=== PATIENT | male | born 1975 | race Caucasian/White ===

== ENCOUNTER 2024-02-13 23:41 | Observation (INO) | payer MEDICARE, MEDICAID, SELFPAY ==
--- NOTE | ~2024-02-13 | XR_ITS ---
EXAMINATION: XR chest 1V portable DATE: 02/14/2024 00:36 INDICATION: Cough TECHNIQUE: frontal view of the chest was obtained. COMPARISON: CT abdomen pelvis dated 02/14/2024 FINDINGS: Lungs are hyperexpanded consistent with mild emphysema which is better appreciated on the prior CT. N o focal airspace opacities, pulmonary edema, pleural effusion or pneumothorax. The cardiomediastinal silhouette is normal. IMPRESSION: 1. Emphysema. No other acute cardiopulmonary disease. Reviewed, dictated and finalized at location A. UNITY MUSIC THERAPIST
--- NOTE | ~2024-02-13 | CT_ITS ---
EXAMINATION: CT abdomen pelvis wo con DATE: 02/14/2024 00:36 INDICATION: Right flank pain TECHNIQUE: Computed tomography (CT) of the abdomen and pelvis was performed without intravenous contr ast. Automated exposure control and iterative reconstruction technique were employed. The dose-length product was 205.31 mGy-cm. COMPARISON: None FINDINGS: Moderate emphysema at the lung bases. Visualized inferior heart is normal. No pericardial or pleural effusion. Status post cholecystectomy. Liver, spleen, pancreas, bilateral adrenal glands and left kid desmond are normal. 9 mm cyst at the upper pole the right kidney. There is diffuse wall thickening of the plantar. Bowels including the appendix are normal. No free intraperitoneal gas or fluid. No patholog ically enlarged abdominal or pelvic lymphadenopathy. Severe disc height loss with degenerative endpla te changes at L3-L4. Densely sclerotic likely bone island was inflated margins at the L5 vertebral lida dy. IMPRESSION: 1. Diffuse bladder wall thickening suspicious for cystitis which could be either acute or chronic. Co rrelate with urinalysis. 2. Mild emphysema. Reviewed, dictated and finalized at location A. TECH IMPRESSION: 1. Diffuse bladder wall thickening suspicious for cystitis which could be eithe r acute or chronic. Correlate with urinalysis. 2. Mild emphysema.
[2024-02-13 23:41] VITALS: BP 113/83; PULSE 74; RESP 20; TEMP 36.9; O2SAT 98
[2024-02-13 23:46] VITALS: O2SAT 100
[2024-02-14] VITALS (24 sets, daily range): BP systolic 100–137; BP diastolic 51–99; PULSE 70–96; RESP 11–22; TEMP 36.6–36.7; O2SAT 96–100; BMI 19.5
--- NOTE | 2024-02-14 00:05 | ECG_ITS ---
Test Date: 2024-02-14 00:13:21 Measurements Intervals [place] Rate: 106 P: 61 [place]: 152 QRS: 70 QRSD: 92 T: 75 QT: 333 QTc: 444 Interpretive Statements SINUS TACHYCARDIA POSSIBLE LEFT ATRIAL ENLARGEMENT [-0.1mV P-WAVE IN V1/V2] POSSIBLE RIGHT VENTRICULAR CONDUCTION DELAY [RSR (QR) IN V1/V2] SEPTAL MYOCARDIAL INFARCTION , PROBABLY OLD [40+ ms Q WAVE IN V1/V2] ABNORMAL ECG No previous ECG available for comparison Electronically Signed On 02-14-2024 09:02:15 PRODUCTION TRAINER by Lc Wright M.D.
[2024-02-14 00:07] LABS: Basophils Absolute Auto 0.1 K/mm3 (0.0-0.1); Basophils Percent Auto 0.5 % (0.2-1.2); Eosinophils Percent Auto 0.1 % (0-4.4); Hematocrit 51.8 % (42.0-52.0); Hemoglobin 18.6 g/dL (14.0-18.0); Immature Granulocyte Absolute 0.04 K/mm3 (0.00-0.031); Immature Granulocyte Percent A 0.3 % (0-0.5); Lymphocytes Absolute Auto 2.21 K/mm3 (0.9-3.2); Mean Corpuscular HGB Conc 35.9 g/dl (32-36); Mean Corpuscular Hemoglobin 32.3 pg (26-34); Mean Corpuscular Volume 89.9 fl (80-100); Mean Platelet Volume 10.7 fl (7.4-10.4); Monocytes Percent Auto 7.8 % (2.6-8.5); Neutrophils Absolute Auto 9.7 K/mm3 (1.3-6.7); Neutrophils Percent Auto 74.3 % (45.5-73.1); Platelet Count Result 259 k/mm3 (150-375); Red Blood Count 5.76 M/mm3 (4.6-6.20)
[2024-02-14] MEDS: SODIUM CHLORIDE 0.9% IV 1,000 ML 999 ML IV CONT ×3 (00:09→04:45)
[2024-02-14] MEDS: PROCHLORPERAZINE EDISYLATE 10 MG/2 ML VIAL IV PUSH (00:10)
[2024-02-14] MEDS: MORPHINE SULFATE (*CRX) 4 MG/ML INJ IV PUSH (00:10)
[2024-02-14] MEDS: diphenhydrAMINE HCl INJ 50 MG/ML VIAL 25 MG IV PUSH (00:10)
[2024-02-14 00:36] LABS: Alanine Aminotransferase 16 U/L (6-50); Albumin Level 5.4 g/dL (3.5-5.1); Alkaline Phosphatase 126 U/L (38-126); Anion Gap 18 mmol/L (4-12); Aspartate Amino Transferase 24 U/L (17-59); Bilirubin,Total 0.8 mg/dL (0.2-1.3); Blood Urea Nitrogen 27 mg/dL (9-20); Carbon Dioxide 19 mmol/L (22-30); Chloride 96 mmol/L (98-107); Estimated CRCL calculation 18 ml/min; Estimated Glomerular Filt Rate 16; Glucose 187 mg/dL (65-110); Lipase 72 U/L (23-300); Magnesium 2.6 mg/dL (1.6-2.3); Potassium 4.7 mmol/L (3.4-5.0); Sodium 133 mmol/L (137-145)
[2024-02-14 00:49] LABS: Troponin I < 0.012 ng/mL (0.000-0.034)
--- NOTE | 2024-02-14 01:26 | ED_ITS ---
HPI - General Adult General Chief complaint: Unspecified Stated complaint: muscle spasms, vomiting Time Seen by Provider: 02/13/24 23:55 History of Present Illness HPI narrative: Patient is a 49-year-old gentleman who presents emergency department with chief complaint of nausea vomiting diaphoresis and not feeling well. 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 Nursing and ancillary documentation was reviewed. Exam 2 Narrative: GENERAL: Ill-appearing, well-nourished, and in mild acute distress. Diaphoretic HEAD: Normocephalic, atraumatic. EYES: PERRLA and EOMI. ENT: Nares clear, no rhinorrhea or epistaxis. Mucous membranes moist. NECK: Supple. CHEST: Clear to auscultation. No respiratory distress. HEART: Regular rate and rhythm. No murmur heard. Normal peripheral pulses. ABDOMEN: Soft, nontender, nondistended, normal active bowel sounds. EXTREMITIES: Normal range of motion. No edema. SKIN: Warm, dry, no rash. NEURO: No focal deficits. Alert and oriented x3. PSYCH: Normal mood and affect. Course Vital Signs Vital signs: Vital Signs Temperature 36.9 C 02/13/24 23:41 Pulse Rate 74 02/13/24 23:41 Respiratory Rate 20 02/13/24 23:41 Blood Pressure 113/83 02/13/24 23:41 Pulse Oximetry 98 02/13/24 23:41 Oxygen Delivery Room Air 02/13/24 23:41 Temperature 36.9 C 02/13/24 23:41 Pulse Rate 81 02/14/24 03:45 Respiratory Rate 21 H 02/14/24 03:45 Blood Pressure 128/74 02/14/24 03:31 Pulse Oximetry 100 02/14/24 03:45 Oxygen Delivery Room Air 02/13/24 23:41 Medical Decision Making Vital Signs Vital Signs: Vital Signs Temperature 36.9 C 02/13/24 23:41 Pulse Rate 74 02/13/24 23:41 Respiratory Rate 20 02/13/24 23:41 Blood Pressure 113/83 02/13/24 23:41 Pulse Oximetry 98 02/13/24 23:41 Oxygen Delivery Room Air 02/13/24 23:41 Temperature 36.9 C 02/13/24 23:41 Pulse Rate 81 02/14/24 03:45 Respiratory Rate 21 H 02/14/24 03:45 Blood Pressure 128/74 02/14/24 03:31 Pulse Oximetry 100 02/14/24 03:45 Oxygen Delivery Room Air 02/13/24 23:41 Lab Data 02/14/24 00:01 02/14/24 00:01 Labs: Lab Results 02/14/24 Range/Units 00:01 WBC 13.0 H (4.5-10.0) K/mm3 RBC 5.76 (4.6-6.20) M/mm3 Hgb 18.6 H (14.0-18.0) g/dL Hct 51.8 (42.0-52.0) % MCV 89.9 (80-100) fl MCH 32.3 (26-34) pg MCHC 35.9 (32-36) g/dl RDW 13.0 (11.5-14.5) % Plt Count 259 (150-375) k/mm3 MPV 10.7 H (7.4-10.4) fl Immature Gran % (Auto) 0.3 (0-0.5) % Neut % (Auto) 74.3 H (45.5-73.1) % Lymph % (Auto) 17.0 L (18.3-44.2) % [place] % (Auto) 7.8 (2.6-8.5) % Eos % (Auto) 0.1 (0-4.4) % Baso % (Auto) 0.5 (0.2-1.2) % Lymph # (Auto) 2.21 (0.9-3.2) K/mm3 [place] # (Auto) 1.0 H (0.1-0.6) K/mm3 Eos # (Auto) 0.0 (0-0.3) K/mm3 Baso # (Auto) 0.1 (0.0-0.1) K/mm3 Abs Immat Gran (auto) 0.04 H (0.00-0.031) K/mm3 Absolute Neuts (auto) 9.7 H (1.3-6.7) K/mm3 Absolute Nucleated RBC 0.000 (0.0-0.012) K/mm3 Nucleated RBC % 0.0 (0.0-0.2) % Sodium 133 L (137-145) mmol/L Potassium 4.7 (3.4-5.0) mmol/L Chloride 96 L (98-107) mmol/L Carbon Dioxide 19 L (22-30) mmol/L Anion Gap 18 H (4-12) mmol/L BUN 27 H (9-20) mg/dL Creatinine 4.10 H (0.7-1.3) mg/dL Estim Creat Clear Calc 18 ml/min Estimated GFR 16 L (59 - ) Glucose 187 H (65-110) mg/dL Calcium 11.0 H (8.4-10.2) mg/dL Magnesium 2.6 H (1.6-2.3) mg/dL Total Bilirubin 0.8 (0.2-1.3) mg/dL AST 24 (17-59) U/L ALT 16 (6-50) U/L Alkaline Phosphatase 126 (38-126) U/L Troponin I < 0.012 (0.000-0.034) ng/mL Total Protein 9.0 H (6.3-8.2) g/dL Albumin 5.4 H (3.5-5.1) g/dL Lipase 72 (23-300) U/L Discharge Plan Discharge Clinical Impression: Nausea and vomiting, Acute kidney injury Patient Disposition: Still a Patient Condition: Stable Patient Language: Polish Follow-up/Referrals: Zbigniew,MD Carmine [Primary Care Provider] - Time of Disposition: 05:17
[2024-02-14] MEDS: ONDANSETRON INJ 4 MG/2 ML VIAL IV PUSH (04:45)
[2024-02-14] MEDS: SODIUM CHLORIDE 0.9% IV 1,000 ML 150 ML IV CONT ×3 (05:51→18:39)
--- NOTE | 2024-02-14 08:25 | PM.IMHP ---
H&P: HPI History of Present Illness Date/Time: 02/14/24 08:25 Chief Complaint: Nausea vomiting Narrative: Patient is a 49-year-old gentleman who presents emergency department with chief complaint of nausea vomiting diaphoresis and not feeling well. 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 On emergency room evaluation vitals were stable. Laboratory evaluation revealed a WBC of 13. Hemoglobin of 18 point. Chem panel revealed creatinine of 4.1. Blood sugar of 187. Mild acidosis with bicarb of 19. Lipase was 72. Troponin was negative. Calcium was elevated at 11. Patient diagnosed with EDILBERTO unknown baseline creatinine level. Patient received IV fluids I will continue IV fluids and trend creatinine. Strict intake and outputs. Urine studies ordered. CT abdomen pelvis with diffuse bladder wall thickening suspicious for cystitis which could be either acute or chronic. Mild emphysema. Chest x-ray with emphysema with no acute cardiopulmonary disease. Patient is admitted in this setting for further treatment. Review of Systems Review of Systems: - CONSTITUTIONAL: Denies weight loss, fever and chills. - HEENT: Denies changes in vision and hearing - RESPIRATORY: Denies SOB and cough. - CV: Denies palpitations and CP. - GI: Reports abdominal pain, nausea, vomiting and denies diarrhea. - : Denies dysuria and urinary frequency. - MSK: Denies myalgia and joint pain. - SKIN: Denies rash and pruritus. - NEUROLOGICAL: Denies headache and syncope. - PSYCHIATRIC: Denies recent changes in mood. Denies anxiety and depression. Meds Home Medications and Allergies Home Medications ?Medication ?Instructions ?Recorded ?Confirmed ?Type aspirin 81 mg tablet,delayed mg 02/14/24 History release atorvastatin 20 mg tablet mg 02/14/24 History carvedilol 3.125 mg tablet mg 02/14/24 History cholecalciferol (vitamin D3) 50 50 mcg PO DAILY 02/14/24 02/14/24 History mcg (2,000 unit) tablet (D3 DOTS) divalproex 500 mg tablet,delayed mg PO 02/14/24 History release hydroxyzine pamoate 25 mg capsule mg 02/14/24 History losartan 25 mg tablet 25 mg PO .1 QD 02/14/24 02/14/24 History olanzapine 10 mg tablet mg 02/14/24 History Allergies Allergy/AdvReac Type Severity Reaction Status Date / Time No Known Allergies Allergy Verified 02/13/24 23:47 Vital Signs Vital Signs - 24 hr 02/13/24 23:41 02/13/24 23:46 02/14/24 00:00 Temperature 98.5 F Pulse Rate 74 Respiratory Rate 20 Blood Pressure 113/83 Pulse Oximetry 98 100 97 Oxygen Delivery Room Air 02/14/24 00:01 02/14/24 01:59 02/14/24 02:16 Temperature Pulse Rate 79 80 Respiratory Rate 20 20 Blood Pressure 136/99 H Pulse Oximetry 99 99 98 Oxygen Delivery 02/14/24 02:30 02/14/24 02:59 02/14/24 03:17 Temperature Pulse Rate 83 Respiratory Rate 11 L Blood Pressure Pulse Oximetry 100 99 96 Oxygen Delivery 02/14/24 03:30 02/14/24 03:31 02/14/24 03:45 Temperature Pulse Rate 75 79 81 Respiratory Rate 19 21 H 21 H Blood Pressure 128/74 Pulse Oximetry 100 100 100 Oxygen Delivery 02/14/24 04:00 02/14/24 04:01 02/14/24 04:15 Temperature Pulse Rate 85 80 81 Respiratory Rate 22 H 20 21 H Blood Pressure 129/76 Pulse Oximetry 100 100 98 Oxygen Delivery 02/14/24 04:31 02/14/24 04:45 02/14/24 05:00 Temperature Pulse Rate 95 73 81 Respiratory Rate 18 20 16 Blood Pressure Pulse Oximetry 98 100 99 Oxygen Delivery 02/14/24 05:01 Temperature Pulse Rate 81 Respiratory Rate 22 H Blood Pressure 137/79 Pulse Oximetry 100 Oxygen Delivery Exam Narrative: GENERAL: Ill-appearing, well-nourished, in no acute distress HEAD: Normocephalic, atraumatic. EYES: PERRLA and EOMI. ENT: Nares clear, no rhinorrhea or epistaxis. Mucous membranes moist. NECK: Supple. CHEST: Clear to auscultation. No respiratory distress. HEART: Regular rate and rhythm. No murmur heard. Normal peripheral pulses. ABDOMEN: Soft, nontender, nondistended, normal active bowel sounds. EXTREMITIES: Normal range of motion. No edema. SKIN: Warm, dry, no rash. NEURO: No focal deficits. Alert and oriented x3. PSYCH: Normal mood and affect. H&P: Results Labs Labs: Short CBC 02/14/24 Range/Units 00:01 WBC 13.0 H (4.5-10.0) K/mm3 Hgb 18.6 H (14.0-18.0) g/dL Hct 51.8 (42.0-52.0) % Plt Count 259 (150-375) k/mm3 BMP 02/14/24 00:01 Sodium 133 L Potassium 4.7 Chloride 96 L Carbon Dioxide 19 L BUN 27 H Creatinine 4.10 H Glucose 187 H Calcium 11.0 H Cardiac Enzymes 02/14/24 Range/Units 00:01 Troponin I < 0.012 (0.000-0.034) ng/mL Liver Function 02/14/24 Range/Units 00:01 Total Bilirubin 0.8 (0.2-1.3) mg/dL AST 24 (17-59) U/L ALT 16 (6-50) U/L Alkaline Phosphatase 126 (38-126) U/L Albumin 5.4 H (3.5-5.1) g/dL Assessment and Plan Assessment and plan (1) Acute kidney injury: Code(s): N17.9 - Acute kidney failure, unspecified Status: Acute (2) Nausea and vomiting: Code(s): R11.2 - Nausea with vomiting, unspecified Status: Acute Plan Patient is a 49-year-old gentleman who presents emergency department with chief complaint of nausea vomiting diaphoresis and not feeling well. 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 On emergency room evaluation vitals were stable. Laboratory evaluation revealed a WBC of 13. Hemoglobin of 18 point. Chem panel revealed creatinine of 4.1. Blood sugar of 187. Mild acidosis with bicarb of 19. Lipase was 72. Troponin was negative. Calcium was elevated at 11. Patient diagnosed with EDILBERTO unknown baseline creatinine level. Patient received IV fluids I will continue IV fluids and trend creatinine. Strict intake and outputs. Urine studies ordered. CT abdomen pelvis with diffuse bladder wall thickening suspicious for cystitis which could be either acute or chronic. Mild emphysema. Chest x-ray with emphysema with no acute cardiopulmonary disease. Patient is admitted in this setting for further treatment. EDILBERTO unknown baseline creatinine of 4.1 strict intake and output. Urinalysis. No hydronephrosis on CT abdomen pelvis. Urinalysis negative for infection. Findings of diffuse bladder wall thickening with negative UA suspicious for chronic bladder wall in obstruction. Hypercalcemia along with EDILBERTO suggestive of severe dehydration will continue IV fluid and trend renal panel. Check CK level Nephrology consult if not improving Hypertension hold losartan Hyperlipidemia History of psychiatric illness on Depakote and olanzapine which will be continued. DVT prophylaxis heparin subQ Code status full code Hospitalist [facility] Advance Care Plan I have confirmed that the patient's Advanced Care Plan is present, code status is documented, or surrogate decision maker is listed in patient medical record.: Yes Medication Reconciliation I have utilized all available resources to obtain, update and review the patients current medications (includes all prescriptions, OTC, herbals, cannabis, and nutritional supplements).: Yes
[2024-02-14 08:53] LABS: Bacteria Urine None Seen /hpf; Non Pathogenic Casts 0-2; RBC Urine 0-2 /hpf (0-2); Squamous Epithelial Cell Urine None Seen /hpf (Few); WBC Urine 0-5 /hpf (0-3)
[2024-02-14 09:37] LABS: Add Urine Microscopic? YES; Appearance Urine Clear (Clear); Bilirubin Urine Negative (Negative); Blood Urine Negative (Negative); Color Urine Yellow (Yellow); Glucose Urine UA Negative (Negative); Ketones Urine 2+ mg/dL (Negative); Leukocyte Esterase Ur Negative LEU/UL (Negative); Nitrate Urine Negative (Negative); Protein Urine Trace mg/dL (Negative); pH Urine 5.5 (5.0-9.0)
[2024-02-14 11:44] LABS: Creatinine Urine 306.2 mg/dL; Sodium Urine Random 10 meq/L; Urea Random Urine 418 MG/DL
[2024-02-14 11:51] LABS: Creatine Kinase 119 U/L (55-170)
[2024-02-14 13:02] LABS: Eosinophil Urine None Seen % (None Seen)
[2024-02-14 13:03] LABS: Urine Eos QC 2nd Tech Confirmed
[2024-02-14 13:05] LABS: Basophils Percent Auto 0.1 % (0.2-1.2); Hematocrit 40.8 % (42.0-52.0); Immature Granulocyte Absolute 0.02 K/mm3 (0.00-0.031); Immature Granulocyte Percent A 0.2 % (0-0.5); Lymphocytes Percent Auto 20.4 % (18.3-44.2); Mean Corpuscular HGB Conc 34.3 g/dl (32-36); Mean Corpuscular Hemoglobin 31.8 pg (26-34); Mean Corpuscular Volume 92.7 fl (80-100); Mean Platelet Volume 10.4 fl (7.4-10.4); Monocytes Absolute Auto 1.1 K/mm3 (0.1-0.6); Monocytes Percent Auto 12.1 % (2.6-8.5); Neutrophils Absolute Auto 5.9 K/mm3 (1.3-6.7); Neutrophils Percent Auto 67.2 % (45.5-73.1); Platelet Count Result 187 k/mm3 (150-375); Red Cell Distribution Width 13.1 % (11.5-14.5); White Blood Count 8.8 K/mm3 (4.5-10.0)
[2024-02-14 13:14] LABS: Anion Gap 4 mmol/L (4-12); Blood Urea Nitrogen 26 mg/dL (9-20); Calcium 8.2 mg/dL (8.4-10.2); Carbon Dioxide 26 mmol/L (22-30); Chloride 106 mmol/L (98-107); Estimated CRCL calculation 56 ml/min; Estimated Glomerular Filt Rate 59; Glucose 125 mg/dL (65-110); Potassium 4.7 mmol/L (3.4-5.0); Sodium 136 mmol/L (137-145)
--- NOTE | 2024-02-14 13:29 | PCCCNOTE ---
1329-Called the pt's mom to report the pt's change of status. Pt's nurse reported the pt's HR and blood pressure dropping, decreased level of alertness. Mom stated this has happened before and was transferred to [facility] last year. ED provider was made aware, updated the mother on his status as well. Also stated she will send family to the hospital to be at his side.-yee.
--- NOTE | 2024-02-14 14:31 | ADMGEN ---
This patient, Gianni Hsu, was admitted to Medical Room 261-01. Patient/family oriented to hospital policies and general routines including ID bracelet, bed and alarms, visiting hours, pain management, procedures, bathroom and other care routines, personal items, smoking policy, room service/diet, and visiting hours. Information on how to activate the Rapid Response Team has been discussed. Patient/Family are encouraged to report perceived risks to care and to ask questions if they do not understand what they are told or what they should do.
[2024-02-14] MEDS: ATORVASTATIN 20 MG TABLET PO (18:36)
[2024-02-14] MEDS: DIVALPROEX SODIUM DR 250 MG TABEC 500 MG PO (18:36)
[2024-02-14] MEDS: carvediloL 3.125 MG TABLET PO (21:00)
[2024-02-15] MEDS: SODIUM CHLORIDE 0.9% IV 1,000 ML 150 ML IV CONT ×2 (01:02→08:55)
[2024-02-15 06:00] VITALS: BP 100/53; PULSE 97; RESP 16; TEMP 36.8; O2SAT 97
[2024-02-15 08:37] LABS: Basophils Percent Auto 0.6 % (0.2-1.2); Hematocrit 38.4 % (42.0-52.0); Immature Granulocyte Absolute 0.01 K/mm3 (0.00-0.031); Immature Granulocyte Percent A 0.2 % (0-0.5); Immature Platelet Fraction Pct 3.2 % (0.9-11.2); Lymphocytes Absolute Auto 0.84 K/mm3 (0.9-3.2); Mean Corpuscular HGB Conc 33.9 g/dl (32-36); Mean Corpuscular Volume 94.6 fl (80-100); Mean Platelet Volume 10.6 fl (7.4-10.4); Monocytes Absolute Auto 0.4 K/mm3 (0.1-0.6); Monocytes Percent Auto 8.2 % (2.6-8.5); Neutrophils Absolute Auto 3.9 K/mm3 (1.3-6.7); Platelet Count Result 136 k/mm3 (150-375); Red Blood Count 4.06 M/mm3 (4.6-6.20); Red Cell Distribution Width 13.2 % (11.5-14.5); White Blood Count 5.2 K/mm3 (4.5-10.0)
[2024-02-15] MEDS: DIVALPROEX SODIUM DR 250 MG TABEC 500 MG PO ×2 (08:55→18:29)
[2024-02-15 08:56] VITALS: PULSE 68
[2024-02-15] MEDS: ASPIRIN 81 MG ENTERIC TABLET PO (08:56)
[2024-02-15] MEDS: CHOLECALCIFEROL 1,000 UNITS TABLET 2000 UNITS PO (08:56)
[2024-02-15] MEDS: carvediloL 3.125 MG TABLET PO ×2 (08:56→20:31)
[2024-02-15 08:57] LABS: Alanine Aminotransferase 9 U/L (6-50); Albumin Level 2.9 g/dL (3.5-5.1); Alkaline Phosphatase 60 U/L (38-126); Anion Gap 0 mmol/L (4-12); Aspartate Amino Transferase 16 U/L (17-59); Bilirubin,Total 0.5 mg/dL (0.2-1.3); Blood Urea Nitrogen 23 mg/dL (9-20); Calcium 7.9 mg/dL (8.4-10.2); Carbon Dioxide 23 mmol/L (22-30); Chloride 113 mmol/L (98-107); Estimated CRCL calculation 88 ml/min; Estimated Glomerular Filt Rate > 60; Glucose 89 mg/dL (65-110); Magnesium 1.8 mg/dL (1.6-2.3); Potassium 3.8 mmol/L (3.4-5.0); Sodium 136 mmol/L (137-145)
[2024-02-15 09:00] VITALS: PULSE 63; RESP 16; O2SAT 99
--- NOTE | 2024-02-15 12:14 | P.PNIM_ITS ---
Progress Note: A&P Assessment and Plan (1) Acute kidney injury: Code(s): N17.9 - Acute kidney failure, unspecified Status: Acute (2) Nausea and vomiting: Code(s): R11.2 - Nausea with vomiting, unspecified Status: Acute Plan Patient is a 49-year-old gentleman who presents emergency department with chief complaint of nausea vomiting diaphoresis and not feeling well. The patient reports that he has history renal insufficiency and reports that he is followed by telecommunications administrator a [place] patient reports that he started having nausea vomiting has not felt well and reports that EMS transported him to our facility. On emergency room evaluation vitals were stable. Laboratory evaluation revealed a WBC of 13. Hemoglobin of 18 point. Chem panel revealed creatinine of 4.1. Blood sugar of 187. Mild acidosis with bicarb of 19. Lipase was 72. Troponin was negative. Calcium was elevated at 11. Patient diagnosed with EDILBERTO unknown baseline creatinine level. Patient received IV fluids I will continue IV fluids and trend creatinine. Strict intake and outputs. Urine studies ordered. CT abdomen pelvis with diffuse bladder wall thickening suspicious for cystitis which could be either acute or chronic. Mild emphysema. Chest x-ray with emphysema with no acute cardiopulmonary disease. Patient is admitted in this setting for further treatment. EDILBERTO unknown baseline creatinine of 4.1 strict intake and output. Urinalysis. No hydronephrosis on CT abdomen pelvis. Urinalysis negative for infection. Findings of diffuse bladder wall thickening with negative UA suspicious for chronic bladder wall in obstruction. IV fluid with normalization of kidney function today. Hypercalcemia along with EDILBERTO suggestive of severe dehydration will continue IV fluid and trend renal panel. CK came back normal Nausea vomiting: CT negative. Start diet and monitor Diarrhea get stool studies Hypertension hold losartan Hyperlipidemia History of psychiatric illness on Depakote and olanzapine which will be continued. DVT prophylaxis heparin subQ Code status full code Subjective Date/time seen: 02/15/24 12:14 Interval history: No overnight events. No nausea vomiting. Having some loose stool x2 this a.m. Review of Systems Review of Systems: All systems reviewed & are unremarkable except as noted in HPI and below Exam Narrative: GENERAL: Well-appearing, well-nourished, in no acute distress HEAD: Normocephalic, atraumatic. EYES: PERRLA and EOMI. ENT: Nares clear, no rhinorrhea or epistaxis. Mucous membranes moist. NECK: Supple. CHEST: Clear to auscultation. No respiratory distress. HEART: Regular rate and rhythm. No murmur heard. Normal peripheral pulses. ABDOMEN: Soft, nontender, nondistended, normal active bowel sounds. EXTREMITIES: Normal range of motion. No edema. SKIN: Warm, dry, no rash. NEURO: No focal deficits. Alert and oriented x3. PSYCH: Normal mood and affect. Objective Data Vital Signs Vital Signs: Vital Signs - 24 hr 02/14/24 12:46 02/14/24 13:30 02/14/24 20:19 Temperature 98.1 F Pulse Rate 81 83 70 Respiratory Rate 18 19 18 Blood Pressure 115/70 100/60 Pulse Oximetry 98 99 98 Oxygen Delivery 02/14/24 21:00 02/14/24 21:00 02/14/24 23:05 Temperature 98.1 F Pulse Rate 80 75 Respiratory Rate 16 Blood Pressure 102/51 L Pulse Oximetry 99 Oxygen Delivery Room Air 02/15/24 06:00 02/15/24 08:56 Temperature 98.2 F Pulse Rate 97 68 Respiratory Rate 16 Blood Pressure 100/53 L Pulse Oximetry 97 Oxygen Delivery Intake/Output Intake/Output: Intake & Output 02/12/24 02/13/24 02/14/24 02/15/24 23:59 23:59 23:59 23:59 Intake Total 4920.0 2007.5 Output Total 250 Balance 4920.0 1757.5 Meds/Results Medications: Active Medications Generic Name Dose Route Start Last Admin Trade Name Freq PRN Reason Stop Dose Admin Acetaminophen 650 mg 02/14/24 05:14 Acetaminophen 325 Mg Tablet PO Q4H PRN Mild Pain (1-3) or Fever Aspirin 81 mg 02/15/24 08:00 02/15/24 08:56 Aspirin 81 Mg Enteric Tablet PO 81 mg DAILY@0800 MELANI Administration Atorvastatin Calcium 20 mg 02/14/24 18:00 02/14/24 18:36 Atorvastatin 20 Mg Tablet PO 20 mg QPM MELANI Administration Carvedilol 3.125 mg 02/14/24 21:00 02/15/24 08:56 Carvedilol 3.125 Mg Tablet PO 3.125 mg Q12H MELANI Administration Divalproex Sodium 500 mg 02/14/24 17:45 02/15/24 08:[address] 250 Mg Tabec PO 500 mg BID MELANI Administration Hydroxyzine Pamoate 25 mg 02/14/24 17:37 Hydroxyzine Pamoate 25 Mg Capsule PO HS PRN anxiety Hydroxyzine Pamoate 50 mg 02/14/24 17:45 Hydroxyzine Pamoate 25 Mg Capsule PO DAILY PRN anxiety Sodium Chloride 1,000 mls @ 150 mls/hr 02/14/24 05:15 02/15/24 08:55 Normal Saline Iv IV CONT 150 mls/hr .Q6H40M MELANI Administration Losartan Potassium 12.5 mg 02/15/24 08:00 02/15/24 08:58 Losartan Potassium 12.5 Mg Tablet PO Not Given DAILY@0800 [facility] Miscellaneous Information 1 each 02/15/24 00:01 Olanzapine/Zofran--Duplicate Prn Indications XX 03/16/24 00:00 CLARIFY [facility] Olanzapine 10 mg 02/14/24 17:37 Olanzapine 5 Mg Tablet PO BID PRN nausea and vomiting Ondansetron HCl 4 mg 02/14/24 05:14 Ondansetron Inj 4 Mg/2 Ml Vial IV PUSH Q4H PRN Nausea Vitamin D 2,000 units 02/15/24 09:00 02/15/24 08:56 Cholecalciferol 1,000 Units Tablet PO 2,000 units DAILY MELANI Administration Radiology Results: ITS Impressions Chest X-Ray 02/14/24 07:34 IMPRESSION: 1. Emphysema. No other acute cardiopulmonary disease. Abdomen/Pelvis CT 02/14/24 08:29 IMPRESSION: 1. Diffuse bladder wall thickening suspicious for cystitis which could be either acute or chronic. Correlate with urinalysis. 2. Mild emphysema. Labs Labs: Laboratory Results - last 24 hr 02/14/24 02/14/24 02/15/24 12:40 13:00 08:22 WBC 8.8 5.2 RBC 4.40 L 4.06 L Hgb 14.0 D 13.0 L Hct 40.8 L 38.4 L MCV 92.7 94.6 MCH 31.8 32.0 MCHC 34.3 33.9 RDW 13.1 13.2 Plt Count 187 136 L MPV 10.4 10.6 H Immature Gran % (Auto) 0.2 0.2 Neut % (Auto) 67.2 75.0 H Lymph % (Auto) 20.4 16.0 L Garrett % (Auto) 12.1 H 8.2 Eos % (Auto) 0.0 0.0 Baso % (Auto) 0.1 L 0.6 Lymph # (Auto) 1.80 0.84 L Garrett # (Auto) 1.1 H 0.4 Eos # (Auto) 0.0 0.0 Baso # (Auto) 0.0 0.0 Abs Immat Gran (auto) 0.02 0.01 Absolute Neuts (auto) 5.9 3.9 Absolute Nucleated RBC 0.000 0.000 Nucleated RBC % 0.0 0.0 % Immature Plt Fraction 3.2 Sodium 136 L 136 L Potassium 4.7 3.8 Chloride 106 113 H Carbon Dioxide 26 23 Anion Gap 4 0 L BUN 26 H 23 H Creatinine 1.30 0.80 Estim Creat Clear Calc 56 88 Estimated GFR 59 > 60 Glucose 125 H 89 Calcium 8.2 L 7.9 L Magnesium 1.8 Total Bilirubin 0.5 AST 16 L ALT 9 Alkaline Phosphatase 60 Total Protein 5.0 L Albumin 2.9 L Urine Eosinophils None seen
[2024-02-15 13:54] VITALS: BP 98/58; PULSE 63; RESP 16; TEMP 36.3; O2SAT 99
[2024-02-15] MEDS: ATORVASTATIN 20 MG TABLET PO (18:29)
[2024-02-15 20:27] LABS: Toxigenic C. Diff POSITIVE (NEGATIVE)
[2024-02-15 20:31] VITALS: PULSE 63
[2024-02-15 20:56] VITALS: BP 105/60; PULSE 66; RESP 16; TEMP 37.2; O2SAT 97
[2024-02-15] MEDS: VANCOMYCIN HCL 125 MG ORAL CAPSULE PO (23:10)
[2024-02-16] MEDS: VANCOMYCIN HCL 125 MG ORAL CAPSULE PO ×2 (05:52→11:17)
[2024-02-16 06:00] VITALS: BP 112/65; PULSE 60; RESP 16; TEMP 36.9; O2SAT 94
[2024-02-16 06:18] LABS: Basophils Percent Auto 0.5 % (0.2-1.2); Eosinophils Percent Auto 0.7 % (0-4.4); Immature Granulocyte Absolute 0.01 K/mm3 (0.00-0.031); Immature Granulocyte Percent A 0.2 % (0-0.5); Immature Platelet Fraction Pct 3.9 % (0.9-11.2); Lymphocytes Absolute Auto 1.91 K/mm3 (0.9-3.2); Lymphocytes Percent Auto 34.2 % (18.3-44.2); Mean Corpuscular HGB Conc 34.2 g/dl (32-36); Mean Corpuscular Volume 93.6 fl (80-100); Mean Platelet Volume 10.7 fl (7.4-10.4); Monocytes Absolute Auto 0.9 K/mm3 (0.1-0.6); Monocytes Percent Auto 15.7 % (2.6-8.5); Neutrophils Absolute Auto 2.7 K/mm3 (1.3-6.7); Neutrophils Percent Auto 48.7 % (45.5-73.1); Platelet Count Result 135 k/mm3 (150-375); Red Blood Count 4.06 M/mm3 (4.6-6.20); Red Cell Distribution Width 12.9 % (11.5-14.5); White Blood Count 5.6 K/mm3 (4.5-10.0)
[2024-02-16 06:31] LABS: Anion Gap 0 mmol/L (4-12); Blood Urea Nitrogen 15 mg/dL (9-20); Calcium 8.1 mg/dL (8.4-10.2); Carbon Dioxide 25 mmol/L (22-30); Chloride 110 mmol/L (98-107); Estimated CRCL calculation 100 ml/min; Estimated Glomerular Filt Rate > 60; Glucose 90 mg/dL (65-110); Magnesium 1.8 mg/dL (1.6-2.3); Potassium 3.6 mmol/L (3.4-5.0); Sodium 135 mmol/L (137-145)
[2024-02-16] MEDS: CHOLECALCIFEROL 1,000 UNITS TABLET 2000 UNITS PO (08:26)
[2024-02-16 08:27] VITALS: PULSE 64
[2024-02-16] MEDS: carvediloL 3.125 MG TABLET PO (08:27)
[2024-02-16] MEDS: ASPIRIN 81 MG ENTERIC TABLET PO (08:27)
[2024-02-16] MEDS: DIVALPROEX SODIUM DR 250 MG TABEC 500 MG PO (08:27)
--- NOTE | 2024-02-16 10:51 | PM.DS ---
DS: Admitting Diagnosis Discharge Date 02/16/2024 Admitting Diagnosis Nausea vomiting DS: Discharge Diagnosis Discharge Diagnosis (1) Acute kidney injury: Code(s): N17.9 - Acute kidney failure, unspecified Status: Acute (2) Nausea and vomiting: Code(s): R11.2 - Nausea with vomiting, unspecified Status: Acute DS: Summary Hospital Course Hospital Course: Patient is a 49-year-old gentleman who presents emergency department with chief complaint of nausea vomiting diaphoresis and not feeling well. 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 On emergency room evaluation vitals were stable. Laboratory evaluation revealed a WBC of 13. Hemoglobin of 18 point. Chem panel revealed creatinine of 4.1. Blood sugar of 187. Mild acidosis with bicarb of 19. Lipase was 72. Troponin was negative. Calcium was elevated at 11. Patient diagnosed with EDILBERTO unknown baseline creatinine level. Patient received IV fluids I will continue IV fluids and trend creatinine. Strict intake and outputs. Urine studies ordered and reviewed. CT abdomen pelvis with diffuse bladder wall thickening suspicious for cystitis which could be either acute or chronic. Mild emphysema. Chest x-ray with emphysema with no acute cardiopulmonary disease. Patient is admitted in this setting for further treatment. EDILBERTO unknown baseline creatinine of 4.1 strict intake and output. Urinalysis. No hydronephrosis on CT abdomen pelvis. Urinalysis negative for infection. Findings of diffuse bladder wall thickening with negative UA suspicious for chronic bladder wall in obstruction. IV fluid with normalization of kidney function and remained stable Hypercalcemia along with EDILBERTO suggestive of severe dehydration will continue IV fluid and trend renal panel. This has resolved CK came back normal Nausea vomiting: CT negative. Start diet and and tolerated Diarrhea C diff came back positive. Started on vancomycin oral which he will continue. Stool already improving. Hypertension hold losartan Hyperlipidemia History of psychiatric illness on Depakote and olanzapine which will be continued. DVT prophylaxis heparin subQ Code status full code Time Spent with Patient Time attestation: Total time spent providing and/or coordinating discharge services: 40 minutes Exam Narrative: GENERAL: Well-appearing, well-nourished, in no acute distress HEAD: Normocephalic, atraumatic. EYES: PERRLA and EOMI. ENT: Nares clear, no rhinorrhea or epistaxis. Mucous membranes moist. NECK: Supple. CHEST: Clear to auscultation. No respiratory distress. HEART: Regular rate and rhythm. No murmur heard. Normal peripheral pulses. ABDOMEN: Soft, nontender, nondistended, normal active bowel sounds. EXTREMITIES: Normal range of motion. No edema. SKIN: Warm, dry, no rash. NEURO: No focal deficits. Alert and oriented x3. PSYCH: Normal mood and affect. DS: Data Data Completed and Pending Labs on day of discharge: Labs from last 24 hours 02/16/24 02/15/24 05:32 17:26 WBC 5.6 RBC 4.06 L Hgb 13.0 L Hct 38.0 L MCV 93.6 MCH 32.0 MCHC 34.2 RDW 12.9 Plt Count 135 L MPV 10.7 H Immature Gran % (Auto) 0.2 Neut % (Auto) 48.7 Lymph % (Auto) 34.2 [place] % (Auto) 15.7 H Eos % (Auto) 0.7 Baso % (Auto) 0.5 Lymph # (Auto) 1.91 [place] # (Auto) 0.9 H Eos # (Auto) 0.0 Baso # (Auto) 0.0 Abs Immat Gran (auto) 0.01 Absolute Neuts (auto) 2.7 Absolute Nucleated RBC 0.000 Nucleated RBC % 0.0 % Immature Plt Fraction 3.9 Sodium 135 L Potassium 3.6 Chloride 110 H Carbon Dioxide 25 Anion Gap 0 L BUN 15 D Creatinine 0.70 Estim Creat Clear Calc 100 Estimated GFR > 60 Glucose 90 Calcium 8.1 L Magnesium 1.8 Stool Calprotectin Pending C. difficile (PCR) Positive A* Imaging Radiologist's impression: ITS Impressions Chest X-Ray 02/14/24 07:34 IMPRESSION: 1. Emphysema. No other acute cardiopulmonary disease. Abdomen/Pelvis CT 02/14/24 08:29 IMPRESSION: 1. Diffuse bladder wall thickening suspicious for cystitis which could be either acute or chronic. Correlate with urinalysis. 2. Mild emphysema. Discharge Plan Discharge Attending physician on discharge: Og Bloom Discharging Clinician: Og Bloom Anticipated Discharge Date/Time: 02/16/24 10:53 Patient Disposition: Home, Self-Care Activity: as tolerated Diet: regular Patient Instructions: Antibiotic Form, Heart Failure (DC), Pain Management (DC) Patient Language: Yakut Stand Alone Forms: General Discharge Information Follow-up/Referrals: Bre,MD Carmine [Primary Care Provider] - 1 Week Discharge Medications: New vancomycin 125 mg Capsule 125 mg PO Q6HR 10 Days Qty: 38 0RF Continued divalproex 500 mg tablet,delayed release (DR/EC) 500 mg PO BID atorvastatin 20 mg tablet 20 mg PO QPM aspirin 81 mg tablet,delayed release (DR/EC) 81 mg PO DAILY@0800 olanzapine 10 mg tablet 10 mg PO BID PRN (Reason: nausea and vomiting) carvedilol 3.125 mg tablet 3.125 mg PO Q12H hydroxyzine pamoate 25 mg capsule 25 mg PO HS PRN (Reason: anxiety) cholecalciferol (vitamin D3) [D3 DOTS] 50 mcg (2,000 unit) tablet 50 mcg PO DAILY hydroxyzine pamoate 50 mg capsule 50 mg PO DAILY PRN (Reason: anxiety) Patient Comments: per patient, he takes one 50 mg during the day and 25 at bedtime prn Discontinued losartan 25 mg tablet 12.5 mg PO DAILY@0800 Date of admission: 02/14/24 05:14 Primary Care Provider: BreCarmine Admitting Provider: Nik Begum V. Attending physician on admission: Nik Begum V. Condition: Stable
== END 2024-02-16 11:35 | disposition home or self-care (01) ==
LOC: ANHED 02-14 05:17 → ANH2MED 02-14 21:51 → ANHIMU 02-16 13:53
PROVIDERS: Admitting Provider Internal Medicine; Emergency Provider Emergency Medicine; PCP Internal Medicine; Visit Provider Internal Medicine
DX: N17.9 Acute kidney failure, unspecified (principal); A04.72 Enterocolitis due to Clostridium difficile, not specified as recurrent; E83.52 Hypercalcemia; J43.9 Emphysema, unspecified; I10 Essential (primary) hypertension; N28.9 Disorder of kidney and ureter, unspecified; E78.5 Hyperlipidemia, unspecified; F99 Mental disorder, not otherwise specified; Z79.82 Long term (current) use of aspirin; Z79.899 Other long term (current) drug therapy
CPT/HCPCS: 36415; 71045; 74176; 80048; 80053; 81001; 82550; 82570; 83690; 83735; 83993; 84300; 84484; 84540; 85025; 85055; 85999; 87045; 87427; 87449; 87493; 89055; 93005; 96361; 96374; 96375; 99285; A9270; G0378; J0780; J1200; J2270; J2405; J7030

== ENCOUNTER 2024-04-25 05:28 | Inpatient (IN) | payer MEDICARE, MEDICAID, SELFPAY ==
[2024-04-25] VITALS (7 sets, daily range): BP systolic 92–154; BP diastolic 75–82; PULSE 74–118; RESP 14–20; TEMP 36.3–37.3; O2SAT 96–99; BMI 17.6
--- NOTE | ~2024-04-25 | US_ITS ---
Renal-Bladder ultrasound Clinical History: Acute renal insufficiency Technique: Real-time sonographic imaging of the kidneys and urinary bladder was performed. Findings: The right kidney measures 11.0 cm in length and the left kidney measures 12.6 cm. There is no hydronephrosis. Possible 5 mm nonobstructing left renal stone. Renal cortical echogenicity is with in normal limits. No renal mass lesion is identified. The urinary bladder is moderately distended at the time of this exam. No intraluminal echoes are iden tified. No abnormal wall thickening is seen. Impression: Possible 5 mm nonobstructing left renal stone. Reviewed, dictated and finalized at location M. Impression: Possible 5 mm nonobstructing left renal stone.
--- NOTE | ~2024-04-25 | XR_ITS ---
EXAMINATION: XR chest 1V portable DATE: 04/25/2024 09:39 INDICATION: Cough. TECHNIQUE: A single frontal view of the chest was obtained on 2 radiographs. COMPARISON: Chest single view 02/14/2024, CT abdomen and pelvis 04/25/2024 FINDINGS: The lungs are hyperexpanded with lucencies and interstitial opacities, consistent with emph ysema. No pleural effusion or pneumothorax. The heart size is normal. IMPRESSION: 1. Emphysema. Reviewed, dictated and finalized at location B. IMPRESSION: 1. Emphysema.
--- NOTE | ~2024-04-25 | CT_ITS ---
Non-contrast CT scan of the Abdomen and Pelvis Clinical indication: Abdominal pain Technique: 2.5 mm axial scans were obtained through the abdomen and pelvis without intravenous or or al contrast. Dose reduction technique was used on this scan by utilizing automated exposure control a nd iterative reconstruction technique. The dose-length product (DLP) was 173.61 mGy-cm. COMPARISON: 02/14/2024 Findings: Images through the lung bases reveal no abnormalities. There is no evidence of renal or ureteral calculi. The kidneys and the ureters are nondilated. The liver, spleen, pancreas, and adrenals appear normal. Gallbladder absent. There is no aortic aneur ysm. There is no evidence of bowel obstruction. Images through the pelvis were performed. There is no evidence of ascites or lymphadenopathy. Questio nable wall thickening versus underdistention. No pelvic mass seen. Impression: Question of cystitis versus underdistended urinary bladder. Correlate with urinalysis. Reviewed, dictated and finalized at [facility]. Impression: Question of cystitis versus underdistended urinary bladder. Correlate with urin alysis.
--- NOTE | 2024-04-25 05:42 | ED_ITS ---
HPI - Nausea/Vomiting/Diarrhea General Chief complaint: Nausea/Vomiting/Diarrhea <Krystal Oneil MD - Last Filed: 04/25/24 06:57> Stated complaint: N/V SINCE 1800 <Krystal Oneil MD - Last Filed: 04/25/24 06:57> Time Seen by Provider: 04/25/24 05:34 <Krystal Oneil MD - Last Filed: 04/25/24 06:57> History of Present Illness HPI Narrative: Since last night, patient started having multiple episodes of nausea, vomiting, diarrhea. Also having some abdominal pain, mostly on the epigastric, right lower quadrant, and lower abdomen. He does have a history of kidney disease as well as C diff that was treated; denies any sick contacts <Krystal Oneil MD - Last Filed: 04/25/24 06:57> Related Data Home medications: Home Medications ?Medication ?Instructions ?Recorded ?Confirmed ?Last Taken ?Type aspirin 81 mg tablet,delayed 81 mg PO DAILY@0800 02/14/24 04/25/24 Unknown History release atorvastatin 20 mg tablet 20 mg PO DAILY 02/14/24 04/25/24 Unknown History carvedilol 3.125 mg tablet 3.125 mg PO Q12H 02/14/24 04/25/24 Unknown History divalproex 500 mg tablet,delayed 500 mg PO BID 02/14/24 04/25/24 Unknown History release hydroxyzine pamoate 25 mg capsule 25 mg PO HS PRN anxiety 02/14/24 04/25/24 Unknown History olanzapine 10 mg tablet 10 mg PO HS 02/14/24 04/25/24 Unknown History benztropine 0.5 mg tablet 0.5 mg PO HS 04/25/24 04/25/24 Unknown History losartan 25 mg tablet 25 mg PO DAILY 04/25/24 04/25/24 Unknown History olanzapine 5 mg tablet 5 mg PO 0900 04/25/24 04/25/24 Unknown History <Krystal Oneil MD - Last Filed: 04/25/24 06:57> Allergies/Adverse reactions: Allergies Allergy/AdvReac Type Severity Reaction Status Date / Time No Known Allergies Allergy Verified 04/25/24 12:06 <Krystal Oneil MD - Last Filed: 04/25/24 06:57> Review of Systems 2 Review of Systems: All systems reviewed & are unremarkable except as noted in HPI and below <Krystal Oneil MD - Last Filed: 04/25/24 06:57> [facility] Social History Social History: Social History Smoking status: Heavy tobacco smoker Alcohol intake: current Drinks per week: 1 Substance use: current Substance use type: marijuana Last use: 02/13/24 Do You Feel Safe in your Home?: Yes Lack of Transportation: No Lack of Food: Never True Current Housing: Decline to Answer Concerned About Future Housing: Decline to Answer Difficulty Paying Gas/Electric Bills: Decline to Answer Difficulty Paying for Meds: Decline to Answer Currently Unemployed: Decline to Answer Education: Decline to Answer Difficulty w/ Childcare or Family Care: Decline to Answer Spiritual care concerns: No <Krystal Oneil MD - Last Filed: 04/25/24 06:57> Exam 2 Narrative: EXAMINATION OF ORGAN SYSTEMS/BODY AREAS: Constitutional: Vital signs per nursing GENERAL:[No acute distress, non-toxic appearing.] HEAD: Normal with no signs of head trauma. EYES: EOMI, conjunctiva normal ENT: Hearing grossly intact LUNGS: Nonlabored breathing. HEART: Tachycardic ABD: [Soft], slight tenderness to the right lower quadrant EXT: Normal range of motion SKIN: [No rashes or lesions.] NEURO: [Alert and oriented x 3. No gross focal sensory or strength deficits.] PSYCH: Normal affect <Krystal Oneil MD - Last Filed: 04/25/24 06:57> Course Vital Signs Vital signs: Vital Signs Temperature 97.6 F 04/25/24 05:31 Pulse Rate 118 H 04/25/24 05:31 Respiratory Rate 20 04/25/24 05:31 Blood Pressure 99/82 L 04/25/24 05:31 Pulse Oximetry 96 04/25/24 05:31 Oxygen Delivery Room Air 04/25/24 05:31 Temperature 99.2 F 04/25/24 13:56 Pulse Rate 85 04/25/24 13:56 Respiratory Rate 18 04/25/24 13:56 Blood Pressure 154/82 H 04/25/24 13:56 Pulse Oximetry 97 04/25/24 13:56 Oxygen Delivery Room Air 04/25/24 12:14 <Krystal Oneil MD - Last Filed: 04/25/24 06:57> Vital Signs Temperature 97.6 F 04/25/24 05:31 Pulse Rate 118 H 04/25/24 05:31 Respiratory Rate 20 04/25/24 05:31 Blood Pressure 99/82 L 04/25/24 05:31 Pulse Oximetry 96 04/25/24 05:31 Oxygen Delivery Room Air 04/25/24 05:31 Temperature 99.2 F 04/25/24 13:56 Pulse Rate 85 04/25/24 13:56 Respiratory Rate 18 04/25/24 13:56 Blood Pressure 154/82 H 04/25/24 13:56 Pulse Oximetry 97 04/25/24 13:56 Oxygen Delivery Room Air 04/25/24 12:14 <Dwayne Monterroso III, DO - Last Filed: 04/25/24 16:58> Procedures Phlebotomy Phlebotomy #1: Phlebotomy Date: 04/25/24 <Krystal Oneil MD - Last Filed: 04/25/24 06:57> Phlebotomy Time: 06:56 <Krystal Oneil MD - Last Filed: 04/25/24 06:57> Phlebotomy Location: other (L radial artery stick) <Krystal Oenil MD - Last Filed: 04/25/24 06:57> Reason for Blood Draw by : RN/lab unable <Krystal Oneil MD - Last Filed: 04/25/24 06:57> Estimated blood obtained (mL): 10 <Krystal Oneil MD - Last Filed: 04/25/24 06:57> Additional Comments: ultrasound guided <Krystal Oneil MD - Last Filed: 04/25/24 06:57> MDM - Nausea/Vomiting/Diarrhea MDM Narrative Medical decision making narrative: 1) Differential diagnosis: Gastroenteritis, C diff, appendicitis, cholecystitis, dehydration, EDILBERTO/ARF 2) Comorbidities: Kidney disease, psychiatric illness 3) External notes reviewed: Admission note from 3 months ago 4) History sources independently obtained from: EMS 5) Discussion of management with: 6) Independent interpretation of: 7) Diagnostic tests or therapies considered but not ordered: 8) Social determinants of health: 9) Shared decision makin-year-old male with history of kidney disease, psychiatric disorder, presents here with nausea, vomiting, diarrhea, abdominal pain since last night. Given history of C diff and acute renal failure from a few months ago, and his vital signs here with slightly low blood pressure and elevated heart rate, we will will obtain labs here, give fluids and nausea medication, and imaging. WBC 24; I will just start empiric abx for potential C diff at this time. Creatinine 4.6 up from last creatinine of 0.7, lactic acid is 6.5. He already received 30 cc/kg bolus and will be getting additional fluids. Signed out to oncoming ER physician pending labs/imaging. <Krystal Oneil MD - Last Filed: 04/25/24 06:57> 1) Differential diagnosis: Gastroenteritis, C diff, appendicitis, cholecystitis, dehydration, EDILBERTO/ARF 2) Comorbidities: Kidney disease, psychiatric illness 3) External notes reviewed: Admission note from 3 months ago 4) History sources independently obtained from: EMS 5) Discussion of management with: 6) Independent interpretation of: 7) Diagnostic tests or therapies considered but not ordered: 8) Social determinants of health: 9) Shared decision makin-year-old male with history of kidney disease, psychiatric disorder, presents here with nausea, vomiting, diarrhea, abdominal pain since last night. Given history of C diff and acute renal failure from a few months ago, and his vital signs here with slightly low blood pressure and elevated heart rate, we will will obtain labs here, give fluids and nausea medication, and imaging. WBC 24; I will just start empiric abx for potential C diff at this time. Creatinine 4.6 up from last creatinine of 0.7, lactic acid is 6.5. He already received 30 cc/kg bolus and will be getting additional fluids. Signed out to oncoming ER physician pending labs/imaging. CT just shows some potential cystits. given UA and wbc will treat with rocephin. discussed with Dr Sahu would like cxr and call back. cxr unremarkable. Dr Sahu accept pt for admission. <Dwayne Monterroso III, DO - Last Filed: 04/25/24 16:58> Lab Data Result diagrams: 04/25/24 05:46 04/25/24 05:46 <Krystal Oneil MD - Last Filed: 04/25/24 06:57> Labs: Lab Results 03/10/25 03/10/25 03/10/25 Range/Units 05:46 06:17 08:33 WBC 23.9 H (4.5-10.0) K/mm3 RBC 6.67 H (4.6-6.20) M/mm3 Hgb 21.2 H D (14.0-18.0) g/dL Hct 62.0 H (42.0-52.0) % MCV 93.0 (80-100) fl MCH 31.8 (26-34) pg MCHC 34.2 (32-36) g/dl RDW 13.1 (11.5-14.5) % Plt Count 255 D (150-375) k/mm3 MPV 11.6 H (7.4-10.4) fl Immature Gran % (Auto) 1.1 H (0-0.5) % Neut % (Auto) 81.2 H (45.5-73.1) % Lymph % (Auto) 6.7 L (18.3-44.2) % [place] % (Auto) 10.6 H (2.6-8.5) % Eos % (Auto) 0.0 (0-4.4) % Baso % (Auto) 0.4 (0.2-1.2) % Lymph # (Auto) 1.61 (0.9-3.2) K/mm3 [place] # (Auto) 2.5 H (0.1-0.6) K/mm3 Eos # (Auto) 0.0 (0-0.3) K/mm3 Baso # (Auto) 0.1 (0.0-0.1) K/mm3 Abs Immat Gran (auto) 0.26 H (0.00-0.031) K/mm3 Absolute Neuts (auto) 19.4 H (1.3-6.7) K/mm3 Absolute Nucleated RBC 0.020 H (0.0-0.012) K/mm3 Nucleated RBC % 0.1 (0.0-0.2) % Sodium 137 (137-145) mmol/L Potassium 4.2 (3.4-5.0) mmol/L Chloride 88 L (98-107) mmol/L Carbon Dioxide 7 L (22-30) mmol/L Anion Gap 42 H (4-12) mmol/L BUN 29 H D (9-20) mg/dL Creatinine 4.61 H (0.7-1.3) mg/dL Estim Creat Clear Calc 15 ml/min Estimated GFR 14 L (59 - ) Glucose 349 H (65-110) mg/dL Hemoglobin A1c Pending Lactic Acid 6.5 H* (0.7-2.0) mmol/L Calcium 11.8 H (8.4-10.2) mg/dL Total Bilirubin 1.2 (0.2-1.3) mg/dL AST 25 (17-59) U/L ALT 34 (6-50) U/L Alkaline Phosphatase 159 H (38-126) U/L Total Protein > 11.0 H (6.3-8.2) g/dL Albumin 5.8 H (3.5-5.1) g/dL Lipase 136 (23-300) U/L Urine Color Dark yellow (Yellow) Urine Appearance Turbid H (Clear) Urine pH 5.0 (5.0-9.0) Ur Specific [place] 1.024 (1.001-1.035) Urine Protein 3+ H (Negative) mg/dL Urine Glucose (UA) Trace H (Negative) mg/dL Urine Ketones Trace H (Negative) mg/dL Ur Blood (Man) 2+ H (Negative) Urine Nitrate Negative (Negative) Urine Bilirubin 2+ H (Negative) Urine Urobilinogen 1.0 (<2.0) mg/dL Add Ur Microanalysis Reviewed Leukocyte Esterase Rfl Trace H (Negative) VEE/UL Urine RBC 3-5 H (0-2) /hpf Urine WBC 11-20 H (0-3) /hpf Ur Squamous Epith Cells None seen (Few) /hpf Urine Bacteria None seen /hpf Urine Casts >20 Hyaline Casts 5-9 H (None) /lpf Urine Mucus Present /lpf 04/25/24 Range/Units 09:59 WBC (4.5-10.0) K/mm3 RBC (4.6-6.20) M/mm3 Hgb (14.0-18.0) g/dL Hct (42.0-52.0) % MCV (80-100) fl MCH (26-34) pg MCHC (32-36) g/dl RDW (11.5-14.5) % Plt Count (150-375) k/mm3 MPV (7.4-10.4) fl Immature Gran % (Auto) (0-0.5) % Neut % (Auto) (45.5-73.1) % Lymph % (Auto) (18.3-44.2) % [place] % (Auto) (2.6-8.5) % Eos % (Auto) (0-4.4) % Baso % (Auto) (0.2-1.2) % Lymph # (Auto) (0.9-3.2) K/mm3 [place] # (Auto) (0.1-0.6) K/mm3 Eos # (Auto) (0-0.3) K/mm3 Baso # (Auto) (0.0-0.1) K/mm3 Abs Immat Gran (auto) (0.00-0.031) K/mm3 Absolute Neuts (auto) (1.3-6.7) K/mm3 Absolute Nucleated RBC (0.0-0.012) K/mm3 Nucleated RBC % (0.0-0.2) % Sodium (137-145) mmol/L Potassium (3.4-5.0) mmol/L Chloride (98-107) mmol/L Carbon Dioxide (22-30) mmol/L Anion Gap (4-12) mmol/L BUN (9-20) mg/dL Creatinine (0.7-1.3) mg/dL Estim Creat Clear Calc ml/min Estimated GFR (59 - ) Glucose (65-110) mg/dL Hemoglobin A1c Lactic Acid 1.7 (0.7-2.0) mmol/L Calcium (8.4-10.2) mg/dL Total Bilirubin (0.2-1.3) mg/dL AST (17-59) U/L ALT (6-50) U/L Alkaline Phosphatase (38-126) U/L Total Protein (6.3-8.2) g/dL Albumin (3.5-5.1) g/dL Lipase (23-300) U/L Urine Color (Yellow) Urine Appearance (Clear) Urine pH (5.0-9.0) Ur Specific [place] (1.001-1.035) Urine Protein (Negative) mg/dL Urine Glucose (UA) (Negative) mg/dL Urine Ketones (Negative) mg/dL Ur Blood (Man) (Negative) Urine Nitrate (Negative) Urine Bilirubin (Negative) Urine Urobilinogen (<2.0) mg/dL Add Ur Microanalysis Leukocyte Esterase Rfl (Negative) VEE/UL Urine RBC (0-2) /hpf Urine WBC (0-3) /hpf Ur Squamous Epith Cells (Few) /hpf Urine Bacteria /hpf Urine Casts Hyaline Casts (None) /lpf Urine Mucus /lpf <Krystal Oneil MD - Last Filed: 04/25/24 06:57> Lab Results 04/25/24 04/25/24 04/25/24 Range/Units 05:46 06:17 08:33 WBC 23.9 H (4.5-10.0) K/mm3 RBC 6.67 H (4.6-6.20) M/mm3 Hgb 21.2 H D (14.0-18.0) g/dL Hct 62.0 H (42.0-52.0) % MCV 93.0 (80-100) fl MCH 31.8 (26-34) pg MCHC 34.2 (32-36) g/dl RDW 13.1 (11.5-14.5) % Plt Count 255 D (150-375) k/mm3 MPV 11.6 H (7.4-10.4) fl Immature Gran % (Auto) 1.1 H (0-0.5) % Neut % (Auto) 81.2 H (45.5-73.1) % Lymph % (Auto) 6.7 L (18.3-44.2) % [place] % (Auto) 10.6 H (2.6-8.5) % Eos % (Auto) 0.0 (0-4.4) % Baso % (Auto) 0.4 (0.2-1.2) % Lymph # (Auto) 1.61 (0.9-3.2) K/mm3 [place] # (Auto) 2.5 H (0.1-0.6) K/mm3 Eos # (Auto) 0.0 (0-0.3) K/mm3 Baso # (Auto) 0.1 (0.0-0.1) K/mm3 Abs Immat Gran (auto) 0.26 H (0.00-0.031) K/mm3 Absolute Neuts (auto) 19.4 H (1.3-6.7) K/mm3 Absolute Nucleated RBC 0.020 H (0.0-0.012) K/mm3 Nucleated RBC % 0.1 (0.0-0.2) % Sodium 137 (137-145) mmol/L Potassium 4.2 (3.4-5.0) mmol/L Chloride 88 L (98-107) mmol/L Carbon Dioxide 7 L (22-30) mmol/L Anion Gap 42 H (4-12) mmol/L BUN 29 H D (9-20) mg/dL Creatinine 4.61 H (0.7-1.3) mg/dL Estim Creat Clear Calc 15 ml/min Estimated GFR 14 L (59 - ) Glucose 349 H (65-110) mg/dL Hemoglobin A1c Pending Lactic Acid 6.5 H* (0.7-2.0) mmol/L Calcium 11.8 H (8.4-10.2) mg/dL Total Bilirubin 1.2 (0.2-1.3) mg/dL AST 25 (17-59) U/L ALT 34 (6-50) U/L Alkaline Phosphatase 159 H (38-126) U/L Total Protein > 11.0 H (6.3-8.2) g/dL Albumin 5.8 H (3.5-5.1) g/dL Lipase 136 (23-300) U/L Urine Color Dark yellow (Yellow) Urine Appearance Turbid H (Clear) Urine pH 5.0 (5.0-9.0) Ur Specific [place] 1.024 (1.001-1.035) Urine Protein 3+ H (Negative) mg/dL Urine Glucose (UA) Trace H (Negative) mg/dL Urine Ketones Trace H (Negative) mg/dL Ur Blood (Man) 2+ H (Negative) Urine Nitrate Negative (Negative) Urine Bilirubin 2+ H (Negative) Urine Urobilinogen 1.0 (<2.0) mg/dL Add Ur Microanalysis Reviewed Leukocyte Esterase Rfl Trace H (Negative) VEE/UL Urine RBC 3-5 H (0-2) /hpf Urine WBC 11-20 H (0-3) /hpf Ur Squamous Epith Cells None seen (Few) /hpf Urine Bacteria None seen /hpf Urine Casts >20 Hyaline Casts 5-9 H (None) /lpf Urine Mucus Present /lpf 04/25/24 Range/Units 09:59 WBC (4.5-10.0) K/mm3 RBC (4.6-6.20) M/mm3 Hgb (14.0-18.0) g/dL Hct (42.0-52.0) % MCV (80-100) fl MCH (26-34) pg MCHC (32-36) g/dl RDW (11.5-14.5) % Plt Count (150-375) k/mm3 MPV (7.4-10.4) fl Immature Gran % (Auto) (0-0.5) % Neut % (Auto) (45.5-73.1) % Lymph % (Auto) (18.3-44.2) % [place] % (Auto) (2.6-8.5) % Eos % (Auto) (0-4.4) % Baso % (Auto) (0.2-1.2) % Lymph # (Auto) (0.9-3.2) K/mm3 [place] # (Auto) (0.1-0.6) K/mm3 Eos # (Auto) (0-0.3) K/mm3 Baso # (Auto) (0.0-0.1) K/mm3 Abs Immat Gran (auto) (0.00-0.031) K/mm3 Absolute Neuts (auto) (1.3-6.7) K/mm3 Absolute Nucleated RBC (0.0-0.012) K/mm3 Nucleated RBC % (0.0-0.2) % Sodium (137-145) mmol/L Potassium (3.4-5.0) mmol/L Chloride (98-107) mmol/L Carbon Dioxide (22-30) mmol/L Anion Gap (4-12) mmol/L BUN (9-20) mg/dL Creatinine (0.7-1.3) mg/dL Estim Creat Clear Calc ml/min Estimated GFR (59 - ) Glucose (65-110) mg/dL Hemoglobin A1c Lactic Acid 1.7 (0.7-2.0) mmol/L Calcium (8.4-10.2) mg/dL Total Bilirubin (0.2-1.3) mg/dL AST (17-59) U/L ALT (6-50) U/L Alkaline Phosphatase (38-126) U/L Total Protein (6.3-8.2) g/dL Albumin (3.5-5.1) g/dL Lipase (23-300) U/L Urine Color (Yellow) Urine Appearance (Clear) Urine pH (5.0-9.0) Ur Specific [place] (1.001-1.035) Urine Protein (Negative) mg/dL Urine Glucose (UA) (Negative) mg/dL Urine Ketones (Negative) mg/dL Ur Blood (Man) (Negative) Urine Nitrate (Negative) Urine Bilirubin (Negative) Urine Urobilinogen (<2.0) mg/dL Add Ur Microanalysis Leukocyte Esterase Rfl (Negative) VEE/UL Urine RBC (0-2) /hpf Urine WBC (0-3) /hpf Ur Squamous Epith Cells (Few) /hpf Urine Bacteria /hpf Urine Casts Hyaline Casts (None) /lpf Urine Mucus /lpf <Dwayne Monterroso III, DO - Last Filed: 04/25/24 16:58> Critical Care Time Critical Care Time Critical Care Time: Yes <Krystal Oneil MD - Last Filed: 04/25/24 06:57> Total Critical Care Time: 31 <Krystal Oneil MD - Last Filed: 04/25/24 06:57> Discharge Plan Discharge Clinical Impression: Nausea and vomiting, Dehydration, Acute kidney injury <Krystal Oneil MD - Last Filed: 04/25/24 06:57> Patient Disposition: Still a Patient <Krystal Oneil MD - Last Filed: 04/25/24 06:57> Condition: Serious <Krystal Oneil MD - Last Filed: 04/25/24 06:57>
--- OUTSIDE RECORDS SUMMARY | 2024-04-25 05:52 | XMS_ITS ---
Author Organization [facility] Office Address [address] [place] [address] Care Team Providers Care Manager Field Services Name Role Phone Christiano Dominik Unavailable [phone] MEDICATIONS Medication SIG (Take, Route, Frequency, Duration) Notes Start Date End Date Status Losartan Potassium 25 MG 1 tablet Orally Once a day for 90 day(s) Active SOCIAL HISTORY Sex Assigned At : Social History Observation Description Sex Assigned At Male PROBLEMS Problem Type ICD Code Onset Dates Problem Status W/U Status Risk SNOMED Code Notes Problem Chronic kidney disease, stage 1 (N18.1) Active confirmed Chronic kidney disease stage 1 (655386233) Problem Chronic kidney disease, stage 2 (mild) (N18.2) Active confirmed Chronic kidney disease stage 2 (860752733) Encounters Encounter Location Date Provider Diagnosis [facility] [address] [facility] [address] [place] [address] 12/09/2023 Dominik Alvarado Chronic kidney disease, stage 3a N18.31 ; Chronic kidney disease, stage 1 N18.1 ; Chronic kidney disease, stage 2 (mild) N18.2 ; Essential hypertension I10 ; Acute kidney failure, unspecified N17.9 ; Abnormal coagulation profile R79.1 ; Gastritis, unspecified, without bleeding K29.70 ; Sepsis, unspecified organism A41.9 and Elevated white blood cell count, unspecified D72.829 ASSESSMENTS Encounter Date Diagnosis Assessment Notes Treatment Notes Treatment Clinical Notes Section Notes 12/09/2023 Chronic kidney disease, stage 3a (ICD-10 - N18.31) 12/09/2023 Chronic kidney disease, stage 1 (ICD-10 - N18.1) 12/09/2023 Chronic kidney disease, stage 2 (mild) (ICD-10 - N18.2) 12/09/2023 Essential hypertension (ICD-10 - I10) 12/09/2023 Acute kidney failure, unspecified (ICD-10 - N17.9) 12/09/2023 Abnormal coagulation profile (ICD-10 - R79.1) 12/09/2023 Gastritis, unspecified, without bleeding (ICD-10 - K29.70) 12/09/2023 Sepsis, unspecified organism (ICD-10 - A41.9) 12/09/2023 Elevated white blood cell count, unspecified (ICD-10 - D72.829) PLAN OF TREATMENT Next Appt Details Provider Name:Dominik Alvarado , 05/11/2024 03:15:00 PM, [address], [place], [address], Progress Notes * ASHLYN CANALESDOB:03/1974 (49 yo M)Acc No.[id number]:12/09/2023 Progress Notes Patient: ASHLYN CANALES Provider: MD JESSY, F.A.C.P, F.A.S.N. :1975 Age:48 Y Sex:Male Date:12/09/2023 Address:[address] [place] [address] Subjective: * Chief Complaints: * * Medical History: * Medications: Taking Losartan Potassium 25 MG Tablet 1 tablet Orally Once a day Objective: Assessment: * Assessment: 1. Chronic kidney disease, stage 3a - N18.31 (Primary) 2. Chronic kidney disease, stage 1 - N18.1 3. Chronic kidney disease, stage 2 (mild) - N18.2 4. Essential hypertension - I10 5. Acute kidney failure, unspecified - N17.9 6. Abnormal coagulation profile - R79.1 7. Gastritis, unspecified, without bleeding - K29.70 8. Sepsis, unspecified organism - A41.9 9. Elevated white blood cell count, unspecified - D72.829 Plan: * Treatment: * Billing Information: * Visit Code: 72016 Office Visit, Est Pt., Level 4. * Procedure Codes: * Sign off status: Pending * Provider: MD JESSY, F.A.C.P, F.A.S.N. Date: 12/09/2023
--- OUTSIDE RECORDS SUMMARY | 2024-04-25 05:52 | XMS_ITS ---
Author Organization [facility] Office Address [address] [place] [address] Care Team Providers Care Energy Rater Name Role Phone Christiano Dominik Unavailable [phone] SOCIAL HISTORY Sex Assigned At : Social History Observation Description Sex Assigned At Male Encounters Encounter Location Date Provider Diagnosis [facility] [address] [facility] [address] [place] [id number] 04/06/2024 Dominik Alvarado PLAN OF TREATMENT Next Appt Details Provider Name:Dominik Alvarado , 05/11/2024 03:15:00 PM, [address], [place], [address], Progress Notes * ASHLYN CANALESDOB:03/1974 (49 yo M)Acc No.[id number]:04/06/2024 Progress Notes Patient: ASHLYN CANALES Provider: MD JESSY, Ryan.Hunter.C.P, F.A.S.N. :1975 Age:49 Y Sex:Male Date:04/06/2024 Address:[address] [place] [address] Subjective: * Chief Complaints: * * Medical History: Objective: Assessment: Plan: * Treatment: * Billing Information: * Visit Code: * Procedure Codes: * Sign off status: Pending * Provider: MD JESSY, Ryan.Hunter.C.P, F.A.S.N. Date: 04/06/2024
--- OUTSIDE RECORDS SUMMARY | 2024-04-25 05:52 | XMS_ITS ---
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 No Follo w Up Plan Required Follow Up Plan: No Follow Up Plan requir ed at this time. Examination Category Sub-Category Detail Notes Category Not es Psychiatry APPEARANCE: appropriately dr essed/groomed, appears older, thin ATTITUDE: cooperative, pleasan t PSYCHOMOTOR ACTIVITY: within normal rang e, AIMS = 10 ABNORMAL BODY MOVEMENTS: involuntary fran ulder, facial, jaw, and tongue movements observed ATTENTION: good ORIENTATION: person, place and ti me AFFECT: full range, congruen t MOOD: euthymic SPEECH: clear, normal/R/V/R INSIGHT: fair JUDGEMENT: fair THOUGHT PROCESS: linear, goal-directe d THOUGHT CONTENT: unremarkable PERCEPTUAL DISORDERS: no perceptual diso rder noted CURRENT SUICIDALITY: denies CURRENT HOMICIDALITY: none INTELLIGENCE (estimate): average
--- OUTSIDE RECORDS SUMMARY | 2024-04-25 05:52 | XMS_ITS ---
Author Organization [facility] Address [address] [place] [address] Care Team Providers Care Machine Lead Burner Name Role Phone AlvaradoMaxwellDominik Unavailable [phone] MEDICATIONS Medication SIG (Take, Route, Frequency, Duration) Notes Start Date End Date Status Losartan Potassium 25 MG 1 tablet Orally Once a day for 90 day(s) Active SOCIAL HISTORY Sex Assigned At : Social History Observation Description Sex Assigned At Male PROBLEMS Problem Type ICD Code Onset Dates Problem Status W/U Status Risk SNOMED Code Notes Problem Renal osteodystrophy (N25.0) Active confirmed Renal osteodystrophy ([id number]) Encounters Encounter Location Date Provider Diagnosis [place] [facility] [address] [facility] [address] [place] [address] 02/03/2024 Dominik Alvarado Chronic kidney disea se, stage 2 (mild) N18.2 ; Essential hypertension I10 ; Renal osteodystrophy N25.0 and Proteinuria, unspecified R80.9 ASSESSMENTS Encounter Date Diagnosis Assessment Notes Treatment Notes Treatment Clinical Notes Section Notes 02/03/2024 Chronic kidney disease, stage 2 (mild) (ICD-10 - N18.2) 02/03/2024 Essential hypertension (ICD-10 - I10) 02/03/2024 Renal osteodystrophy (ICD-10 - N25.0) 02/03/2024 Proteinuria, unspecified (ICD-10 - R80.9) PLAN OF TREATMENT Next Appt Details Provider Name:Dominik Alvarado , 05/11/2024 03:15:00 PM, [address], [place], [address], Progress Notes * ASHLYN CANALESDOB:03/1974 (49 yo M)Acc No.[id number]:02/03/2024 Progress Notes Patient: ASHLYN CANALES Provider: MD JESSY, Marlena, F.A.S.N. :1975 Age:49 Y Sex:Male Date:02/03/2024 Address:[address] [place] [address] Subjective: * Chief Complaints: * * Medical History: * Medications: Taking Losartan Potassium 25 MG Tablet 1 tablet Orally Once a day Objective: Assessment: * Assessment: 1. Chronic kidney disease, stage 2 (mild) - N18.2 (Primary) 2. Essential hypertension - I10 3. Renal osteodystrophy - N25.0 4. Proteinuria, unspecified - R80.9 Plan: * Treatment: * Billing Information: * Visit Code: [id number] Office Visit, Est Pt., Level 4. * Procedure Codes: * Sign off status: Pending * Provider: MD JESSY, Marlena, F.A.S.N. Date: 02/03/2024
--- OUTSIDE RECORDS SUMMARY | 2024-04-25 05:53 | XMS_ITS | CONTINUITY OF CARE DOCUMENT ---
Author Name zoey greer Address Unknown Organization [facility] Address [address] [place] [address] Phone [phone] Care Team Providers Care Blister Rust Eradicator Name Role Phone Mehdi Rowell MD Unavailable [phone] YARIEL GRAHAM MD Unavailable YARIEL GRAHAM MD Unavailable PROBLEMS Condition Status Date Provider Notes Takotsubo syndrome active Mehdi Rowell MD CHF - systolic active Mehdi Rowell MD Tobacco abuse active Mehdi Rowell MD Congestive Heart Failure active Mehdi carbajal MD Cardiology examination active 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 HOCKEY SCOUT ENCOUNTERS Date Type Provider Location Encounter Diag nosis - In-person encounter Office Visit Mehdi Rowell MD [facility] - [facility]-person encounter Office Visit Mehdi Rowell MD [facility] - In-person encounter Office Visit Mehdi Rowell MD [facility] - In-person encounter Office Visit Mehdi Rowell MD [facility] - In-person encounter Office Visit Mehdi Rowell MD [facility] Cardiology examination - In-person encounter Office Visit Mehdi Rowell MD [facility] Congestive Heart Failure - In-person encounter Office Visit Mehdi Rowell MD [facility] Takotsubo syndromeCHF - systolicTobacco abuse VITAL SIGNS Date Observation Value Provider Body Mass Index (Ratio) 19.11 kg/m2 Dayna Rowell MD blood pressure, cuff size regular [facility], [facility]Hg[facility], systolic 96 mm[Hg] Yojana [facility] oxygen saturation, oximetry 86 % [facility] respiratory rate E&M 14 /min [facility] pulse rate 53 /min [facility] weight E&M 137 [lb_av] [facility] height E&M 71 [in_i] [facility] Body Mass Index (Ratio) 19.11 kg/m2 Dayna Rowell MD blood pressure, cuff size regular [facility] blood pressure, diastolic 72 mm[Hg] [facility] blood pressure, systolic 98 mm[Hg] [facility] pulse rate 61 /min [facility] oxygen saturation, oximetry 98 % [facility] respiratory rate E&M 16 /min Kristina Dayanara gardner weight E&M 137 [lb_av] [facility] height E&M 71 [in_i] [facility] Body Mass Index (Ratio) 17.57 kg/m2 Dayna Rowell MD blood pressure, diastolic 69 mm[Hg] Li nkLogic blood pressure, systolic 116 mm[Hg] Zeina kLogic blood pressure, cuff size regular Hussein rret blood pressure, diastolic 69 mm[Hg] Hussein rret blood pressure, systolic 116 mm[Hg] Franky pulse rate 61 /min Dwaine respiratory rate E&M 12 /min Dwaine oxygen saturation, oximetry 96 % Dwaine weight E&M 126 [lb_av] Dwaine y height E&M 71 [in_i] Dwaine y Body Mass Index (Ratio) 18.69 kg/m2 Dayna Rowell MD blood pressure, diastolic 68 mm[Hg] Li nkLogic blood pressure, systolic 106 mm[Hg] Zeina kLogwillie blood pressure, diastolic 68 mm[Hg] Ana Gamez blood pressure, systolic 106 mm[Hg] Sonny georgia Gamez pulse rate 60 /min Anita chan oxygen saturation, oximetry 100 % Anita Gamez weight E&M 134 [lb_av] Anita chan respiratory rate E&M 16 /min Amaya Gamez blood pressure, cuff size large Mi mary beth Gamez height E&M 71 [in_i] Anita chan Body Mass Index (Ratio) 18.97 kg/m2 Dayna Rowell MD blood pressure, diastolic 55 mm[Hg] Ri mary beth Lewis blood pressure, systolic 90 mm[Hg] Zafar helserenity Lewis blood pressure, cuff size regular Ri mary beth Lewis oxygen saturation, oximetry 96 % Ashley Lewis respiratory rate E&M 16 /min Smith Lewis pulse rate 58 /min Ashley da silva weight E&M 136 [lb_av] Ashley da silva height E&M 71 [in_i] Ashley Manzo son Body Mass Index (Ratio) 18.83 kg/m2 Dayna Rowell MD blood pressure, cuff size regular [facility], [facility] 60 mm[Hg] [facility], systolic 98 mm[Hg] Franca [facility], oximetry 97 % Lazara [facility] respiratory rate E&M 14 /min [facility] pulse rate 62 /min Lazara Gareth [facility] weight E&M 135 [lb_av] Lazara Adrianae [facility] height E&M 71 [in_i] Lazara Servin [facility] pulse rate 62 /min Dennise Martínez blood pressure, diastolic 58 mm[Hg] Te ri Martínez blood pressure, systolic 91 mm[Hg] Ter i Martínez oxygen saturation, oximetry 98 % Dennise Martínez respiratory rate E&M 15 /min [facility]ennise [facility] E&M 145 [lb_av] Dennise Martínez ALLERGIES No Known Drug Allergies HISTORY OF MEDICATION USE Medication Status Instructions Dates Provider Indications Com ment carvedilol 3.125 mg tablet active TAKE 1 TABLET BY MOUTH TWICE DAILY Shanna English MD atorvastatin 20 mg tablet active TAKE 1 TABLET BY MOUTH EVERY DAY Mehdi Rowell MD hydroxyzine pamoate 25 mg capsule active Kristina Olsen hydroxyzine pamoate 50 mg capsule active Kristina Olsne divalproex 500 mg tablet,delayed release (DR/EC) active Kristina Olsen olanzapine 10 mg tablet active Kristina Olsen atorvastatin 20 mg tablet completed - Yadira Henriquez NP aspirin 81 mg tablet,delayed release (DR/EC) active Take 1 tablet by mouth once a day Mehdi Rowell MD atorvastatin 20 mg tablet completed Take 1 tablet by mouth once a day - Kandy Melchor carvedilol 3.125 mg tablet completed Take 1 tablet by mouth twice a day - Shanna Pace CQ 14 mg/24 hr patch 24 hour completed Apply 1 patch to skin once a day - Yadira Henriquez NP Vitamin B-1 (mononitrate) 100 mg tablet completed TAKE 1 TABLET BY MOUTH EVERY DAY - Yadira Henriquez NP pantoprazole 40 mg tablet,delayed release (DR/EC) completed - Yadira Henriquez NP ergocalciferol (vitamin D2) 1,250 mcg (50,000 unit) capsule completed - Yadira Henriquez NP folic acid 1 mg tablet completed - Yadira Henriquez NP ondansetron HCl 8 mg tablet completed - Rebekah TABARESP losartan 25 mg tablet active Take 1/2 tablet by mouth once a day Mehdi Rowell MD carvedilol 3.125 mg tablet completed TAKE ONE TABLET BY MOUTH TWICE A DAY - Lazara Castaneda atorvastatin 20 mg tablet completed Take 1 tablet by mouth once a day TAKE 1 TABLET BY MOUTH EVERY DAY - Lazara Castaneda aspirin 81 mg tablet,delayed release (DR/EC) completed Take 1 tablet by mouth once a day TAKE 1 TABLET BY MOUTH EVERY DAY - Lazara Castaneda SOCIAL HISTORY Date Observation Value Provider personal history of marijuana use yes Mehdi Rowell MD drug use no Mehdi lopez MD alcohol use no Mehdi lopez MD smoking/tobacco cess ation, patient education and counseling yes Mehdi Rowell MD chewing tobacco use Current Mehdi Rowell MD number of years as a smoker 31 a Mehdi Rowell MD smoking history, tot al pack/day 0.5 Mehdi Rowell MD cigarette use yes Mehdi stanley MD smoking status Current every da y smoker Mehdi Rowell MD Underweight no Mehdi lopez MD personal history of marijuana use yes Yadira Henriquez NP drug use no [facility] alcohol use no [facility] smoking/tobacco cess ation, patient education and counseling yes [facility] chewing tobacco use Current [facility] number of years as a smoker 31 a [facility] smoking history, tot al pack/day 0.5 [facility] cigarette use yes [facility] smoking status Current every da y smoker [facility] Underweight yes Mehdi lopez MD social history reviewed E&M revi ewed - no changes required Mehdi Rowell MD Underweight yes Mehdi lopez MD number of years as a smoker 31 a Yadira Henriquez NP smoking history, tot al pack/day 1.5 Yadira Henriquez NP cigarette use yes Yadira Henriquez NP social history reviewed E&M revi ewed - no changes required Yadira Henriquez NP social history E&M S moking History: P kev currently smokes every day. P kev has been counseled to quit. Yadira Henriquez NP drug use, illicit, d rug of choice marijuana Yadira Huertasreri [employer] drug use yes Yadira Huertasreri [employer] alcohol use no Verdereck Huertasreri [employer] seatbelt usage 100 % Anita Miller caffeine use, averag e drinks per day 3 /d Anita Gamez smoking/tobacco cess ation, patient education and counseling yes Anita Gamez chewing tobacco use Current Anita Gamez smoking status Current every da y smoker Anita Gamez Underweight yes Mehdi lopez MD number of grandchildren Mehdi Rowell MD smoking status Current every da y smoker Mehdi Rowell MD social history E&M S moking History: P kev currently smokes every day. P atjeremy has been counseled to quit. Mehdi Rowell MD social history reviewed E&M revi ewed - no changes required Mehdi Rowell MD drug use, illicit, d rug of choice marijuana Rebekah Ventimiglia [facility] drug use yes Rebekah Ventimig celine [facility] alcohol use no Rebekah Ventimig celine [facility] number of years as a smoker 20 a Rebekah Ventimiglia [facility] smoking history, tot al pack/day 0.5 Rebekah Ventimiglia [facility] seatbelt usage 100 % Ashleyrebecca lao caffeine use, averag e drinks per day 3 /d Ashley Lewis smoking/tobacco cess ation, patient education and counseling yes Ashley Lewis chewing tobacco use Current Ashley Lewis Underweight yes Mehdi lopez MD social history E&M S moking History: P kev currently smokes every day. P kev has been counseled to quit. Mehdi Rowell MD social history reviewed E&M revi ewed - no changes required Mehdi Rowell MD seatbelt usage 100 % Lazara merchant caffeine use, averag e drinks per day 3 /d Lazara Castaneda smoking/tobacco cess ation, patient education and counseling yes Lazara Castaneda chewing tobacco use Current Lazara fernandeznfcuco smoking status Current every da y smoker Lazara Funorth smoking/tobacco cess ation, patient education and counseling yes Mehdi Rowell MD social history E&M S moking History: Kd angulo currently smokes every day. Mehdi Rowell MD social history reviewed E&M revi ewed - no changes required Mehdi Rowell MD seatbelt usage 100 % Dennise Martínez caffeine use, averag e drinks per day 3 /d Dennise Martínez drug use, illicit, d rug of choice marijuana Dennise Martínez drug use yes Dennise Martínez alcohol use no Dennise Martínez chewing tobacco use Current Dennise Judith acevedot smoking status Current every da y smoker Dennise Martínez INSURANCE PROVIDERS Payer name Policy type / Coverage type [place] [employer] party ID [employer] MEDICARE ADVANTAGE HMO-POS HMO [id number] [facility] Medicaid 1 [id number] ADVANCE DIRECTIVES Name Date DISCUSSED - NO DECISION MADE TREATMENT PLAN Date Name Performer [id number],C, P kev is a current daily smoker. Encouraged complete cessation. Mehdi Rowell MD [id number],C, W ILL RECHECK ECHO TO EVAL FOR PRESERVETAION OF LV FXN ON CHF MEDRX CONCLUSIONS: Echo 11/2021 1 . Normal left ventricular systolic function. Normal left ventricular size. Normal left ventricular wall thickness. Normal left v entricular diastolic function. E/E': 5.4 Left ventricular ejection fraction is measured at 45 %. 2 . Normal right ventricular size. Normal right ventricular systolic function. 3 . No significant valvular abnormalities. H is updated medication list for this problem includes: Carvedilol 3.125 Mg Tablet (Carvedilol) ..... Take 1 tablet by mouth twice a day Losartan 25 Mg Tablet (Losartan) ..... Take 1/2 tablet by mouth once a day Aspirin 81 Mg Tablet,delayed Release (dr/ec) (Aspirin) ..... Take 1 tablet by mouth once a day take 1 tablet by mouth every day Mehdi Rowell MD [id number],C, E F of 20% on initial cath in June 2021. He has since had improvement in EF to 45% (11/2021) June 13, 2022 R EPEAT ECHO TO [facility] LV FXN December 12, 2022 e cho is showieng LVEF is about 45% Mehdi Rowell MD [id number],C,C ompensated. His updated medication list for this problem includes: Carvedilol 3.125 Mg Tablet (Carvedilol) ..... Take 1 tablet by mouth twice a day Losartan 25 Mg Tablet (Losartan) ..... Take 1/2 tablet by mouth once a day Aspirin 81 Mg Tablet,delayed Release (dr/ec) (Aspirin) ..... Take 1 tablet by mouth once a day take 1 tablet by mouth every day Louiedereck Florence ERVIN [id number],C,P kev is a current daily smoker. Encouraged complete cessation. Yadira Henriquez NP [id number],C,W ILL RECHECK ECHO TO [facility] FOR PRESERVETAION OF LV FXN ON CHF MEDRX CONCLUSIONS: Echo 11/2021 1 . Normal left ventricular systolic function. Normal left ventricular size. Normal left ventricular wall thickness. Normal left v entricular diastolic function. E/E': 5.4 Left ventricular ejection fraction is measured at 45 %. 2 . Normal right ventricular size. Normal right ventricular systolic function. 3 . No significant valvular abnormalities. H is updated medication list for this problem includes: Carvedilol 3.125 Mg Tablet (Carvedilol) ..... Take 1 tablet by mouth twice a day Losartan 25 Mg Tablet (Losartan) ..... Take 1/2 tablet by mouth once a day Aspirin 81 Mg Tablet,delayed Release (dr/ec) (Aspirin) ..... Take 1 tablet by mouth once a day take 1 tablet by mouth every day Yadira Henriquez NP [id number],C, E F of 20% on initial cath in June 2021. He has since had improvement in EF to 45% (11/2021) June 13, 2022 R EPEAT ECHO TO EVAL LV FXN Yadira Henriquez [employer] [id number],C,cessation enc ouraged. Rebekah Ca [facility] [id number],S,c urrently compensated. continue present medication regimen. H is updated medication list for this problem includes: Losartan 25 Mg Tablet (Losartan) ..... Take 1/2 tablet by mouth once a day Carvedilol 3.125 Mg Tablet (Carvedilol) ..... Take one tablet by mouth twice a day Aspirin 81 Mg Tablet,delayed Release (dr/ec) (Aspirin) ..... Take 1 tablet by mouth once a day take 1 tablet by mouth every day Rebekah Ca [facility] [id number],B,E F of 20% on initial cath in June 2021. He has since had improvement in EF to 45%. will continue present therapy and f/u in 6 mos or sooner if needed. O rders: 9 9214 MOD 30-39min (CPT-55777) Rebekah Ca [facility] [id number],S, L eft ventriculogram- was performed in the RAHMAN view the LVEF was estimated at 20% with mildly dilated LV c hamber size and severely depressed hypokinetic wall motion with a takotsubo type of cardiomyopathy. LV p ressure-113/-22/14 mmHG and AO pressure-15/62/78 mmHg S UMMARY 1 . Severe nonischemic cardiomyopathy which appears to be a takotsubo type of cardiomyopathy. This will e xplain the rising troponins with acute left ventricular systolic dysfunction likely related to the stress that he was u nder with his current presentation 2 . Widely patent coronary vasculature 3 . Low SBP 4 . Minimally elevated LVEDP November 06, 2021 R echeck Echo Mehdi Rowell MD [id number],C,R educed EF will check echo. On CHF med rx H is updated medication list for this problem includes: Losartan 25 Mg Tablet (Losartan) ..... Take 1/2 tablet by mouth once a day Carvedilol 3.125 Mg Tablet (Carvedilol) ..... Take one tablet by mouth twice a day Aspirin 81 Mg Tablet,delayed Release (dr/ec) (Aspirin) ..... Take 1 tablet by mouth once a day take 1 tablet by mouth every day Mehdi Rowell MD [id number],C, T he Patient was reencouraged to stop smoking. November 06, 2021 A t 1/2 PPD Mehdi Rowell MD [id number],S,T he Patient was reencouraged to stop smoking. Mehdi Rowell MD [id number],C,L eft ventriculogram- was performed in the RAHMAN view the LVEF was estimated at 20% with mildly dilated LV c hamber size and severely depressed hypokinetic wall motion with a takotsubo type of cardiomyopathy. LV p ressure-113/-22/14 mmHG and AO pressure-15/62/78 mmHg S UMMARY 1 . Severe nonischemic cardiomyopathy which appears to be a takotsubo type of cardiomyopathy. This will e xplain the rising troponins with acute left ventricular systolic dysfunction likely related to the stress that he was u nder with his current presentation 2 . Widely patent coronary vasculature 3 . Low SBP 4 . Minimally elevated LVEDP Mehdi Rowell MD [id number],B,E cho EF has improved to 70% based on study done at [facility] H is updated medication list for this problem includes: Losartan 25 Mg Tablet (Losartan) ..... Take 1/2 tablet by mouth once a day Carvedilol 3.125 Mg Tablet (Carvedilol) ..... Take one tablet by mouth twice a day Aspirin 81 Mg Tablet,delayed Release (dr/ec) (Aspirin) ..... Take 1 tablet by mouth once a day take 1 tablet by mouth every day Mehdi Rowell MD Cardiology: E F of 20% on initial cath in June 2021. He has since had improvement in EF to 45% (11/2021) June 13, 2022 R EPEAT ECHO TO EVAL LV FXN December 12, 2022 e cho is showieng LVEF is about 45% March 13, 2023 R epeat echo shows ef 55% W ill repeat echo. Last echo 11/2022 Mehdi Rowell MD Cardiology: L AST LVEF WAS 55% WILL GET ECHO DONE IN THE NEXT FEW MONTHS TO REEVALUATE C linically appears compensated E cho 11/2022 CONCLUSIONS: 1 . Normal left ventricular systolic function. Normal left ventricular size. Normal left ventricular wall thickness. Normal left v entricular diastolic function. E/E': 5.2 Left ventricular ejection fraction is measured at 55 %. 2 . Normal right ventricular size. Normal right ventricular systolic function. 3 . No significant valvular abnormalities. T his visit has been a part of the consistent, comprehensive, and ongoing management of the chronic medical condition(s) listed above for the patient. November 20, 2023 E cho from 06/16/2023 E F 55% Mehdi Rowell MD Cardiology:The Patie nt was reencouraged to stop smoking. T his visit has been a part of the consistent, comprehensive, and ongoing management of the chronic medical condition(s) listed above for the patient. Mehdi Rowell MD Cardiology: N O OTHER RECREATIONAL DRUGS ASIDE FROM MARAJ[facility]NA C ONCLUSIONS: 1 . Normal left ventricular systolic function. Normal left ventricular size. Normal left ventricular wall thickness. Normal left v entricular diastolic function. E/E': 4.1 Left ventricular ejection fraction is measured at 55 %. 2 . Normal right ventricular size. Normal right ventricular systolic function. 3 . No significant valvular abnormalities. E lectronically signed by Mehdi Rowell MD on 06/29/2023 at 12:43 PM Mehdi Rowell MD Cardiology:NO OTHER RECREATIONAL DRUGS ASIDE FROM MARAJ[facility] Yadira Henriquez NP Cardiology: C omplete cessation encouraged Yadira Henriquez NP Cardiology: E F of 20% on initial cath in June 2021. He has since had improvement in EF to 45% (11/2021) June 13, 2022 R EPEAT ECHO TO EVAL LV FXN December 12, 2022 e cho is showieng LVEF is about 45% March 13, 2023 R epeat echo shows ef 55% W ill repeat echo. Last echo 11/2022 Yadira Henriquez [place] Cardiology:LAST LVEF WAS 55% WILL GET ECHO DONE IN THE NEXT FEW MONTHS TO REEVALUATE C linically appears compensated E cho 11/2022 CONCLUSIONS: 1 . Normal left ventricular systolic function. Normal left ventricular size. Normal left ventricular wall thickness. Normal left v entricular diastolic function. E/E': 5.2 Left ventricular ejection fraction is measured at 55 %. 2 . Normal right ventricular size. Normal right ventricular systolic function. 3 . No significant valvular abnormalities. Yadira Henriquez NP Cardiology: Kd angulo is a current daily smoker. Encouraged complete cessation. Mehdi Rowell MD Cardiology: W ILL RECHECK ECHO TO EVAL FOR PRESERVETAION OF LV FXN ON CHF MEDRX CONCLUSIONS: Echo 11/2021 1 . Normal left ventricular systolic function. Normal left ventricular size. Normal left ventricular wall thickness. Normal left v entricular diastolic function. E/E': 5.4 Left ventricular ejection fraction is measured at 45 %. 2 . Normal right ventricular size. Normal right ventricular systolic function. 3 . No significant valvular abnormalities. H is updated medication list for this problem includes: Carvedilol 3.125 Mg Tablet (Carvedilol) ..... Take 1 tablet by mouth twice a day Losartan 25 Mg Tablet (Losartan) ..... Take 1/2 tablet by mouth once a day Aspirin 81 Mg Tablet,delayed Release (dr/ec) (Aspirin) ..... Take 1 tablet by mouth once a day take 1 tablet by mouth every day Mehdi Rowell MD Cardiology: E F of 20% on initial cath in June 2021. He has since had improvement in EF to 45% (11/2021) June 13, 2022 R EPEAT ECHO TO EVAL LV FXN December 12, 2022 e cho is showieng LVEF is about 45% Mehdi Rowell MD Cardiology:Compensat ed. His updated medication list for this problem includes: Carvedilol 3.125 Mg Tablet (Carvedilol) ..... Take 1 tablet by mouth twice a day Losartan 25 Mg Tablet (Losartan) ..... Take 1/2 tablet by mouth once a day Aspirin 81 Mg Tablet,delayed Release (dr/ec) (Aspirin) ..... Take 1 tablet by mouth once a day take 1 tablet by mouth every day Yadira Chairezjerrod ERVIN Cardiology:Patient i s a current daily smoker. Encouraged complete cessation. Yadira Huertasdiana ERVIN Cardiology:WILL RECH LOCO ECHO TO EVAL FOR PRESERVETAION OF LV FXN ON CHF MEDRX CONCLUSIONS: Echo 11/2021 1 . Normal left ventricular systolic function. Normal left ventricular size. Normal left ventricular wall thickness. Normal left v entricular diastolic function. E/E': 5.4 Left ventricular ejection fraction is measured at 45 %. 2 . Normal right ventricular size. Normal right ventricular systolic function. 3 . No significant valvular abnormalities. H is updated medication list for this problem includes: Carvedilol 3.125 Mg Tablet (Carvedilol) ..... Take 1 tablet by mouth twice a day Losartan 25 Mg Tablet (Losartan) ..... Take 1/2 tablet by mouth once a day Aspirin 81 Mg Tablet,delayed Release (dr/ec) (Aspirin) ..... Take 1 tablet by mouth once a day take 1 tablet by mouth every day Yadira Chairezjerrod ERVIN Cardiology: E F of 20% on initial cath in June 2021. He has since had improvement in EF to 45% (11/2021) June 13, 2022 R EPEAT ECHO TO EVAL LV FXN Yadira Huertasdiana ERVIN Cardiology:cessation encouraged. Rebekah Ca [facility] Cardiology:currently compensated. continue present medication regimen. H is updated medication list for this problem includes: Losartan 25 Mg Tablet (Losartan) ..... Take 1/2 tablet by mouth once a day Carvedilol 3.125 Mg Tablet (Carvedilol) ..... Take one tablet by mouth twice a day Aspirin 81 Mg Tablet,delayed Release (dr/ec) (Aspirin) ..... Take 1 tablet by mouth once a day take 1 tablet by mouth every day Rebekah Ca [facility] Cardiology:EF of 20% on initial cath in June 2021. He has since had improvement in EF to 45%. will continue present therapy and f/u in 6 mos or sooner if needed. O rders: 9 9214 MOD 30-39min (CPT-50792) Rebekah Ca [facility] Cardiology: L eft ventriculogram- was performed in the RAHMAN view the LVEF was estimated at 20% with mildly dilated LV c hamber size and severely depressed hypokinetic wall motion with a takotsubo type of cardiomyopathy. LV p ressure-113/-22/14 mmHG and AO pressure-15/62/78 mmHg S HUMAIRA 1 . Severe nonischemic cardiomyopathy which appears to be a takotsubo type of cardiomyopathy. This will e xplain the rising troponins with acute left ventricular systolic dysfunction likely related to the stress that he was u nder with his current presentation 2 . Widely patent coronary vasculature 3 . Low SBP 4 . Minimally elevated LVEDP November 06, 2021 R echeck Echo Mehdi Rowell MD Cardiology:Reduced E F will check echo. On CHF med rx H is updated medication list for this problem includes: Losartan 25 Mg Tablet (Losartan) ..... Take 1/2 tablet by mouth once a day Carvedilol 3.125 Mg Tablet (Carvedilol) ..... Take one tablet by mouth twice a day Aspirin 81 Mg Tablet,delayed Release (dr/ec) (Aspirin) ..... Take 1 tablet by mouth once a day take 1 tablet by mouth every day Mehdi Rowell MD Cardiology: T he Patient was reencouraged to stop smoking. November 06, 2021 A t 1/2 PPD Mehdi Rowell MD Cardiology:The Patie nt was reencouraged to stop smoking. Mehdi Rowell MD Cardiology:Left vent riculogram- was performed in the RAHMAN view the LVEF was estimated at 20% with mildly dilated LV c hamber size and severely depressed hypokinetic wall motion with a takotsubo type of cardiomyopathy. LV p ressure-113/-22/14 mmHG and AO pressure-15/62/78 mmHg Devin GERARDO 1 . Severe nonischemic cardiomyopathy which appears to be a takotsubo type of cardiomyopathy. This will e xplain the rising troponins with acute left ventricular systolic dysfunction likely related to the stress that he was u nder with his current presentation 2 . Widely patent coronary vasculature 3 . Low SBP 4 . Minimally elevated LVEDP Mehdi Rowell MD Cardiology:Echo EF h as improved to 70% based on study done at [facility] is updated medication list for this problem includes: Losartan 25 Mg Tablet (Losartan) ..... Take 1/2 tablet by mouth once a day Carvedilol 3.125 Mg Tablet (Carvedilol) ..... Take one tablet by mouth twice a day Aspirin 81 Mg Tablet,delayed Release (dr/ec) (Aspirin) ..... Take 1 tablet by mouth once a day take 1 tablet by mouth every day Mehdi Rowell MD Date Name Complete Echo EKG Complete Echo Complete Echo Cardiac Rehab HISTORY OF PROCEDURES Procedure Date Procedure Name Provider Procedure Notes S tatus Complex e/m visit add on Mehdi Rowell MD completed EKG Mehid Rowell MD compl eted EKG Mehdi Rowell MD compl eted EKG Mehdi Rowell MD compl eted EKG Mehdi Rowell MD compl eted
--- OUTSIDE RECORDS SUMMARY | 2024-04-25 05:53 | XMS_ITS | Continuity of Care Document ---
Author Name [facility] Organization [facility] Care Team Providers Care Sales Department Clerk Name Role Phone [facility] Unavailable Unavailable Social History Combined list of available smoking, tobacco, and other social history from Department of Defense and Veterans Affairs facilities. Social History Type Response Date Comment [facility] e This section is an empty social history section. Do[facility]
--- OUTSIDE RECORDS SUMMARY | 2024-04-25 05:53 | XMS_ITS | Patient Health Record ---
Author Organization [facility] Address [address] [place] [address] Care Team Providers Care Curriculum Assistant Principal Name Role Phone Camille Orona Primary Care Provider Allergies No Known Allergies Results Component Value Reference Range Notes Valproic Acid (Depakote)(R), S Reviewed date:04/11/2024 03:27:33 PM Interpretation: Performing Lab:[id number], Phone - [phone], [facility] Notes/Report: Valproic Acid (Depakote)(R),S 39 50-100 ug/m L Detection Limit = 4 <4 indicates None Detected . Toxicity may occur at levels of 100-500. Measurements of free unbound valproic acid may improve the assess- ment of clinical response. Valproic Acid (Depakote)(R), S Reviewed date:11/12/2023 11:15:55 AM Interpretation: Performing Lab[id number], Phone - [phone], [facility] Notes/Report: Valproic Acid (Depakote)(R),S 58 50-100 ug/m L Detection Limit = 4 <4 indicates None Detected . Toxicity may occur at levels of 100-500. Measurements of free unbound valproic acid may improve the assess- ment of clinical response. Valproic Acid (Depakote)(R), S Reviewed date:07/10/2023 03:53:23 PM Interpretation: Performing Lab:[id number] [facility], Phone - [phone], [facility] Notes/Report: Valproic Acid (Depakote)(R),S 83 50-100 ug/m L Detection Limit = 4 <4 indicates None Detected . Toxicity may occur at levels of 100-500. Measurements of free unbound valproic acid may improve the assess- ment of clinical response. Reason For Referral No Information Medications Medication SIG (Take, Route, Frequency, Duration) Notes Start Date End Date Status Divalproex Sodium 500 MG 1 tablet in am, 2 tablets at bedtime Orally twice a day for 30 days Active Atorvastatin Calcium 20 MG 1 tablet Oral ly Once a day Active Benztropine Mesylate 0.5 MG 1 tablet at bedtime Orally Once a day for 30 days 04/11/2024 Active OLANZapine 10 MG 1 tablet at bedtime Orally Once a day for 30 days Active hydrOXYzine Pamoate 25 MG 1 capsule as n eeded at bedtime Orally once a day for 30 days Active Carvedilol 3.125 MG 1 tablet with food O rally Twice a day Active Losartan Potassium 25 MG 1 tablet Orally Once a day Active Aspirin 81 81 MG 1 tablet Orally Once a day Active OLANZapine 5 MG 1 tablet in morning Orally Once a day for 30 days 04/11/2024 Active Divalproex Sodium 500 MG 1 tablet Orally twice a day for 30 days Active OLANZapine 10 MG 1 tablet Orally twic e a day for 30 days Active Social History Tobacco Use: Social History [...] 20s. No charges/convictions since then. Spiritual Affiliation- Religious Other Social History - Lives with 67 [...] HISTORY Past Psychiatrist or Therapist - Saw [facility] in past for medication and therapy as [...] - Son, daughter Depression - Son, daughter ADDITIONAL SOCIAL HISTORY 02/25/2023: PERSONAL BACKGROUND HISTORY [...] 20s. No charges/convictions since then. Spiritual Affiliation- Religious Other Social History - Lives with 67 [...] HISTORY Past Psychiatrist or Therapist - Saw [facility] in past for medication and therapy [...] - Son, daughter Depression - Son, daughter ADDITIONAL SOCIAL HISTORY 02/25/2023: PERSONAL BACKGROUND HISTORY [...] 20s. No charges/convictions since then. Spiritual Affiliation- Religious Other Social History - Lives with 67 year-old mom, 39 year-old half-sister and her 19 year-old son, 23 year-old son, 21 year-old daughter and her boyfriend, and daughter's two daughters (his grandchildren). ALCOHOL/DRUG HISTORY Caffeine - Drinks coffee-4-5/day in am and iced tea/soda in afternoon Alcohol - Used to abuse alcohol, last abused 2 years ago, had a shot on 's Shirley Marijuana - Uses marijuana 4x/day for arthritis pain Cocaine - None Heroin - None Fentanyl - None Meth - None Other Illicit Drugs - None OTC/Rx Drugs - None PAST PSYCHIATRIC HISTORY Past Psychiatrist or Therapist - Saw [facility] in past for medication and therapy [...] - Son, daughter Depression - Son, daughter ADDITIONAL SOCIAL HISTORY 02/25/2023: PERSONAL BACKGROUND HISTORY [...] 20s. No charges/convictions since then. Spiritual Affiliation- Religious Other Social History - Lives with 67 [...] HISTORY Past Psychiatrist or Therapist - Saw [facility] in past for medication and therapy [...] - Son, daughter Depression - Son, daughter ADDITIONAL SOCIAL HISTORY 02/25/2023: PERSONAL BACKGROUND HISTORY [...] 20s. No charges/convictions since then. Spiritual Affiliation- Religious Other Social History - Lives with 67 [...] HISTORY Past Psychiatrist or Therapist - Saw [facility] in past for medication and therapy [...] - Son, daughter Depression - Son, daughter ADDITIONAL SOCIAL HISTORY 02/25/2023: PERSONAL BACKGROUND HISTORY [...] 20s. No charges/convictions since then. Spiritual Affiliation- Religious Other Social History - Lives with 67 [...] HISTORY Past Psychiatrist or Therapist - Saw [facility] in past for medication and therapy [...] - Son, daughter Depression - Son, daughter ADDITIONAL SOCIAL HISTORY 02/25/2023: PERSONAL BACKGROUND HISTORY [...] 20s. No charges/convictions since then. Spiritual Affiliation- Religious Other Social History - Lives with 67 [...] HISTORY Past Psychiatrist or Therapist - Saw [facility] in past for medication and therapy [...] - Son, daughter Depression - Son, daughter ADDITIONAL SOCIAL HISTORY 02/25/2023: PERSONAL BACKGROUND HISTORY [...] 20s. No charges/convictions since then. Spiritual Affiliation- Religious Other Social History - Lives with 67 [...] HISTORY Past Psychiatrist or Therapist - Saw [facility] in past for medication and therapy [...] - Son, daughter Depression - Son, daughter ADDITIONAL SOCIAL HISTORY 02/25/2023: PERSONAL BACKGROUND HISTORY [...] 20s. No charges/convictions since then. Spiritual Affiliation- Religious Other Social History - Lives with 67 year-old mom, 39 year-old half-sister and her 19 year-old son, 23 year-old son, 21 year-old daughter and her boyfriend, and daughter's two daughters (his grandchildren). ALCOHOL/DRUG HISTORY Caffeine - Drinks coffee-4-5/day in am and iced tea/soda in afternoon Alcohol - Used to abuse alcohol, last abused 2 years ago, had a shot on New Year's Shirley Marijuana - Uses marijuana 4x/day for arthritis pain Cocaine - None Heroin - None Fentanyl - None Meth - None Other Illicit Drugs - None OTC/Rx Drugs - None PAST PSYCHIATRIC HISTORY Past Psychiatrist or Therapist - Saw [facility] in past for medication and therapy [...] - Son, daughter Depression - Son, daughter Problems Problem Type SNOMED Code ICD Code Onset Dates Problem Status W/U Status Risk Notes Problem Tobacco user (791891639) Nicotine dependence, unspecified, uncomplicated (F17.200) Active confirmed Problem Bipolar 1 disorder (308738722) Bipolar 1 disorder (F31.9) Active confirmed Problem Generalized anxiety disorder (25488584) KUSUM (generalized anxiety disorder) (F41.1) Active confirmed Problem Cannabis abuse (93224432) Cannabis abuse (F12.10) Active confirmed Problem Tardive dyskinesia (597736818) Tardive dyskinesia (G24.01) Active confirmed Vital Signs Heart Rate 98 /min 04/07/2024 Temperature 97.3 degrees Fahrenheit 10/08/2023 Respiratory Rate 16 /min 04/07/2024 Oximetry 99 % 04/07/2024 Blood pressure diastolic 70 mm Hg 04/07/2024 Height 71 in 04/07/2024 Blood pressure systolic 118 mm Hg 04/07/2024 Weight 141 lbs 04/07/2024 BMI 19.66 kg/m2 04/07/2024 Encounters Encounter Location Date Provider Diagnosis [address] [address] 07/09/2023 Camille Sabblethan Bipolar 1 disorder F31.[address] [address] 04/07/2024 Camille Yeyo [address] [address] 05/13/2023 Camille Sabblut Bipolar 1 disorder F31.9 and KUSUM (generalized anxiety disorder) F41.[address] [address] 06/11/2023 Camille Sabblut Bipolar 1 disorder F31.9 and KUSUM (generalized anxiety disorder) F41.[address] [address] 07/09/2023 Camille Sabblut Bipolar 1 disorder F31.9 and KUSUM (generalized anxiety disorder) F41.[address] [address] 10/08/2023 Camille Sabblut Bipolar 1 disorder F31.9 and KUSUM (generalized anxiety disorder) F41.[address] [address] 01/07/2024 Camille Sabblut Bipolar 1 disorder F31.9 ; KUSUM (generalized anxiety disorder) F41.1 ; Nicotine dependence, unspecified, uncomplicated F17.200 ; Cannabis abuse F12.10 and Medication management Z79.[address] [address] 04/07/2024 Camille Sabblut Bipolar 1 disorder F31.9 ; KUSUM (generalized anxiety disorder) F41.1 ; Nicotine dependence, unspecified, uncomplicated F17.200 ; Cannabis abuse F12.10 and Medication management Z79.[address] [address] 04/11/2024 Camille Sabblut Bipolar 1 disorder F31.9 and Tardive dyskinesia G24.01 Assessments Encounter Date Diagnosis (ICD Code) Assessment Notes Treatment Notes Treatment Clinical Notes Section Notes 04/11/2024 Bipolar 1 disorder (ICD-10 - F31.9) 10/08/2023 Bipolar 1 disorder (ICD-10 - F31.9) Valproic Acid level normal on 03/19/2023 (60). Plan to redraw today. 06/11/2023 Bipolar 1 disorder (ICD-10 - F31.9) Valproic Acid level normal on 03/19/2023 (60). Plan to redraw on 07/09/2023 at time of next appointment. 07/09/2023 Bipolar 1 disorder (ICD-10 - F31.9) 07/09/2023 Bipolar 1 disorder (ICD-10 - F31.9) Valproic Acid level normal on 03/19/2023 (60). Plan to redraw today. 01/07/2024 Bipolar 1 disorder (ICD-10 - F31.9) Valproic Acid level due at next visit in 2024 - do not take Depakote night before blood draw, and schedule morning appt. 01/07/2024 KUSUM (generalized anxiety disorder) (ICD-10 - F41.1) 05/13/2023 Bipolar 1 disorder (ICD-10 - F31.9) Valproic Acid level normal on 03/19/2023 (60). Plan to redraw around 06/17/2023 at time of next appointment. 04/07/2024 Bipolar 1 disorder (ICD-10 - F31.9) AIMS = 10 today. Plan is to decrease olanazapine by 5 mg and reassess in two weeks. 04/07/2024 KUSUM (generalized anxiety disorder) (ICD-10 - F41.1) 05/13/2023 KUSUM (generalized anxiety disorder) (ICD-10 - F41.1) 07/09/2023 KUSUM (generalized anxiety disorder) (ICD-10 - F41.1) 06/11/2023 KUSUM (generalized anxiety disorder) (ICD-10 - F41.1) 01/07/2024 Nicotine dependence, unspecified, uncomplicated (ICD-10 - F17.200) 10/08/2023 KUSUM (generalized anxiety disorder) (ICD-10 - F41.1) 04/11/2024 Tardive dyskinesia (ICD-10 - G24.01) 01/07/2024 Cannabis abuse (ICD-10 - F12.10) 04/07/2024 Nicotine dependence, unspecified, uncomplicated (ICD-10 - F17.200) 04/07/2024 Cannabis abuse (ICD-10 - F12.10) 01/07/2024 Medication management (ICD-10 - Z79.899) May self-administer medications or be administered own oral medications per [facility] protocols. Provided informed consent with understanding of side effects, adverse effects, risks and benefits as well as alternative treatments as previously discussed and with the above recommended medications & other aspects of the treatment program. Agrees to return sooner if symptoms worsen or suicidal or homicidal ideations occur. Labs monitored by PCP except Valproic Acid - all last drawn in September 2023. 04/07/2024 Medication management (ICD-10 - Z79.899) May self-administer medications or be administered own oral medications per [facility] protocols. Provided informed consent with understanding of side effects, adverse effects, risks and benefits as well as alternative treatments as previously discussed and with the above recommended medications & other aspects of the treatment program. Agrees to return sooner if symptoms worsen or suicidal or homicidal ideations occur. Labs monitored by PCP except Valproic Acid - all last drawn in September 2023. 05/13/2023 Other May self-administer medications or be administered own oral medications per [facility] protocols. Provided informed consent with understanding of side effects, adverse effects, risks and benefits as well as alternative treatments as previously discussed and with the above recommended medications & other aspects of the treatment program. Agrees to return sooner if symptoms worsen or suicidal or homicidal ideations occur. 06/11/2023 Other May self-administer medications or be administered own oral medications per [facility] protocols. Provided informed consent with understanding of side effects, adverse effects, risks and benefits as well as alternative treatments as previously discussed and with the above recommended medications & other aspects of the treatment program. Agrees to return sooner if symptoms worsen or suicidal or homicidal ideations occur. 07/09/2023 Other May self-administer medications or be administered own oral medications per [facility] protocols. Provided informed consent with understanding of side effects, adverse effects, risks and benefits as well as alternative treatments as previously discussed and with the above recommended medications & other aspects of the treatment program. Agrees to return sooner if symptoms worsen or suicidal or homicidal ideations occur. 10/08/2023 Other May self-administer medications or be administered own oral medications per [facility] protocols. Provided informed consent with understanding of side effects, adverse effects, risks and benefits as well as alternative treatments as previously discussed and with the above recommended medications & other aspects of the treatment program. Agrees to return sooner if symptoms worsen or suicidal or homicidal ideations occur. 01/07/2024 Other Plan Of Treatment Next Appt Details Provider Name:Camille Tripp mn, 04/28/2024 10:30:00 AM, [address], [place], [address], Insurance Providers Payer Name Payer Address Payer Phone Subscriber Number Group Number Insured Name Patient Relationship to Insured Coverage Start Date Coverage End Date [employer] Medicare [address] [address] [place] [phone] [id number] Gianni Reich Self - patient is the insured 3 MEDICAID [address] [place] [phone] [id number] Gianni Reich Self - patient is the insured 4 Medical (General) History Medical History History ICD Code HTN HLD Hx of acute kidney failure Hx of sepsis with multi organ failure Surgical History Surgery Date(Month/Year) gallbladder pin in toe eye surgery Hospitalization History Reason Date(Month/Year) dehydration
--- OUTSIDE RECORDS SUMMARY | 2024-04-25 05:53 | XMS_ITS | Clinical Summary ---
Author Organization [facility] Address On license of [facility] [place] [address] Care Team Providers Care Cat Tender Name Role Phone Unavailable Primary Care Provider Unavailabl e Social History Tobacco Use Types Packs/Day Years Used Date Smoking Tobacco: Never Assessed Sex and Gender Information Value Date Recorded Sex Assigned at Not on file Legal Sex Male 7:33 PM CDT Gender Identity Not on file Sexual Orientation Not on file Plan of Treatment Health Maintenance Due Date Last Done Comments Colorectal Cancer Screening Colonoscopy (10 Years) 1976 Annual Physical 01/17/1979 Hepatitis C 01/17/1994 DTaP, Tdap and Td Vaccines ( 1 - Tdap) 01/17/1995 Hepatitis B Vaccines (1 of 3 - 19+ 3-dose series) 01/17/1995 COVID-19 Vaccine (2023-2 5 season) 2023 Influenza Adult (#1) 2023 Meningococcal B Vaccine Aged Out No l onger eligible based on patient's age to complete this topic Meningococcal Vaccine Aged Out No tani jane eligible based on patient's age to complete this topic Pneumococcal Vaccine: Pediat rics (0 to 5 Years) and At-Risk Patients (6 to 64 Years) Aged Out No longer eligible b ased on patient's age to complete this topic RSV Immunizations Under 20 Months Aged Out No longer eligible based on patient's age to complete this topic
--- OUTSIDE RECORDS SUMMARY | 2024-04-25 05:53 | XMS_ITS | Data Portability ---
Author Organization [facility], Main Office Address [address] [place] [address] Care Team Providers Care Behavioral Therapist Name Role Phone YARIEL COY Primary Care Provider [phone] YARIEL COY Referring Provider [phone] Assessment Encounter Date Assessment Date Assessment LastModified by Organization Details LastModified Time 06/18/2022 06/18/2022 Smoking cessation discussed in detail blood work has been ordered colonoscopy low-dose CT all questions have been answered healthy lifestyle choices have been stressed and discussed follow-up in 4-6 months. Not available 06/21/2022 14:19:24 10/22/2022 10/22/2022 Continue with current therapy follow-up 4 months [email or web address] Not available 11/12/2022 12:01:26 01/28/2023 01/28/2023 Blood pressure appears well controlled he was warned of the ill effects of tobacco which were included but not limited to increased tumor of the aerodigestive tract increase incidence of heart attack stroke and cancer that could lead to sudden or chronic medical illness he was advised to follow-up with the kidney specialist for his sponge kidney see me back in 4 months Not available 02/17/2023 14:12:04 Plan of Treatment Reminders Order Date Submit Date Provider Last Modified By Organization Details Last Modified Time Details Appointments None recorded. Lab lipid panel, serum 2022 023 [facility] (Lab), [address] [place], [address], 09:46:00 CMP, serum or plasma 2022 023 [facility] (Lab), [address] [place], [address], 14:52:35 Referral None recorded. Procedures colonoscopy screening (PROC) 2022 023 josiah Cortez MD, [address], [place], [address], 3 17:05:26 Surgeries None recorded. Imaging LDCT, chest, for lung cancer screening 2022 023 [facility] ([facility] Call Scheduling), [address] [facility] [facility], [place], [address], 3 17:05:10 Medication Orders None recorded. Patient TargetsNo targets recorded. Patient InstructionsNo instructions recorded. Reason for Referral None Reported. Results Created Date Observation Date Name Description Value Unit Range Abnormal Flag Note LastModifiedBy Organization Detail LastModifiedTime 06/21/1906/20/2022 COMPR EHENS JUVENTINO METAB OLIC PANEL sodium 137 mmol/ L 137-14 5 Not Available [facility] (Lab) [address] [place], [address], 06/20/2022 14:52:34 06/21/19 23 06/20/2022 COMPR EHENS JUVENTINO METAB OLIC PANEL potassium 4.5 mmol/ L 3.5-5. 1 Not Available [facility] (Lab) [address] [place], [address], 06/20/2022 14:52:34 06/21/1906/20/2022 COMPR EHENS JUVENTINO METAB OLIC PANEL chloride 102 mmol/ L 98-107 Not Available [facility] (Lab) [address] [place], [address], 06/20/2022 14:52:34 06/21/19 23 06/20/2022 COMPR EHENS JUVENTINO METAB OLIC PANEL carbon dioxide 27 mmol/ L 22-30 Not Available [facility] (Lab) [address] [place], [address], 06/20/2022 14:52:34 06/21/19 23 06/20/2022 COMPR EHENS JUVENTINO METAB OLIC PANEL anion gap 12.5 mmol/ L 14-22 low Not Available [facility] (Lab) [address] [place], [address], 06/20/2022 14:52:34 06/21/19 23 06/20/2022 COMPR EHENS JUVENTINO METAB OLIC PANEL glucose 59 mg/dL 70-99 low Not Available [facility] (Lab) [address] [place], [address], 06/20/2022 14:52:34 06/21/19 23 06/20/2022 COMPR EHENS JUVENTINO METAB OLIC PANEL BUN 10 mg/dL 8-19 Not Available [facility] (Lab) [address] [place], [address], 06/20/2022 14:52:34 06/21/19 23 06/20/2022 COMPR EHENS JUVENTINO METAB OLIC PANEL creatinine 0.87 mg/dL 0.66-1 .25 Not Available [facility] (Lab) [address] [place], [address], 06/20/2022 14:52:34 06/21/19 23 06/20/2022 COMPR EHENS JUVENTINO METAB OLIC PANEL GFR >60 Refer ence Range : [place] ge GFR Healt hy Adult : >60 mL/mi n/1.7 3 m2 Chron ic Kidne y Disea se: 15-60 mL/mi n/1.7 3 m2 Kidne y Failu re: <15/m L/min /1.73 m2 www.n iddk. nih.g ov The MDRD study equat ion has not been valid ated in child larry <18 years of age; pregn ant women ; the elder ly >85 years of age; or in some racia l or ethni c subgr oups, such as Hispa nics. Outsi de the valid ated stu eters , estim ated GFR is less accur ate, requi ring clini ophelia judgm ent on a case- by-ca se basis . Clini ophelia inter preta tion for other races and ages must be made by the clini vandana. The MDRD study equat ion has not been valid ated for the evalu ation of serum creat inine relat ed to nutri digna l statu s or medic ation usage . For perso ns <18 years of age, a pedia tric GFR calcu lator is avail able on the [facility] websi te: https ://ww w.kid desmond.o rg/pr ofess ional s/kdo qi/gf r_cal culat or Not Available [facility] (Lab) [address] [place], [address], 06/20/2022 14:52:34 06/21/19 23 06/20/2022 COMPR EHENS JUVENTINO METAB OLIC PANEL alkaline phosphatase 89 U/L 38-126 Not Available [facility] (Lab) [address] [place], [address], 06/20/2022 14:52:34 06/21/19 23 06/20/2022 COMPR EHENS JUVENTINO METAB OLIC PANEL alanine aminotransfe rase 17 U/L 0-50 Not Available [facility] (Lab) [address] [place], [address], 06/20/2022 14:52:34 06/21/19 23 06/20/2022 COMPR EHENS JUVENTINO METAB OLIC PANEL aspartate aminotransfe rase 19 U/L 15-46 Not Available [facility] (Lab) [address] [place], [address], 06/20/2022 14:52:34 06/21/19 23 06/20/2022 COMPR EHENS JUVENTINO METAB OLIC PANEL bilirubin, total 0.50 mg/dL 0.20-1 .30 Not Available [facility] (Lab) [address] [place], [address], 06/20/2022 14:52:34 06/21/19 23 06/20/2022 COMPR EHENS JUVENTINO METAB OLIC PANEL calcium 9.2 mg/dL 8.4-10 .2 Not Available [facility] (Lab) [address] [place], [address], 06/20/2022 14:52:34 06/21/19 23 06/20/2022 COMPR EHENS JUVENTINO METAB OLIC PANEL total protein 6.6 g/dL 6.3-8. 2 Not Available [facility] (Lab) [address] [place], [address], 06/20/2022 14:52:34 06/21/19 23 06/20/2022 COMPR EHENS JUVENTINO METAB OLIC PANEL albumin 4.2 g/dL 3.4-5. 0 Not Available [facility] (Lab) [address] [place], [address], 06/20/2022 14:52:34 06/21/19 23 06/20/2022 COMPR EHENS JUVENTINO METAB OLIC PANEL globulin 2.4 g/dL 2.6-4. 2 low Not Available [facility] (Lab) [address] [place], [address], 06/20/2022 14:52:34 06/21/19 23 06/20/2022 COMPR EHENS JUVENTINO METAB OLIC PANEL A/G ratio 1.8 ratio 1.0-2. 0 Not Available [facility] (Lab) [address] [place], [address], 06/20/2022 14:52:34 11/21/19 22 11/20/2021 , echo marcos hyde No observ ation record ed. [id number] [facility] [address], [place], [address], 04/16/2022 05:03:41 07/04/19 07/03/2022 LDCT, chest , for lung cance r scree heri [facility] [address] [place] [address] [phone] Renny shipman Name: JACOB DIAZ IN E Access ion #: [id number] Sex: M : 1974 5 Locati on: RAD Attend ing Physic kristy: HIMANSHU COY Orderi ng Physic kristy: HIMANSHU COY Exam Date: 023 1:31 PM Exam Name: CT CHEST WO LOW DOSE F/U Admitt ing Diagno sis(es ): RADIOL OGY REPORT - FINAL EXAM: CT CHEST WO LOW DOSE F/U HISTOR Y: 46-yea r-old male, 45 pack year cigare tte smokin g histor y low-do se CT lung carcin paulette examin ation. COMPAR MIKE: 2021 TECHNI QUE: CT low dose lung screen ing protoc ol was utiliz ed. Axial images were obtain ed using low dose comput erized tomogr aphy. Images are recons tructe d in parker l, sagitt al, and axial planes . The images are review ed with lung window , soft tissue , and bone window settin gs. This CT exam was perfor med using one or more of the follow ing dose reduct ion techni ques: Automa rose exposu re contro l, adjust ment of the mA and/or kV accord ing to patien t size, or use of iterat juventino recons tructi on techni que. Page 1 of 3 [facility] Renny t Name: JACOB DIAZ IN E Access ion #: [id number] Sex: M : 1974 5 Exam Date: 023 1:31 PM Exam Name: CT CHEST WO LOW DOSE F/U Admitt ing Diagno sis(es ): FINDIN GS: Lungs: Parase ptal bullae format ion. No suspic ious nodule s. Increa sed anteri or precision lens centerer and edger ior diamet er of the trache a compat ible with emphys ematou s residu als. Stable scarri ng at the right apex. Medias tinum/ Hilum: Unrema rkable Vascul ar: Unrema rkable Heart: Normal size, no perica rdial effusi on. Bones: No acute proces s Extra Thorac ic Soft tissue s: Mild gyneco mastia . IMPRES ERIC: Lung-R ADS 1, negati ve. Contin ue annual screen ing with LDCT in 12 months . Emphys ematou s change s re-narcisa ntifie d with parase ptal bullae . Create d and electr onical ly signed by: Dony sanchez MD Signed Date: 6:12 PM (CT) Dictat ed by: Dony sanchez MD DD: 6:12 PM (CT) Page 2 of 3 [facility] Name: JACOB DIAZ IN E Access ion #: [id number] Sex: M : 1974 5 Exam Date: 1:31 PM Exam Name: CT CHEST WO LOW DOSE F/U Admitt ing Diagno sis(es ): DT: 6:12 PM (CT) Page 3 of 3 [email or web address] [facility] (Imaging) [address] [place], [address], 10/23/2022 10:30:23 02/05/20 23 12/12/2022 US, echoc ardio gram No observ ation record ed. [facility] [address], [place], [address], 02/20/2023 15:27:53 Result Notes None recorded. Problems Name Problem SNOMED Code Status Onset Date Resolution Date Notes Provider Name and Address Organization Details Recorded Time Vitamin D below reference range 579075589 Active 2022 Not Available [facility] 4 04:25:56 Essential hypertensi on 51011792 Active 2022 Not Available [facility] 4 04:25:56 Tobacco user 996709343 Active Not Available [facility] 4 04:25:56 Rectal hemorrhage 41460237 Completed Not Available [facility] 3 04:51:03 Urinary incontinen ce 717642995 Completed Not Available [facility] 3 04:51:03 Pain in scrotum 30259966 Active Not Available [facility] 4 04:25:56 Abdominal pain 79628396 Active Not Available [facility] 4 04:25:56 Gallstone 453974959 Active Not Available [facility] 4 04:25:56 Medullary sponge kidney 846453343 Active Not Available [facility] 4 04:25:56 Headache 26765497 Active Not Available [facility] 4 04:25:56 Abnormal weight loss 558915197 Active Not Available [facility] 4 04:25:56 Retention of urine 944795531 Active Not Available [facility] 4 04:25:56 Low back pain 352420899 Active Not Available [facility] 4 04:25:56 Dyslipidem ia 610207426 Active 2021 Not Available [facility] 4 04:25:56 Anxiety 08176728 Active 2022 Not Available [facility] 4 04:25:56 Dysuria 80650843 Active Not Available [facility] 4 04:25:56 Problem Notes None recorded. Procedures Surgical History Date Name Laterality Status Provider Name and Address Organization Details Recorded Time 01/31/20 15 laparoscopic cholecystectomy completed Not Available [facility] 04/16/2022 04:42:01 Eye Surgery completed Not Available [facility] 04/16/2022 04:42:01 other completed Not Available [facility] 04/16/2022 04:42:01 Imaging Results Imaging Date Name Status LastModified by Organization Details LastModified Time 11/20/2021 US, echocardiogram completed [id number] [facility] [address], [place], [address], 04/16/2022 05:03:41 07/03/2022 LDCT, chest, for lung cancer screening completed [email or web address] [facility] (Imaging) [address] [facility], [place], [address], 10/23/2022 10:30:23 12/12/2022 US, echocardiogram completed [email or web address] [facility] [address], [place], [address], 02/20/2023 15:27:53 Procedure Notes None recorded. Medical Equipment None Reported. Allergies No known drug allergies Medications Name Sig Start Date Stop Date Status Note LastModified by Organization Details LastModified Time amoxicilli n 500 mg capsule 06/24 completed Not Available Not Available Not Available atorvastat in 20 mg tablet TAKE 1 TABLET BY MOUTH EVERY DAY active Not Available Not Available No t Available lamotrigin e 200 mg tablet 06/09 completed Not Available Not Available Not Available nicotine 14 mg/24 hr daily transderma l patch APPLY 1 PATCH TOPICALL Y TO THE SKIN EVERY DAY 06/18 completed Not Available Not Available Not Available etodolac 200 mg capsule TK 1 C PO TID PRN 07/08 completed Not Available Not Available Not Available trazodone 50 mg tablet 06/09 completed Not Available Not Available Not Available ibuprofen 800 mg tablet TAKE 1 TABLET BY MOUTH THREE TIMES DAILY WITH FOOD NEEDED 06/18 completed Not Available Not Available Not Available tizanidine 4 mg tablet 08/20 completed Not Available Not Available Not Available hydrocodon e 5 mg-acetami nophen 325 mg tablet 07/08 completed Not Available Not Available Not Available ondansetro n HCl 8 mg tablet TAKE 1 TABLET BY MOUTH EVERY 6 HOURS NEEDED FOR NAUSEA OR VOMITING 06/18 completed Not Available Not Available Not Available ondansetro n HCl 4 mg tablet TK 1 T PO Q 12 H 08/20 completed Not Available Not Available Not Available prednisone 20 mg tablet take 3 tablets for 3 days, 2 tablets for 3 days, 1 tablet for 3 days active Not Available Not Available No t Available olanzapine 5 mg tablet TAKE 1 TABLET BY MOUTH IN THE MORNING 01/28 completed Not Available Not Available Not Available hydroxyzin e pamoate 50 mg capsule TAKE 1 CAPSULE BY MOUTH AT BEDTIME active Not Available Not Available No t Available olanzapine 10 mg tablet TAKE 1 TABLET BY MOUTH TWICE DAILY active Not Available Not Available No t Available ciprofloxa kelvin 500 mg tablet 06/09 completed Not Available Not Available Not Available peg-electr olyte solution 420 gram oral solution MIX AND DRINK UTD 08/20 completed Not Available Not Available Not Available aspirin 81 mg tablet,del ayed release TAKE 1 TABLET BY MOUTH ONCE A DAY active Not Available Not Available No t Available tramadol 50 mg tablet Take 1 tablet(s ) BID PRN PAIN 12/11 completed Not Available Not Available Not Available amoxicilli n 500 mg tablet Take 1 tablet 3 times a day by oral route for 10 days. active Not Available Not Available No t Available carvedilol 3.125 mg tablet TAKE 1 TABLET BY MOUTH TWICE DAILY active Not Available Not Available No t Available carbamazep ine 200 mg tablet TK 2 TS PO QAM AND 2 TS PO QPM 03/15 completed Not Available Not Available Not Available oxycodone- acetaminop hen 5 mg-325 mg tablet 07/08 completed Not Available Not Available Not Available famotidine 20 mg tablet TK 1 T PO Q 12 H FOR 10 DAYS 08/20 completed Not Available Not Available Not Available tamsulosin 0.4 mg capsule take 1 capsule by mouth every day 06/09 completed Not Available Not Available Not Available lithium carbonate 300 mg capsule 06/09 completed Not Available Not Available Not Available pantoprazo le 40 mg tablet,del ayed release TAKE 1 TABLET BY MOUTH EVERY DAY 11/07 completed Not Available Not Available Not Available losartan 25 mg tablet TAKE 1 TABLET BY MOUTH EVERY DAY active Not Available Not Available No t Available omeprazole 20 mg capsule,de layed release 07/08 completed Not Available Not Available Not Available folic acid 1 mg tablet TAKE 1 TABLET BY MOUTH EVERY DAY 11/07 completed Not Available Not Available Not Available hydrocodon e 5 mg-acetami nophen 500 mg tablet 06/09 completed Not Available Not Available Not Available bisacodyl 5 mg tablet,del ayed release TAKE 6 TABLETS BY MOUTH AT 8 AM ON 07/28/2210/22 completed Not Available Not Available Not Available hydrochlor othiazide 25 mg tablet TAKE ONE TABLET PO Q OTHER DAY 12/11 completed Not Available Not Available Not Available ergocalcif destiny (vitamin D2) 1,250 mcg (50,000 unit) capsule TAKE 1 CAPSULE BY MOUTH 1 TIME A WEEK active Not Available Not Available No t Available ondansetro n 4 mg disintegra ting tablet 03/12 completed Not Available Not Available Not Available dicyclomin e 10 mg capsule TK 1 C PO Q 6 H PRN 08/20 completed Not Available Not Available Not Available amoxicilli n 875 mg-potassi um clavulanat e 125 mg tablet 03/12 completed Not Available Not Available Not Available hydroxyzin e pamoate 25 mg capsule active Not Available Not Available Not Available duloxetine 60 mg capsule,de layed release TK 1 C PO ONCE D 03/15 completed Not Available Not Available Not Available Enablex 15 mg tablet,ext ended release 06/09 completed Not Available Not Available Not Available Lamictal 06/09 completed Not Available Not Available Not Available Protonix 07/12 completed Not Available Not Available Not Available oxybutynin 06/09 completed Not Available Not Available Not Available Cymbalta 06/09 completed Not Available Not Available Not Available Invega 06/09 completed Not Available Not Available Not Available Cholestyra mine Light 4 gram oral powder MIX 1 SCOOP( 17 GRAMS) INTO LIQUID AND TAKE BY MOUTH EVERY DAY 11/16 completed Not Available Not Available Not Available lithium aspartate 06/09 completed Not Available Not Available Not Available omeprazole 20 mg tablet,del ayed release 08/20 completed 01/25/20 15 Not Available Not Available Not Available GaviLyte-G 236 gram-22.74 gram-6.74 gram-5.86 gram oral solution MIX AND DRINK 1/2 AT 5 PM ON 07/28/22 AND 1/2 AT 5 AM ON 07/29/2210/22 completed Not Available Not Available Not Available Vitamin B-1 (mononitra te) 100 mg tablet TAKE 1 TABLET BY MOUTH EVERY DAY 11/07 completed Not Available Not Available Not Available Chantix Continuing Month Box 1 mg tablet Take 1 tablet twice a day by oral route. 08/20 completed Not Available Not Available Not Available Chantix Starting Month Box 0.5 mg (11)-1 mg (42) tablets in dose pack use as directed 08/20 completed Not Available Not Available Not Available Myrbetriq 50 mg tablet,ext ended release Take 1 tablet every day by oral route for 28 days. 2013 active Sample Qty: 28. Not Available Not Available Not Available Vitals Date Recorded Body mass index (BMI) Body height Heart rate Body temperature Body weight Systolic blood pressure Diastolic blood pressure Provider Name and Address Organization Details Last Updated DateTime 2 19.5 kg/m2 177.8 cm 56 /min 97.1 [degF] 74139.5 6 g 100 mm[Hg] 60 mm[Hg] Not Available [facility] 3 04:47:15 Date Recorded Body mass index (BMI) Body height Heart rate Body temperature Body weight Systolic blood pressure Diastolic blood pressure Provider Name and Address Organization Details Last Updated DateTime 3 19.8 kg/m2 177.8 cm 62 /min 97.5 [degF] 52510.7 5 g 102 mm[Hg] 66 mm[Hg] Not Available [facility] 3 04:47:15 Date Recorded Body height Body mass index (BMI) Body weight Body temperature Heart rate Oxygen saturation Oxygen saturation in Arterial blood by Pulse oximetry Systolic blood pressure Diastolic blood pressure Provider Name and Address Organization Details Last Updated DateTime 3 177.8 cm 19.7 kg/m2 84269.1 5 g 97.9 [degF] 59 /min 98 % 98 % 110 mm[Hg] 70 mm[Hg] Gayatri Sebastian RN [facility] 3 14:48:28 Date Recorded Body height Body mass index (BMI) Body weight Body temperature Heart rate Systolic blood pressure Diastolic blood pressure Provider Name and Address Organization Details Last Updated DateTime 3 177.8 cm 18.7 kg/m2 99051.0 1 g 97.4 [degF] 67 /min 120 mm[Hg] 70 mm[Hg] ERINN Hardwick [facility] [employer] [facility] 3 15:39:10 Date Recorded Body height Body mass index (BMI) Body weight Body temperature Heart rate Systolic blood pressure Diastolic blood pressure Provider Name and Address Organization Details Last Updated DateTime 3 177.8 cm 18.8 kg/m2 95375.6 g 97.5 [degF] 62 /min 110 mm[Hg] 64 mm[Hg] ERINN Hardwick [place] [facility] 3 15:05:12 Social History Question Answer Notes LastModified by Organization Details LastModified Time Tobacco Smoking Status Current Every Day Smoker Not Available [facility] 04/16/2022 04:31:48 Do You Have An Advance Directive? No [email or web address] [id number] Information not available 04/16/2022 What Is Your Level Of Alcohol Consumption? None QUIT DRINKING [email or web address].030 [id number] Information not available 04/16/2022 Are You Blind Or Do You Have Difficulty Seeing? No [email or web address].030 [id number] Information not available 04/16/2022 What Is Your Level Of Caffeine Consumption? Heavy [email or web address].030 [id number] Information not available 04/16/2022 How Much Tobacco Do You Chew? None [email or web address].030 [id number] Information not available 04/16/2022 In The 14 Days Before Symptom Onset, Have You Had Close Contact With A Laboratory-conf irmed COVID-19 While That Case Was Ill? No [email or web address].030 [id number] Information not available 04/16/2022 In The 14 Days Before Symptom Onset, Have You Had Close Contact With A Person Who Is Under Investigation For COVID-19 While That Person Was Ill? No [email or web address].030 [id number] Information not available 04/16/2022 Are You Currently Employed? No [email or web address] Information not available 06/18/2022 Are You Deaf Or Do You Have Serious Difficulty Hearing? No [email or web address].030 [id number] Information not available 04/16/2022 What Type Of Diet Are You Following? REGULAR [email or web address].030 [id number] Information not available 04/16/2022 Which Illicit Or Recreational Drugs Have You Used? Marijuana Daily Smoker [id number] Information not available 04/16/2022 Do You Or Have You Ever Used E-cigarettes Or Vape? Never Used Electronic Cigarettes [email or web address].030 [id number] Information not available 04/16/2022 What Is The Highest Grade Or Level Of School You Have Completed Or The Highest Degree You Have Received? [id number] [email or web address] Information not available 06/18/2022 Have There Been Any Changes To Your Family Or Social Situation? No [id number].[id number] [id number] Information not available 04/16/2022 What Is The Fluoride Status Of Your Home? Fluoridated MIGRATION.0301 [id number] Information not available 04/16/2022 Are There Any Guns Present In Your Home? No [email or web address].0301 [id number] Information not available 04/16/2022 Do You Use Insect Repellent Routinely? No [email or web address] Information not available 06/18/2022 Where Do You Live? SingleLevelHouse MIGRATION.0301 [id number] Information not available 04/16/2022 Do You Have A Medical Power Of Documentation Supervisor? No [email or web address].0301 [id number] Information not available 04/16/2022 What Was The Date Of Your Most Recent Tobacco Screening? 01/28/2023 [email or web address] Information not available 01/28/2023 How Many Children Do You Have? 3 [email or web address] Information not available 06/18/2022 What Is Your Current Pack Years? 30ormorepackyears MIGRATION.0301 [id number] Information not available 04/16/2022 Do You Have Any Pets? Yes [email or web address] Information not available 06/18/2022 What Is Your Relationship Status? Single [email or web address] Information not available 06/18/2022 Do You Use Your Seat Belt Or Car Seat Routinely? Yes [email or web address].0301 [id number] Information not available 04/16/2022 Do You Have Smoke And Carbon Monoxide Detectors In Your Home? Yes [email or web address].0301 [id number] Information not available 04/16/2022 At What Age Did You Start Smoking Tobacco? 16 MIGRATION.0301 [id number] Information not available 04/16/2022 Are You Passively Exposed To Smoke? Yes [email or web address] Information not available 06/18/2022 Do You Or Have You Ever Used Smokeless Tobacco? Never Used Smokeless Tobacco MIGRATION.0301 [id number] Information not available 04/16/2022 Are There Any Smokers In Your House? Yes MIGRATION.0301 [id number] Information not available 04/16/2022 How Much Tobacco Do You Smoke? 0.5 PPD MIGRATION.0301 [id number] Information not available 04/16/2022 Do You Feel Stressed (tense, Restless, Nervous, Or Anxious, Or Unable To Sleep At Night)? [id number] [email or web address] Information not available 06/18/2022 Do You Use Any Illicit Or Recreational Drugs? Yes Information not available 06/18/2022 Do You Use Sunscreen Routinely? No [id number] Information not available 04/16/2022 Have You Recently Traveled Abroad? No MIGRATION.0301 [id number] Information not available 04/16/2022 Have You Used IV Drugs? No [id number] Information not available 06/18/2022 Do You Have Any Dietary Restrictions? No [email or web address] Information not available 06/18/2022 Sex: Unknown Functional Status Question Answer Note LastModified by Organizat ion Details LastModified Time Do you have difficulty walking or climbing stairs? No [id number] Information not available 04/16/2022 Do you have difficulty doing errands alone? No MIGRATION.[id number] 6 Information not available 04/16/2022 Do you have difficulty dressing or bathing? No MIGRATION.[id number] 6 Information not available 04/16/2022 What is your exercise level? None [id number] 6 Information not available 04/16/2022 Mental Status Question Answer Note LastModified by Organizat ion Details LastModified Time Do you have difficulty concentrating, remembering or making decisions? No MIGRATION.[id number] 6 Information not available 04/16/2022 Family History Relationship Description Onset Age of this Age Resolved Age Notes LastModified by Organization Details LastModified Time Father Malignant neoplastic disease [id number] Not available 04/16/2022 04:42:06 Father Hypertensive disorder MIGRATION.537 [id number] Not available 04/16/2022 04:42:06 Father Diabetes mellitus MIGRATION.895 [id number] Not available 04/16/2022 04:42:07 Maternal Grandfather Heart disease MIGRATION.427 [id number] Not available 04/16/2022 04:42:07 Maternal Grandfather Family history of malignant neoplasm MIGRATION.746 [id number] Not available 04/16/2022 04:42:07 Maternal Grandfather Diabetes mellitus MIGRATION.912 [id number] Not available 04/16/2022 04:42:07 Maternal Grandmother Heart disease MIGRATION.157 [id number] Not available 04/16/2022 04:42:07 Medical History Condition Response BLINDNESS N NERVE DISEASE N RHEUMATIC FEVER N BLADDER PROBLEMS N KIDNEY STONES N MRSA N OTHER # 1 N POLIO N LUNG DISEASE/DISORDER N RADIATION / CHEMOTHERAPY N COPD N Other # 2 N BLOOD DISEASES N EAR OR HEARING PROBLEMS N MUMPS N BOWEL PROBLEMS N DEPRESSION (INCLUDING POST ) Y STROKE/TIA N ULCERS N BENIGN PROSTATIC HYPERPLASIA N MEASLES N MYOCARDIAL INFARCTION N OBESITY N GERD/NAUSEA N ANEURYSM N URINARY/BLADDER/KIDNEY PROBLEMS Y CORONARY ARTERY DISEASE (CAD) N ADDICTION CONCERNS N Impotence N ENDOMETRIOSIS N USE OF BLOOD THINNERS N SKIN PROBLEMS N GASTROINTESTINAL DISORDER N PERIPHERAL VASCULAR DISEASE N MUSCLE,JOINT OR BONE PROBLEMS N GASTROINTESTINAL BLEEDING N BLOOD CLOTS N ASTHMA N CATARACTS N ERECTILE DYSFUNCTION N VARICOSITIES N GI PROBLEMS N Low Testosterone N INFERTILITY N AIDS/HIV N CHEMOTHERAPY / RADIATION N LIVER DISEASE N MALE HYPOGONADISM N HYPERTENSION N Deficiency N TOURETTE'S N ANXIETY DISORDER Y BLOOD TRANSFUSION N ANEMIA/BLOOD DISORDER N CHRONIC EAR INFECTIONS N BRONCHITIS N TUBERCULOSIS N GLAUCOMA N FOOT PROBLEM N DIVERTICULITIS N SLEEP APNEA N CHICKENPOX N INFECTIOUS DISEASE N PROSTATE N HEART ARRHYTHMIA N INSOMNIA N HIGH CHOLESTEROL / HYPERLIPIDEMIA N EYE PROBLEMS N HYPERTHYROIDISM N EDEMA N CHRONIC PAIN SYNDROME N HYPOTHYROIDISM N CONSTIPATION N CAROTID BLOCKAGE N BACK / NECK PROBLEMS N HAVE YOU BEEN HOSPITALIZED OR SEEN IN [facility] IN THE PAST YEAR ? N ATHEROSCLEROSIS N BREAST PROBLEMS N DIALYSIS N ECZEMA N OSTEOPOROSIS N ARTHRITIS Y APPENDICITIS N DIABETES, TYPE N BAD TEETH N ENT N HEARTBURN / REFLUX Y AUTISM SPECTRUM DISORDER (ASD) N HEPATITIS / LIVER DISEASE N GOUT N SLEEP DISORDER N ALZHEIMER'S DISEASE N Brain Problems N DEMENTIA N HERPES N SEIZURES/EPILEPSY N HEADACHES/MIGRAINES N VASCULAR DISEASE N PACEMAKER N Blood Disorder N DIZZINESS N HEART DISEASE/HEART PROBLEMS N KIDNEY DISEASE N MULTIPLE SCLEROSIS N CANCER: SPECIFY N CARDIAC ARRHYTHMIA N ATRIAL FIBRILLATION N Gall Stones N PULMONARY EMBOLISM N AUTOIMMUNE DISEASE N Immunizations Vaccine Type Date Status Note Provider Nam e and Address Organization Details Recorded Time influenza, intradermal, quadrivalent, preservative free 9 completed Not Available [facility] 02/27/2023 04:25:56 Influenza, split virus, quadrivalent, preservative 7 completed Not Available [facility] 02/27/2023 04:25:56 Influenza, split virus, quadrivalent, PF 5 completed Not Available [facility] 02/27/2023 04:25:56 Past Encounters Encounter ID Performer Location Encounter Start Date Encounter Closed Date Diagnosis/Indication Diagnosis SNOMED-CT Code Diagnosis ICD10 Code Diagnosis Note [id number] [facility] [address] [place] [address] [place] [address] 07/02/2020 00:00:00 07/29/2020 12:12:15 [id number] [facility] [address] [place] [address] 08/15/2020 00:00:00 08/15/2020 14:31:06 [id number] [facility] [address] [place] [address] 08/29/2020 00:00:00 08/29/2020 15:45:16 [id number] [facility] [address] [place] [address] [place] [address] 07/12/2021 00:00:00 07/12/2021 22:49:21 [id number] [facility] [address] [place] [address] [place] [address] 08/09/2021 00:00:00 08/11/2021 14:18:23 [id number] [facility] [address] [place] [address] 11/07/2021 00:00:00 12/15/2021 18:24:59 [id number] [facility] [address] [place] [address] 02/19/2022 00:00:00 02/20/2022 21:26:50 [id number] Yariel Coy MD [facility] [address] [place] [address] 06/18/2022 14:35:11 06/18/2022 15:53:49 Dyslipidemia 528078378 E78.5 Screening for malignant neoplasm of colon 941310166 Z12.11 Nicotine dependence 5629 4008 Z87.891 Essential hypertension 15638633 I10 Vitamin D below reference range 228877012 E55.9 [id number] Yariel Coy MD [facility] [place] [address] [place] [address] 10/22/2022 15:23:29 10/22/2022 16:12:01 Essential hypertension 31028768 I10 Dyslipidemia 235652303 E 78.5 Anxiety 31521333 F41.9 Vitamin D below reference range 428107098 E55.9 [id number] Yariel Coy MD [facility] [place] [address] [facility] [address] [place] [address] 01/28/2023 14:27:53 01/28/2023 16:08:08 Essential hypertension 34171727 I10 Dyslipidemia 873521193 E 78.5 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 Health Concerns Section Related Observation LastModified by Organization Detai ls LastModified Time None Recorded Concern Status LastModified by Organization Details LastModified Time None Recorded Advance Directives Directive N: Payers Encounter Date Sequence Insurance Name Policy Number Policy Mcfadden Covered Member ID Mcfadden Member ID Guarantor Name 06/18/2022 1 [facility] (MEDICARE REPLACEMENT/A DVANTAGE - HMO) [id number] Gianni Hsu [id number] Gianni Hsu 06/18/2022 2 [place]ICARE REPLACEMENT PRIMARY) Gianni Hsu [id number] Gianni Hsu 10/22/2022 1 [facility] (MEDICARE REPLACEMENT/A DVANTAGE - HMO) [id number] Gianni Hsu [id number] Gianni Hsu 10/22/2022 2 [place]IC[place] REPLACEMENT PRIMARY) Gianni Hsu [id number] Gianni Hsu 01/28/2023 1 [facility] (MEDICARE REPLACEMENT/A DVANTAGE - HMO) [id number] Gianni Hsu [id number] Gianni Hsu 01/28/2023 2 [place] OR MEDICARE REPLACEMENT PRIMARY) Gianni Hsu [id number] Gianni Hsu Notes Date Note Type Note Provider Name and Address Organization Details Recorded Time 06/18/2022 text/html Dyslipidemia cou ld do better with dietNicotine dependence pack-a-day smoker.Hypertensio n no headache no dizzinessLow vitamin-D we have supplemented from time to time Yariel Coy MD [address], [place], [address], [employer] 06/21/2022 14:20:21 10/22/2022 text/html Dyslipidemia cou ld do better with dietNicotine dependence pack-a-day smoker.Hypertensio n no headache no dizzinessLow vitamin-D we have supplemented from time to time Yariel Coy MD [address], [place], [address], [employer] 11/12/2022 12:01:43 01/28/2023 text/html No headache no dizziness. Dyslipidemia trying to take his atorvastatin regularly and follow a low-fat diet. Low vitamin-D says he is taking his medication but not every day. Psychiatric disorder he continues to follow-up with chest not any continues to smoke Yariel Coy MD [address], [place], [address], [employer] 02/17/2023 14:13:40
--- OUTSIDE RECORDS SUMMARY | 2024-04-25 05:53 | XMS_ITS ---
Author Organization Formerly [facility] Address [address] [place] [address] Care Team Providers Care Fleet Dispatch Manager Name Role Phone Camille Orona Primary Care Provider REASON FOR VISIT called with lab results Medications Medication SIG (Take, Route, Frequency, Duration) Notes Start Date End Date Status Divalproex Sodium 500 MG 1 tablet in am, 2 tablets at bedtime Orally twice a day for 30 days Active Benztropine Mesylate 0.5 MG 1 tablet at bedtime Orally Once a day for 30 days 04/11/2024 Active OLANZapine 10 MG 1 tablet at bedtime Orally Once a day for 30 days Active OLANZapine 5 MG 1 tablet in morning Orally Once a day for 30 days 04/11/2024 Active Social History Sex Assigned At : Social History Observation Description Sex Assigned At Male Problems Problem Type SNOMED Code ICD Code Onset Dates Problem Status W/U Status Risk Notes Problem Tardive dyskinesia (182472723) Tardive dyskinesia (G24.01) Active confirmed Encounters Encounter Location Date Provider Diagnosis [address] [address] 04/11/2024 Camille Orona Bipolar 1 disorder F31.9 and Tardive dyskinesia G24.01 Assessments Encounter Date Diagnosis (ICD Code) Assessment Notes Treatment Notes Treatment Clinical Notes Section Notes 04/11/2024 Bipolar 1 disorder (ICD-10 - F31.9) 04/11/2024 Tardive dyskinesia (ICD-10 - G24.01) Plan Of Treatment Medication Medication Name Sig Start Date Stop Date Notes Divalproex Sodium 500 MG 1 tablet in am, 2 tablets at bedtime Orally twice a day for 30 days Benztropine Mesylate 0.5 MG 1 tablet at bedtime Orally Once a day for 30 days 04/11/2024 OLANZapine 10 MG 1 tablet at bedtime Orally Once a day for 30 days OLANZapine 5 MG 1 tablet in morning Orally Once a day for 30 days 04/11/2024 Next Appt Details Provider Name:Camille Tripp wv, 04/28/2024 10:30:00 AM, [address] [facility], [place], [address], Progress Notes * Gianni HSUDOB:03/1974 (49 yo M)Acc No.[id number]:04/11/2024 Patient: Gianni DUMONT :1975 A ge:49 Y S ex:Male Address:[address] [place] [address] * Refills Increase Divalproex Sodium Tablet Delayed Release, 500 MG, Orally, 90, 1 tablet in am, 2 tablets at bedtime, twice a day, 30 days, Refills=0 Refill OLANZapine Tablet, 10 MG, Orally, 30 Tablet, 1 tablet at bedtime, Once a day, 30 days, Refills=0 Refill OLANZapine Tablet, 5 MG, Orally, 30 Tablet, 1 tablet in morning, Once a day, 30 days Start Benztropine Mesylate Tablet, 0.5 MG, Orally, 30, 1 tablet at bedtime, Once a day, 30 days Subjective: * Chief Complaints: * C alled with lab results * Medical History: * Surgical History: * Hospitalization/Major Diagno stic Procedure: * Medications: Objective: * Vitals: * Physical Examination: Assessment: * Assessment: 1. B ipolar 1 disorder - F31.9 2 . T ardive dyskinesia - G24.01 ? Plan: * Treatment: 2. T ardive dyskinesia Start Benztropine Mesylate Tablet, 0.5 MG, 1 tablet at bedtime, Orally, Once a day, 30 days, 30.? * Procedure Codes: * true * Date: Generated for Norberto pena/Malorie/eTransmitting on: 0 04/25/2024 05:52 AM CDT
--- OUTSIDE RECORDS SUMMARY | 2024-04-25 05:53 | XMS_ITS ---
Author Organization Counts include 234 beds at the [facility] Address [address] [place] [address] Care Team Providers Care Vocational Rehabilitation Specialist Name Role Phone Camille Orona Primary Care Provider [phone] REASON FOR VISIT blood draw Social History Sex Assigned At : Social History Observation Description Sex Assigned At Male Encounters Encounter Location Date Provider Diagnosis [facility] [address] [place] [address] 04/07/2024 Camille Orona Plan Of Treatment Next Appt Details Provider Name:Camille long, 04/28/2024 10:30:00 AM, [address] [facility] , [place], [address], Progress Notes * Gianni HSUDOB:03/1974 (49 yo M)Acc No.[id number]:04/07/2024 UNLOCKED PROGRESS NOTE Patient: Gianni DUMONT Provider: Hunter Orona, DNP, ANIMAL SERVICES OFFICER, PMHNP-BC :1975 A ge:49 Y S ex:Male Date:04/07/2024 Address:[address] [facility] Subjective: * Chief Complaints: * 1 . Blood draw. * Medical History: Objective: * Vitals: Assessment: Plan: * Treatment: * * Electronic signature of Mar Melgoza [id number] on 04/25/2024 at 05:53 AM CDT Sign off status: Pending * Provider: Hunter Orona DNP, ANIMAL SERVICES OFFICER, PMHNP-BC Date: 0 04/07/2024 Generated for Printing/Faxing/eTransmitting on: 0 04/25/2024 05:53 AM CDT
--- OUTSIDE RECORDS SUMMARY | 2024-04-25 05:53 | XMS_ITS | Patient Health Record ---
Author Organization [facility] Address [address] [facility] [address] [place] [address] Care Team Providers Care Network Security Officer Name Role Phone Dominik Alvarado Unavailable [phone] REASON FOR REFERRAL No Information MEDICATIONS Medication SIG (Take, Route, Frequency, Duration) Notes Start Date End Date Status Losartan Potassium 25 MG 1 tablet Orally Once a day for 90 day(s) Active SOCIAL HISTORY Sex Assigned At : Social History Observation Description Sex Assigned At Male PROBLEMS Problem Type ICD Code Onset Dates Problem Status W/U Status Risk SNOMED Code Notes Problem Sepsis, unspecified organism (A41.9) Active confirmed Sepsis (71877155) Problem Elevated white blood cell count, unspecified (D72.829) Active confirmed Leukocytosis (641239520) Problem Gastritis, unspecified, without bleeding (K29.70) Active confirmed Gastroduodeniti s (389899145) Problem Acute kidney failure, unspecified (N17.9) Active confirmed Acute renal failure syndrome (77391592) Problem Chronic kidney disease, stage 1 (N18.1) Active confirmed Chronic kidney disease stage 1 (910085211) Problem Chronic kidney disease, stage 2 (mild) (N18.2) Active confirmed Chronic kidne y disease stage 2 (673087407) Problem Renal osteodystrophy (N25.0) Active confirmed Renal osteodystrophy (56710799) Problem Abnormal coagulation profile (R79.1) Active confirmed Coagulation/ bleedi ng tests abnormal (421353704) Problem Essential hypertension (I10) Active confirmed Essential hypertension (76758310) Problem Chronic kidney disease, stage 3a (N18.31) Active confirmed Chronic kidney disease stage 3A (disorder) (252068246) Encounters Encounter Location Date Provider Diagnosis [place] [facility] [address] [facility] [address] [place] [address] 07/29/2023 Dominik Alvarado Chronic kidney disea se, stage 3a N18.31 ; Acute kidney failure, unspecified N17.9 ; Abnormal coagulation profile R79.1 ; Gastritis, unspecified, without bleeding K29.70 ; Sepsis, unspecified organism A41.9 and Elevated white blood cell count, unspecified D72.829 [facility] [address] [place] [address] 10/14/2023 Dominik Alvarado Chronic kidney disea se, stage 3a N18.31 ; Essential hypertension I10 ; Acute kidney failure, unspecified N17.9 ; Abnormal coagulation profile R79.1 ; Gastritis, unspecified, without bleeding K29.70 ; Sepsis, unspecified organism A41.9 and Elevated white blood cell count, unspecified D72.829 [facility] [address] [place] [address] 12/02/2023 Dominik Alvarado [facility] [address] [place] [address] 12/09/2023 Dominik Alvarado Chronic kidney disea se, stage 3a N18.31 ; Chronic kidney disease, stage 1 N18.1 ; Chronic kidney disease, stage 2 (mild) N18.2 ; Essential hypertension I10 ; Acute kidney failure, unspecified N17.9 ; Abnormal coagulation profile R79.1 ; Gastritis, unspecified, without bleeding K29.70 ; Sepsis, unspecified organism A41.9 and Elevated white blood cell count, unspecified D72.829 [facility] [address] [place] [address] 02/03/2024 Dominik Alvarado Chronic kidney disea se, stage 2 (mild) N18.2 ; Essential hypertension I10 ; Renal osteodystrophy N25.0 and Proteinuria, unspecified R80.9 [facility] [address] [place] [address] 04/06/2024 Dominik Alvarado ASSESSMENTS Encounter Date Diagnosis Assessment Notes Treatment Notes Treatment Clinical Notes Section Notes 07/29/2023 Chronic kidney disease, stage 3a (ICD-10 - N18.31) 10/14/2023 Essential hypertension (ICD-10 - I10) 10/14/2023 Chronic kidney disease, stage 3a (ICD-10 - N18.31) 12/09/2023 Chronic kidney disease, stage 1 (ICD-10 - N18.1) 12/09/2023 Chronic kidney disease, stage 3a (ICD-10 - N18.31) 02/03/2024 Chronic kidney disease, stage 2 (mild) (ICD-10 - N18.2) 02/03/2024 Essential hypertension (ICD-10 - I10) 02/03/2024 Renal osteodystrophy (ICD-10 - N25.0) 12/09/2023 Chronic kidney disease, stage 2 (mild) (ICD-10 - N18.2) 10/14/2023 Acute kidney failure, unspecified (ICD-10 - N17.9) 07/29/2023 Acute kidney failure, unspecified (ICD-10 - N17.9) 07/29/2023 Abnormal coagulation profile (ICD-10 - R79.1) 10/14/2023 Abnormal coagulation profile (ICD-10 - R79.1) 02/03/2024 Proteinuria, unspecified (ICD-10 - R80.9) 12/09/2023 Essential hypertension (ICD-10 - I10) 12/09/2023 Acute kidney failure, unspecified (ICD-10 - N17.9) 07/29/2023 Gastritis, unspecified, without bleeding (ICD-10 - K29.70) 10/14/2023 Gastritis, unspecified, without bleeding (ICD-10 - K29.70) 10/14/2023 Sepsis, unspecified organism (ICD-10 - A41.9) 07/29/2023 Sepsis, unspecified organism (ICD-10 - A41.9) 12/09/2023 Abnormal coagulation profile (ICD-10 - R79.1) 12/09/2023 Gastritis, unspecified, without bleeding (ICD-10 - K29.70) 07/29/2023 Elevated white blood cell count, unspecified (ICD-10 - D72.829) 10/14/2023 Elevated white blood cell count, unspecified (ICD-10 - D72.829) 12/09/2023 Sepsis, unspecified organism (ICD-10 - A41.9) 12/09/2023 Elevated white blood cell count, unspecified (ICD-10 - D72.829) PLAN OF TREATMENT Next Appt Details Provider Name:Dominki Alvarado , 05/11/2024 03:15:00 PM, [address], [place], [address],
[2024-04-25 05:59] LABS: Basophils Absolute Auto 0.1 K/mm3 (0.0-0.1); Basophils Percent Auto 0.4 % (0.2-1.2); Hemoglobin 21.2 g/dL (14.0-18.0); Immature Granulocyte Absolute 0.26 K/mm3 (0.00-0.031); Immature Granulocyte Percent A 1.1 % (0-0.5); Lymphocytes Absolute Auto 1.61 K/mm3 (0.9-3.2); Lymphocytes Percent Auto 6.7 % (18.3-44.2); Mean Corpuscular HGB Conc 34.2 g/dl (32-36); Mean Corpuscular Hemoglobin 31.8 pg (26-34); Mean Platelet Volume 11.6 fl (7.4-10.4); Monocytes Absolute Auto 2.5 K/mm3 (0.1-0.6); Monocytes Percent Auto 10.6 % (2.6-8.5); Neutrophils Absolute Auto 19.4 K/mm3 (1.3-6.7); Neutrophils Percent Auto 81.2 % (45.5-73.1); Nucleated Red Blood Cells Perc 0.1 % (0.0-0.2); Platelet Count Result 255 k/mm3 (150-375); Red Blood Count 6.67 M/mm3 (4.6-6.20); Red Cell Distribution Width 13.1 % (11.5-14.5); White Blood Count 23.9 K/mm3 (4.5-10.0)
[2024-04-25] MEDS: SODIUM CHLORIDE 0.9% IV 2,000 ML 999 ML IV CONT (06:19)
[2024-04-25] MEDS: ONDANSETRON INJ 4 MG/2 ML VIAL IV PUSH ×2 (06:19→12:02)
[2024-04-25] MEDS: LORazepam INJ (*CRX) 2 MG/ML VIAL 1 MG IV PUSH (06:27)
--- NOTE | 2024-04-25 06:36 | PC.NURSE ---
Phlebotomy called by ED charge nurse @2931 for blood culture draw Pt unable to provide urine sample at this time but states he will try in a few minutes
--- NOTE | 2024-04-25 06:39 | PC.NURSE ---
Pt now has c/o muscle aches
[2024-04-25 06:45] LABS: Albumin Level 5.8 g/dL (3.5-5.1); Alkaline Phosphatase 159 U/L (38-126); Anion Gap 42 mmol/L (4-12); Aspartate Amino Transferase 25 U/L (17-59); Bilirubin,Total 1.2 mg/dL (0.2-1.3); Blood Urea Nitrogen 29 mg/dL (9-20); Calcium 11.8 mg/dL (8.4-10.2); Carbon Dioxide 7 mmol/L (22-30); Chloride 88 mmol/L (98-107); Estimated CRCL calculation 15 ml/min; Estimated Glomerular Filt Rate 14; Glucose 349 mg/dL (65-110); Lipase 136 U/L (23-300); Potassium 4.2 mmol/L (3.4-5.0); Sodium 137 mmol/L (137-145)
[2024-04-25 06:52] LABS: Lactic Acid Reflex 6.5 mmol/L (0.7-2.0)
[2024-04-25] MEDS: VANCOMYCIN HCL 250 MG ORAL CAPSULE 500 MG PO (07:04)
[2024-04-25 07:09] LABS: Total Protein > 11.0 g/dL (6.3-8.2)
[2024-04-25 07:19] LABS: Alanine Aminotransferase 34 U/L (6-50)
[2024-04-25] MEDS: metroNIDAZOLE 500 MG/ISO 100ML 500 MG/100 ML BAG 100 MG IVPB (08:00)
[2024-04-25 08:54] LABS: Add Urine Microscopic? YES; Appearance Urine Turbid (Clear); Bilirubin Urine 2+ (Negative); Blood Urine 2+ (Negative); Color Urine Dark Yellow (Yellow); Glucose Urine UA Trace mg/dL (Negative); Ketones Urine Trace mg/dL (Negative); Leukocyte Esterase Ur Trace LEU/UL (Negative); Nitrate Urine Negative (Negative); Protein Urine 3+ mg/dL (Negative); Specific Grav Ur 1.024 (1.001-1.035)
[2024-04-25 08:55] LABS: Bacteria Urine None Seen /hpf; Mucus Urine Present /lpf; Need Manual Microscopic Reviewed; Non Pathogenic Casts >20; Squamous Epithelial Cell Urine None Seen /hpf (Few)
[2024-04-25 09:20] LABS: Reflex Lactic Acid Yes or No Add Lactic
[2024-04-25 10:14] LABS: Lactic Acid 1.7 mmol/L (0.7-2.0)
[2024-04-25] MEDS: cefTRIAXone 2 GM/NS 100 ML 2 GM/100 ML BAG IVPB (10:26)
[2024-04-25] MEDS: SODIUM CHLORIDE 0.9% IV 1,000 ML 125 ML IV CONT ×2 (10:26→16:44)
--- NOTE | 2024-04-25 10:27 | PC.NURSE ---
unable to scan medications in the room due to computer and scanner being broken
--- NOTE | 2024-04-25 12:04 | ADMGEN ---
This patient, Gianni Hsu, was admitted to [facility] Surg Room 319-01. Patient/family oriented to hospital policies and general routines including ID bracelet, bed and alarms, visiting hours, pain management, procedures, bathroom and other care routines, personal items, smoking policy, room service/diet, and visiting hours. Information on how to activate the Rapid Response Team has been discussed. Patient/Family are encouraged to report perceived risks to care and to ask questions if they do not understand what they are told or what they should do.
--- NOTE | 2024-04-25 14:27 | P.HP_ITS ---
H&P: HPI History of Present Illness Date/Time: 04/25/24 14:27 Chief Complaint: Vomiting Narrative: 49-year-old male with past medical history of hyper lipidemia hypertension and bipolar presented to the ER on account of vomiting. Patient reported he has been from see speech 6:00 p.m. yesterday about 15-20. Denies any abdomen chest pain diarrhea dysuria focal symptoms. ER evaluation depression 6 post rectal is blood pressure 82 saturating 96%. Labs notable for WBC 23.9, hemoglobin 21.2, creatinine 4.6, baseline normal, lactic acid 6.5, repeat 1.7, blood glucose 349. UA notable for positive leukocyte esterase and pyuria. CT abdomen showed questionable cystitis versus under distended urinary bladder. Chest x-ray no acute changes. Patient was started on IV fluid and Rocephin blood and urine culture were ordered prior to admission. Review of Systems Review of Systems: All other systems reviewed and negative except as noted in history above. [facility] Social History Social History Smoking status: Heavy tobacco smoker Alcohol intake: current Drinks per week: 1 Substance use: current Substance use type: marijuana Last use: 02/13/24 Do You Feel Safe in your Home?: Yes Lack of Transportation: No Lack of Food: Never True Current Housing: Decline to Answer Concerned About Future Housing: Decline to Answer Difficulty Paying Gas/Electric Bills: Decline to Answer Difficulty Paying for Meds: Decline to Answer Currently Unemployed: Decline to Answer Education: Decline to Answer Difficulty w/ Childcare or Family Care: Decline to Answer Spiritual care concerns: No Meds Home Medications and Allergies Home Medications ?Medication ?Instructions ?Recorded ?Confirmed ?Type aspirin 81 mg tablet,delayed 81 mg PO DAILY@0800 02/14/24 04/25/24 History release atorvastatin 20 mg tablet 20 mg PO DAILY 02/14/24 04/25/24 History carvedilol 3.125 mg tablet 3.125 mg PO Q12H 02/14/24 04/25/24 History divalproex 500 mg tablet,delayed 500 mg PO BID 02/14/24 04/25/24 History release hydroxyzine pamoate 25 mg capsule 25 mg PO HS PRN anxiety 02/14/24 04/25/24 History olanzapine 10 mg tablet 10 mg PO BID 02/14/24 04/25/24 History benztropine 0.5 mg tablet 0.5 mg PO HS 04/25/24 04/25/24 History losartan 25 mg tablet 25 mg PO DAILY 04/25/24 04/25/24 History olanzapine 5 mg tablet 5 mg PO 0900 04/25/24 04/25/24 History Allergies Allergy/AdvReac Type Severity Reaction Status Date / Time No Known Allergies Allergy Verified 04/25/24 12:06 Vital Signs Vital Signs - 24 hr 04/25/24 05:31 04/25/24 06:35 04/25/24 08:02 Temperature 97.6 F Pulse Rate 118 H 85 92 Respiratory Rate 20 14 18 Blood Pressure 99/82 L 92/75 L 136/81 Pulse Oximetry 96 96 97 Oxygen Delivery Room Air 04/25/24 12:14 04/25/24 12:26 04/25/24 13:56 Temperature 97.6 F 99.2 F Pulse Rate 95 85 Respiratory Rate 18 18 Blood Pressure 139/79 154/82 H Pulse Oximetry 97 97 Oxygen Delivery Room Air Exam Narrative: General: alert and comfortable Eyes: EOMI, PERRLA ENNT External ears normal, Neck is supple, no masses, Respiratory systems: Clear to auscultation Cardiovascular S1, S2, normal rhythm, no murmur, rub, or gallop; no thrill or palpable murmurs on palpation. Gastrointestinal: soft, non-tender, and non-distended abdomen with no masses; BS present Skin: no rash, lesions, ulcerations, subcutaneous nodules or induration Musculoskeletal: no abnormality and no tenderness, normal ROM Neurologic: Alert and oriented x3, non focal Mental Status Exam: normal affect H&P: Results Labs Labs: Short CBC 04/25/24 Range/Units 05:46 WBC 23.9 H (4.5-10.0) K/mm3 Hgb 21.2 H D (14.0-18.0) g/dL Hct 62.0 H (42.0-52.0) % Plt Count 255 D (150-375) k/mm3 BMP 04/25/24 05:46 Sodium 137 Potassium 4.2 Chloride 88 L Carbon Dioxide 7 L BUN 29 H D Creatinine 4.61 H Glucose 349 H Calcium 11.8 H Liver Function 04/25/24 Range/Units 05:46 Total Bilirubin 1.2 (0.2-1.3) mg/dL AST 25 (17-59) U/L ALT 34 (6-50) U/L Alkaline Phosphatase 159 H (38-126) U/L Albumin 5.8 H (3.5-5.1) g/dL Urine 04/25/24 Range/Units 08:33 Urine Color Dark yellow (Yellow) Urine Appearance Turbid H (Clear) Urine pH 5.0 (5.0-9.0) Ur Specific [place] 1.024 (1.001-1.035) Urine Protein 3+ H (Negative) mg/dL Urine Glucose (UA) Trace H (Negative) mg/dL Assessment and Plan Assessment and plan (1) Acute kidney injury: Code(s): N17.9 - Acute kidney failure, unspecified Status: Acute (2) Nausea and vomiting: Code(s): R11.2 - Nausea with vomiting, unspecified Status: Acute (3) Dehydration: Code(s): E86.0 - Dehydration Status: Acute Plan EDILBERTO, hypovolemia Creatinine 4.61 baseline. Patient presented with profuse vomiting. CT abdomen pelvis no in our obstruction. Continue IV fluid, Nephrology consulted, monitor. Vomiting CT abdomen no acute changes. Likely from UTI. Continue IV fluid p.r.n. Zofran. UTI Vomiting CT showed possible cystitis Leukocytosis present Urine and blood culture pending, continue Rocephin. Monitor. Polycythemia likely dehydration Hemoglobin 21.2 Continue hydration. Hypertension Titrate home medications with clinical course. DVT prophylaxis subQ heparin. Patient is full code. Surrogate decision maker is Mother, John Drake
--- NOTE | 2024-04-25 14:31 | PC.NURSE ---
Call to patients mom to reconcile medication for olanzapine. Mom able to confirm dose and timing.
[2024-04-25 17:32] LABS: Hemoglobin A1C 5.4 % (<5.7)
[2024-04-25 18:35] LABS: Creatine Kinase 288 U/L (55-170)
[2024-04-25 18:45] LABS: Albumin Level 4.3 g/dL (3.5-5.1); Anion Gap 15 mmol/L (4-12); Blood Urea Nitrogen 38 mg/dL (9-20); Calcium 8.9 mg/dL (8.4-10.2); Carbon Dioxide 20 mmol/L (22-30); Chloride 100 mmol/L (98-107); Estimated CRCL calculation 23 ml/min; Estimated Glomerular Filt Rate 23; Glucose 150 mg/dL (65-110); Phosphorus 5.1 mg/dL (2.5-4.5); Sodium 135 mmol/L (137-145)
[2024-04-25 19:07] LABS: Hepatitis B Surface Antigen Negative (Negative)
[2024-04-25 19:24] LABS: Hepatitis B Surface Anti Res Negative
[2024-04-25] MEDS: DIVALPROEX SODIUM DR 250 MG TABEC 500 MG PO (21:15)
[2024-04-25] MEDS: carvediloL 3.125 MG TABLET PO (21:15)
[2024-04-25] MEDS: HEPARIN SODIUM 5,000 UNITS/ML VIAL 5000 UNITS SUB-Q (21:16)
[2024-04-26] MEDS: SODIUM CHLORIDE 0.9% IV 1,000 ML 125 ML IV CONT ×2 (05:41→21:11)
[2024-04-26] MEDS: HEPARIN SODIUM 5,000 UNITS/ML VIAL 5000 UNITS SUB-Q ×3 (05:41→21:11)
[2024-04-26 06:00] VITALS: BP 139/74; PULSE 76; RESP 18; TEMP 36.5; O2SAT 99
[2024-04-26 06:11] LABS: Creatinine Urine 294.4 mg/dL; Total Protein Urine Random 15 mg/dL; Ur Ttl Prot Creatinine Ratio 0.05 mg/mg (0-0.20)
[2024-04-26 06:13] LABS: Creatinine Urine 291.4 mg/dL; Total Protein Urine Random 15 mg/dL; Urea Random Urine 873 MG/DL
[2024-04-26 06:26] LABS: Basophils Percent Auto 0.2 % (0.2-1.2); Hematocrit 41.9 % (42.0-52.0); Hemoglobin 14.6 g/dL (14.0-18.0); Immature Granulocyte Absolute 0.05 K/mm3 (0.00-0.031); Immature Granulocyte Percent A 0.3 % (0-0.5); Lymphocytes Absolute Auto 2.96 K/mm3 (0.9-3.2); Lymphocytes Percent Auto 19.3 % (18.3-44.2); Mean Corpuscular HGB Conc 34.8 g/dl (32-36); Mean Corpuscular Volume 91.9 fl (80-100); Mean Platelet Volume 11.1 fl (7.4-10.4); Monocytes Absolute Auto 1.8 K/mm3 (0.1-0.6); Monocytes Percent Auto 11.7 % (2.6-8.5); Neutrophils Absolute Auto 10.5 K/mm3 (1.3-6.7); Neutrophils Percent Auto 68.5 % (45.5-73.1); Platelet Count Result 187 k/mm3 (150-375); Red Blood Count 4.56 M/mm3 (4.6-6.20); Red Cell Distribution Width 12.9 % (11.5-14.5); White Blood Count 15.3 K/mm3 (4.5-10.0)
[2024-04-26 06:33] LABS: Lactic Acid Reflex 0.7 mmol/L (0.7-2.0)
[2024-04-26 06:38] LABS: Sodium Urine Random 6 meq/L
[2024-04-26 06:39] LABS: Alanine Aminotransferase 11 U/L (6-50); Albumin Level 3.7 g/dL (3.5-5.1); Alkaline Phosphatase 83 U/L (38-126); Anion Gap 9 mmol/L (4-12); Aspartate Amino Transferase 19 U/L (17-59); Bilirubin,Total 0.5 mg/dL (0.2-1.3); Blood Urea Nitrogen 34 mg/dL (9-20); Calcium 8.5 mg/dL (8.4-10.2); Carbon Dioxide 23 mmol/L (22-30); Chloride 103 mmol/L (98-107); Estimated CRCL calculation 47 ml/min; Estimated Glomerular Filt Rate 54; Glucose 117 mg/dL (65-110); Magnesium 2.5 mg/dL (1.6-2.3); Potassium 3.6 mmol/L (3.4-5.0); Sodium 135 mmol/L (137-145)
[2024-04-26 06:50] LABS: Eosinophil Urine None Seen % (None Seen)
[2024-04-26 06:51] LABS: Urine Eos QC 2nd Tech Confirmed
[2024-04-26 08:15] LABS: Glucose Point of Care 133 mg/dl (65-105)
[2024-04-26] MEDS: DIVALPROEX SODIUM DR 250 MG TABEC 500 MG PO ×2 (08:53→21:11)
[2024-04-26] MEDS: ONDANSETRON INJ 4 MG/2 ML VIAL IV PUSH ×3 (08:53→18:07)
[2024-04-26] MEDS: ASPIRIN 81 MG ENTERIC TABLET PO (08:53)
[2024-04-26 08:54] VITALS: PULSE 76
[2024-04-26] MEDS: ATORVASTATIN 20 MG TABLET PO (08:54)
[2024-04-26] MEDS: carvediloL 3.125 MG TABLET PO ×2 (08:54→21:11)
--- NOTE | 2024-04-26 10:30 | P.CONNP_ITS ---
Assessment and Plan Assessment and plan (1) Acute kidney injury: Code(s): N17.9 - Acute kidney failure, unspecified Status: Acute Assessment and Plan: * improvement noted * as evidence by admission labs * evaluation to date noted: * renal u/w without obstruction * urine electrolytes prerenal * urine eosinophils negative * CPK mildly elevated (but not enough to affect kidney function) * no significant proteinuria * suspect due to volume depletion/dehydration given history * likely worsened by ARB use prior to admission and relative hypotension * continue IVF resuscitation * follow trend of repeat labs and UOP (2) Nausea and vomiting: Code(s): R11.2 - Nausea with vomiting, unspecified Status: Acute Assessment and Plan: * as noted by history * IV anti-ementics * follow symptoms (3) Polycythemia: Code(s): D75.1 - Secondary polycythemia Status: Acute Assessment and Plan: * due to significant hemoconcentration * correlates with hypercalemia and hyperalbuminemia * trend of H/H improving (4) Hypertension: Code(s): I10 - Essential (primary) hypertension Status: Chronic Assessment and Plan: * BP improving * soft on admisson * follow trend of hemodynamics I will continue to follow the patient with you while he remains hospitalized and make further recommendations as deemed necessary. Thank you for allowing me to participate in the care of this patient. L History of Present Illness Reason for Consult Consult date: 04/26/24 Reason for consult: acute renal failure Chief Complaint Chief complaint: glen/dehydration History of Present Illness Narrative: The patient is a 49-year-old male with a past medical history as outlined below who presented to [facility] with persistent nausea and vomiting. The patient states that he has been having innumerable bouts of nausea and vomiting in the last 24 hours if not longer. Associated symptoms included diarrhea as well as abdominal pain. His abdominal pain was localized to the epigastric and right upper quadrant area. Given his ongoing nausea and vomiting he has been unable to tolerate any type significant oral intake as well. As the symptoms continued to worsen he came to the emergency room for further assessment. Workup and evaluation emergency room demonstrated the patient to be afebrile but slightly hypotensive and tachycardic. Routine blood test demonstrated a white blood cell count of 23.9, hemoglobin of 21.2 hematocrit 62, a platelet count 255 creatinine 4.6 carbon dioxide is 7 glucose 349 lactic acid of 6 point calcium 11.8 and albumin of 5.8. His urinalysis showed 11-20 white blood cells, 3 to RBCs, and more than 20 urine casts subsequent imaging included a CT scan of the abdomen pelvis which demonstrated no acute intra-abdominal findings and a chest x-ray consistent with COPD/emphysema. Given these laboratory findings, appropriate cultures were obtained and he was initiated on aggressive IV fluid resuscitation and empiric antibiotics. He was subsequently admitted to the hospital further evaluation and therapy. Since his admission, his renal function has improved significantly as noted the trend of his labs. It should be noted that he had a similar presentation in January of 2024 with acute kidney injury/ acute renal failure and subsequent improvement in his renal function by the time of discharge. Renal consultation was requested due to his acute kidney injury/acute renal failure. As already mentioned, his kidney function has significantly improved with just aggressive IV fluid resuscitation as well as optimization of his hemodynamics arguing in favor severe dehydration / volume depletion as the etiology of his acute insult to his kidneys. Furthermore, his severe metabolic acidosis has already corrected and evidence hemoconcentration by his hemoglobin and hematocrit along with calcium and albumin have been improving as well. He reportedly has a history of chronic kidney disease but I am unable to get much specifics from the patient regarding what his baseline creatinine is and what his kidney disease is due to. Currently, at the time my evaluation, he appears to be feeling somewhat better. This is a 49-year-old male who presents to the ER with multiple episodes of nausea vomiting. There is associated abdominal pain mostly in the epigastric right upper quadrant area. No diarrhea reported. In the ED he was tachycardic borderline blood pressure afebrile. Laboratory workup revealed WBC of 23.9 a hemoglobin of 21.2 hematocrit 62 platelet count 20 55. Chem panel showed creatinine of 4.6 carbon dioxide of 7 suggesting acute kidney injury with severe metabolic acidosis blood glucose was 349 lactic acid was elevated at 6.5 calcium 11.8 total protein more than 11 with albumin of 5.8. Urinalysis with 11-20 WBC 3-5 RBC 5-9 hyaline casts more than [address] abdomen with no acute findings. Chest x-ray showed findings of emphysema. Follow-up renal ultrasound showed possible 5 mm nonobstructing left renal stone. Renal has been consulted. Patient pancultured. 49-year-old male with past medical history of hyper lipidemia hypertension and bipolar presented to the ER on account of vomiting. Patient reported he has been from see speech 6:00 p.m. yesterday about 15-20. Denies any abdomen chest pain diarrhea dysuria focal symptoms. ER evaluation depression 6 post rectal is blood pressure 82 saturating 96%. Labs notable for WBC 23.9, hemoglobin 21.2, creatinine 4.6, baseline normal, lactic acid 6.5, repeat 1.7, blood glucose 349. UA notable for positive leukocyte esterase and pyuria. CT abdomen showed questionable cystitis versus under distended urinary bladder. Chest x-ray no acute changes. Patient was started on IV fluid and Rocephin blood and urine culture were ordered prior to admission. Review of Systems 2 Review of Systems: As per HPI. [facility] Social History Social History Smoking status: Heavy tobacco smoker Alcohol intake: current Drinks per week: 1 Substance use: current Substance use type: marijuana Last use: 02/13/24 Do You Feel Safe in your Home?: Yes Lack of Transportation: No Lack of Food: Never True Current Housing: Decline to Answer Concerned About Future Housing: Decline to Answer Difficulty Paying Gas/Electric Bills: Decline to Answer Difficulty Paying for Meds: Decline to Answer Currently Unemployed: Decline to Answer Education: Decline to Answer Difficulty w/ Childcare or Family Care: Decline to Answer Spiritual care concerns: No Meds Home Medications and Allergies Home Medications ?Medication ?Instructions ?Recorded ?Confirmed ?Type aspirin 81 mg tablet,delayed 81 mg PO DAILY@0800 02/14/24 04/25/24 History release atorvastatin 20 mg tablet 20 mg PO DAILY 02/14/24 04/25/24 History carvedilol 3.125 mg tablet 3.125 mg PO Q12H 02/14/24 04/25/24 History divalproex 500 mg tablet,delayed 500 mg PO BID 02/14/24 04/25/24 History release hydroxyzine pamoate 25 mg capsule 25 mg PO HS PRN anxiety 02/14/24 04/25/24 History olanzapine 10 mg tablet 10 mg PO HS 02/14/24 04/25/24 History benztropine 0.5 mg tablet 0.5 mg PO HS 04/25/24 04/25/24 History losartan 25 mg tablet 25 mg PO DAILY 04/25/24 04/25/24 History olanzapine 5 mg tablet 5 mg PO 0900 04/25/24 04/25/24 History Allergies Allergy/AdvReac Type Severity Reaction Status Date / Time No Known Allergies Allergy Verified 04/25/24 12:06 Vital Signs Vital Signs Temp Pulse Resp BP Pulse Ox O2 Del Method 04/26/24 08:54 76 04/26/24 06:00 97.7 F 76 18 139/74 99 04/25/24 22:00 97.3 F L 74 18 142/77 H 99 04/25/24 20:00 74 18 99 Room Air 04/25/24 13:56 99.2 F 85 18 154/82 H 97 Exam 2 Narrative: GENERAL APPEARANCE: well developed well nourished male in no acute distress HEENT: normocephalic, atraumatic, normal conjunctiva and sclera, nares patient NECK: no lymphadenopathy, thyromegaly, or JVD MOUTH: somewhat dry lips, teeth, and gums CARDIOVASCULAR: RRR, normal S1 and S2, no rub detected RESPIRATORY: clear to auscultation bilaterally ABDOMEN: soft, nontender, nondistended, positive bowel sounds present EXTREMITIES: no evidence of cyanosis, clubbing, or edema NEUROLOGICAL: alert and oriented x 3; CN II - XII intact bilaterally; no focal deficits noted Results Lab Results 04/28/24 05:59 04/28/24 05:59 Lab results: Most recent lab results Calcium 8.5 mg/dL (8.4-10.2) 04/26/24 06:05 Phosphorus 5.1 mg/dL (2.5-4.5) H 04/25/24 16:55 Magnesium 2.5 mg/dL (1.6-2.3) H 04/26/24 06:05 Urine Creatinine 291.4 mg/dL 04/26/24 05:31 Urine Creatinine 294.4 mg/dL 04/26/24 05:31
[2024-04-26 11:48] LABS: Glucose Point of Care 140 mg/dl (65-105)
[2024-04-26 12:36] VITALS: BMI 17.6
--- NOTE | 2024-04-26 12:51 | PM.IMPN ---
Progress Note: A&P Assessment and Plan (1) Acute kidney injury: Code(s): N17.9 - Acute kidney failure, unspecified Status: Acute (2) Nausea and vomiting: Code(s): R11.2 - Nausea with vomiting, unspecified Status: Acute (3) Dehydration: Code(s): E86.0 - Dehydration Status: Acute Plan This is a 49-year-old male who presents to the ER with multiple episodes of nausea vomiting. There is associated abdominal pain mostly in the epigastric right upper quadrant area. No diarrhea reported. In the ED he was tachycardic borderline blood pressure afebrile. Laboratory workup revealed WBC of 23.9 a hemoglobin of 21.2 hematocrit 62 platelet count 20 55. Chem panel showed creatinine of 4.6 carbon dioxide of 7 suggesting acute kidney injury with severe metabolic acidosis blood glucose was 349 lactic acid was elevated at 6.5 calcium 11.8 total protein more than 11 with albumin of 5.8. Urinalysis with 11-20 WBC 3-5 RBC 5-9 hyaline casts more than [address] abdomen with no acute findings. Chest x-ray showed findings of emphysema. Follow-up renal ultrasound showed possible 5 mm nonobstructing left renal stone. Renal has been consulted. Patient pancultured. With hydration his renal failure is improving metabolic acidosis resolved. Hemoconcentration has resolved. Leukocytosis improving. Continue IV hydration. EDILBERTO Severe dehydration/volume depletion Leukocytosis Metabolic acidosis UTI on ceftriaxone History of C diff 01/2024 Lactic acidosis resolved DVT prophylaxis subQ heparin Code status full code Polycythemia likely due to dehydration Hypertension: Home medication Hyperglycemia no prior history of diabetes. A1c came back at 5.4. Hyperglycemia likely due to severe dehydration Surrogate decision maker is Mother, John Drake Subjective Date/time seen: 04/26/24 12:51 Interval history: No overnight events. Continues to have some nausea and vomiting. Reports right upper quadrant pain feeling better overall Review of Systems Review of Systems: All other systems reviewed and negative except as noted in history above. Exam Narrative: General: alert and comfortable Eyes: EOMI, PERRLA Respiratory systems: Clear to auscultation no respiratory distress Cardiovascular: S1, S2, normal rhythm, no murmur, rub, or gallop; no thrill or palpable murmurs on palpation. Gastrointestinal: soft, non-tender, and non-distended abdomen with no masses; BS present Skin: no rash, lesions, ulcerations, subcutaneous nodules or induration Musculoskeletal: no abnormality and no tenderness, normal ROM Neurologic: Alert and oriented x3, non focal Mental Status Exam: normal affect Objective Data Vital Signs Vital Signs: Vital Signs - 24 hr 04/25/24 13:56 04/25/24 20:00 04/25/24 22:00 Temperature 99.2 F 97.3 F L Pulse Rate 85 74 74 Respiratory Rate 18 18 18 Blood Pressure 154/82 H 142/77 H Pulse Oximetry 97 99 99 Oxygen Delivery Room Air 04/26/24 06:00 04/26/24 08:54 Temperature 97.7 F Pulse Rate 76 76 Respiratory Rate 18 Blood Pressure 139/74 Pulse Oximetry 99 Oxygen Delivery Intake/Output Intake/Output: Intake & Output 04/23/24 04/25/24 04/25/24 04/26/24 23:59 00:59 23:59 23:59 Intake Total 3467.5 1360 Output Total 200 300 Balance 3267.5 1060 Meds/Results Medications: Active Medications Generic Name Dose Route Start Last Admin Trade Name Freq PRN Reason Stop Dose Admin Aspirin 81 mg 04/26/24 08:00 04/26/24 08:53 Aspirin 81 Mg Enteric Tablet PO 81 mg DAILY@0800 MELANI Administration Atorvastatin Calcium 20 mg 04/26/24 09:00 04/26/24 08:54 Atorvastatin 20 Mg Tablet PO 20 mg DAILY MELANI Administration Carvedilol 3.125 mg 04/25/24 21:00 04/26/24 08:54 Carvedilol 3.125 Mg Tablet PO 3.125 mg Q12HR MELANI Administration Dextrose 12.5 gm 04/25/24 14:33 Dextrose 50% 25 Gm/50 Ml Syringe IV PUSH PRN PRN Hypoglycemia Protocol Divalproex Sodium 500 mg 04/25/24 21:00 04/26/24 08:[address] 250 Mg Tabec PO 500 mg Q12HR MELANI Administration Glucagon 1 mg 04/25/24 14:33 Glucagon For Inj 1 Mg Vial IM PRN PRN Hypoglycemia Protocol Glucose 15 gm 04/25/24 14:33 Glucose Oral Gel 15 Gm Of Glucse In 37.5 Gm Tube PO PRN PRN Hypoglycemia Protocol Heparin Sodium (Porcine) 5,000 units 04/25/24 22:00 04/26/24 05:41 Heparin Sodium 5,000 Units/Ml Vial SUB-Q 5,000 units Q8HR MELANI Administration Sodium Chloride 1,000 mls @ 125 mls/hr 04/25/24 10:10 04/26/24 05:41 Normal Saline Iv IV CONT 125 mls/hr .Q8H MELANI Administration Ceftriaxone Sodium 1 gm in 50 mls @ 100 mls/hr 04/26/24 10:00 04/26/24 10:17 Rocephin 1 Gm/Ns 50 Ml IVPB 100 mls/hr Q24H MELANI Administration Dextrose 1,000 mls @ 100 mls/hr 04/25/24 14:33 Dextrose 5% 1,000 Ml IVPB PRN PRN Hypoglycemia Protocol Insulin Aspart 4 - 8 units 04/25/24 17:00 04/26/24 12:04 Insulin Aspart (*Bkc) 100 Units/Ml SUB-Q Not Given TIDWM MELANI Protocol Insulin Aspart 2 - 4 units 04/25/24 21:00 04/25/24 21:20 Insulin Aspart (*Bkc) 100 Units/Ml SUB-Q Not Given HS [facility] Protocol Ondansetron HCl 4 mg 04/25/24 10:07 04/26/24 08:53 Ondansetron Inj 4 Mg/2 Ml Vial IV PUSH 4 mg Q4H PRN Administration Nausea Radiology Results: ITS Impressions Abdomen/Pelvis CT 04/25/24 07:33 Impression: Question of cystitis versus underdistended urinary bladder. Correlate with urinalysis. Chest X-Ray 04/25/24 09:48 IMPRESSION: 1. Emphysema. Renal Ultrasound 04/26/24 06:32 Impression: Possible 5 mm nonobstructing left renal stone. Labs Labs: Laboratory Results - last 24 hr 04/25/24 04/26/24 04/26/24 16:55 05:31 05:31 WBC RBC Hgb Hct MCV MCH MCHC RDW Plt Count MPV Immature Gran % (Auto) Neut % (Auto) Lymph % (Auto) [place] % (Auto) Eos % (Auto) Baso % (Auto) Lymph # (Auto) [place] # (Auto) Eos # (Auto) Baso # (Auto) Abs Immat Gran (auto) Absolute Neuts (auto) Absolute Nucleated RBC Nucleated RBC % Sodium 135 L Potassium 4.0 Chloride 100 Carbon Dioxide 20 L Anion Gap 15 H BUN 38 H Creatinine 2.90 H Estim Creat Clear Calc 23 Estimated GFR 23 L Glucose 150 H POC Capillary Glucose Hemoglobin A1c 5.4 Lactic Acid Calcium 8.9 Phosphorus 5.1 H Magnesium Total Bilirubin AST ALT Alkaline Phosphatase Total Creatine Kinase 288 H Total Protein Albumin 4.3 Urine Eosinophils None seen U Random Total Protein 15 15 Ur Random Sodium 6 Ur Random Urea 873 Urine Creatinine 294.4 Protein/Creat Ratio 2 Hep Bs Antigen Negative Hep Bs Antibody Negative 04/26/24 04/26/24 04/26/24 05:31 06:05 08:08 WBC 15.3 H RBC 4.56 L Hgb 14.6 D Hct 41.9 L MCV 91.9 MCH 32.0 MCHC 34.8 RDW 12.9 Plt Count 187 MPV 11.1 H Immature Gran % (Auto) 0.3 Neut % (Auto) 68.5 Lymph % (Auto) 19.3 [place] % (Auto) 11.7 H Eos % (Auto) 0.0 Baso % (Auto) 0.2 Lymph # (Auto) 2.96 [place] # (Auto) 1.8 H Eos # (Auto) 0.0 Baso # (Auto) 0.0 Abs Immat Gran (auto) 0.05 H Absolute Neuts (auto) 10.5 H Absolute Nucleated RBC 0.000 Nucleated RBC % 0.0 Sodium 135 L Potassium 3.6 Chloride 103 Carbon Dioxide 23 Anion Gap 9 BUN 34 H Creatinine 1.40 H Estim Creat Clear Calc 47 Estimated GFR 54 L Glucose 117 H POC Capillary Glucose 133 H Hemoglobin A1c Lactic Acid 0.7 Calcium 8.5 Phosphorus Magnesium 2.5 H Total Bilirubin 0.5 AST 19 ALT 11 Alkaline Phosphatase 83 Total Creatine Kinase Total Protein 7.0 Albumin 3.7 Urine Eosinophils U Random Total Protein Ur Random Sodium Ur Random Urea Urine Creatinine 291.4 Protein/Creat Ratio 2 0.05 Hep Bs Antigen Hep Bs Antibody 04/26/24 11:33 WBC RBC Hgb Hct MCV MCH MCHC RDW Plt Count MPV Immature Gran % (Auto) Neut % (Auto) Lymph % (Auto) [place] % (Auto) Eos % (Auto) Baso % (Auto) Lymph # (Auto) [place] # (Auto) Eos # (Auto) Baso # (Auto) Abs Immat Gran (auto) Absolute Neuts (auto) Absolute Nucleated RBC Nucleated RBC % Sodium Potassium Chloride Carbon Dioxide Anion Gap BUN Creatinine Estim Creat Clear Calc Estimated GFR Glucose POC Capillary Glucose 140 H Hemoglobin A1c Lactic Acid Calcium Phosphorus Magnesium Total Bilirubin AST ALT Alkaline Phosphatase Total Creatine Kinase Total Protein Albumin Urine Eosinophils U Random Total Protein Ur Random Sodium Ur Random Urea Urine Creatinine Protein/Creat Ratio 2 Hep Bs Antigen Hep Bs Antibody
[2024-04-26 14:00] VITALS: BP 141/86; PULSE 65; RESP 20; TEMP 37.3; O2SAT 97
[2024-04-26 16:49] LABS: Glucose Point of Care 135 mg/dl (65-105)
[2024-04-26 20:00] VITALS: PULSE 64; RESP 19; O2SAT 97
[2024-04-26 20:13] LABS: Glucose Point of Care 149 mg/dl (65-105)
[2024-04-26 20:59] VITALS: BP 131/68; PULSE 64; RESP 19; TEMP 37.2; O2SAT 97
[2024-04-27 05:25] VITALS: BP 131/74; PULSE 56; RESP 17; TEMP 36.8; O2SAT 97
[2024-04-27] MEDS: HEPARIN SODIUM 5,000 UNITS/ML VIAL 5000 UNITS SUB-Q ×3 (06:20→20:23)
[2024-04-27 06:34] LABS: Basophils Percent Auto 0.5 % (0.2-1.2); Hematocrit 41.4 % (42.0-52.0); Hemoglobin 14.2 g/dL (14.0-18.0); Immature Granulocyte Absolute 0.02 K/mm3 (0.00-0.031); Immature Granulocyte Percent A 0.3 % (0-0.5); Lymphocytes Absolute Auto 2.38 K/mm3 (0.9-3.2); Lymphocytes Percent Auto 30.1 % (18.3-44.2); Mean Corpuscular HGB Conc 34.3 g/dl (32-36); Mean Corpuscular Hemoglobin 31.8 pg (26-34); Mean Corpuscular Volume 92.6 fl (80-100); Mean Platelet Volume 11.3 fl (7.4-10.4); Monocytes Percent Auto 12.8 % (2.6-8.5); Neutrophils Absolute Auto 4.5 K/mm3 (1.3-6.7); Neutrophils Percent Auto 56.3 % (45.5-73.1); Platelet Count Result 164 k/mm3 (150-375); Red Blood Count 4.47 M/mm3 (4.6-6.20); Red Cell Distribution Width 12.7 % (11.5-14.5); White Blood Count 7.9 K/mm3 (4.5-10.0)
[2024-04-27 06:42] LABS: Alanine Aminotransferase 13 U/L (6-50); Albumin Level 3.5 g/dL (3.5-5.1); Alkaline Phosphatase 72 U/L (38-126); Anion Gap 5 mmol/L (4-12); Aspartate Amino Transferase 22 U/L (17-59); Bilirubin,Total 0.5 mg/dL (0.2-1.3); Blood Urea Nitrogen 26 mg/dL (9-20); Calcium 8.7 mg/dL (8.4-10.2); Carbon Dioxide 27 mmol/L (22-30); Chloride 106 mmol/L (98-107); Estimated CRCL calculation 69 ml/min; Estimated Glomerular Filt Rate > 60; Glucose 103 mg/dL (65-110); Potassium 3.8 mmol/L (3.4-5.0); Sodium 138 mmol/L (137-145)
[2024-04-27] MEDS: SODIUM CHLORIDE 0.9% IV 1,000 ML 125 ML IV CONT (06:46)
[2024-04-27 08:05] LABS: Glucose Point of Care 123 mg/dl (65-105)
[2024-04-27 08:52] VITALS: PULSE 60
[2024-04-27] MEDS: ASPIRIN 81 MG ENTERIC TABLET PO (08:52)
[2024-04-27] MEDS: carvediloL 3.125 MG TABLET PO ×2 (08:52→20:22)
[2024-04-27] MEDS: DIVALPROEX SODIUM DR 250 MG TABEC 500 MG PO ×2 (08:52→20:22)
[2024-04-27] MEDS: ATORVASTATIN 20 MG TABLET PO (08:53)
--- NOTE | 2024-04-27 09:07 | P.CDI_ITS ---
CDI Query Clarification Request BMI: 17.7 Nutritional Diagnostic Statement: Please refer to the comprehensive nutrition assessment for further information. If you agree with diagnosis of Severe protein calorie malnutrition related to inadequate energy intake as evidenced by reduced po intake for greater than 1 month, a -8% wt loss x 3 months, and NFPE findings for severe subcutaneous fat loss (cheeks) and severe muscle wasting (temples, clavicles). Please specify severity if known: * Mild * Moderate * Severe * Other/Unknown <Rebekah Miller RN - Last Filed: 04/27/24 12:37> Clarified Diagnosis Clarified Diagnosis: Severe <Wes Rosario MD - Last Filed: 04/27/24 15:33>
[2024-04-27 12:16] LABS: Glucose Point of Care 153 mg/dl (65-105)
--- NOTE | 2024-04-27 12:26 | PM.IMPN ---
Progress Note: A&P Assessment and Plan (1) Acute kidney injury: Code(s): N17.9 - Acute kidney failure, unspecified Status: Acute (2) Nausea and vomiting: Code(s): R11.2 - Nausea with vomiting, unspecified Status: Acute (3) Dehydration: Code(s): E86.0 - Dehydration Status: Acute Plan This is a 49-year-old male who presents to the ER with multiple episodes of nausea vomiting. There is associated abdominal pain mostly in the epigastric right upper quadrant area. No diarrhea reported. In the ED he was tachycardic borderline blood pressure afebrile. Laboratory workup revealed WBC of 23.9 a hemoglobin of 21.2 hematocrit 62 platelet count 20 55. Chem panel showed creatinine of 4.6 carbon dioxide of 7 suggesting acute kidney injury with severe metabolic acidosis blood glucose was 349 lactic acid was elevated at 6.5 calcium 11.8 total protein more than 11 with albumin of 5.8. Urinalysis with 11-20 WBC 3-5 RBC 5-9 hyaline casts more than [address] abdomen with no acute findings. Chest x-ray showed findings of emphysema. Follow-up renal ultrasound showed possible 5 mm nonobstructing left renal stone. Renal has been consulted. Patient pancultured. With hydration his renal failure is improving metabolic acidosis resolved. Hemoconcentration has resolved. Leukocytosis improving. Continue IV hydration. EDILBERTO Severe dehydration/volume depletion Leukocytosis Metabolic acidosis UTI on ceftriaxone History of C diff 01/2024 Lactic acidosis resolved DVT prophylaxis subQ heparin Code status full code Polycythemia likely due to dehydration Hypertension: Home medication Hyperglycemia no prior history of diabetes. A1c came back at 5.4. Hyperglycemia likely due to severe dehydration Surrogate decision maker is MotherJohn Subjective Date/time seen: 04/27/24 12:26 Interval history: Discussed with the real estate appraiser supervisor. Patient creatinine is getting better and possibly the rise in creatinine due to dehydration. 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 Patient follows of with the real estate appraiser supervisor at [place]. Review of Systems Review of Systems: All other systems reviewed and negative except as noted in history above. Exam Narrative: General: alert and comfortable Eyes: EOMI, PERRLA Respiratory systems: Clear to auscultation no respiratory distress Cardiovascular: S1, S2, normal rhythm, no murmur, rub, or gallop; no thrill or palpable murmurs on palpation. Gastrointestinal: soft, non-tender, and non-distended abdomen with no masses; BS present Skin: no rash, lesions, ulcerations, subcutaneous nodules or induration Musculoskeletal: no abnormality and no tenderness, normal ROM Neurologic: Alert and oriented x3, non focal Mental Status Exam: normal affect Objective Data Vital Signs Vital Signs: Vital Signs - 24 hr 04/26/24 14:00 04/26/24 20:00 04/26/24 20:59 Temperature 99.1 F 99.0 F Pulse Rate 65 64 64 Respiratory Rate 20 19 19 Blood Pressure 141/86 H 131/68 Pulse Oximetry 97 97 97 Oxygen Delivery Room Air 04/27/24 05:25 04/27/24 08:52 Temperature 98.2 F Pulse Rate 56 L 60 Respiratory Rate 17 Blood Pressure 131/74 Pulse Oximetry 97 Oxygen Delivery Intake/Output Intake/Output: Intake & Output 04/25/24 04/25/24 04/26/24 04/27/24 00:59 23:59 23:59 23:59 Intake Total 3467.5 3150 1362.9 Output Total 200 1100 800 Balance 3267.5 2050 562.9 Meds/Results Medications: Active Medications Generic Name Dose Route Start Last Admin Trade Name Freq PRN Reason Stop Dose Admin Aspirin 81 mg 04/26/24 08:00 04/27/24 08:52 Aspirin 81 Mg Enteric Tablet PO 81 mg DAILY@0800 MELANI Administration Atorvastatin Calcium 20 mg 04/26/24 09:00 04/27/24 08:53 Atorvastatin 20 Mg Tablet PO 20 mg DAILY MELANI Administration Carvedilol 3.125 mg 04/25/24 21:00 04/27/24 08:52 Carvedilol 3.125 Mg Tablet PO 3.125 mg Q12HR MELANI Administration Dextrose 12.5 gm 04/25/24 14:33 Dextrose 50% 25 Gm/50 Ml Syringe IV PUSH PRN PRN Hypoglycemia Protocol Divalproex Sodium 500 mg 04/25/24 21:00 04/27/24 08:[address] 250 Mg Tabec PO 500 mg Q12HR MELANI Administration Glucagon 1 mg 04/25/24 14:33 Glucagon For Inj 1 Mg Vial IM PRN PRN Hypoglycemia Protocol Glucose 15 gm 04/25/24 14:33 Glucose Oral Gel 15 Gm Of Glucse In 37.5 Gm Tube PO PRN PRN Hypoglycemia Protocol Heparin Sodium (Porcine) 5,000 units 04/25/24 22:00 04/27/24 06:20 Heparin Sodium 5,000 Units/Ml Vial SUB-Q 5,000 units Q8HR MELANI Administration Sodium Chloride 1,000 mls @ 75 mls/hr 04/25/24 10:10 04/27/24 09:00 Normal Saline Iv IV CONT 0 mls/hr .[id number] MELANI Infusion Ceftriaxone Sodium 1 gm in 50 mls @ 100 mls/hr 04/26/24 10:00 04/27/24 09:30 Rocephin 1 Gm/Ns 50 Ml IVPB Infused Q24H MELANI Infusion Dextrose 1,000 mls @ 100 mls/hr 04/25/24 14:33 Dextrose 5% 1,000 Ml IVPB PRN PRN Hypoglycemia Protocol Insulin Aspart 4 - 8 units 04/25/24 17:00 04/27/24 12:22 Insulin Aspart (*Bkc) 100 Units/Ml SUB-Q Not Given TIDWM MELANI Protocol Insulin Aspart 2 - 4 units 04/25/24 21:00 04/26/24 20:37 Insulin Aspart (*Bkc) 100 Units/Ml SUB-Q Not Given HS MELANI Protocol Ondansetron HCl 4 mg 04/25/24 10:07 04/26/24 18:07 Ondansetron Inj 4 Mg/2 Ml Vial IV PUSH 4 mg Q4H PRN Administration Nausea Radiology Results: ITS Impressions Abdomen/Pelvis CT 04/25/24 07:33 Impression: Question of cystitis versus underdistended urinary bladder. Correlate with urinalysis. Chest X-Ray 04/25/24 09:48 IMPRESSION: 1. Emphysema. Renal Ultrasound 04/26/24 06:32 Impression: Possible 5 mm nonobstructing left renal stone. Labs Labs: Laboratory Results - last 24 hr 04/26/24 04/26/24 04/27/24 16:46 20:06 06:19 WBC 7.9 RBC 4.47 L Hgb 14.2 Hct 41.4 L MCV 92.6 MCH 31.8 MCHC 34.3 RDW 12.7 Plt Count 164 MPV 11.3 H Immature Gran % (Auto) 0.3 Neut % (Auto) 56.3 Lymph % (Auto) 30.1 [place] % (Auto) 12.8 H Eos % (Auto) 0.0 Baso % (Auto) 0.5 Lymph # (Auto) 2.38 [place] # (Auto) 1.0 H Eos # (Auto) 0.0 Baso # (Auto) 0.0 Abs Immat Gran (auto) 0.02 Absolute Neuts (auto) 4.5 Absolute Nucleated RBC 0.000 Nucleated RBC % 0.0 Sodium 138 Potassium 3.8 Chloride 106 Carbon Dioxide 27 Anion Gap 5 BUN 26 H Creatinine 0.94 Estim Creat Clear Calc 69 Estimated GFR > 60 Glucose 103 POC Capillary Glucose 135 H 149 H Calcium 8.7 Magnesium 2.0 Total Bilirubin 0.5 AST 22 ALT 13 Alkaline Phosphatase 72 Total Protein 6.0 L Albumin 3.5 04/27/24 04/27/24 08:01 12:13 WBC RBC Hgb Hct MCV MCH MCHC RDW Plt Count MPV Immature Gran % (Auto) Neut % (Auto) Lymph % (Auto) [place] % (Auto) Eos % (Auto) Baso % (Auto) Lymph # (Auto) [place] # (Auto) Eos # (Auto) Baso # (Auto) Abs Immat Gran (auto) Absolute Neuts (auto) Absolute Nucleated RBC Nucleated RBC % Sodium Potassium Chloride Carbon Dioxide Anion Gap BUN Creatinine Estim Creat Clear Calc Estimated GFR Glucose POC Capillary Glucose 123 H 153 H Calcium Magnesium Total Bilirubin AST ALT Alkaline Phosphatase Total Protein Albumin Hospitalist MIPS Advance Care Plan I have confirmed that the patient's Advanced Care Plan is present, code status is documented, or surrogate decision maker is listed in patient medical record.: Yes Medication Reconciliation I have utilized all available resources to obtain, update and review the patients current medications (includes all prescriptions, OTC, herbals, cannabis, and nutritional supplements).: Yes
[2024-04-27 14:00] VITALS: BP 118/74; PULSE 77; RESP 14; TEMP 36.7; O2SAT 97
--- NOTE | 2024-04-27 14:28 | P.PNNP_ITS ---
Progress Note: A&P Assessment and Plan (1) Acute kidney injury: Code(s): N17.9 - Acute kidney failure, unspecified Status: Acute Assessment and Plan: * resolved/resolving * as evidence by admission labs * evaluation to date noted: * renal u/w without obstruction * urine electrolytes prerenal * urine eosinophils negative * CPK mildly elevated (but not enough to affect kidney function) * no significant proteinuria * suspect due to volume depletion/dehydration given history * likely worsened by ARB use prior to admission and relative hypotension * continue IVF resuscitation * follow trend of repeat labs and UOP (2) Nausea and vomiting: Code(s): R11.2 - Nausea with vomiting, unspecified Status: Acute Assessment and Plan: * as noted by history * IV anti-ementics * follow symptoms (3) Polycythemia: Code(s): D75.1 - Secondary polycythemia Status: Acute Assessment and Plan: * due to significant hemoconcentration * correlates with hypercalemia and hyperalbuminemia * trend of H/H improving (4) Hypertension: Code(s): I10 - Essential (primary) hypertension Status: Chronic Assessment and Plan: * BP improving * soft on admisson * follow trend of hemodynamics Not much else to add -- will continue to follow from a distance. L Subjective Date/time seen: 04/27/24 14:28 Interval history: Follow-up for acute kidney injury/acute renal failure. Renal function/creatinine has normalized with ongoing IVF resuscitation; no apparent distress noted at the time of my visit; making reasonably urine as well; remains hemodynamically stable at this time; no other issues/events overnight or earlier this morning; still having some on/off nausea still. Exam 2 Narrative: General: WD/WN male in NAD Heart: normal S1 and S2; no rub Lungs: clear to auscultation Abdomen: soft, nontender, nondistended, positive bowel sounds Extremities: no cyanosis or clubbing; no edema Skin: warm and dry Objective Data Vital Signs Vital Signs: Vital Signs Temp Pulse Resp BP Pulse Ox O2 Del Method 04/27/24 08:52 60 04/27/24 05:25 98.2 F 56 L 17 131/74 97 04/26/24 20:59 99.0 F 64 19 131/68 97 04/26/24 20:00 64 19 97 Room Air Intake/Output Intake/Output: Intake & Output 03/10/25 03/10/25 03/11/25 03/12/25 00:59 23:59 23:59 23:59 Intake Total 3467.5 3150 1452.9 Output Total 200 1100 800 Balance 3267.5 2050 652.9 Meds/Results Medications: Active Medications Generic Name Dose Route Start Last Admin Trade Name Freq PRN Reason Stop Dose Admin Aspirin 81 mg 04/26/24 08:00 04/27/24 08:52 Aspirin 81 Mg Enteric Tablet PO 81 mg DAILY@0800 MELANI Administration Atorvastatin Calcium 20 mg 04/26/24 09:00 04/27/24 08:53 Atorvastatin 20 Mg Tablet PO 20 mg DAILY MELANI Administration Carvedilol 3.125 mg 04/25/24 21:00 04/27/24 08:52 Carvedilol 3.125 Mg Tablet PO 3.125 mg Q12HR MELANI Administration Dextrose 12.5 gm 04/25/24 14:33 Dextrose 50% 25 Gm/50 Ml Syringe IV PUSH PRN PRN Hypoglycemia Protocol Divalproex Sodium 500 mg 04/25/24 21:00 04/27/24 08:[address] 250 Mg Tabec PO 500 mg Q12HR MELANI Administration Glucagon 1 mg 04/25/24 14:33 Glucagon For Inj 1 Mg Vial IM PRN PRN Hypoglycemia Protocol Glucose 15 gm 04/25/24 14:33 Glucose Oral Gel 15 Gm Of Glucse In 37.5 Gm Tube PO PRN PRN Hypoglycemia Protocol Heparin Sodium (Porcine) 5,000 units 04/25/24 22:00 04/27/24 13:41 Heparin Sodium 5,000 Units/Ml Vial SUB-Q 5,000 units Q8HR MELANI Administration Sodium Chloride 1,000 mls @ 75 mls/hr 04/25/24 10:10 04/27/24 09:30 Normal Saline Iv IV CONT 75 mls/hr .[id number] MELANI Infusion Ceftriaxone Sodium 1 gm in 50 mls @ 100 mls/hr 04/26/24 10:00 04/27/24 09:30 Rocephin 1 Gm/Ns 50 Ml IVPB Infused Q24H MELANI Infusion Dextrose 1,000 mls @ 100 mls/hr 04/25/24 14:33 Dextrose 5% 1,000 Ml IVPB PRN PRN Hypoglycemia Protocol Insulin Aspart 4 - 8 units 04/25/24 17:00 04/27/24 12:22 Insulin Aspart (*Bkc) 100 Units/Ml SUB-Q Not Given TIDWM MELANI Protocol Insulin Aspart 2 - 4 units 04/25/24 21:00 04/26/24 20:37 Insulin Aspart (*Bkc) 100 Units/Ml SUB-Q Not Given HS MELANI Protocol Ondansetron HCl 4 mg 04/25/24 10:07 04/26/24 18:07 Ondansetron Inj 4 Mg/2 Ml Vial IV PUSH 4 mg Q4H PRN Administration Nausea Radiology Results: ITS Impressions Abdomen/Pelvis CT 04/25/24 07:33 Impression: Question of cystitis versus underdistended urinary bladder. Correlate with urinalysis. Chest X-Ray 04/25/24 09:48 IMPRESSION: 1. Emphysema. Renal Ultrasound 04/26/24 06:32 Impression: Possible 5 mm nonobstructing left renal stone. Labs Labs: Laboratory Tests 04/27/24 06:19 04/27/24 06:19 Calcium 8.7 Magnesium 2.0 Total Bilirubin 0.5 AST 22 ALT 13 Alkaline Phosphatase 72 Total Protein 6.0 L Albumin 3.5 Microbiology 04/25/24 08:33 Urine Clean Catch Urine Culture - Final 04/25/24 05:56 Blood Blood Culture - Preliminary 04/25/24 06:57 Blood Blood Culture - Preliminary
[2024-04-27 16:59] LABS: Glucose Point of Care 160 mg/dl (65-105)
[2024-04-27 20:00] VITALS: PULSE 77; RESP 14; O2SAT 97
[2024-04-27 20:20] VITALS: BP 154/79; PULSE 55; RESP 20; TEMP 36.6; O2SAT 98
[2024-04-27 20:22] VITALS: PULSE 55
[2024-04-27] MEDS: SODIUM CHLORIDE 0.9% IV 1,000 ML 75 ML IV CONT (20:22)
[2024-04-27 21:55] LABS: Glucose Point of Care 128 mg/dl (65-105)
[2024-04-28] MEDS: HEPARIN SODIUM 5,000 UNITS/ML VIAL 5000 UNITS SUB-Q ×3 (04:56→21:23)
[2024-04-28] MEDS: ONDANSETRON INJ 4 MG/2 ML VIAL IV PUSH ×2 (05:45→15:35)
[2024-04-28 06:25] LABS: Hematocrit 42.1 % (42.0-52.0); Hemoglobin 14.1 g/dL (14.0-18.0); Mean Corpuscular HGB Conc 33.5 g/dl (32-36); Mean Corpuscular Hemoglobin 31.3 pg (26-34); Mean Corpuscular Volume 93.3 fl (80-100); Mean Platelet Volume 11.2 fl (7.4-10.4); Platelet Count Result 161 k/mm3 (150-375); Red Blood Count 4.51 M/mm3 (4.6-6.20); Red Cell Distribution Width 12.4 % (11.5-14.5); White Blood Count 7.5 K/mm3 (4.5-10.0)
[2024-04-28 06:45] LABS: Alanine Aminotransferase 12 U/L (6-50); Albumin Level 3.2 g/dL (3.5-5.1); Alkaline Phosphatase 64 U/L (38-126); Anion Gap 6 mmol/L (4-12); Aspartate Amino Transferase 20 U/L (17-59); Bilirubin,Total 0.6 mg/dL (0.2-1.3); Blood Urea Nitrogen 18 mg/dL (9-20); Calcium 8.4 mg/dL (8.4-10.2); Carbon Dioxide 25 mmol/L (22-30); Chloride 105 mmol/L (98-107); Estimated CRCL calculation 85 ml/min; Estimated Glomerular Filt Rate > 60; Glucose 101 mg/dL (65-110); Potassium 3.8 mmol/L (3.4-5.0); Sodium 136 mmol/L (137-145)
[2024-04-28 07:56] LABS: Glucose Point of Care 108 mg/dl (65-105)
[2024-04-28 09:00] VITALS: PULSE 60; RESP 20; O2SAT 98
[2024-04-28] MEDS: carvediloL 3.125 MG TABLET PO ×2 (09:00→21:23)
[2024-04-28] MEDS: ATORVASTATIN 20 MG TABLET PO (09:00)
[2024-04-28] MEDS: ASPIRIN 81 MG ENTERIC TABLET PO (09:00)
[2024-04-28] MEDS: DIVALPROEX SODIUM DR 250 MG TABEC 500 MG PO ×2 (09:00→21:22)
[2024-04-28] MEDS: SODIUM CHLORIDE 0.9% IV 1,000 ML 75 ML IV CONT ×2 (10:32→22:23)
[2024-04-28 11:48] LABS: Glucose Point of Care 99 mg/dl (65-105)
[2024-04-28 14:00] VITALS: BP 135/79; PULSE 88; RESP 14; TEMP 37.3; O2SAT 99
[2024-04-28 16:31] LABS: Glucose Point of Care 103 mg/dl (65-105)
--- NOTE | 2024-04-28 16:53 | PM.IMPN ---
Progress Note: A&P Assessment and Plan (1) Acute kidney injury: Code(s): N17.9 - Acute kidney failure, unspecified Status: Acute (2) Nausea and vomiting: Code(s): R11.2 - Nausea with vomiting, unspecified Status: Acute (3) Dehydration: Code(s): E86.0 - Dehydration Status: Acute Plan This is a 49-year-old male who presents to the ER with multiple episodes of nausea vomiting. There is associated abdominal pain mostly in the epigastric right upper quadrant area. No diarrhea reported. In the ED he was tachycardic borderline blood pressure afebrile. Laboratory workup revealed WBC of 23.9 a hemoglobin of 21.2 hematocrit 62 platelet count 20 55. Chem panel showed creatinine of 4.6 carbon dioxide of 7 suggesting acute kidney injury with severe metabolic acidosis blood glucose was 349 lactic acid was elevated at 6.5 calcium 11.8 total protein more than 11 with albumin of 5.8. Urinalysis with 11-20 WBC 3-5 RBC 5-9 hyaline casts more than [address] abdomen with no acute findings. Chest x-ray showed findings of emphysema. Follow-up renal ultrasound showed possible 5 mm nonobstructing left renal stone. Renal has been consulted. Patient pancultured. EDILBERTO, hypovolemia Resolved Creatinine 4.61 during admission Back to baseline 0.75 Patient presented with profuse vomiting. CT abdomen pelvis no in our obstruction. Continue IV fluid Nephrology consulted, monitor. Vomiting CT abdomen no acute changes. Likely from cystitis. Continue IV fluid p.r.n. Zofran. UTI Vomiting CT showed possible cystitis Leukocytosis resolved Urine culture negative and blood culture no growth Polycythemia likely dehydration Resolved Hemoglobin 14.1 Hemoglobin 21.2 Continue hydration. Hypertension Titrate home medications with clinical course. DVT prophylaxis subQ heparin. Patient is full code. Surrogate decision maker is John Wyatt Surrogate decision maker is John Wyatt Subjective Date/time seen: 04/28/24 16:53 Interval history: Patient complains of Nausea and Vomiting. Will monitor for one more day. Review of Systems Review of Systems: All other systems reviewed and negative except as noted in history above. Exam Narrative: General: alert and comfortable Eyes: EOMI, PERRLA Respiratory systems: Clear to auscultation no respiratory distress Cardiovascular: S1, S2, normal rhythm, no murmur, rub, or gallop; no thrill or palpable murmurs on palpation. Gastrointestinal: soft, non-tender, and non-distended abdomen with no masses; BS present Skin: no rash, lesions, ulcerations, subcutaneous nodules or induration Musculoskeletal: no abnormality and no tenderness, normal ROM Neurologic: Alert and oriented x3, non focal Mental Status Exam: normal affect Objective Data Vital Signs Vital Signs: Vital Signs - 24 hr 04/27/24 20:00 04/27/24 20:20 04/27/24 20:22 Temperature 97.9 F Pulse Rate 77 55 L 55 L Respiratory Rate 14 20 Blood Pressure 154/79 H Pulse Oximetry 97 98 Oxygen Delivery Room Air 04/28/24 09:00 04/28/24 09:00 04/28/24 14:00 Temperature 99.1 F Pulse Rate 60 88 Respiratory Rate 20 14 Blood Pressure 135/79 Pulse Oximetry 98 99 Oxygen Delivery Room Air Intake/Output Intake/Output: Intake & Output 04/25/24 04/26/24 04/27/24 04/28/24 23:59 23:59 23:59 23:59 Intake Total 3467.5 3150 2350.0 1780.0 Output Total 200 1100 800 900 Balance 3267.5 2050 1550.0 880.0 Meds/Results Medications: Active Medications Generic Name Dose Route Start Last Admin Trade Name Freq PRN Reason Stop Dose Admin Amoxicillin/Clavulanate Potassium 1 tablet 04/29/24 09:00 Amoxicillin/Clavulanate K 875-125 Mg Tab PO 05/01/24 21:01 Q12HR [facility] Aspirin 81 mg 04/26/24 08:00 04/28/24 09:00 Aspirin 81 Mg Enteric Tablet PO 81 mg DAILY@0800 MELANI Administration Atorvastatin Calcium 20 mg 04/26/24 09:00 04/28/24 09:00 Atorvastatin 20 Mg Tablet PO 20 mg DAILY MELANI Administration Carvedilol 3.125 mg 04/25/24 21:00 04/28/24 09:00 Carvedilol 3.125 Mg Tablet PO 3.125 mg Q12HR MELANI Administration Dextrose 12.5 gm 04/25/24 14:33 Dextrose 50% 25 Gm/50 Ml Syringe IV PUSH PRN PRN Hypoglycemia Protocol Divalproex Sodium 500 mg 04/25/24 21:00 04/28/24 09:[address] 250 Mg Tabec PO 500 mg Q12HR MELANI Administration Glucagon 1 mg 04/25/24 14:33 Glucagon For Inj 1 Mg Vial IM PRN PRN Hypoglycemia Protocol Glucose 15 gm 04/25/24 14:33 Glucose Oral Gel 15 Gm Of Glucse In 37.5 Gm Tube PO PRN PRN Hypoglycemia Protocol Heparin Sodium (Porcine) 5,000 units 04/25/24 22:00 04/28/24 13:54 Heparin Sodium 5,000 Units/Ml Vial SUB-Q 5,000 units Q8HR MELANI Administration Sodium Chloride 1,000 mls @ 75 mls/hr 04/25/24 10:10 04/28/24 10:32 Normal Saline Iv IV CONT 75 mls/hr .[id number] MELANI Administration Dextrose 1,000 mls @ 100 mls/hr 04/25/24 14:33 Dextrose 5% 1,000 Ml IVPB PRN PRN Hypoglycemia Protocol Insulin Aspart 4 - 8 units 04/25/24 17:00 04/28/24 16:32 Insulin Aspart (*Bkc) 100 Units/Ml SUB-Q Not Given TIDWM MELANI Protocol Insulin Aspart 2 - 4 units 04/25/24 21:00 04/27/24 20:27 Insulin Aspart (*Bkc) 100 Units/Ml SUB-Q Not Given HS MELANI Protocol Ondansetron HCl 4 mg 04/25/24 10:07 04/28/24 15:35 Ondansetron Inj 4 Mg/2 Ml Vial IV PUSH 4 mg Q4H PRN Administration Nausea Radiology Results: ITS Impressions Abdomen/Pelvis CT 04/25/24 07:33 Impression: Question of cystitis versus underdistended urinary bladder. Correlate with urinalysis. Chest X-Ray 04/25/24 09:48 IMPRESSION: 1. Emphysema. Renal Ultrasound 04/26/24 06:32 Impression: Possible 5 mm nonobstructing left renal stone. Labs Labs: Laboratory Results - last 24 hr 04/27/24 04/27/24 04/28/24 16:56 20:27 05:59 WBC 7.5 RBC 4.51 L Hgb 14.1 Hct 42.1 MCV 93.3 MCH 31.3 MCHC 33.5 RDW 12.4 Plt Count 161 MPV 11.2 H Sodium 136 L Potassium 3.8 Chloride 105 Carbon Dioxide 25 Anion Gap 6 BUN 18 Creatinine 0.75 Estim Creat Clear Calc 85 Estimated GFR > 60 Glucose 101 POC Capillary Glucose 160 H 128 H Calcium 8.4 Total Bilirubin 0.6 AST 20 ALT 12 Alkaline Phosphatase 64 Total Protein 6.0 L Albumin 3.2 L 04/28/24 04/28/24 04/28/24 07:52 11:41 16:18 WBC RBC Hgb Hct MCV MCH MCHC RDW Plt Count MPV Sodium Potassium Chloride Carbon Dioxide Anion Gap BUN Creatinine Estim Creat Clear Calc Estimated GFR Glucose POC Capillary Glucose 108 H 99 103 Calcium Total Bilirubin AST ALT Alkaline Phosphatase Total Protein Albumin Hospitalist MIPS Advance Care Plan I have confirmed that the patient's Advanced Care Plan is present, code status is documented, or surrogate decision maker is listed in patient medical record.: Yes Medication Reconciliation I have utilized all available resources to obtain, update and review the patients current medications (includes all prescriptions, OTC, herbals, cannabis, and nutritional supplements).: Yes
[2024-04-28 20:00] VITALS: PULSE 51; RESP 18; O2SAT 98
[2024-04-28 20:10] VITALS: BP 139/81; PULSE 51; RESP 18; TEMP 37; O2SAT 98
[2024-04-28 20:54] LABS: Glucose Point of Care 109 mg/dl (65-105)
[2024-04-29 04:15] VITALS: BP 157/83; PULSE 50; RESP 18; TEMP 36.8; O2SAT 99
[2024-04-29] MEDS: HEPARIN SODIUM 5,000 UNITS/ML VIAL 5000 UNITS SUB-Q ×3 (05:52→20:26)
[2024-04-29 08:04] LABS: Glucose Point of Care 102 mg/dl (65-105)
[2024-04-29 09:25] VITALS: PULSE 57
[2024-04-29] MEDS: ATORVASTATIN 20 MG TABLET PO (09:25)
[2024-04-29] MEDS: carvediloL 3.125 MG TABLET PO ×2 (09:25→20:27)
[2024-04-29] MEDS: AMOXICILLIN/CLAVULANATE K 875-125 MG TAB 1 TABLET PO ×2 (09:25→20:27)
[2024-04-29] MEDS: ASPIRIN 81 MG ENTERIC TABLET PO (09:25)
[2024-04-29] MEDS: DIVALPROEX SODIUM DR 250 MG TABEC 500 MG PO ×2 (09:26→20:27)
[2024-04-29 09:34] LABS: Alanine Aminotransferase 19 U/L (6-50); Alkaline Phosphatase 60 U/L (38-126); Anion Gap 6 mmol/L (4-12); Aspartate Amino Transferase 23 U/L (17-59); Bilirubin,Total 0.6 mg/dL (0.2-1.3); Blood Urea Nitrogen 11 mg/dL (9-20); Calcium 8.3 mg/dL (8.4-10.2); Carbon Dioxide 24 mmol/L (22-30); Chloride 104 mmol/L (98-107); Estimated CRCL calculation 90 ml/min; Estimated Glomerular Filt Rate > 60; Glucose 119 mg/dL (65-110); Potassium 3.6 mmol/L (3.4-5.0); Sodium 134 mmol/L (137-145)
[2024-04-29 09:47] LABS: Hematocrit 39.3 % (42.0-52.0); Hemoglobin 13.5 g/dL (14.0-18.0); Mean Corpuscular HGB Conc 34.4 g/dl (32-36); Mean Corpuscular Hemoglobin 31.3 pg (26-34); Mean Platelet Volume 11.8 fl (7.4-10.4); Platelet Count Result 174 k/mm3 (150-375); Red Blood Count 4.32 M/mm3 (4.6-6.20); Red Cell Distribution Width 11.9 % (11.5-14.5); White Blood Count 5.7 K/mm3 (4.5-10.0)
[2024-04-29 09:49] VITALS: O2SAT 97
[2024-04-29 12:21] LABS: Glucose Point of Care 101 mg/dl (65-105)
[2024-04-29 14:00] VITALS: BP 130/76; PULSE 61; RESP 20; TEMP 36.6; O2SAT 98
--- NOTE | 2024-04-29 15:31 | PCNFU ---
Nutrition Follow-Up Complete: Severe protein calorie malnutrition related to inadequate energy intake as evidenced by reduced po intake for greater than 1 month, a -8% wt loss x 3 months, and NFPE findings for severe subcutaneous fat loss (cheeks) and severe muscle wasting (temples, clavicles). PO intake improved, tolerated - Progressing. Diet advanced for lunch and lunch tolerated well Goal: Pt current nutrition is Diabetic consistent carbs. Nutrition recommendation: No nutrition recommendations. Can add Glucerna TID if patient appetite is poor Last recorded weight is 57.5 kg. Bowel Motility +3 BMs 04/25/24 Labs Reviewed: Hgb 13.5, Hct 39.2, Na 134, Glu 119 Meds Noted: Novolog, Zofran Skin: No Additional Notes: Tolerated lunch after being advanced from [facility] and likely to be discharged soon. Following Monitor po intake, tolerance, wt, labs. Follow up in 3 days.
[2024-04-29 16:42] LABS: Glucose Point of Care 119 mg/dl (65-105)
--- NOTE | 2024-04-29 16:44 | PM.IMPN ---
Progress Note: A&P Assessment and Plan (1) Acute kidney injury: Code(s): N17.9 - Acute kidney failure, unspecified Status: Acute (2) Nausea and vomiting: Code(s): R11.2 - Nausea with vomiting, unspecified Status: Acute (3) Dehydration: Code(s): E86.0 - Dehydration Status: Acute Plan This is a 49-year-old male who presents to the ER with multiple episodes of nausea vomiting. There is associated abdominal pain mostly in the epigastric right upper quadrant area. No diarrhea reported. In the ED he was tachycardic borderline blood pressure afebrile. Laboratory workup revealed WBC of 23.9 a hemoglobin of 21.2 hematocrit 62 platelet count 20 55. Chem panel showed creatinine of 4.6 carbon dioxide of 7 suggesting acute kidney injury with severe metabolic acidosis blood glucose was 349 lactic acid was elevated at 6.5 calcium 11.8 total protein more than 11 with albumin of 5.8. Urinalysis with 11-20 WBC 3-5 RBC 5-9 hyaline casts more than [address] abdomen with no acute findings. Chest x-ray showed findings of emphysema. Follow-up renal ultrasound showed possible 5 mm nonobstructing left renal stone. Renal has been consulted. Patient pancultured. EDILBERTO, hypovolemia Resolved Creatinine 4.61 during admission Back to baseline 0.75 Patient presented with profuse vomiting. CT abdomen pelvis no in our obstruction. Continue IV fluid Nephrology consulted, monitor. Vomiting CT abdomen no acute changes. Likely from cystitis. Continue IV fluid p.r.n. Zofran. UTI Vomiting CT showed possible cystitis Leukocytosis resolved Urine culture negative and blood culture no growth Polycythemia likely dehydration Resolved Hemoglobin 14.1 Hemoglobin 21.2 Continue hydration. Hypertension Titrate home medications with clinical course. DVT prophylaxis subQ heparin. Patient is full code. Surrogate decision maker is John Wyatt Surrogate decision maker is John Wyatt Subjective Date/time seen: 04/29/24 16:44 Interval history: Patient reports is vomiting is better today. Will monitor for tonight to see tolerate regular food. Review of Systems Review of Systems: All other systems reviewed and negative except as noted in history above. Exam Narrative: General: alert and comfortable Eyes: EOMI, PERRLA Respiratory systems: Clear to auscultation no respiratory distress Cardiovascular: S1, S2, normal rhythm, no murmur, rub, or gallop; no thrill or palpable murmurs on palpation. Gastrointestinal: soft, non-tender, and non-distended abdomen with no masses; BS present Skin: no rash, lesions, ulcerations, subcutaneous nodules or induration Musculoskeletal: no abnormality and no tenderness, normal ROM Neurologic: Alert and oriented x3, non focal Mental Status Exam: normal affect Objective Data Vital Signs Vital Signs: Vital Signs - 24 hr 04/28/24 20:00 04/28/24 20:10 04/29/24 04:15 Temperature 98.6 F 98.2 F Pulse Rate 51 L 51 L 50 L Respiratory Rate 18 18 18 Blood Pressure 139/81 157/83 H Pulse Oximetry 98 98 99 Oxygen Delivery Room Air 04/29/24 09:25 04/29/24 09:49 04/29/24 14:00 Temperature 97.9 F Pulse Rate 57 L 61 Respiratory Rate 20 Blood Pressure 130/76 Pulse Oximetry 97 98 Oxygen Delivery Room Air Intake/Output Intake/Output: Intake & Output 04/26/24 04/27/24 04/28/24 04/29/24 23:59 23:59 23:59 23:59 Intake Total 3150 2350.0 3028.8 2430 Output Total 1100 800 900 600 Balance 2050 1550.0 2128.8 1830 Meds/Results Medications: Active Medications Generic Name Dose Route Start Last Admin Trade Name Freq PRN Reason Stop Dose Admin Amoxicillin/Clavulanate Potassium 1 tablet 04/29/24 09:00 04/29/24 09:25 Amoxicillin/Clavulanate K 875-125 Mg Tab PO 05/01/24 21:01 1 tablet Q12HR MELANI Administration Aspirin 81 mg 04/26/24 08:00 04/29/24 09:25 Aspirin 81 Mg Enteric Tablet PO 81 mg DAILY@0800 MELANI Administration Atorvastatin Calcium 20 mg 04/26/24 09:00 04/29/24 09:25 Atorvastatin 20 Mg Tablet PO 20 mg DAILY MELANI Administration Carvedilol 3.125 mg 04/25/24 21:00 04/29/24 09:25 Carvedilol 3.125 Mg Tablet PO 3.125 mg Q12HR MELANI Administration Dextrose 12.5 gm 04/25/24 14:33 Dextrose 50% 25 Gm/50 Ml Syringe IV PUSH PRN PRN Hypoglycemia Protocol Divalproex Sodium 500 mg 04/25/24 21:00 04/29/24 09:[address] 250 Mg Tabec PO 500 mg Q12HR MELANI Administration Glucagon 1 mg 04/25/24 14:33 Glucagon For Inj 1 Mg Vial IM PRN PRN Hypoglycemia Protocol Glucose 15 gm 04/25/24 14:33 Glucose Oral Gel 15 Gm Of Glucse In 37.5 Gm Tube PO PRN PRN Hypoglycemia Protocol Heparin Sodium (Porcine) 5,000 units 04/25/24 22:00 04/29/24 05:52 Heparin Sodium 5,000 Units/Ml Vial SUB-Q 5,000 units Q8HR MELANI Administration Dextrose 1,000 mls @ 100 mls/hr 04/25/24 14:33 Dextrose 5% 1,000 Ml IVPB PRN PRN Hypoglycemia Protocol Insulin Aspart 4 - 8 units 04/25/24 17:00 04/29/24 12:50 Insulin Aspart (*Bkc) 100 Units/Ml SUB-Q Not Given TIDWM MELANI Protocol Insulin Aspart 2 - 4 units 04/25/24 21:00 04/28/24 21:17 Insulin Aspart (*Bkc) 100 Units/Ml SUB-Q Not Given HS MELANI Protocol Ondansetron HCl 4 mg 04/25/24 10:07 04/28/24 15:35 Ondansetron Inj 4 Mg/2 Ml Vial IV PUSH 4 mg Q4H PRN Administration Nausea Radiology Results: ITS Impressions Abdomen/Pelvis CT 04/25/24 07:33 Impression: Question of cystitis versus underdistended urinary bladder. Correlate with urinalysis. Chest X-Ray 04/25/24 09:48 IMPRESSION: 1. Emphysema. Renal Ultrasound 04/26/24 06:32 Impression: Possible 5 mm nonobstructing left renal stone. Labs Labs: Laboratory Results - last 24 hr 04/28/24 04/29/24 04/29/24 20:13 07:58 08:36 WBC 5.7 RBC 4.32 L Hgb 13.5 L Hct 39.3 L MCV 91.0 MCH 31.3 MCHC 34.4 RDW 11.9 Plt Count 174 MPV 11.8 H Sodium 134 L Potassium 3.6 Chloride 104 Carbon Dioxide 24 Anion Gap 6 BUN 11 D Creatinine 0.70 Estim Creat Clear Calc 90 Estimated GFR > 60 Glucose 119 H POC Capillary Glucose 109 H 102 Calcium 8.3 L Total Bilirubin 0.6 AST 23 ALT 19 Alkaline Phosphatase 60 Total Protein 5.0 L Albumin 3.0 L 04/29/24 04/29/24 12:15 16:32 WBC RBC Hgb Hct MCV MCH MCHC RDW Plt Count MPV Sodium Potassium Chloride Carbon Dioxide Anion Gap BUN Creatinine Estim Creat Clear Calc Estimated GFR Glucose POC Capillary Glucose 101 119 H Calcium Total Bilirubin AST ALT Alkaline Phosphatase Total Protein Albumin Hospitalist MIPS Advance Care Plan I have confirmed that the patient's Advanced Care Plan is present, code status is documented, or surrogate decision maker is listed in patient medical record.: Yes Medication Reconciliation I have utilized all available resources to obtain, update and review the patients current medications (includes all prescriptions, OTC, herbals, cannabis, and nutritional supplements).: Yes
[2024-04-29 20:00] VITALS: PULSE 60; RESP 20; O2SAT 98
[2024-04-29 21:54] VITALS: BP 132/72; PULSE 60; RESP 20; TEMP 36.6; O2SAT 98
[2024-04-29 22:10] LABS: Glucose Point of Care 117 mg/dl (65-105)
[2024-04-30] MEDS: HEPARIN SODIUM 5,000 UNITS/ML VIAL 5000 UNITS SUB-Q (05:15)
[2024-04-30 05:54] VITALS: BP 144/85; PULSE 55; RESP 16; TEMP 36.8; O2SAT 98
[2024-04-30 06:37] LABS: Hematocrit 43.9 % (42.0-52.0); Hemoglobin 14.9 g/dL (14.0-18.0); Mean Corpuscular HGB Conc 33.9 g/dl (32-36); Mean Corpuscular Volume 91.5 fl (80-100); Mean Platelet Volume 10.9 fl (7.4-10.4); Platelet Count Result 186 k/mm3 (150-375); White Blood Count 8.3 K/mm3 (4.5-10.0)
[2024-04-30 06:55] LABS: Alanine Aminotransferase 38 U/L (6-50); Albumin Level 3.3 g/dL (3.5-5.1); Alkaline Phosphatase 69 U/L (38-126); Anion Gap 7 mmol/L (4-12); Aspartate Amino Transferase 43 U/L (17-59); Bilirubin,Total 0.4 mg/dL (0.2-1.3); Blood Urea Nitrogen 9 mg/dL (9-20); Calcium 8.8 mg/dL (8.4-10.2); Carbon Dioxide 27 mmol/L (22-30); Chloride 103 mmol/L (98-107); Estimated CRCL calculation 83 ml/min; Estimated Glomerular Filt Rate > 60; Glucose 105 mg/dL (65-110); Potassium 3.6 mmol/L (3.4-5.0); Sodium 137 mmol/L (137-145)
[2024-04-30 08:19] LABS: Glucose Point of Care 97 mg/dl (65-105)
[2024-04-30 08:51] VITALS: PULSE 65
[2024-04-30] MEDS: ASPIRIN 81 MG ENTERIC TABLET PO (08:51)
[2024-04-30] MEDS: DIVALPROEX SODIUM DR 250 MG TABEC 500 MG PO (08:51)
[2024-04-30] MEDS: carvediloL 3.125 MG TABLET PO (08:51)
[2024-04-30] MEDS: ATORVASTATIN 20 MG TABLET PO (08:51)
[2024-04-30] MEDS: AMOXICILLIN/CLAVULANATE K 875-125 MG TAB 1 TABLET PO (08:51)
--- NOTE | 2024-04-30 08:54 | PM.DS ---
DS: Admitting Diagnosis Discharge Date 04/30/2024 Admitting Diagnosis Vomiting DS: Discharge Diagnosis Discharge Diagnosis (1) Acute kidney injury: Code(s): N17.9 - Acute kidney failure, unspecified Status: Acute (2) Nausea and vomiting: Code(s): R11.2 - Nausea with vomiting, unspecified Status: Acute (3) Dehydration: Code(s): E86.0 - Dehydration Status: Acute (4) Cannabinoid hyperemesis syndrome: Code(s): R11.2 - Nausea with vomiting, unspecified; F12.90 - Cannabis use, unspecified, uncomplicated Status: Acute Plan This is a 49-year-old male who presents to the ER with multiple episodes of nausea vomiting. There is associated abdominal pain mostly in the epigastric right upper quadrant area. No diarrhea reported. In the ED he was tachycardic borderline blood pressure afebrile. Laboratory workup revealed WBC of 23.9 a hemoglobin of 21.2 hematocrit 62 platelet count 20 55. Chem panel showed creatinine of 4.6 carbon dioxide of 7 suggesting acute kidney injury with severe metabolic acidosis blood glucose was 349 lactic acid was elevated at 6.5 calcium 11.8 total protein more than 11 with albumin of 5.8. Urinalysis with 11-20 WBC 3-5 RBC 5-9 hyaline casts more than [address] abdomen with no acute findings. Chest x-ray showed findings of emphysema. Follow-up renal ultrasound showed possible 5 mm nonobstructing left renal stone. Renal has been consulted. Patient pancultured. Surrogate decision maker is Mother, John Drake DS: Summary Hospital Course Hospital Course: 49-year-old male with past medical history of hyper lipidemia hypertension and bipolar presented to the ER on account of vomiting. Patient reported he has been from see speech 6:00 p.m. yesterday about 15-20. Denies any abdomen chest pain diarrhea dysuria focal symptoms. ER evaluation depression 6 post rectal is blood pressure 82 saturating 96%. Labs notable for WBC 23.9, hemoglobin 21.2, creatinine 4.6, baseline normal, lactic acid 6.5, repeat 1.7, blood glucose 349. UA notable for positive leukocyte esterase and pyuria. CT abdomen showed questionable cystitis versus under distended urinary bladder. Chest x-ray no acute changes. Patient was started on IV fluid and Rocephin blood and urine culture were ordered prior to admission. Assumed care on 04/27- 04/30: Today (0 04/30) patient was able to tolerate regular food without any nausea vomiting. Patient treated for following conditions: EDILBERTO, hypovolemia Resolved, creatinine 0.7 Creatinine 4.61 during admission Back to baseline 0.75 Patient presented with profuse vomiting. CT abdomen pelvis no in our obstruction. Continue IV fluid Nephrology consulted, monitor. UTI Vomiting CT showed possible cystitis or cannabis Leukocytosis resolved Urine culture negative and blood culture no growth Augmentin until 05/01 Polycythemia likely dehydration Resolved Continue hydration. Hypertension Titrate home medications with clinical course. Cannabinoid Hyperemesis Syndrome Nausea and vomiting Substance use treatment May take several weeks of cannabis abstinence for symptoms to resolve Status at Discharge Cognitive/behavioral status at discharge: Stable Time Spent with Patient Time attestation: Total time spent providing and/or coordinating discharge services: 45 minute Exam Narrative: General: alert and comfortable Eyes: EOMI, PERRLA Respiratory systems: Clear to auscultation no respiratory distress Cardiovascular: S1, S2, normal rhythm, no murmur, rub, or gallop; no thrill or palpable murmurs on palpation. Gastrointestinal: soft, non-tender, and non-distended abdomen with no masses; BS present Skin: no rash, lesions, ulcerations, subcutaneous nodules or induration Musculoskeletal: no abnormality and no tenderness, normal ROM Neurologic: Alert and oriented x3, non focal Mental Status Exam: normal affect DS: Data Data Completed and Pending Labs on day of discharge: Labs from last 24 hours 04/30/24 04/30/24 04/30/24 08:14 06:16 06:15 WBC 8.3 RBC 4.80 Hgb 14.9 Hct 43.9 MCV 91.5 MCH 31.0 MCHC 33.9 RDW 12.0 Plt Count 186 MPV 10.9 H Sodium 137 Potassium 3.6 Chloride 103 Carbon Dioxide 27 Anion Gap 7 BUN 9 Creatinine 0.77 Estim Creat Clear Calc 83 Estimated GFR > 60 Glucose 105 POC Capillary Glucose 97 Calcium 8.8 Total Bilirubin 0.4 AST 43 ALT 38 Alkaline Phosphatase 69 Total Protein 6.0 L Albumin 3.3 L 04/29/24 04/29/24 04/29/24 21:53 16:32 12:15 WBC RBC Hgb Hct MCV MCH MCHC RDW Plt Count MPV Sodium Potassium Chloride Carbon Dioxide Anion Gap BUN Creatinine Estim Creat Clear Calc Estimated GFR Glucose POC Capillary Glucose 117 H 119 H 101 Calcium Total Bilirubin AST ALT Alkaline Phosphatase Total Protein Albumin 04/29/24 08:36 WBC 5.7 RBC 4.32 L Hgb 13.5 L Hct 39.3 L MCV 91.0 MCH 31.3 MCHC 34.4 RDW 11.9 Plt Count 174 MPV 11.8 H Sodium 134 L Potassium 3.6 Chloride 104 Carbon Dioxide 24 Anion Gap 6 BUN 11 D Creatinine 0.70 Estim Creat Clear Calc 90 Estimated GFR > 60 Glucose 119 H POC Capillary Glucose Calcium 8.3 L Total Bilirubin 0.6 AST 23 ALT 19 Alkaline Phosphatase 60 Total Protein 5.0 L Albumin 3.0 L Preliminary micro results at discharge 04/25/24 05:56 Blood Culture - Preliminary Blood 04/25/24 06:57 Blood Culture - Preliminary Blood Discharge Plan Discharge Attending physician on discharge: Wes Rosario Consulting providers: Troy Segovia Discharging Clinician: Wes Rosario Anticipated Discharge Date/Time: 04/30/24 09:23 Patient Disposition: Home, Self-Care Activity: as tolerated Diet: as tolerated Discharge Instructions: Need to stop smoking marijuana Substance use treatment Need to follow up with Nephrology Hydrate well Please complete Augmentin until tomorrow Check blood pressure 1 to 2 times a day. Record and bring into your doctor for review. Call your doctor if your blood pressure is greater than 180/110 or less than 90/45. Walk with cane or other assist device. Take precautions to avoid falls. Rise slowly from a lying or sitting position. Pause before standing or walking. Contact your doctor or call 911 and come to the Emergency Room if you have any type of trauma, lightheadedness with standing or other worrisome symptoms. Avoid NSAIDs (ibuprofen, naproxen, Aleve). Tylenol is safe to take. Follow-up with your primary care provider in 1-2 weeks. Please call for appointment. Follow-up with Nephrology in 2-4 weeks. Please call for an appointment. Thank you for using [facility] for your health care needs. Patient Instructions: Antibiotic Form, Heart Failure (DC) Patient Language: Palestinian Stand Alone Forms: General Discharge Information Follow-up/Referrals: Zbigniew,MD Carmine [Primary Care Provider] - Troy Segovia MD [Physician] - Discharge Medications: New amoxicillin-pot clavulanate 875-125 mg tablet 1 tablet PO Q12H Qty: 7 0RF Rx Instructions: Please complete the course until 05/01 Continued losartan 25 mg tablet 25 mg PO DAILY benztropine 0.5 mg tablet 0.5 mg PO HS olanzapine 5 mg tablet 5 mg PO 0900 divalproex 500 mg tablet,delayed release (DR/EC) 500 mg PO BID atorvastatin 20 mg tablet 20 mg PO DAILY aspirin 81 mg tablet,delayed release (DR/EC) 81 mg PO DAILY@0800 olanzapine 10 mg tablet 10 mg PO HS carvedilol 3.125 mg tablet 3.125 mg PO Q12H hydroxyzine pamoate 25 mg capsule 25 mg PO HS PRN (Reason: anxiety) Date of admission: 04/27/24 14:28 Primary Care Provider: BreCarmine Admitting Provider: Idalia Sahu Attending physician on admission: Idalia Sahu Condition: Stable
[2024-04-30 11:59] LABS: Glucose Point of Care 104 mg/dl (65-105)
== END 2024-04-30 15:47 | disposition home or self-care (01) | DRG 682 ==
LOC: ANHED 07:10 → ANH3MEDSUR 11:08
PROVIDERS: Emergency Medicine; Internal Medicine; Internal Medicine Nephrology; Admitting Provider Internal Medicine; Emergency Provider Emergency Medicine; PCP Internal Medicine; Visit Provider General Practice
DX: N17.9 Acute kidney failure, unspecified (principal); E43 Unspecified severe protein-calorie malnutrition; E87.21 Acute metabolic acidosis; N39.0 Urinary tract infection, site not specified; Z68.1 Body mass index [BMI] 19.9 or less, adult; E86.0 Dehydration; R11.2 Nausea with vomiting, unspecified; F12.90 Cannabis use, unspecified, uncomplicated; E86.1 Hypovolemia; D75.1 Secondary polycythemia; I10 Essential (primary) hypertension; E78.5 Hyperlipidemia, unspecified; R73.9 Hyperglycemia, unspecified; F31.9 Bipolar disorder, unspecified; D72.829 Elevated white blood cell count, unspecified
CPT/HCPCS: 36415; 71045; 74176; 76775; 80053; 80069; 81001; 81050; 82550; 82570; 82948; 83036; 83605; 83690; 83735; 84156; 84300; 84540; 85025; 85027; 85999; 86706; 87040; 87086; 87340; 96361; 96365; 96367; 96375; 96376; 99285; A9270; G0378; J0696; J1644; J1836; J2060; J2405; J7030

== ENCOUNTER 2024-05-02 15:06 | Inpatient (IN) | payer MEDICARE, MEDICAID, SELFPAY ==
[2024-05-02] VITALS (7 sets, daily range): BP systolic 88–134; BP diastolic 58–91; PULSE 76–98; RESP 16–22; TEMP 36.4–36.6; O2SAT 98–100; BMI 17.9
[2024-05-02 16:52] LABS: Basophils Absolute Auto 0.1 K/mm3 (0.0-0.1); Basophils Percent Auto 0.5 % (0.2-1.2); Eosinophils Percent Auto 0.1 % (0-4.4); Hematocrit 55.8 % (42.0-52.0); Hemoglobin 19.2 g/dL (14.0-18.0); Immature Granulocyte Absolute 0.11 K/mm3 (0.00-0.031); Immature Granulocyte Percent A 0.8 % (0-0.5); Lymphocytes Absolute Auto 4.62 K/mm3 (0.9-3.2); Mean Corpuscular HGB Conc 34.4 g/dl (32-36); Mean Corpuscular Hemoglobin 31.5 pg (26-34); Mean Corpuscular Volume 91.6 fl (80-100); Mean Platelet Volume 10.9 fl (7.4-10.4); Monocytes Absolute Auto 1.3 K/mm3 (0.1-0.6); Monocytes Percent Auto 9.5 % (2.6-8.5); Neutrophils Absolute Auto 7.9 K/mm3 (1.3-6.7); Neutrophils Percent Auto 56.1 % (45.5-73.1); Platelet Count Result 254 k/mm3 (150-375); Red Blood Count 6.09 M/mm3 (4.6-6.20); Red Cell Distribution Width 12.9 % (11.5-14.5)
[2024-05-02] MEDS: SODIUM CHLORIDE 0.9% IV 1,000 ML 999 ML IV CONT ×2 (17:05→18:16)
[2024-05-02] MEDS: PROMETHAZINE HCL 25 MG/ML AMPUL 12.5 MG IV PUSH (17:05)
[2024-05-02 17:27] LABS: Alanine Aminotransferase 126 U/L (6-50); Albumin Level 4.9 g/dL (3.5-5.1); Alkaline Phosphatase 82 U/L (38-126); Anion Gap 20 mmol/L (4-12); Aspartate Amino Transferase 41 U/L (17-59); Bilirubin,Total 0.8 mg/dL (0.2-1.3); Blood Urea Nitrogen 37 mg/dL (9-20); Calcium 10.2 mg/dL (8.4-10.2); Carbon Dioxide 27 mmol/L (22-30); Chloride 87 mmol/L (98-107); Estimated CRCL calculation 12 ml/min; Estimated Glomerular Filt Rate 10; Glucose 140 mg/dL (65-110); Lipase 99 U/L (23-300); Potassium 3.7 mmol/L (3.4-5.0); Sodium 134 mmol/L (137-145)
--- OUTSIDE RECORDS SUMMARY | 2024-05-02 17:51 | XMS_ITS ---
Author Organization [facility] Address [address] [place] [address] Care Team Providers Care Content Director Name Role Phone Camille Orona Primary Care Provider [phone] REASON FOR VISIT called with lab results [...] W/U Status Risk Notes Problem Tardive dyskinesia ([id number]) Tardive dyskinesia (G24.01) Active confirmed Encounters Encounter Location Date Provider Diagnosis [address] [address] 04/11/2024 Camille Orona Bipolar 1 disorder F31.9 [...] Once a day for 30 days 04/11/2024 Progress Notes * Gianni HSUDOB:03/1974 (49 yo M)Acc No.[id number]:04/11/2024 Patient: Gianni DUMONT :1975 A ge:49 Y S ex:Male Address:[address] [place] [id number] * Refills Increase Divalproex Sodium Tablet Delayed [...] * true * Date: Generated for Norberto pena/Malorie/Beth on: 0 05/02/2024 09:37 AM CDT"
--- OUTSIDE RECORDS SUMMARY | 2024-05-02 17:51 | XMS_ITS | Continuity of Care Document ---
Author Organization [facility] Address [address] [place] [address] Insurance Providers Payer Plan Claims Address Claims Phone Policy Number Group Number Relation Employer Guarantor Name Guarantor Guarantor Address Guarantor Phone [facility] [address] [address], [place] [address] 44 [phone] Self Gianni Hsu [address] [place], [place] [id number] [employer] OS [address] [address], [place] [address] Coverag [id number] Self Gianni Hsu [address] [place] [id number] [employer] FAMIL Y [employer]I [employer] [address] [address], [place] [address] Coverag [id number] Self Gianni Hsu [address] [place], [place] [id number] Problems Unknown Problems Results No Results Allergies, adverse reactions, alerts No known allergies and adverse reactions Medications No administered medications reported Vital Signs No vital signs reported Social History No smoking Hx information available Functional Status Category Condition Date Problem (Feeding: Independent) Feeding: Independ ent 02/22/2024 Problem (Bathing: Independen t (or in shower)) Bathing: Independent (or in shower) 02/22/2024 Problem (Grooming: Independe nt face/hair/teeth/ shaving (implements provided)) Grooming: Independent face/hair/teeth/ shaving (implements provided) 02/22/2024 Problem (Dressing: Independe nt (including buttons, zips, laces, etc.)) Dressing: Independent (including buttons, zips, laces, etc.) 02/22/2024 Problem (Bowels: Continent) Bowels: Continent Problem (Bladder: Continent) Bladder: Continent 02/22/2024 Problem (Toilet use: Indepen dent (on and off, dressing, wiping)) Toilet use: Independent (on and off, dressing, wiping) 02/22/2024 Problem (Transfers (bed to c hair and back): Independent) Transfers (bed to chair and back): Independent 02/22/2024 Problem (Mobility (on level surfaces): Independent (but may use any aid; for example, stick) >50 yards) Mobility (on level surfaces): Independent (but may use any aid; for example, stick) >50 yards 02/22/2024 Problem (Stairs: Independent) Stairs: Independen t 02/22/2024 Problem (Total score: 100) Total score: 100 07/2024
--- OUTSIDE RECORDS SUMMARY | 2024-05-02 17:51 | XMS_ITS ---
Author Organization [facility] Address [address] [place] [address] Care Team Providers Care Guitar Player Name Role Phone Christiano Dominik Unavailable [phone] MEDICATIONS Medication SIG (Take, Route, Frequency, Duration) [...] Active confirmed Chronic kidney disease stage 1 (539079304) Problem Chronic kidney disease, stage 2 (mild) (N18.2) Active confirmed Chronic kidney disease stage 2 (155702933) Encounters Encounter Location Date Provider Diagnosis [facility] [address] [facility] [address] [place] [address] 12/09/2023 Dominik Alvarado Chronic kidney disease, stage [...] [address], [place], [address], Progress Notes * ASHLYN CANALESDOB:03/1974 (49 yo M)Acc No.[id number]:12/09/2023 Progress Notes Patient: ASHLYN CANALES Provider: MD JESSY, F.A.C.P, F.A.S.N. :1975 Age:48 Y Sex:Male Date:12/09/2023 Address:[address] [place] [address] Subjective: * Chief Complaints: * * Medical [...] Treatment: * Billing Information: * Visit Code: 90574 Office Visit, Est Pt., Level 4. * Procedure Codes: * Sign off status: Pending * Provider: MD JESSY, F.A.C.P, F.A.S.N. Date: 12/09/2023
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
--- OUTSIDE RECORDS SUMMARY | 2024-05-02 17:51 | XMS_ITS | Clinical Summary ---
Author Organization [facility] Address [facility] [place] [address] Care Team Providers Care Senior Specialist Name Role Phone Unavailable Primary Care Provider [...]
--- OUTSIDE RECORDS SUMMARY | 2024-05-02 17:51 | XMS_ITS ---
Author Organization [facility] Address [address] [place] [address] Care Team Providers Care Bankruptcy Assistant Name Role Phone Christiano Dominik Unavailable [phone] SOCIAL HISTORY Sex Assigned At : Social History Observation Description Sex Assigned At Male Encounters Encounter Location Date Provider Diagnosis [place] [facility] [address] [facility] [address] [place] [id number] 04/06/2024 Dominik Alvarado PLAN OF TREATMENT Next Appt Details Provider Name:Dominik Alvarado , 05/11/2024 03:15:00 PM, [address], [place], [address], Progress Notes * ASHLYN CANALESDOB:03/1974 (49 yo M)Acc No.[id number]:04/06/2024 Progress Notes Patient: ASHLYN CANALES Provider: MD JESSY, Ryan.Hunter.C.P, F.A.S.N. :1975 Age:49 Y Sex:Male Date:04/06/2024 Address:[address] [place] [address] Subjective: * Chief Complaints: * * Medical History: Objective: Assessment: Plan: * Treatment: * Billing Information: * Visit Code: * Procedure Codes: * Sign off status: Pending * Provider: MD JESSY, Ryan.Hunter.C.P, F.A.S.N. Date: 04/06/2024
--- OUTSIDE RECORDS SUMMARY | 2024-05-02 17:52 | XMS_ITS | Data Portability ---
Author Organization [facility] [employer] Main Office Address [address] [place] [address] Care Team Providers Care Supervisor Paint Name Role Phone YARIEL COY Primary Care Provider [phone] YARIEL COY Referring Provider Assessment Encounter Date Assessment Date Assessment LastModified by Organization Details LastModified Time 06/18/2022 06/18/2022 Smoking cessation discussed in detail blood work has been ordered colonoscopy low-dose CT all questions have been answered healthy lifestyle choices have been stressed and discussed follow-up in 4-6 months. [email or web address] Not available 06/21/2022 14:19:24 10/22/2022 10/22/2022 Continue with current therapy follow-up 4 months [email or web address] Not available 11/12/2022 12:01:26 01/28/2023 01/28/2023 Blood [...] kidney see me back in 4 months [email or web address] Not available 02/17/2023 14:12:04 Plan of Treatment Reminders Order Date Submit Date Provider Last Modified By Organization Details Last Modified Time Details Appointments None recorded. Lab lipid panel, serum 2022 023 [facility] (Lab), [address] [place], [address], 09:46:00 CMP, serum or plasma 2022 023 [facility] (Lab), [address] [place], [address], 14:52:35 Referral None recorded. Procedures colonoscopy screening (PROC) 2022 023 josiah Cortez MD, [address], [place], [address], 3 17:05:26 Surgeries None recorded. Imaging LDCT, chest, for lung cancer screening 2022 023 [facility] ([facility]), [address], [place], [address], 3 17:05:10 Medication Orders None recorded. Patient TargetsNo targets recorded. Patient InstructionsNo instructions recorded. Reason for Referral None Reported. Results Created Date Observation Date Name Description Value Unit Range Abnormal Flag Note LastModifiedBy Organization Detail LastModifiedTime 06/21/1906/20/2022 COMPR EHENS JUVENTINO METAB OLIC PANEL sodium 137 mmol/ L 137-14 5 Not Available [facility] (Lab) [address] [place], [address], 06/20/2022 14:52:34 06/21/19 23 06/20/2022 COMPR EHENS JUVENTINO METAB OLIC PANEL potassium 4.5 mmol/ L 3.5-5. 1 Not Available [facility] (Lab) [address] [place], [address], 06/20/2022 14:52:34 06/21/1906/20/2022 COMPR EHENS JUVENTINO METAB OLIC PANEL chloride 102 mmol/ L 98-107 Not Available [facility] (Lab) [address] [place], [address], 06/20/2022 14:52:34 06/21/19 23 06/20/2022 COMPR EHENS JUVENTINO METAB OLIC PANEL carbon dioxide 27 mmol/ L 22-30 Not Available [facility] (Lab) [address] [place], [address], 06/20/2022 14:52:34 06/21/19 23 06/20/2022 COMPR EHENS JUVENTINO METAB OLIC PANEL anion gap 12.5 mmol/ L 14-22 low Not Available [facility] (Lab) [address] [place], [address], 06/20/2022 14:52:34 06/21/19 23 06/20/2022 COMPR EHENS JUVENTINO METAB OLIC PANEL glucose 59 mg/dL 70-99 low Not Available [facility] (Lab) [address] [place], [address], 06/20/2022 14:52:34 06/21/19 23 06/20/2022 COMPR EHENS JUVENTINO METAB OLIC PANEL BUN 10 mg/dL 8-19 Not Available [facility] (Lab) [address] [place], [address], 06/20/2022 14:52:34 06/21/19 23 06/20/2022 COMPR EHENS JUVENTINO METAB OLIC PANEL creatinine 0.87 mg/dL 0.66-1 .25 Not Available [facility] (Lab) [address] [place], [address], 06/20/2022 14:52:34 06/21/19 23 06/20/2022 COMPR EHENS JUVENTINO METAB OLIC PANEL GFR >60 Refer ence Range : [place] ge GFR Healt hy Adult : >60 [...] calcu lator is avail able on the [facility] websi te: https ://ww w.kid desmond.o rg/pr ofess ional s/kdo qi/gf r_cal culat or Not Available [facility] (Lab) [address] [place], [address], 06/20/2022 14:52:34 06/21/19 23 06/20/2022 COMPR EHENS JUVENTINO METAB OLIC PANEL alkaline phosphatase 89 U/L 38-126 Not Available [facility] (Lab) [address] [place], [address], 06/20/2022 14:52:34 06/21/19 23 06/20/2022 COMPR EHENS JUVENTINO METAB OLIC PANEL alanine aminotransfe rase 17 U/L 0-50 Not Available [facility] (Lab) [address] [place], [address], 06/20/2022 14:52:34 06/21/19 23 06/20/2022 COMPR EHENS UJVENTINO METAB OLIC PANEL aspartate aminotransfe rase 19 U/L 15-46 Not Available [facility] (Lab) [address] [place], [address], 06/20/2022 14:52:34 06/21/19 23 06/20/2022 COMPR EHENS JUVENTINO METAB OLIC PANEL bilirubin, total 0.50 mg/dL 0.20-1 .30 Not Available [facility] (Lab) [address] [place], [address], 06/20/2022 14:52:34 06/21/19 23 06/20/2022 COMPR EHENS JUVENTINO METAB OLIC PANEL calcium 9.2 mg/dL 8.4-10 .2 Not Available [facility] (Lab) [address] [place], [address], 06/20/2022 14:52:34 06/21/19 23 06/20/2022 COMPR EHENS JUVENTINO METAB OLIC PANEL total protein 6.6 g/dL 6.3-8. 2 Not Available [facility] (Lab) [address] [place], [address], 06/20/2022 14:52:34 06/21/19 23 06/20/2022 COMPR EHENS JUVENTINO METAB OLIC PANEL albumin 4.2 g/dL 3.4-5. 0 Not Available [facility] (Lab) [address] [place], [address], 06/20/2022 14:52:34 06/21/19 23 06/20/2022 COMPR EHENS JUVENTINO METAB OLIC PANEL globulin 2.4 g/dL 2.6-4. 2 low Not Available [facility] (Lab) [address] [place], [address], 06/20/2022 14:52:34 06/21/19 23 06/20/2022 COMPR EHENS JUVENTINO METAB OLIC PANEL A/G ratio 1.8 ratio 1.0-2. 0 Not Available [facility] (Lab) [address] [place], [address], 06/20/2022 14:52:34 11/21/19 22 11/20/2021 , echo marcos hyde No observ ation record ed. [id number] [facility] [address], [place], [address], 04/16/2022 05:03:41 07/04/19 07/03/2022 LDCT, chest , for lung cance r scree heri [facility] [address] [place] [address] [phone] Renny shipman Name: JACOB DIAZ IN E Access ion #: [id number] Sex: M : 1974 5 Locati [...] on techni que. Page 1 of 3 [facility] Renny t Name: JACOB DIAZ IN E Access ion #: [id number] Sex: M : 1974 5 Exam Date: 023 1:31 PM Exam Name: CT CHEST WO LOW DOSE F/U Admitt ing Diagno sis(es ): FINDIN GS: Lungs: Parase ptal bullae format ion. No suspic ious nodule s. Increa sed anteri or job coaching ior diamet er of the trache a [...] 6:12 PM (CT) Page 2 of 3 [facility] Name: JACOB DIAZ IN E Access ion #: [id number] Sex: M : 1974 5 Exam Date: 1:31 PM Exam Name: CT CHEST WO LOW DOSE F/U Admitt ing Diagno sis(es ): DT: 6:12 PM (CT) Page 3 of 3 [email or web address] [facility] (Imaging) [address] [place], [address], 10/23/2022 10:30:23 02/05/20 23 12/12/2022 US, echoc ardio gram No observ ation record ed. [email or web address] [facility] [address], [place], [address], 02/20/2023 15:27:53 Result Notes None recorded. Problems Name Problem SNOMED Code Status Onset Date Resolution Date Notes Provider Name and Address Organization Details Recorded Time Vitamin D below reference range 955215960 Active 2022 Not Available [employer] 4 04:25:56 Essential hypertensi on 99380777 Active 2022 Not Available [employer] 4 04:25:56 Tobacco user 229015199 Active Not Available [facility] 4 04:25:56 Rectal hemorrhage 50315500 Completed Not Available [facility] 3 04:51:03 Urinary incontinen ce 534660549 Completed Not Available [facility] 3 04:51:03 Pain in scrotum 45669691 Active Not Available [facility] 4 04:25:56 Abdominal pain 03069491 Active Not Available [facility] 4 04:25:56 Gallstone 855757108 Active Not Available [facility] 4 04:25:56 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 Not Available [facility] 4 04:25:56 Headache 41471403 Active Not Available [facility] 4 04:25:56 Abnormal weight loss 906164446 Active Not Available [facility] 4 04:25:56 Retention of urine 359362241 Active Not Available [facility] 4 04:25:56 Low back pain 486197810 Active Not Available [facility] 4 04:25:56 Dyslipidem ia 446916056 Active 2021 Not Available [facility] 4 04:25:56 Anxiety 54942837 Active 2022 Not Available [facility] 4 04:25:56 Dysuria 53563719 Active Not Available [facility] 4 04:25:56 Problem Notes None recorded. Procedures Surgical History Date Name Laterality Status Provider Name and Address Organization Details Recorded Time 01/31/20 15 laparoscopic cholecystectomy completed Not Available [facility] 04/16/2022 04:42:01 Eye Surgery completed Not Available [facility] 04/16/2022 04:42:01 other completed Not Available [facility] 04/16/2022 04:42:01 Imaging Results Imaging Date Name Status LastModified by Organization Details LastModified Time 11/20/2021 US, echocardiogram completed [id number] [id number] [facility] [address], [place], [address], 04/16/2022 05:03:41 07/03/2022 LDCT, chest, for lung cancer screening completed [email or web address] [facility] (Imaging) [address] [facility], [place], [address], 10/23/2022 10:30:23 12/12/2022 US, echocardiogram completed [email or web address] [facility] [address], [place], [address], 02/20/2023 15:27:53 Procedure Notes None recorded. Medical [...] kg/m2 177.8 cm 56 /min 97.1 [degF] 91659.5 6 g 100 mm[Hg] 60 mm[Hg] Not Available [facility] 3 04:47:15 Date Recorded Body mass index (BMI) Body height Heart rate Body temperature Body weight Systolic blood pressure Diastolic blood pressure Provider Name and Address Organization Details Last Updated DateTime 3 19.8 kg/m2 177.8 cm 62 /min 97.5 [degF] 62116.7 5 g 102 mm[Hg] 66 mm[Hg] Not Available [facility] 3 04:47:15 Date Recorded Body height Body mass index (BMI) Body weight Body temperature Heart rate Oxygen saturation Oxygen saturation in Arterial blood by Pulse oximetry Systolic blood pressure Diastolic blood pressure Provider Name and Address Organization Details Last Updated DateTime 3 177.8 cm 19.7 kg/m2 51043.1 5 g 97.9 [degF] 59 /min 98 % 98 % 110 mm[Hg] 70 mm[Hg] Gayatri Sebastian RN [facility] [employer] 3 14:48:28 Date Recorded Body height Body mass index (BMI) Body weight Body temperature Heart rate Systolic blood pressure Diastolic blood pressure Provider Name and Address Organization Details Last Updated DateTime 3 177.8 cm 18.7 kg/m2 10742.0 1 g 97.4 [degF] 67 /min 120 mm[Hg] 70 mm[Hg] ERINN Hardwick [facility] [employer] [facility] 3 15:39:10 Date Recorded Body height Body mass index (BMI) Body weight Body temperature Heart rate Systolic blood pressure Diastolic blood pressure Provider Name and Address Organization Details Last Updated DateTime 3 177.8 cm 18.8 kg/m2 00980.6 g 97.5 [degF] 62 /min 110 mm[Hg] 64 mm[Hg] ERINN Hardwick [facility] 3 15:05:12 Social History Question Answer Notes LastModified by Organization Details LastModified Time Tobacco Smoking Status Current Every Day Smoker Not Available [facility] 04/16/2022 04:31:48 Do You Have An Advance Directive? No MIGRATION.030 [id number] Information not available 04/16/2022 What Is Your Level Of Alcohol Consumption? None QUIT DRINKING MIGRATION.030 651584 Information not available 04/16/2022 Are You Blind Or Do You Have Difficulty Seeing? No MIGRATION.030 956630 Information not available 04/16/2022 What Is Your Level Of Caffeine Consumption? Heavy MIGRATION.030 317899 Information not available 04/16/2022 How Much Tobacco Do You Chew? None MIGRATION.030 289761 Information not available 04/16/2022 In The 14 Days Before Symptom Onset, Have You Had Close Contact With A Laboratory-conf irmed COVID-19 While That Case Was Ill? No MIGRATION.030 745248 Information not available 04/16/2022 In The 14 Days Before Symptom Onset, Have You Had Close Contact With A Person Who Is Under Investigation For COVID-19 While That Person Was Ill? No MIGRATION.030 974209 Information not available 04/16/2022 Are You Currently Employed? No [email or web address] Information not available 06/18/2022 Are You Deaf Or Do You Have Serious Difficulty Hearing? No MIGRATION.030 827633 Information not available 04/16/2022 What Type Of Diet Are You Following? REGULAR MIGRATION.030 350417 Information not available 04/16/2022 Which Illicit Or Recreational Drugs Have You Used? Marijuana Daily Smoker MIGRATION.300026 Information not available 04/16/2022 Do You Or Have You Ever Used E-cigarettes Or Vape? Never Used Electronic Cigarettes MIGRATION.030 430953 Information not available 04/16/2022 What Is The Highest Grade Or Level Of School You Have Completed Or The Highest Degree You Have Received? KY45292-7 [email or web address] Information not available 06/18/2022 Have There Been Any Changes To Your Family Or Social Situation? No MIGRATION.0301 720349 Information not available 04/16/2022 What Is The Fluoride Status Of Your Home? Fluoridated MIGRATION.0301 744493 Information not available 04/16/2022 Are There Any Guns Present In Your Home? No MIGRATION.0301 329975 Information not available 04/16/2022 Do You Use Insect Repellent Routinely? No [email or web address] Information not available 06/18/2022 Where Do You Live? [place]House MIGRATION.0301 033589 Information not available 04/16/2022 Do You Have A Medical Power Of Sound Tester? No MIGRATION.0301 609879 Information not available 04/16/2022 What Was The Date Of Your Most Recent Tobacco Screening? 01/28/2023 [email or web address] Information not available 01/28/2023 How Many Children Do You Have? 3 [email or web address] Information not available 06/18/2022 What Is Your Current Pack Years? [email or web address] MIGRATION.0301 754179 Information not available 04/16/2022 Do You Have Any Pets? Yes [email or web address] Information not available 06/18/2022 What Is Your Relationship Status? Single Information not available 06/18/2022 Do You Use Your Seat Belt Or Car Seat Routinely? Yes MIGRATION.0301 764618 Information not available 04/16/2022 Do You Have Smoke And Carbon Monoxide Detectors In Your Home? Yes MIGRATION.0301 594046 Information not available 04/16/2022 At What Age Did You Start Smoking Tobacco? 16 MIGRATION.0301 413633 Information not available 04/16/2022 Are You Passively Exposed To Smoke? Yes Information not available 06/18/2022 Do You Or Have You Ever Used Smokeless Tobacco? Never Used Smokeless Tobacco MIGRATION.0301 304260 Information not available 04/16/2022 Are There Any Smokers In Your House? Yes MIGRATION.0301 800474 Information not available 04/16/2022 How Much Tobacco Do You Smoke? 0.5 PPD MIGRATION.0301 224431 Information not available 04/16/2022 Do You Feel Stressed (tense, Restless, Nervous, Or Anxious, Or Unable To Sleep At Night)? NR02794-9 Information not available 06/18/2022 Do You Use Any Illicit Or Recreational Drugs? Yes [email or web address] Information not available 06/18/2022 Do You Use Sunscreen Routinely? No MIGRATION.0301 010473 Information not available 04/16/2022 Have You Recently Traveled Abroad? No MIGRATION.0301 908204 Information not available 04/16/2022 Have You Used IV Drugs? No [email or web address] Information not available 06/18/2022 Do You Have Any Dietary Restrictions? No [email or web address] Information not available 06/18/2022 Sex: Unknown Functional Status Question Answer Note LastModified by Organizat ion Details LastModified Time Do you have difficulty walking or climbing stairs? No MIGRATION.487060255 6 Information not available 04/16/2022 Do you have difficulty doing errands alone? No MIGRATION.206452692 6 Information not available 04/16/2022 Do you have difficulty dressing or bathing? No MIGRATION.830600416 6 Information not available 04/16/2022 What is your exercise level? None MIGRATION.379705604 6 Information not available 04/16/2022 Mental Status Question Answer Note LastModified by Organizat ion Details LastModified Time Do you have difficulty concentrating, remembering or making decisions? No MIGRATION.229741215 6 Information not available 04/16/2022 Family History Relationship Description Onset Age of this Age Resolved Age Notes LastModified by Organization Details LastModified Time Father Malignant neoplastic disease MIGRATION.093 [id number] Not available 04/16/2022 04:42:06 Father Hypertensive disorder MIGRATION.921 8600032 Not available 04/16/2022 04:42:06 Father Diabetes mellitus MIGRATION.613 5325316 Not available 04/16/2022 04:42:07 Maternal Grandfather Heart disease MIGRATION.568 7315325 Not available 04/16/2022 04:42:07 Maternal Grandfather Family history of malignant neoplasm MIGRATION.494 1764874 Not available 04/16/2022 04:42:07 Maternal Grandfather Diabetes mellitus MIGRATION.872 2914763 Not available 04/16/2022 04:42:07 Maternal Grandmother Heart disease MIGRATION.494 1053103 Not available 04/16/2022 04:42:07 Medical History Condition Response NERVE DISEASE N BLINDNESS N RHEUMATIC FEVER N KIDNEY STONES N BLADDER PROBLEMS N MRSA N OTHER # 1 N [...] ARTERY DISEASE (CAD) N ADDICTION CONCERNS N ENDOMETRIOSIS N Impotence N USE OF BLOOD THINNERS N SKIN [...] APNEA N CHICKENPOX N INFECTIOUS DISEASE N HEART ARRHYTHMIA N PROSTATE N INSOMNIA N HIGH CHOLESTEROL / HYPERLIPIDEMIA N HYPERTHYROIDISM N EYE PROBLEMS N EDEMA N CHRONIC PAIN SYNDROME N HYPOTHYROIDISM N CAROTID BLOCKAGE N CONSTIPATION N BACK / NECK PROBLEMS N HAVE YOU BEEN HOSPITALIZED OR SEEN IN [facility] IN THE PAST YEAR ? N ATHEROSCLEROSIS N BREAST PROBLEMS N DIALYSIS N ECZEMA N OSTEOPOROSIS N ARTHRITIS Y APPENDICITIS N DIABETES, TYPE N BAD TEETH N ENT N HEARTBURN / REFLUX Y AUTISM SPECTRUM DISORDER (ASD) N HEPATITIS / LIVER DISEASE N GOUT N SLEEP DISORDER N ALZHEIMER'S DISEASE N Brain Problems N HERPES N DEMENTIA N HEADACHES/MIGRAINES N SEIZURES/EPILEPSY N VASCULAR DISEASE N PACEMAKER N Blood Disorder N DIZZINESS N HEART DISEASE/HEART PROBLEMS N KIDNEY DISEASE N MULTIPLE SCLEROSIS N CARDIAC ARRHYTHMIA N CANCER: SPECIFY N ATRIAL FIBRILLATION N Gall Stones N PULMONARY EMBOLISM N AUTOIMMUNE DISEASE N Immunizations Vaccine Type Date Status Note Provider Nam e and Address Organization Details Recorded Time influenza, intradermal, quadrivalent, preservative free 9 completed Not Available [facility] 02/27/2023 04:25:56 Influenza, split virus, quadrivalent, preservative 7 completed Not Available [facility] 02/27/2023 04:25:56 Influenza, split virus, quadrivalent, PF 5 completed Not Available [facility] 02/27/2023 04:25:56 Past Encounters Encounter ID Performer Location Encounter Start Date Encounter Closed Date Diagnosis/Indication Diagnosis SNOMED-CT Code Diagnosis ICD10 Code Diagnosis Note [id number] [facility] Internal [facility] [address] [place] [address] [address] [address] 07/02/2020 00:00:00 07/29/2020 12:12:[id number] [address] [place] [address] 08/15/2020 00:00:00 08/15/2020 14:31:[id number] [address] [place] [address] 08/29/2020 00:00:00 08/29/2020 15:45:16 [id number] [facility] Internal Med [facility] [address] [place] [address] [address] [address] 07/12/2021 00:00:00 07/12/2021 22:49:21 [id number] [facility] Internal Med [facility] [address] [place] [address] [address] [address] 08/09/2021 00:00:00 08/11/2021 14:18:23 [id number] [facility] [address] [place] [address] 11/07/2021 00:00:00 12/15/2021 18:24:59 [id number] [facility] [address] Dorita[address] [address] 02/19/2022 00:00:00 02/20/2022 21:26:50 [id number] Yariel Coy MD [facility] [address] [place] [address] 06/18/2022 14:35:11 06/18/2022 15:53:49 Dyslipidemia 895160752 E78.5 Screening for malignant neoplasm of colon 346652691 Z12.11 Nicotine dependence 5629 4008 Z87.891 Essential hypertension 02689540 I10 Vitamin D below reference range 155057992 E55.9 [id number] Yariel Coy MD [facility] Internal Med [address] [place] [address] 10/22/2022 15:23:29 10/22/2022 16:12:01 Essential hypertension 73377346 I10 Dyslipidemia 439088289 E 78.5 Anxiety 82088588 F41.9 Vitamin D below reference range 970780651 E55.9 [id number] Yariel Coy MD [facility] Internal Med [address] [facility] [address] [place] [address] 01/28/2023 14:27:53 01/28/2023 16:08:08 Essential hypertension 64029399 I10 Dyslipidemia 759304791 E 78.5 Medullary sponge kidney 098951280 Q61.5 Health Concerns Section Related Observation LastModified by Organization Detai ls LastModified Time None Recorded Concern Status LastModified by Organization Details LastModified Time None Recorded Advance Directives Directive N: Payers Encounter Date Sequence Insurance Name Policy Number Policy Mcfadden Covered Member ID Mcfadden Member ID Guarantor Name 06/18/2022 1 [facility] (MEDICARE REPLACEMENT/A DVANTAGE - HMO) [id number] Gianni Hsu [id number] Gianni Hsu 06/18/2022 2 [place] MEDICARE REPLACEMENT PRIMARY) Gianni Hsu [id number] Gianni Hsu 10/22/2022 1 [facility] (MEDICARE REPLACEMENT/A DVANTAGE - HMO) [id number] Gianni Hsu [id number] Gianni Hsu 10/22/2022 2 [place]IC[place] REPLACEMENT PRIMARY) Gianni Hsu [id number] Gianni Hsu 01/28/2023 1 [facility] (MEDICARE REPLACEMENT/A DVANTAGE - HMO) [id number] Gianni Hsu [id number] Gianni Hsu 01/28/2023 2 [place]ICARE REPLACEMENT PRIMARY) Gianni Hsu [id number] Gianni Hsu Notes Date Note Type Note Provider Name and Address Organization Details Recorded Time 06/18/2022 text/html Dyslipidemia cou ld do better with dietNicotine dependence pack-a-day smoker.Hypertensio n no headache no dizzinessLow vitamin-D we have supplemented from time to time Yariel Coy MD [address], [place], [address], [employer] 06/21/2022 14:20:21 10/22/2022 text/html Dyslipidemia cou ld do better with dietNicotine dependence pack-a-day smoker.Hypertensio n no headache no dizzinessLow vitamin-D we have supplemented from time to time Yariel Coy MD [address], [place], [address], [employer] 11/12/2022 12:01:43 01/28/2023 text/html No headache no dizziness. Dyslipidemia trying to take his atorvastatin regularly and follow a low-fat diet. Low vitamin-D says he is taking his medication but not every day. Psychiatric disorder he continues to follow-up with chest not any continues to smoke Yariel Coy MD [address], [place], [address], [employer] 02/17/2023 14:13:40
--- OUTSIDE RECORDS SUMMARY | 2024-05-02 17:52 | XMS_ITS | CONTINUITY OF CARE DOCUMENT ---
Author Name zoey greer Address Unknown Organization [facility] Address [address] [facility] [facility] [address] [place] [address] Phone [phone] Care Team Providers Care Presales Consultant Name Role Phone Mehdi Rowell MD Unavailable [phone] YARIEL GRAHAM MD Unavailable [phone] YARIEL GRAHAM MD Unavailable PROBLEMS Condition Status Date Provider Notes Takotsubo syndrome active Mehdi Rowell MD CHF - systolic active Mehdi Rowell MD Tobacco abuse active Mehdi Rowell MD Congestive Heart Failure active Mehdi carbajal MD Cardiology examination active 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 PEDIATRIC OCCUPATIONAL THERAPIST ENCOUNTERS Date Type Provider Location Encounter Diag nosis - In-person encounter Office Visit Mehdi Rowell MD [place] [facility] - In-person encounter Office Visit Mehdi Rowell MD [facility] - In-person encounter Office Visit Mehdi Rowell MD [facility] - In-person encounter Office Visit Mehdi Rowell MD [facility] - In-person encounter Office Visit Mehdi Rowell MD [place] [facility] Cardiology examination - In-person encounter Office Visit Mehdi Rowell MD [place] [facility] Congestive Heart Failure - In-person encounter Office Visit Mehdi Rowell MD [facility] Office Takotsubo syndromeCHF - systolicTobacco abuse VITAL SIGNS Date Observation Value Provider Body Mass Index (Ratio) 19.11 kg/m2 Dayna Rowell MD blood pressure, cuff size regular [facility], diastolic 66 mm[Hg] [facility], systolic 96 mm[Hg] Yojana [facility] oxygen saturation, oximetry 86 % [facility] respiratory rate E&M 14 /min [facility] pulse rate 53 /min [facility] weight E&M 137 [lb_av] [facility] height E&M 71 [in_i] [facility] Body Mass Index (Ratio) 19.11 kg/m2 Danya Rowell MD blood pressure, cuff size regular [facility] blood pressure, diastolic 72 mm[Hg] [facility] blood pressure, systolic 98 mm[Hg] [facility] pulse rate 61 /min [facility] oxygen saturation, oximetry 98 % [facility] respiratory rate E&M 16 /min Kristina Dayanara gardner weight E&M 137 [lb_av] [facility] height E&M 71 [in_i] [facility] Body Mass Index (Ratio) 17.57 kg/m2 Dayna [...] Zeina kLogwillie blood pressure, diastolic 68 mm[Hg] nAa Gamez blood pressure, systolic 106 mm[Hg] Sonny georgia Game[facility] pulse rate 60 /min Aniat chan oxygen saturation, oximetry 100 % Anita [...] blood pressure, cuff size regular Ke rri [facility] blood pressure, diastolic 60 mm[Hg] [facility], systolic 98 mm[Hg] Franca ri [facility] oxygen saturation, oximetry 97 % Lazara [facility] respiratory rate E&M 14 /min Lazara [facility] pulse rate 62 /min Lazara Gareth [facility] weight E&M 135 [lb_av] Lazara Adrianae [facility] height E&M 71 [in_i] Lazara Servin [facility] pulse rate 62 /min Dennise Martínez blood [...] hydroxyzine pamoate 50 mg capsule active Kristina Olsen divalproex 500 mg tablet,delayed release (DR/EC) active [...] yes Yadira Henriquez NP drug use no [facility] alcohol use no [facility] smoking/tobacco cess ation, patient education and counseling yes [facility] chewing tobacco use Current [facility] number of years as a smoker 31 a [facility] smoking history, tot al pack/day 0.5 [facility] cigarette use yes [facility] smoking status Current every da y smoker [facility] Underweight yes Mehdi lopez MD social history [...] d rug of choice marijuana Yadira Huertasreri [employer] drug use yes Yadira Huertasreri [employer] alcohol use no Verdereck Huertasreri [employer] seatbelt usage 100 % Anita Miller caffeine [...] d rug of choice marijuana Rebekah Ventimiglia [facility] drug use yes Rebekah Ventimig celine [facility] alcohol use no Rebekah Ventimig celine [facility] number of years as a smoker 20 a Rebekah Ventimiglia [facility] smoking history, tot al pack/day 0.5 Rebekah Ventimiglia [facility] seatbelt usage 100 % Ashleyrebecca lao [...] Payer name Policy type / Coverage type [place] [employer] party ID AARP MEDICARE ADVANTAGE HMO-POS HMO [id number] [facility] Medicaid 1 [id number] ADVANCE DIRECTIVES Name Date DISCUSSED - NO DECISION MADE TREATMENT PLAN Date Name Performer [id number],C, P kev is a current daily smoker. Encouraged complete cessation. Mehdi Rowell MD [id number],C, W ILL RECHECK ECHO TO EVAL FOR [...] by mouth every day Mehdi Rowell MD [id number],C, E F of 20% on initial cath in June 2021. He has since had improvement in EF to 45% (11/2021) June 13, 2022 R EPEAT ECHO TO [facility] LV FXN December 12, 2022 e cho is showieng LVEF is about 45% Mehdi Rowell MD [id number],C,C ompensated. His updated medication list for this problem includes: Carvedilol 3.125 Mg Tablet (Carvedilol) ..... Take 1 tablet by mouth twice a day Losartan 25 Mg Tablet (Losartan) ..... Take 1/2 tablet by mouth once a day Aspirin 81 Mg Tablet,delayed Release (dr/ec) (Aspirin) ..... Take 1 tablet by mouth once a day take 1 tablet by mouth every day Louiedereck Florence ERVIN [id number],C,P kev is a current daily smoker. Encouraged complete cessation. Yadira Henriquez NP [id number],C,W ILL RECHECK ECHO TO [facility] FOR PRESERVETAION OF LV FXN ON CHF [...] by mouth every day Yadira Henriquez NP [id number],C, E F of 20% on initial cath in June 2021. He has since had improvement in EF to 45% (11/2021) June 13, 2022 R EPEAT ECHO TO EVAL LV FXN Yadira Henriquez [employer] [id number],C,cessation enc ouraged. Rebekah Ca [facility] [id number],S,c urrently compensated. continue present medication regimen. H [...] tablet by mouth every day Rebekah Ca [facility] [id number],B,E F of 20% on initial cath in June 2021. He has since had improvement in EF to 45%. will continue present therapy and f/u in 6 mos or sooner if needed. O rders: 9 9214 MOD 30-39min (CPT-13119) Rebekah Ca [facility] [id number],S, L eft ventriculogram- was performed in the [...] 2021 R echeck Echo Mehdi Rowell MD [id number],C,R educed EF will check echo. On CHF [...] by mouth every day Mehdi Rowell MD [id number],C, T he Patient was reencouraged to stop smoking. November 06, 2021 A t 1/2 PPD Mehdi Rowell MD [id number],S,T he Patient was reencouraged to stop smoking. Mehdi Rowell MD [id number],C,L eft ventriculogram- was performed in the [facility] [...] . Minimally elevated LVEDP Mehdi Rowell MD [id number],B,E cho EF has improved to 70% based on study done at [facility] H is updated medication list for this [...] Yadira Huertasdiana ERVIN Cardiology:cessation encouraged. Rebekah Ca [facility] Cardiology:currently compensated. continue present medication regimen. [...] tablet by mouth every day Rebekah Ca [facility] Cardiology:EF of 20% on initial cath in June 2021. He has since had improvement in EF to 45%. will continue present therapy and f/u in 6 mos or sooner if needed. O rders: 9 9214 MOD 30-39min (CPT-46639) Rebekah Ca [facility] Cardiology: L eft ventriculogram- was performed [...] to 70% based on study done at [facility] H is updated medication list for this [...] add on Mehdi Rowell MD completed EKG Mehdi Rowell MD compl eted EKG Mehdi Rowell MD compl eted EKG Mehdi Rowell MD compl eted EKG Mehdi Rowell MD compl eted
--- OUTSIDE RECORDS SUMMARY | 2024-05-02 17:52 | XMS_ITS ---
Author Organization [facility] Address [address] [place] [address] Care Team Providers Care Electrician Elevator Maintenance Name Role Phone Camille Orona Primary Care Provider REASON FOR VISIT 2 Week Psych Med Check Social History Sex Assigned At : Social History Observation Description Sex Assigned At Male Encounters Encounter Location Date Provider Diagnosis [address] [place] [address] 04/28/2024 Camille Orona Plan Of Treatment No Information Progress Notes * Gianni HSUDOB:03/1974 (49 yo M)Acc No.[id number]:04/28/2024 UNLOCKED PROGRESS NOTE Patient: Gianni DUMONT Provider: Hunter Orona DNP, APRN, PMHNP-BC :1975 A ge:49 Y S ex:Male Date:04/28/2024 [facility] Subjective: * Chief Complaints: * 1 . 2 Week Psych Med Check. * Medical History: Objective: * Vitals: Assessment: Plan: * Treatment: * * Electronic signature of Mar Melgoza [id number] on 05/02/2024 at 09:37 AM CDT Sign off status: Pending * Provider: Hunter Orona DNP, APRN, PMHNP-BC Date: 0 04/28/2024 Generated for Printing/Faxing/eTransmitting on: 05/02/2024 09:37 AM CDT
--- OUTSIDE RECORDS SUMMARY | 2024-05-02 17:52 | XMS_ITS ---
Author Organization [facility] Address [address] [place] [address] Care Team Providers Care Electrician'S Assistant Name Role Phone AlvaradoMaxwellDominik Unavailable [phone] MEDICATIONS Medication SIG (Take, Route, Frequency, Duration) [...] Renal osteodystrophy (N25.0) Active confirmed Renal osteodystrophy (47259122) Encounters Encounter Location Date Provider Diagnosis [facility] [address] [facility] [address] [place] [address] 02/03/2024 Dominik Alvarado Chronic kidney disea se, [...] [address], [place], [address], Progress Notes * ASHLYN CANALESDOB:03/1974 (49 yo M)Acc No.[id number]:02/03/2024 Progress Notes Patient: ASHLYN CANALES Provider: MD JESSY, Marlena, F.A.S.N. :1975 Age:49 Y Sex:Male Date:02/03/2024 Address:[address] [place] [address] Subjective: * Chief Complaints: * * Medical History: * Medications: Taking Losartan Potassium 25 MG Tablet 1 tablet Orally Once a day Objective: Assessment: * Assessment: 1. Chronic kidney disease, stage 2 (mild) - N18.2 (Primary) 2. Essential hypertension - I10 3. Renal osteodystrophy - N25.0 4. Proteinuria, unspecified - R80.9 Plan: * Treatment: * Billing Information: * Visit Code: 57907 Office Visit, Est Pt., Level 4. * Procedure Codes: * Sign off status: Pending * Provider: MD JESSY, Marlena, F.A.S.N. Date: 02/03/2024
--- OUTSIDE RECORDS SUMMARY | 2024-05-02 17:52 | XMS_ITS | Patient Health Record ---
Author Organization [facility] Address [address] [place] [address] Care Team Providers Care Cut Off Saw Operator Name Role Phone Camille Orona Primary Care Provider [phone] Allergies No Known Allergies Results Component Value Reference Range Notes Valproic Acid (Depakote)(R), S Reviewed date:04/11/2024 03:27:33 PM Interpretation: Performing Lab:[id number], Phone - [phone], [facility] Notes/Report: Valproic Acid (Depakote)(R),S 39 50-100 ug/m L Detection Limit = 4 <4 indicates None Detected . Toxicity may occur at levels of 100-500. Measurements of free unbound valproic acid may improve the assess- ment of clinical response. Valproic Acid (Depakote)(R), S Reviewed date:07/10/2023 03:53:23 PM Interpretation: Performing [facility], Phone - [phone], [facility] Notes/Report: Valproic Acid (Depakote)(R),S 83 50-100 ug/m L Detection Limit = 4 <4 indicates None Detected . Toxicity may occur at levels of 100-500. Measurements of free unbound valproic acid may improve the assess- ment of clinical response. Valproic Acid (Depakote)(R), S Reviewed date:11/12/2023 11:15:55 AM Interpretation: Performing Lab:[employer] [facility] [facility], Phone - [phone], [facility] Notes/Report: Valproic Acid (Depakote)(R),S 58 50-100 ug/m [...] 20s. No charges/convictions since then. Spiritual Affiliation- [employer] Other Social History - Lives with 67 [...] HISTORY Past Psychiatrist or Therapist - Saw [facility] in past for medication and [...] 20s. No charges/convictions since then. Spiritual Affiliation- [employer] Other Social History - Lives with 68 [...] HISTORY Past Psychiatrist or Therapist - Saw [facility] in past for medication and therapy [...] 20s. No charges/convictions since then. Spiritual Affiliation- [employer] Other Social History - Lives with 68 [...] HISTORY Past Psychiatrist or Therapist - Saw [facility] providers in past for medication and therapy [...] 20s. No charges/convictions since then. Spiritual Affiliation- [employer] Other Social History - Lives with 68 [...] HISTORY Past Psychiatrist or Therapist - Saw [facility] providers in past for medication and therapy [...] 20s. No charges/convictions since then. Spiritual Affiliation- [employer] Other Social History - Lives with 67 [...] HISTORY Past Psychiatrist or Therapist - Saw [facility] providers in past for medication and therapy [...] 20s. No charges/convictions since then. Spiritual Affiliation- [employer] Other Social History - Lives with 67 [...] HISTORY Past Psychiatrist or Therapist - Saw [facility] providers in past for medication and therapy [...] 20s. No charges/convictions since then. Spiritual Affiliation- [employer] Other Social History - Lives with 67 [...] HISTORY Past Psychiatrist or Therapist - Saw [facility] providers in past for medication and therapy [...] 20s. No charges/convictions since then. Spiritual Affiliation- [employer] Other Social History - Lives with 68 [...] HISTORY Past Psychiatrist or Therapist - Saw [facility] providers in past for medication and therapy [...] 20s. No charges/convictions since then. Spiritual Affiliation- [employer] Other Social History - Lives with 68 [...] HISTORY Past Psychiatrist or Therapist - Saw [facility] providers in past for medication and therapy [...] W/U Status Risk Notes Problem Tobacco user (261031857) Nicotine dependence, unspecified, uncomplicated (F17.200) Active confirmed Problem Bipolar 1 disorder (979382713) Bipolar 1 disorder (F31.9) Active confirmed Problem Generalized anxiety disorder (47232623) KUSUM (generalized anxiety disorder) (F41.1) Active confirmed Problem Cannabis abuse (41934533) Cannabis abuse (F12.10) Active confirmed Problem Tardive dyskinesia (440333140) Tardive dyskinesia (G24.01) Active confirmed Vital Signs Heart Rate 98 /min 04/07/2024 Temperature 97.3 degrees Fahrenheit 10/08/2023 Respiratory Rate 16 /min 04/07/2024 Oximetry 99 % 04/07/2024 Blood pressure diastolic 70 mm Hg 04/07/2024 Height 71 in 04/07/2024 Blood pressure systolic 118 mm Hg 04/07/2024 Weight 141 lbs 04/07/2024 BMI 19.66 kg/m2 04/07/2024 Encounters Encounter Location Date Provider Diagnosis [address] [address] 07/09/2023 Camille Sabblethan Bipolar 1 disorder F31.[address] [address] 04/07/2024 Camille Yeyo [address] [address] 05/13/2023 Camille Sabblut Bipolar 1 disorder F31.9 and KUSUM (generalized anxiety disorder) F41.[address] [address] 06/11/2023 Camille Sabblut Bipolar 1 disorder F31.9 and KUSUM (generalized anxiety disorder) F41.[address] [address] 07/09/2023 Camille Sabblut Bipolar 1 disorder F31.9 and KUSUM (generalized anxiety disorder) F41.[address] [address] 10/08/2023 Camille Sabblut Bipolar 1 disorder F31.9 and KUSUM (generalized anxiety disorder) F41.[address] [address] 01/07/2024 Camille Sabblut Bipolar 1 disorder F31.9 ; KUSUM (generalized anxiety disorder) F41.1 ; Nicotine dependence, unspecified, uncomplicated F17.200 ; Cannabis abuse F12.10 and Medication management Z79.[address] [address] 04/07/2024 Camille Sabblut Bipolar 1 disorder F31.9 ; KUSUM (generalized anxiety disorder) F41.1 ; Nicotine dependence, unspecified, uncomplicated F17.200 ; Cannabis abuse F12.10 and Medication management Z79.[address] [address] 04/11/2024 Camille Sabblut Bipolar 1 disorder F31.9 and Tardive dyskinesia G24.01 Assessments Encounter Date Diagnosis (ICD Code) Assessment Notes Treatment Notes Treatment Clinical Notes Section Notes 05/13/2023 Bipolar 1 disorder (ICD-10 - F31.9) Valproic Acid level normal on 03/19/2023 (60). Plan to redraw around 06/17/2023 at time of next appointment. 06/11/2023 Bipolar 1 disorder (ICD-10 - F31.9) Valproic Acid level normal on 03/19/2023 (60). Plan to redraw on 07/09/2023 at time of next appointment. 07/09/2023 Bipolar 1 disorder (ICD-10 - F31.9) Valproic Acid level normal on 03/19/2023 (60). Plan to redraw today. 07/09/2023 Bipolar 1 disorder (ICD-10 - F31.9) 10/08/2023 Bipolar 1 disorder (ICD-10 - F31.9) Valproic Acid level normal on 03/19/2023 (60). Plan to redraw today. 01/07/2024 Bipolar 1 disorder (ICD-10 - F31.9) Valproic Acid level due at next visit in 2024 - do not take Depakote night before blood draw, and schedule morning appt. 01/07/2024 KUSUM (generalized anxiety disorder) (ICD-10 - F41.1) 04/07/2024 Bipolar 1 disorder (ICD-10 - F31.9) AIMS = 10 today. Plan is to decrease olanazapine by 5 mg and reassess in two weeks. 04/11/2024 Bipolar 1 disorder (ICD-10 - F31.9) 04/11/2024 Tardive dyskinesia (ICD-10 - G24.01) 04/07/2024 KUSUM (generalized anxiety disorder) (ICD-10 - F41.1) 10/08/2023 KUSUM (generalized anxiety disorder) (ICD-10 - F41.1) 01/07/2024 Nicotine dependence, unspecified, uncomplicated (ICD-10 - F17.200) 07/09/2023 KUSUM (generalized anxiety disorder) (ICD-10 - F41.1) 06/11/2023 KUSUM (generalized anxiety disorder) (ICD-10 - F41.1) 05/13/2023 KUSUM (generalized anxiety disorder) (ICD-10 - F41.1) 01/07/2024 Cannabis abuse (ICD-10 - F12.10) 04/07/2024 Nicotine dependence, unspecified, uncomplicated (ICD-10 - F17.200) 04/07/2024 Cannabis abuse (ICD-10 - F12.10) 01/07/2024 Medication management (ICD-10 - Z79.899) May self-administer medications or be administered own oral medications per [facility] protocols. Provided informed consent with understanding of [...] or be administered own oral medications per [facility] protocols. Provided informed consent with understanding of [...] or be administered own oral medications per [facility] protocols. Provided informed consent with understanding of side effects, adverse effects, risks and benefits as well as alternative treatments as previously discussed and with the above recommended medications & other aspects of the treatment program. Agrees to return sooner if symptoms worsen or suicidal or homicidal ideations occur. 06/11/2023 Other May self-administer medications or be administered own oral medications per [facility] protocols. Provided informed consent with understanding of side effects, adverse effects, risks and benefits as well as alternative treatments as previously discussed and with the above recommended medications & other aspects of the treatment program. Agrees to return sooner if symptoms worsen or suicidal or homicidal ideations occur. 07/09/2023 Other May self-administer medications or be administered own oral medications per [facility] protocols. Provided informed consent with understanding of side effects, adverse effects, risks and benefits as well as alternative treatments as previously discussed and with the above recommended medications & other aspects of the treatment program. Agrees to return sooner if symptoms worsen or suicidal or homicidal ideations occur. 10/08/2023 Other May self-administer medications or be administered own oral medications per [facility] protocols. Provided informed consent with understanding of side effects, adverse effects, risks and benefits as well as alternative treatments as previously discussed and with the above recommended medications & other aspects of the treatment program. Agrees to return sooner if symptoms worsen or suicidal or homicidal ideations occur. 01/07/2024 Other Plan Of Treatment No Information Insurance Providers Payer Name Payer Address Payer Phone Subscriber Number Group Number Insured Name Patient Relationship to Insured Coverage Start Date Coverage End Date [employer] A[employer] Medicare [address] [address] [place] [phone] [id number] Gianni Reich Self - patient is the insured 3 MEDICAID [address] [place] [phone] [id number] Gianni Reich Self - patient is the insured 4 Medical (General) History Medical History History ICD Code HTN HLD Hx of acute kidney failure Hx of sepsis with multi organ failure Surgical History Surgery Date(Month/Year) gallbladder pin in toe eye surgery Hospitalization History Reason Date(Month/Year) dehydration
--- OUTSIDE RECORDS SUMMARY | 2024-05-02 17:52 | XMS_ITS | Patient Health Record ---
Author Organization [facility] Address [address] [facility] [address] [place] [address] Care Team Providers Care Matrix Repairer Name Role Phone Dominik Alvarado Unavailable [phone] REASON FOR REFERRAL No Information MEDICATIONS Medication [...] Sepsis, unspecified organism (A41.9) Active confirmed Sepsis (10085191) Problem Elevated white blood cell count, unspecified (D72.829) Active confirmed Leukocytosis (944330606) Problem Gastritis, unspecified, without bleeding (K29.70) Active confirmed Gastroduodeniti s (974924296) Problem Acute kidney failure, unspecified (N17.9) Active confirmed Acute renal failure syndrome (69024295) Problem Chronic kidney disease, stage 1 (N18.1) Active confirmed Chronic kidney disease stage 1 (995840821) Problem Chronic kidney disease, stage 2 (mild) (N18.2) Active confirmed Chronic kidne y disease stage 2 (026180164) Problem Renal osteodystrophy (N25.0) Active confirmed Renal osteodystrophy (29191176) Problem Abnormal coagulation profile (R79.1) Active confirmed Coagulation/ bleedi ng tests abnormal (349373100) Problem Essential hypertension (I10) Active confirmed Essential hypertension (38800657) Problem Chronic kidney disease, stage 3a (N18.31) Active confirmed Chronic kidney disease stage 3A (disorder) (603896081) Encounters Encounter Location Date Provider Diagnosis [place] [facility] [address] [facility] [address] [place] [address] 07/29/2023 Dominik Alvarado Chronic kidney disea se, stage 3a N18.31 ; Acute kidney failure, unspecified N17.9 ; Abnormal coagulation profile R79.1 ; Gastritis, unspecified, without bleeding K29.70 ; Sepsis, unspecified organism A41.9 and Elevated white blood cell count, unspecified D72.829 [facility] [address] [place] [address] 10/14/2023 Dominik Alvarado Chronic kidney disea se, stage 3a N18.31 ; Essential hypertension I10 ; Acute kidney failure, unspecified N17.9 ; Abnormal coagulation profile R79.1 ; Gastritis, unspecified, without bleeding K29.70 ; Sepsis, unspecified organism A41.9 and Elevated white blood cell count, unspecified D72.829 [facility] [address] [place] [address] 12/02/2023 Dominik Alvarado [facility] [address] [place] [address] 12/09/2023 Dominik Alvarado Chronic kidney disea se, stage 3a N18.31 ; Chronic kidney disease, stage 1 N18.1 ; Chronic kidney disease, stage 2 (mild) N18.2 ; Essential hypertension I10 ; Acute kidney failure, unspecified N17.9 ; Abnormal coagulation profile R79.1 ; Gastritis, unspecified, without bleeding K29.70 ; Sepsis, unspecified organism A41.9 and Elevated white blood cell count, unspecified D72.829 [facility] [address] [place] [address] 02/03/2024 Dominik Alvarado Chronic kidney disea se, stage 2 (mild) N18.2 ; Essential hypertension I10 ; Renal osteodystrophy N25.0 and Proteinuria, unspecified R80.9 [facility] [address] [place] [address] 04/06/2024 Dominik Alvarado ASSESSMENTS Encounter Date Diagnosis [...] [address], [place], [address],
--- NOTE | 2024-05-02 18:14 | ED.GENADULT ---
HPI - General Adult General Chief complaint: Weakness Stated complaint: weakness, n/v Time Seen by Provider: 05/02/24 16:13 History of Present Illness HPI narrative: Patient is a 49-year-old male who presents ER with weakness. Reports he was discharged after having renal failure. He went home and continued to smoke marijuana and has been vomiting. He only had 1 meal. Reports he is not made urine since being discharged and came back due to his general debility. No syncope. No chest pain or abdominal pain. Related Data Home Medications ?Medication ?Instructions ?Recorded ?Confirmed ?Last Taken ?Type aspirin 81 mg tablet,delayed 81 mg PO DAILY@0800 02/14/24 04/25/24 Unknown History release atorvastatin 20 mg tablet 20 mg PO DAILY 02/14/24 04/25/24 Unknown History carvedilol 3.125 mg tablet 3.125 mg PO Q12H 02/14/24 04/25/24 Unknown History divalproex 500 mg tablet,delayed 500 mg PO BID 02/14/24 04/25/24 Unknown History release hydroxyzine pamoate 25 mg capsule 25 mg PO HS PRN anxiety 02/14/24 04/25/24 Unknown History olanzapine 10 mg tablet 10 mg PO HS 02/14/24 04/25/24 Unknown History benztropine 0.5 mg tablet 0.5 mg PO HS 04/25/24 04/25/24 Unknown History losartan 25 mg tablet 25 mg PO DAILY 04/25/24 04/25/24 Unknown History olanzapine 5 mg tablet 5 mg PO 0900 04/25/24 04/25/24 Unknown History Allergies Allergy/AdvReac Type Severity Reaction Status Date / Time No Known Allergies Allergy Verified 05/02/24 17:09 Review of Systems Review of Systems: All systems reviewed & are unremarkable except as noted in HPI and below Constitutional: Constitutional: Reports no additional constitutional complaints Cardiovascular: Cardiovascular: Reports no additional cardiovascular complaints Respiratory: Respiratory: Reports no additional respiratory complaints Gastrointestinal: Gastrointestinal: Reports no additional gastrointestinal complaints [facility] Past Medical History Medical History (Updated 05/02/24 @ 18:16 by Magnus Prieto MD) Polycythemia Cannabinoid hyperemesis syndrome Hypertension Social History Social History Smoking status: Heavy tobacco smoker Alcohol intake: current Drinks per week: 1 Substance use: current Substance use type: marijuana Last use: 02/13/24 Do You Feel Safe in your Home?: Yes Lack of Transportation: No Lack of Food: Never True Current Housing: Decline to Answer Concerned About Future Housing: Decline to Answer Difficulty Paying Gas/Electric Bills: Decline to Answer Difficulty Paying for Meds: Decline to Answer Currently Unemployed: Decline to Answer Education: Decline to Answer Difficulty w/ Childcare or Family Care: Decline to Answer Spiritual care concerns: No Exam Narrative: GENERAL: Chronically ill-appearing, thin, and in no acute distress. HEAD: Normocephalic, atraumatic. EYES: PERRL and EOMI. ENT: Mucous membranes moist. CHEST: Clear to auscultation. No respiratory distress. HEART: Regular rate and rhythm Normal peripheral pulses. ABDOMEN: Soft, nontender, nondistended. EXTREMITIES: Normal range of motion. No edema. SKIN: Warm, dry, no rash. NEURO: No focal deficits. Alert and oriented x3. PSYCH: Normal mood and affect. Course Course Emergency Course: 1624: Patient appears generally unwell. He is in acute kidney failure with creatinine of 6.0. He also has the elevated hemoglobin 19.2. 2 L of IV fluid ordered.He will need to be admitted to the hospitalist but the covering ANNY reports we will need to wait until 1900 when the new shift come. 2020: Accepted by hospitalist. Vital Signs Vital signs: Vital Signs Temperature 97.6 F 05/02/24 15:56 Pulse Rate 85 05/02/24 15:56 Respiratory Rate 16 05/02/24 15:56 Blood Pressure 88/66 L 05/02/24 15:56 Pulse Oximetry 99 05/02/24 15:56 Temperature 97.9 F 05/02/24 18:17 Pulse Rate 98 05/02/24 18:17 Respiratory Rate 16 05/02/24 18:17 Blood Pressure 112/89 05/02/24 18:17 Pulse Oximetry 98 05/02/24 18:17 Medical Decision Making Vital Signs Vital Signs: Vital Signs Temperature 97.6 F 05/02/24 15:56 Pulse Rate 85 05/02/24 15:56 Respiratory Rate 16 05/02/24 15:56 Blood Pressure 88/66 L 05/02/24 15:56 Pulse Oximetry 99 05/02/24 15:56 Temperature 97.9 F 05/02/24 18:17 Pulse Rate 98 05/02/24 18:17 Respiratory Rate 16 05/02/24 18:17 Blood Pressure 112/89 05/02/24 18:17 Pulse Oximetry 98 05/02/24 18:17 Lab Data 05/02/24 16:46 05/02/24 16:46 Labs: Lab Results 05/02/24 05/02/24 Range/Units 16:46 19:30 WBC 14.0 H (4.5-10.0) K/mm3 RBC 6.09 (4.6-6.20) M/mm3 Hgb 19.2 H D (14.0-18.0) g/dL Hct 55.8 H (42.0-52.0) % MCV 91.6 (80-100) fl MCH 31.5 (26-34) pg MCHC 34.4 (32-36) g/dl RDW 12.9 (11.5-14.5) % Plt Count 254 (150-375) k/mm3 MPV 10.9 H (7.4-10.4) fl Immature Gran % (Auto) 0.8 H (0-0.5) % Neut % (Auto) 56.1 (45.5-73.1) % Lymph % (Auto) 33.0 (18.3-44.2) % [place] % (Auto) 9.5 H (2.6-8.5) % Eos % (Auto) 0.1 (0-4.4) % Baso % (Auto) 0.5 (0.2-1.2) % Lymph # (Auto) 4.62 H (0.9-3.2) K/mm3 [place] # (Auto) 1.3 H (0.1-0.6) K/mm3 Eos # (Auto) 0.0 (0-0.3) K/mm3 Baso # (Auto) 0.1 (0.0-0.1) K/mm3 Abs Immat Gran (auto) 0.11 H (0.00-0.031) K/mm3 Absolute Neuts (auto) 7.9 H (1.3-6.7) K/mm3 Absolute Nucleated RBC 0.000 (0.0-0.012) K/mm3 Nucleated RBC % 0.0 (0.0-0.2) % Sodium 134 L (137-145) mmol/L Potassium 3.7 (3.4-5.0) mmol/L Chloride 87 L (98-107) mmol/L Carbon Dioxide 27 (22-30) mmol/L Anion Gap 20 H (4-12) mmol/L BUN 37 H D (9-20) mg/dL Creatinine 6.00 H (0.7-1.3) mg/dL Estim Creat Clear Calc 12 ml/min Estimated GFR 10 L (59 - ) Glucose 140 H (65-110) mg/dL Calcium 10.2 (8.4-10.2) mg/dL Total Bilirubin 0.8 (0.2-1.3) mg/dL AST 41 (17-59) U/L ALT 126 H (6-50) U/L Alkaline Phosphatase 82 (38-126) U/L Total Protein 8.0 (6.3-8.2) g/dL Albumin 4.9 (3.5-5.1) g/dL Lipase 99 (23-300) U/L Urine Color Pending Urine Appearance Pending Urine pH Pending Ur Specific [place] Pending Urine Protein Pending Urine Glucose (UA) Pending Urine Ketones Pending Ur Blood (Man) Pending Urine Nitrate Pending Urine Bilirubin Pending Urine Urobilinogen Pending Leukocyte Esterase Rfl Pending Critical Care Time Critical Care Time Critical Care Time: Yes Total Critical Care Time: 35 Discharge Plan Discharge Clinical Impression: Acute kidney injury, Dehydration, Cannabinoid hyperemesis syndrome Patient Disposition: Still a Patient Condition: Stable Patient Language: Korean Prescriptions: No Action losartan 25 mg tablet 25 mg PO DAILY benztropine 0.5 mg tablet 0.5 mg PO HS olanzapine 5 mg tablet 5 mg PO 0900 amoxicillin-pot clavulanate 875-125 mg tablet 1 tablet PO Q12H Qty: 7 0RF Rx Instructions: Please complete the course until 05/01 divalproex 500 mg tablet,delayed release (DR/EC) 500 mg PO BID atorvastatin 20 mg tablet 20 mg PO DAILY aspirin 81 mg tablet,delayed release (DR/EC) 81 mg PO DAILY@0800 olanzapine 10 mg tablet 10 mg PO HS carvedilol 3.125 mg tablet 3.125 mg PO Q12H hydroxyzine pamoate 25 mg capsule 25 mg PO HS PRN (Reason: anxiety) Follow-up/Referrals: Zbigniew,MD Carmine [Primary Care Provider] -
--- NOTE | 2024-05-02 18:37 | PC.NURSE ---
Pt states unable to void, I will put on the call light when I need to
--- OUTSIDE RECORDS SUMMARY | 2024-05-02 18:51 | XMS_ITS | Clinical Summary ---
Author Organization [facility] Address [facility] [place] [address] Care Team Providers Care Backhaul Driver Name Role Phone Unavailable Primary Care Provider [...]
--- OUTSIDE RECORDS SUMMARY | 2024-05-02 18:52 | XMS_ITS | CONTINUITY OF CARE DOCUMENT ---
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 Congestive Heart Failure active Mehdi carbajal MD Tobacco abuse active Mehdi Rowell MD CHF - systolic active Mehdi Rowell MD Takotsubo syndrome active Mehdi Rowell MD ENCOUNTERS Date Type Provider Location Encounter Diag nosis - In-person encounter Office Visit Mehdi Rowell MD [place] [facility] - In-person encounter Office Visit Mehdi Rowell MD [place] [facility] - In-person encounter Office Visit Mehdi Rowell MD [place] [facility] - In-person encounter Office Visit Mehdi Rowell MD [place] [facility] - In-person encounter Office Visit Mehdi Rowell MD [place] [facility] Cardiology examination - In-person encounter Office Visit Mehdi Rowell MD [place] [facility] Congestive Heart Failure - In-person encounter Office Visit Mehdi Rowell MD [facility] Office Takotsubo syndromeCHF - systolicTobacco abuse VITAL SIGNS Date Observation Value Provider Body Mass Index (Ratio) 19.11 kg/m2 Dayna Rowell MD blood pressure, cuff size regular [facility], [facility] mm[facility]Hg[facility], systolic 96 mm[Hg] Yojana [facility] oxygen saturation, oximetry 86 % [facility] respiratory rate E&M 14 /min [facility] pulse rate 53 /min [facility] weight E&M 137 [lb_av] [facility] height E&M 71 [in_i] [facility] Body Mass Index (Ratio) 19.11 kg/m2 Dayna Rowell MD blood pressure, cuff size regular [facility] blood pressure, diastolic 72 mm[Hg] [facility] blood pressure, systolic 98 mm[Hg] [facility] pulse rate 61 /min [facility] oxygen saturation, oximetry 98 % [facility] respiratory rate E&M 16 /min Kristina Dayanara gardner weight E&M 137 [lb_av] [facility] height E&M 71 [in_i] [facility] Body Mass Index (Ratio) 17.57 kg/m2 Dayna [...] blood pressure, cuff size regular Ke rri Maichi [facility] blood pressure, diastolic 60 mm[Hg] [facility]ri [facility] blood pressure, systolic 98 mm[Hg] Franca ri Maichi [facility] oxygen saturation, oximetry 97 % Lazara Maichi [facility] respiratory rate E&M 14 /min [facility]ara [facility] pulse rate 62 /min Lazara Gareth [facility] weight E&M 135 [lb_av] Lazara Adrianae [facility] height E&M 71 [in_i] Lazara Servin [facility] pulse rate 62 /min Dennise Martínez blood pressure, diastolic 58 mm[Hg] Te ri Martínez blood pressure, systolic 91 mm[Hg] Ter i Martínez oxygen saturation, oximetry 98 % Dennise Martínez respiratory rate E&M 15 /min Dennise [facility] weight E&M 145 [lb_av] Dennise Martínez ALLERGIES [...] yes Yadira Henriquez NP drug use no [facility] alcohol use no [facility] smoking/tobacco cess ation, patient education and counseling yes [facility] chewing tobacco use Current [facility] number of years as a smoker [address] [facility] smoking history, tot al pack/day 0.5 [facility] cigarette use yes [facility] smoking status Current every da y smoker 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 drug use yes Yadira Huertasreri SPEEDOMETER MECHANIC alcohol use no Verdereck Huertasreri SPEEDOMETER MECHANIC seatbelt usage 100 % Anita Miller caffeine [...] d rug of choice marijuana Rebekah Ventimiglia [facility] drug use yes Rebekah Ventimig celine [facility] alcohol use no Rebekah Ventimig celine [facility] number of years as a smoker 20 a Rebekah Ventimiglia [facility] smoking history, tot al pack/day 0.5 Rebekah Ventimiglia [facility] seatbelt usage 100 % Ashleyrebecca lao caffeine use, averag e drinks per day 3 /d Ashley Lewis smoking/tobacco cess ation, patient education and counseling yes Ahsley Lewis chewing tobacco use Current Ashley Lewis [...] Lazara Castaneda chewing tobacco use Current Lazara frenandeznfcuco smoking status Current every da y smoker [...] Payer name Policy type / Coverage type [place] red libertarian ID AARP MEDICARE ADVANTAGE HMO-POS HMO [id number] [facility] Medicaid 1 [id number] ADVANCE DIRECTIVES Name Date DISCUSSED - NO DECISION MADE TREATMENT PLAN Date Name Performer [id number],C, P kev is a current daily smoker. Encouraged complete cessation. Mehdi Rowell MD [id number],C, W ILL RECHECK ECHO TO EVAL FOR [...] by mouth every day Mehdi Rowell MD [id number],C, E F of 20% on initial cath in June 2021. He has since had improvement in EF to 45% (11/2021) June 13, 2022 R EPEAT ECHO TO [facility] LV FXN December 12, 2022 e cho is showieng LVEF is about 45% Mehdi Rowell MD [id number],C,C ompensated. His updated medication list for this problem includes: Carvedilol 3.125 Mg Tablet (Carvedilol) ..... Take 1 tablet by mouth twice a day Losartan 25 Mg Tablet (Losartan) ..... Take 1/2 tablet by mouth once a day Aspirin 81 Mg Tablet,delayed Release (dr/ec) (Aspirin) ..... Take 1 tablet by mouth once a day take 1 tablet by mouth every day Louiedereck Florence ERVIN [id number],C,P kev is a current daily smoker. Encouraged complete cessation. Yadira Henriquez NP [id number],C,W ILL RECHECK ECHO TO [facility] FOR PRESERVETAION OF LV FXN ON [...] by mouth every day Yadira Henriquez NP [id number],C, E F of 20% on initial cath in June 2021. 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 Rebekah Ca [facility] [id number],S,c urrently compensated. continue present medication regimen. H [...] tablet by mouth every day Rebekah Ca [facility] [id number],B,E F of 20% on initial cath in June 2021. He has since had improvement in EF to 45%. will continue present therapy and f/u in 6 mos or sooner if needed. O rders: 9 9214 MOD 30-39min (CPT-99385) Rebekah Ca [facility] [id number],S, L eft ventriculogram- was performed in the [...] 2021 R echeck Echo Mehdi Rowell MD [id number],C,R educed EF will check echo. On CHF [...] by mouth every day Mehdi Rowell MD [id number],C, T he Patient was reencouraged to stop smoking. November 06, 2021 A t 1/2 PPD Mehdi Rowell MD [id number],S,T he Patient was reencouraged to stop smoking. Mehdi Rowell MD [id number],C,L eft ventriculogram- was performed in the [facility] [...] . Minimally elevated LVEDP Mehdi Rowell MD [id number],B,E cho EF has improved to 70% based on study done at [facility] H is updated medication list for this [...] Yadira Huertasdiana ERVIN Cardiology:cessation encouraged. Rebekah Ca [facility] Cardiology:currently compensated. continue present medication [...] tablet by mouth every day Rebekah Ca [facility] Cardiology:EF of 20% on initial cath in June 2021. He has since had improvement in EF to 45%. will continue present therapy and f/u in 6 mos or sooner if needed. O rders: 9 9214 MOD 30-39min (CPT-08713) Rebekah Ca [facility] Cardiology: L eft ventriculogram- was [...] to 70% based on study done at [facility] H is updated medication list for this [...]
--- NOTE | 2024-05-02 19:21 | PC.NURSE ---
Assumed care of pt at this time. Pt alert and upright on stretcher, urine sample at bedside. States he feels better .
[2024-05-02 20:21] LABS: Add Urine Microscopic? YES; Appearance Urine Cloudy (Clear); Bacteria Urine None Seen /hpf; Bilirubin Urine Negative (Negative); Blood Urine Negative (Negative); Color Urine Yellow (Yellow); Glucose Urine UA Trace mg/dL (Negative); Hyaline Casts Urine Present /lpf; Ketones Urine Trace mg/dL (Negative); Leukocyte Esterase Ur Negative LEU/UL (Negative); Nitrate Urine Negative (Negative); Non Pathogenic Casts >20; Protein Urine 1+ mg/dL (Negative); RBC Urine 0-2 /hpf (0-2); Specific Grav Ur 1.016 (1.001-1.035); Squamous Epithelial Cell Urine Occasional /hpf (Few); Urobilinogen Urine 0.2 mg/dL (<2.0); WBC Urine 0-5 /hpf (0-3)
[2024-05-02] MEDS: THIAMINE HCL 200 MG/2 ML VIAL 100 MG IV PUSH (20:24)
[2024-05-02] MEDS: SODIUM CHLORIDE 0.9% IV 1,000 ML 200 ML IV CONT (20:25)
[2024-05-03] VITALS (7 sets, daily range): BP systolic 106–131; BP diastolic 64–72; PULSE 56–88; RESP 16–18; TEMP 36.5–36.9; O2SAT 98–100; BMI 17.9
--- NOTE | 2024-05-03 07:01 | PM.IMHP ---
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 The patient reports he was able to eat the 1st day that he was home and have a bowel movement. But then he smoked some marijuana and immediately started having nausea and vomiting again. He subsequently has not been able to keep anything down. He has not been able to urinate since the day after he got home. He denies any current abdominal pain he has not had any recurrent nausea or vomiting. He denies any chest pain. He denies any hematemesis or coffee-ground emesis. He reports that he has filled to urinals since he got to the hospital. Review of Systems Review of Systems: 12 systems were reviewed with pertinent positives and negatives per HPI. Except as documented in the HPI, all other systems were reviewed and are negative. [facility] Past Medical History Medical History (Updated 05/03/24 @ 07:48 by Grace Agrawal DO) Bipolar disorder Polycythemia due to fall in plasma volume Cannabinoid hyperemesis syndrome Hypertension Surgical History Surgical History (Updated 05/03/24 @ 07:43 by Grace Agrawal DO) Status post cataract extraction of both eyes with insertion of intraocular lens Family History Family History (Updated 05/03/24 @ 07:43 by Grace Agrawal DO) Other Unknown family medical history Social History Social History (Updated 05/03/24 @ 07:45 by Grace Agrawal DO) Social History: Patient lives with his mother. He is on disability due to his psychiatric illness. He has smoked half a pack of cigarettes per day since he was a teenager. He denies any history of alcohol use. He uses marijuana daily. Code status: Full code Surrogate decision maker: Renee (Mother) Smoking packs per day: 0.5 Smoking cigarettes per day: 10.0 Years smoked: 30 Smoking pack-years: 15.00 Smoking status: Current every day smoker Tobacco type: cigarettes Alcohol intake: former Drinks per week: 1 Substance use: current Substance use type: marijuana Last use: 02/13/24 Do You Feel Safe in your Home?: Yes Lack of Transportation: No Lack of Food: Never True Current Housing: I Have Housing Concerned About Future Housing: No Difficulty Paying Gas/Electric Bills: No Difficulty Paying for Meds: No Currently Unemployed: No Education: High School Diploma/GED Difficulty w/ Childcare or Family Care: No Spiritual care concerns: No Meds Home Medications and Allergies Home Medications ?Medication ?Instructions ?Recorded ?Confirmed ?Type aspirin 81 mg tablet,delayed 81 mg PO DAILY@0800 02/14/24 05/02/24 History release atorvastatin 20 mg tablet 20 mg PO DAILY 02/14/24 05/02/24 History carvedilol 3.125 mg tablet 3.125 mg PO Q12H 02/14/24 05/02/24 History divalproex 500 mg tablet,delayed 500 mg PO BID 02/14/24 05/02/24 History release hydroxyzine pamoate 25 mg capsule 25 mg PO HS PRN anxiety 02/14/24 05/02/24 History olanzapine 10 mg tablet 10 mg PO HS 02/14/24 05/02/24 History benztropine 0.5 mg tablet 0.5 mg PO HS 04/25/24 05/02/24 History losartan 25 mg tablet 25 mg PO DAILY 04/25/24 05/02/24 History olanzapine 5 mg tablet 5 mg PO 0900 04/25/24 05/02/24 History Allergies Allergy/AdvReac Type Severity Reaction Status Date / Time No Known Allergies Allergy Verified 05/02/24 17:09 Vital Signs Vital Signs - 24 hr 05/02/24 15:56 05/02/24 16:08 05/02/24 17:07 Temperature 97.6 F Pulse Rate 85 81 78 Respiratory Rate 16 16 16 Blood Pressure 88/66 L 105/58 L 106/82 Pulse Oximetry 99 100 99 Oxygen Delivery 05/02/24 18:17 05/02/24 20:27 05/02/24 21:33 Temperature 97.9 F 97.7 F Pulse Rate 98 95 76 Respiratory Rate 16 22 H 20 Blood Pressure 112/89 134/91 H 110/60 Pulse Oximetry 98 99 100 Oxygen Delivery 05/02/24 21:45 05/03/24 03:01 Temperature 97.7 F Pulse Rate 76 65 Respiratory Rate 20 18 Blood Pressure 106/64 Pulse Oximetry 100 98 Oxygen Delivery Room Air Exam Narrative: Weight 58.5 kg BMI 18 Const: Other: Thin body habitus, appears older than stated age, disheveled HENMT: Other: Mucous membranes are moist, no oral pharyngeal erythema, edentulous in upper and lower jaw Eyes: Other: Pupils are equal and reactive, no scleral icterus, no conjunctival pallor Neck: Other: No JVD, no lymphadenopathy Resp: Other: Clear to auscultation bilaterally, no increased work of breathing Cardio: Other: Regular rate, regular rhythm, 2+ bilateral radial pedal pulses GI: Other: Soft, nontender, nondistended, positive bowel sounds Skin: Other: No jaundice, no pallor Neuro: Other: Alert oriented to person place and time, speech is clear but slow, no localizing neurologic deficits noted during the course of conversation Extrem: Other: Moves all extremities equally, no clubbing, cyanosis or edema Psych: Other: Flat affect, cooperative, poor judgment and insight H&P: Results Labs Labs: Laboratory Tests 05/02/24 16:46 05/02/24 16:46 05/02/24 05/02/24 16:46 19:30 WBC 14.0 H RBC 6.09 Hgb 19.2 H D Hct 55.8 H MCV 91.6 MCH 31.5 MCHC 34.4 RDW 12.9 Plt Count 254 MPV 10.9 H Immature Gran % (Auto) 0.8 H Neut % (Auto) 56.1 Lymph % (Auto) 33.0 [place] % (Auto) 9.5 H Eos % (Auto) 0.1 Baso % (Auto) 0.5 Lymph # (Auto) 4.62 H [place] # (Auto) 1.3 H Eos # (Auto) 0.0 Baso # (Auto) 0.1 Abs Immat Gran (auto) 0.11 H Absolute Neuts (auto) 7.9 H Absolute Nucleated RBC 0.000 Nucleated RBC % 0.0 Sodium 134 L Potassium 3.7 Chloride 87 L Carbon Dioxide 27 Anion Gap 20 H BUN 37 H D Creatinine 6.00 H Estim Creat Clear Calc 12 Estimated GFR 10 L Glucose 140 H Calcium 10.2 Total Bilirubin 0.8 AST 41 ALT 126 H Alkaline Phosphatase 82 Total Protein 8.0 Albumin 4.9 Lipase 99 Urine Color Yellow Urine Appearance Cloudy H Urine pH 5.0 Ur Specific [place] 1.016 Urine Protein 1+ H Urine Glucose (UA) Trace H Urine Ketones Trace H Ur Blood (Man) Negative Urine Nitrate Negative Urine Bilirubin Negative Urine Urobilinogen 0.2 Leukocyte Esterase Rfl Negative Urine RBC 0-2 Urine WBC 0-5 Ur Squamous Epith Cells Occasional Urine Bacteria None seen Urine Casts >20 Hyaline Casts Present Assessment and Plan Assessment and plan (1) Acute kidney injury: Code(s): N17.9 - Acute kidney failure, unspecified Status: Acute (2) Cannabinoid hyperemesis syndrome: Code(s): R11.2 - Nausea with vomiting, unspecified; F12.90 - Cannabis use, unspecified, uncomplicated Status: Acute (3) Polycythemia due to fall in plasma volume: Code(s): D75.1 - Secondary polycythemia Status: Acute (4) Dehydration: Code(s): E86.0 - Dehydration Status: Acute (5) Bipolar disorder: Code(s): F31.9 - Bipolar disorder, unspecified Status: Acute Plan Patient has an urine secondary to cannabinoid hyperemesis syndrome with intractable nausea vomiting resulting in profound dehydration evidenced by secondary polycythemia and acute kidney injury. Patient's creatinine has jumped from a baseline of 0.7 up to 6. Patient received 2 L fluid bolus in the ER and fluids were continued overnight at 200 mL an hour. Will decrease fluid rate to 125 mL an hour will repeat electrolyte panel and CBC. Patient reports that he has not had any further vomiting since he arrived to the medical floor. He has produced 300 mL of urine since he has arrived to the medical floor. He has urinated twice. The importance of complete cessation of marijuana was use was discussed with patient in detail. He verbalized understanding. The patient does continue to smoke tobacco. Nicotine patch will be provided as needed for symptoms of withdrawal. Will resume patient's home psychiatric medications. Patient has been admitted as observation status. Quality VTE Prophylaxis VTE prophylaxis: mechanical ordered (SCDs) Hospitalist MIPS Advance Care Plan I have confirmed that the patient's Advanced Care Plan is present, code status is documented, or surrogate decision maker is listed in patient medical record.: Yes Medication Reconciliation I have utilized all available resources to obtain, update and review the patients current medications (includes all prescriptions, OTC, herbals, cannabis, and nutritional supplements).: Yes
[2024-05-03 08:06] LABS: Hematocrit 44.8 % (42.0-52.0); Hemoglobin 15.4 g/dL (14.0-18.0); Mean Corpuscular HGB Conc 34.4 g/dl (32-36); Mean Corpuscular Hemoglobin 31.8 pg (26-34); Mean Corpuscular Volume 92.4 fl (80-100); Mean Platelet Volume 10.8 fl (7.4-10.4); Platelet Count Result 200 k/mm3 (150-375); Red Blood Count 4.85 M/mm3 (4.6-6.20); Red Cell Distribution Width 12.7 % (11.5-14.5); White Blood Count 10.6 K/mm3 (4.5-10.0)
[2024-05-03 08:19] LABS: Alanine Aminotransferase 77 U/L (6-50); Albumin Level 3.4 g/dL (3.5-5.1); Alkaline Phosphatase 63 U/L (38-126); Anion Gap 9 mmol/L (4-12); Aspartate Amino Transferase 28 U/L (17-59); Bilirubin,Total 0.7 mg/dL (0.2-1.3); Blood Urea Nitrogen 33 mg/dL (9-20); Calcium 8.9 mg/dL (8.4-10.2); Carbon Dioxide 24 mmol/L (22-30); Chloride 102 mmol/L (98-107); Estimated CRCL calculation 42 ml/min; Estimated Glomerular Filt Rate 46; Glucose 93 mg/dL (65-110); Potassium 3.4 mmol/L (3.4-5.0); Sodium 135 mmol/L (137-145)
--- NOTE | 2024-05-03 08:36 | P.PNIM_ITS ---
Progress Note: A&P Assessment and Plan (1) Bipolar disorder: Code(s): F31.9 - Bipolar disorder, unspecified Status: Acute (2) Cannabinoid hyperemesis syndrome: Code(s): R11.2 - Nausea with vomiting, unspecified; F12.90 - Cannabis use, unspecified, uncomplicated Status: Acute (3) Hypertension: Code(s): I10 - Essential (primary) hypertension Status: Chronic (4) Nausea and vomiting: Code(s): R11.2 - Nausea with vomiting, unspecified Status: Acute (5) Acute kidney injury: Code(s): N17.9 - Acute kidney failure, unspecified Status: Acute (6) Dehydration: Code(s): E86.0 - Dehydration Status: Acute (7) Polycythemia due to fall in plasma volume: Code(s): D75.1 - Secondary polycythemia Status: Acute Plan Intractable nausea vomiting, dehydration secondary to cannabinoid hyperemesis syndrome Patient has intractable nausea vomiting resulting in profound dehydration evidenced by secondary polycythemia Start fluid resuscitation Start antiemetic medications Zofran Reglan IV p.r.n. Patient can not tolerate solid diet, nauseous persists but under control Acute renal failure creatinine has jumped from a baseline of 0.7 up to 6. Patient received 2 L fluid bolus in the ER Also received normal saline overnight at 200 mL an hour. Continue fluid rate to 125 mL an hour Follow-up BMP Follow-up input output Creatinine down 1.6 Psychiatric disorders Denies suicidal ideation Continue home medications Leukocytosis Possible due to dehydration White blood cell is trending down Patient is afebrile will repeat electrolyte panel and CBC. Patient reports that he has not had any further vomiting since he arrived to the medical floor. He has produced 300 mL of urine since he has arrived to the medical floor. He has urinated twice. The importance of complete cessation of marijuana was use was discussed with patient in detail. He verbalized understanding. The patient does continue to smoke tobacco. Nicotine patch will be provided as needed for symptoms of withdrawal. Will resume patient's home psychiatric medications. Patient has been admitted as observation status. Subjective Date/time seen: 05/03/24 08:36 Interval history: I saw examined patient today. Patient feels better, still has nauseous, denies vomiting. Patient has no appetite. Denies black emesis, bloody stools. Patient also denies headache, vision change, focal weakness. Labs reviewed. Creatinine is trending down from 6.0-1.6 today Exam Narrative: GENERAL: Ill-appearing in no acute distress. Well-nourished. - EYES: EOMI. Anicteric. - HENT: Dry mucous membranes. - LUNGS: Clear to auscultation bilateral ly, no wheezing, rhonchi, or rales. - CARDIOVASCULAR: Regular rate and rhyth m. No murmur. No JVD. - ABDOMEN: Soft, non-tender and non-dist ended. No palpable masses. - EXTREMITIES: No edema. Peripheral puls es 2+. Non-tender. - NEUROLOGIC: No focal neurological defi cits. CN II-XII grossly intact. - PSYCHIATRIC: Awake, Alert and oriented x 3. Appropriate mood and affect. - SKIN: No rashes or lesions. Warm. - LYMPH: No cervical lymphadenopathy. Objective Data Vital Signs Vital Signs: Vital Signs - 24 hr 05/02/24 15:56 05/02/24 16:08 05/02/24 17:07 Temperature 97.6 F Pulse Rate 85 81 78 Respiratory Rate 16 16 16 Blood Pressure 88/66 L 105/58 L 106/82 Pulse Oximetry 99 100 99 Oxygen Delivery 05/02/24 18:17 05/02/24 20:27 05/02/24 21:33 Temperature 97.9 F 97.7 F Pulse Rate 98 95 76 Respiratory Rate 16 22 H 20 Blood Pressure 112/89 134/91 H 110/60 Pulse Oximetry 98 99 100 Oxygen Delivery 05/02/24 21:45 05/03/24 03:01 Temperature 97.7 F Pulse Rate 76 65 Respiratory Rate 20 18 Blood Pressure 106/64 Pulse Oximetry 100 98 Oxygen Delivery Room Air Intake/Output Intake/Output: Intake & Output 04/30/24 05/01/24 05/02/24 05/03/24 23:59 23:59 23:59 23:59 Intake Total 1999 390 Output Total 300 Balance 1999 90 Meds/Results Medications: Active Medications Generic Name Dose Route Start Last Admin Trade Name Freq PRN Reason Stop Dose Admin Acetaminophen 650 mg 05/02/24 20:12 Acetaminophen 325 Mg Tablet PO Q4H PRN Mild Pain (1-3) or Fever Aspirin 81 mg 05/03/24 08:00 Aspirin 81 Mg Enteric Tablet PO DAILY@0800 [facility] Atorvastatin Calcium 20 mg 05/03/24 09:00 Atorvastatin 20 Mg Tablet PO DAILY [facility] Benztropine Mesylate 0.5 mg 05/03/24 21:00 Benztropine Mesylate 0.5 Mg Tablet PO HS [facility] Carvedilol 3.125 mg 05/03/24 09:00 Carvedilol 3.125 Mg Tablet PO Q12H [facility] Divalproex Sodium 500 mg 05/03/24 09:[address] 250 Mg Tabec PO BID [facility] Hydroxyzine Pamoate 25 mg 05/03/24 06:54 Hydroxyzine Pamoate 25 Mg Capsule PO HS PRN anxiety Sodium Chloride 1,000 mls @ 125 mls/hr 05/03/24 07:40 Normal Saline Iv IV CONT .Q8H [facility] Losartan Potassium 25 mg 05/03/24 09:00 Losartan Potassium 25 Mg Tablet PO DAILY [facility] Nicotine 1 patch 05/03/24 07:34 Nicotine (*Pbkc) 14 Mg Patch TRANSDERM DAILY PRN Nicotine withdrawal Olanzapine 5 mg 05/03/24 09:00 Olanzapine 5 Mg Tablet PO 0900 [facility] Olanzapine 10 mg 05/03/24 21:00 Olanzapine 5 Mg Tablet PO HS [facility] Ondansetron HCl 4 mg 05/02/24 20:12 Ondansetron Inj 4 Mg/2 Ml Vial IV PUSH Q4H PRN Nausea Labs Labs: Laboratory Results - last 24 hr 05/02/24 05/02/24 05/03/24 16:46 19:30 07:50 WBC 14.0 H 10.6 H RBC 6.09 4.85 Hgb 19.2 H D 15.4 D Hct 55.8 H 44.8 MCV 91.6 92.4 MCH 31.5 31.8 MCHC 34.4 34.4 RDW 12.9 12.7 Plt Count 254 200 MPV 10.9 H 10.8 H Immature Gran % (Auto) 0.8 H Neut % (Auto) 56.1 Lymph % (Auto) 33.0 [place] % (Auto) 9.5 H Eos % (Auto) 0.1 Baso % (Auto) 0.5 Lymph # (Auto) 4.62 H [place] # (Auto) 1.3 H Eos # (Auto) 0.0 Baso # (Auto) 0.1 Abs Immat Gran (auto) 0.11 H Absolute Neuts (auto) 7.9 H Absolute Nucleated RBC 0.000 Nucleated RBC % 0.0 Sodium 134 L 135 L Potassium 3.7 3.4 Chloride 87 L 102 Carbon Dioxide 27 24 Anion Gap 20 H 9 BUN 37 H D 33 H Creatinine 6.00 H 1.60 H Estim Creat Clear Calc 12 42 Estimated GFR 10 L 46 L Glucose 140 H 93 Calcium 10.2 8.9 Total Bilirubin 0.8 0.7 AST 41 28 ALT 126 H 77 H Alkaline Phosphatase 82 63 Total Protein 8.0 6.0 L Albumin 4.9 3.4 L Lipase 99 Urine Color Yellow Urine Appearance Cloudy H Urine pH 5.0 Ur Specific [place] 1.016 Urine Protein 1+ H Urine Glucose (UA) Trace H Urine Ketones Trace H Ur Blood (Man) Negative Urine Nitrate Negative Urine Bilirubin Negative Urine Urobilinogen 0.2 Leukocyte Esterase Rfl Negative Urine RBC 0-2 Urine WBC 0-5 Ur Squamous Epith Cells Occasional Urine Bacteria None seen Urine Casts >20 Hyaline Casts Present
[2024-05-03] MEDS: ATORVASTATIN 20 MG TABLET PO (08:59)
[2024-05-03] MEDS: carvediloL 3.125 MG TABLET PO ×2 (08:59→20:40)
[2024-05-03] MEDS: ASPIRIN 81 MG ENTERIC TABLET PO (08:59)
[2024-05-03] MEDS: LOSARTAN POTASSIUM 25 MG TABLET PO (09:01)
[2024-05-03] MEDS: DIVALPROEX SODIUM DR 250 MG TABEC 500 MG PO ×2 (09:01→17:10)
[2024-05-03] MEDS: SODIUM CHLORIDE 0.9% IV 1,000 ML 125 ML IV CONT ×2 (09:01→19:38)
[2024-05-03] MEDS: OLANZapine 5 MG TABLET PO (09:01)
[2024-05-03] MEDS: ONDANSETRON INJ 4 MG/2 ML VIAL IV PUSH ×2 (09:02→17:10)
--- NOTE | 2024-05-03 14:07 | P.CDI_ITS ---
CDI Query Clarification Request BMI: 18.0 Nutritional Diagnostic Statement: Please refer to the comprehensive nutrition assessment for further information. If you agree with diagnosis of Severe Protein Calorie Malnutrition related to inadequate protein-energy intake in the acute disease as evidenced by < 50% of EER for > = 5 days, moderate muscle wasting (temporalis) and moderate subcutaneous fat loss ( orbital fat pads ); significant weight loss of 9ibs (7%) 5 days. Please specify severity if known: * Mild * Moderate * Severe * Other/Unknown <Rebekah Miller RN - Last Filed: 05/03/24 14:07> Clarified Diagnosis Clarified Diagnosis: moderate <Renetta Solorzano MD - Last Filed: 05/03/24 15:22>
[2024-05-03] MEDS: OLANZapine 5 MG TABLET 10 MG PO (20:40)
[2024-05-03] MEDS: BENZTROPINE MESYLATE 0.5 MG TABLET PO (20:40)
[2024-05-04 06:00] VITALS: BP 132/60; PULSE 52; RESP 16; TEMP 36.8; O2SAT 100
[2024-05-04] MEDS: SODIUM CHLORIDE 0.9% IV 1,000 ML 125 ML IV CONT ×3 (06:28→22:56)
--- NOTE | 2024-05-04 08:29 | P.PNIM_ITS ---
Progress Note: A&P Assessment and Plan (1) Bipolar disorder: Code(s): F31.9 - Bipolar disorder, unspecified Status: Acute (2) Cannabinoid hyperemesis syndrome: Code(s): R11.2 - Nausea with vomiting, unspecified; F12.90 - Cannabis use, unspecified, uncomplicated Status: Acute (3) Hypertension: Code(s): I10 - Essential (primary) hypertension Status: Chronic (4) Nausea and vomiting: Code(s): R11.2 - Nausea with vomiting, unspecified Status: Acute (5) Acute kidney injury: Code(s): N17.9 - Acute kidney failure, unspecified Status: Acute (6) Dehydration: Code(s): E86.0 - Dehydration Status: Acute (7) Polycythemia due to fall in plasma volume: Code(s): D75.1 - Secondary polycythemia Status: Acute Plan Intractable nausea vomiting, dehydration secondary to cannabinoid hyperemesis syndrome Patient has intractable nausea vomiting resulting in profound dehydration evidenced by secondary polycythemia Start fluid resuscitation Start antiemetic medications Zofran Reglan IV p.r.n. Patient can not tolerate solid diet, nauseous persists but under control05/03 Appetite improving, intake increases, still feeling nauseous Acute renal failure creatinine has jumped from a baseline of 0.7 up to 6. Patient received 2 L fluid bolus in the ER Also received normal saline overnight at 200 mL an hour. Continue fluid rate to 125 mL an hour Follow-up BMP Follow-up input output Creatinine down 0.87 05/04 Psychiatric disorders Denies suicidal ideation Continue home medications Leukocytosis Possible due to dehydration White blood cell is trending down Patient is afebrile Patient has been admitted as observation status. Subjective Date/time seen: 05/04/24 08:29 Interval history: I saw examined patient today. Patient feels better. Appetite improving patient also denies headache, vision change, focal weakness. Exam Narrative: GENERAL: Ill-appearing in no acute distress. Well-nourished. - EYES: EOMI. Anicteric. - HENT: Dry mucous membranes. - LUNGS: Clear to auscultation bilateral ly, no wheezing, rhonchi, or rales. - CARDIOVASCULAR: Regular rate and rhyth m. No murmur. No JVD. - ABDOMEN: Soft, non-tender and non-dist ended. No palpable masses. - EXTREMITIES: No edema. Peripheral puls es 2+. Non-tender. - NEUROLOGIC: No focal neurological defi cits. CN II-XII grossly intact. - PSYCHIATRIC: Awake, Alert and oriented x 3. Appropriate mood and affect. - SKIN: No rashes or lesions. Warm. - LYMPH: No cervical lymphadenopathy. Objective Data Vital Signs Vital Signs: Vital Signs - 24 hr 05/03/24 08:59 05/03/24 09:00 05/03/24 14:00 Temperature 98.3 F Pulse Rate 88 56 L Respiratory Rate 18 Blood Pressure 122/72 Pulse Oximetry 100 Oxygen Delivery Room Air Fraction of Inspired Oxygen 05/03/24 20:00 05/03/24 20:22 05/03/24 20:40 Temperature Pulse Rate 68 72 Respiratory Rate 16 Blood Pressure Pulse Oximetry 98 99 Oxygen Delivery Room Air Room Air Fraction of Inspired Oxygen 21 21 05/03/24 21:32 05/04/24 06:00 Temperature 98.5 F 98.2 F Pulse Rate 68 52 L Respiratory Rate 16 16 Blood Pressure 131/67 132/60 Pulse Oximetry 98 100 Oxygen Delivery Fraction of Inspired Oxygen Intake/Output Intake/Output: Intake & Output 05/01/24 05/02/24 05/03/24 05/04/24 23:59 23:59 23:59 23:59 Intake Total 1999 2926 1400 Output Total 800 650 Balance 1999 [id number] Meds/Results Medications: Active Medications Generic Name Dose Route Start Last Admin Trade Name Freq PRN Reason Stop Dose Admin Acetaminophen 650 mg 05/02/24 20:12 Acetaminophen 325 Mg Tablet PO Q4H PRN Mild Pain (1-3) or Fever Aspirin 81 mg 05/03/24 08:00 05/03/24 08:59 Aspirin 81 Mg Enteric Tablet PO 81 mg DAILY@0800 MELANI Administration Atorvastatin Calcium 20 mg 05/03/24 09:00 05/03/24 08:59 Atorvastatin 20 Mg Tablet PO 20 mg DAILY [facility]ELANI Administration Benztropine Mesylate 0.5 mg 05/03/24 21:00 05/03/24 20:40 Benztropine Mesylate 0.5 Mg Tablet PO 0.5 mg HS MELANI Administration Carvedilol 3.125 mg 05/03/24 09:00 05/03/24 20:40 Carvedilol 3.125 Mg Tablet PO 3.125 mg Q12H [facility]ELANI Administration Divalproex Sodium 500 mg 05/03/24 09:00 05/03/24 17:[address] 250 Mg Tabec PO 500 mg BID MELANI Administration Hydroxyzine Pamoate 25 mg 05/03/24 06:54 Hydroxyzine Pamoate 25 Mg Capsule PO HS PRN anxiety Sodium Chloride 1,000 mls @ 125 mls/hr 05/03/24 07:40 05/04/24 06:28 Normal Saline Iv IV CONT 125 mls/hr .Q8H [facility]ELANI Administration Losartan Potassium 25 mg 05/03/24 09:00 05/03/24 09:01 Losartan Potassium 25 Mg Tablet PO 25 mg DAILY [facility]ELANI Administration Nicotine 1 patch 05/03/24 07:34 Nicotine (*Pbkc) 14 Mg Patch TRANSDERM DAILY PRN Nicotine withdrawal Olanzapine 5 mg 05/03/24 09:00 05/03/24 09:01 Olanzapine 5 Mg Tablet PO 5 mg 0900 MELANI Administration Olanzapine 10 mg 05/03/24 21:00 05/03/24 20:40 Olanzapine 5 Mg Tablet PO 10 mg HS [facility]ELANI Administration Ondansetron HCl 4 mg 05/02/24 20:12 05/03/24 17:10 Ondansetron Inj 4 Mg/2 Ml Vial IV PUSH 4 mg Q4H PRN Administration Nausea
[2024-05-04 08:32] VITALS: PULSE 66
[2024-05-04] MEDS: ATORVASTATIN 20 MG TABLET PO (08:32)
[2024-05-04] MEDS: carvediloL 3.125 MG TABLET PO ×2 (08:32→21:03)
[2024-05-04] MEDS: DIVALPROEX SODIUM DR 250 MG TABEC 500 MG PO ×2 (08:33→16:50)
[2024-05-04] MEDS: ASPIRIN 81 MG ENTERIC TABLET PO (08:33)
[2024-05-04] MEDS: LOSARTAN POTASSIUM 25 MG TABLET PO (08:33)
[2024-05-04] MEDS: OLANZapine 5 MG TABLET PO (08:35)
[2024-05-04 08:50] LABS: Basophils Absolute Auto 0.1 K/mm3 (0.0-0.1); Basophils Percent Auto 0.6 % (0.2-1.2); Eosinophils Percent Auto 0.4 % (0-4.4); Hematocrit 42.2 % (42.0-52.0); Hemoglobin 14.7 g/dL (14.0-18.0); Immature Granulocyte Absolute 0.04 K/mm3 (0.00-0.031); Immature Granulocyte Percent A 0.5 % (0-0.5); Lymphocytes Absolute Auto 2.95 K/mm3 (0.9-3.2); Lymphocytes Percent Auto 34.8 % (18.3-44.2); Mean Corpuscular HGB Conc 34.8 g/dl (32-36); Mean Corpuscular Volume 91.7 fl (80-100); Mean Platelet Volume 10.7 fl (7.4-10.4); Monocytes Absolute Auto 1.1 K/mm3 (0.1-0.6); Monocytes Percent Auto 12.9 % (2.6-8.5); Neutrophils Absolute Auto 4.3 K/mm3 (1.3-6.7); Neutrophils Percent Auto 50.8 % (45.5-73.1); Platelet Count Result 190 k/mm3 (150-375); Red Cell Distribution Width 12.7 % (11.5-14.5); White Blood Count 8.5 K/mm3 (4.5-10.0)
[2024-05-04 09:09] LABS: Anion Gap 6 mmol/L (4-12); Blood Urea Nitrogen 20 mg/dL (9-20); Calcium 8.6 mg/dL (8.4-10.2); Carbon Dioxide 26 mmol/L (22-30); Chloride 104 mmol/L (98-107); Estimated CRCL calculation 75 ml/min; Estimated Glomerular Filt Rate > 60; Glucose 94 mg/dL (65-110); Potassium 3.6 mmol/L (3.4-5.0); Sodium 136 mmol/L (137-145)
[2024-05-04 14:00] VITALS: BP 128/78; PULSE 89; RESP 12; TEMP 36.6; O2SAT 91
[2024-05-04 20:00] VITALS: PULSE 64; RESP 16; O2SAT 97
[2024-05-04 20:14] VITALS: BP 113/70; PULSE 64; RESP 16; TEMP 36.9; O2SAT 97
[2024-05-04 21:03] VITALS: PULSE 64
[2024-05-04] MEDS: BENZTROPINE MESYLATE 0.5 MG TABLET PO (21:03)
[2024-05-04] MEDS: OLANZapine 5 MG TABLET 10 MG PO (21:08)
[2024-05-05 04:33] VITALS: BP 144/68; PULSE 55; RESP 18; TEMP 36.8; O2SAT 99
[2024-05-05 05:43] LABS: Basophils Absolute Auto 0.1 K/mm3 (0.0-0.1); Basophils Percent Auto 0.6 % (0.2-1.2); Eosinophils Absolute Auto 0.1 K/mm3 (0-0.3); Eosinophils Percent Auto 0.8 % (0-4.4); Hematocrit 36.5 % (42.0-52.0); Hemoglobin 12.3 g/dL (14.0-18.0); Immature Granulocyte Absolute 0.03 K/mm3 (0.00-0.031); Immature Granulocyte Percent A 0.4 % (0-0.5); Lymphocytes Absolute Auto 4.18 K/mm3 (0.9-3.2); Lymphocytes Percent Auto 53.2 % (18.3-44.2); Mean Corpuscular HGB Conc 33.7 g/dl (32-36); Mean Corpuscular Hemoglobin 31.6 pg (26-34); Mean Corpuscular Volume 93.8 fl (80-100); Mean Platelet Volume 11.2 fl (7.4-10.4); Monocytes Percent Auto 12.6 % (2.6-8.5); Neutrophils Absolute Auto 2.6 K/mm3 (1.3-6.7); Neutrophils Percent Auto 32.4 % (45.5-73.1); Platelet Count Result 171 k/mm3 (150-375); Red Blood Count 3.89 M/mm3 (4.6-6.20); Red Cell Distribution Width 12.7 % (11.5-14.5); White Blood Count 7.9 K/mm3 (4.5-10.0)
[2024-05-05 05:53] LABS: Anion Gap 4 mmol/L (4-12); Blood Urea Nitrogen 12 mg/dL (9-20); Calcium 8.1 mg/dL (8.4-10.2); Carbon Dioxide 24 mmol/L (22-30); Chloride 108 mmol/L (98-107); Estimated CRCL calculation 81 ml/min; Estimated Glomerular Filt Rate > 60; Glucose 93 mg/dL (65-110); Potassium 3.2 mmol/L (3.4-5.0); Sodium 136 mmol/L (137-145)
--- NOTE | 2024-05-05 08:38 | P.PNIM_ITS ---
Progress Note: A&P Assessment and Plan (1) Bipolar disorder: Code(s): F31.9 - Bipolar disorder, unspecified Status: Acute (2) Cannabinoid hyperemesis syndrome: Code(s): R11.2 - Nausea with vomiting, unspecified; F12.90 - Cannabis use, unspecified, uncomplicated Status: Acute (3) Hypertension: Code(s): I10 - Essential (primary) hypertension Status: Chronic (4) Nausea and vomiting: Code(s): R11.2 - Nausea with vomiting, unspecified Status: Acute (5) Acute kidney injury: Code(s): N17.9 - Acute kidney failure, unspecified Status: Acute (6) Dehydration: Code(s): E86.0 - Dehydration Status: Acute (7) Polycythemia due to fall in plasma volume: Code(s): D75.1 - Secondary polycythemia Status: Acute Plan Intractable nausea vomiting, dehydration secondary to cannabinoid hyperemesis syndrome Patient has intractable nausea vomiting resulting in profound dehydration evidenced by secondary polycythemia Start fluid resuscitation Start antiemetic medications Zofran Reglan IV p.r.n. Patient can not tolerate solid diet, nauseous persists but under control05/03 Patient tolerated diet well, denies nausea vomiting abdomen pain, diarrhea.05/05 Acute renal failure creatinine has jumped from a baseline of 0.7 up to 6. Patient received 2 L fluid bolus in the ER Also received normal saline overnight at 200 mL an hour. Continue fluid rate to 125 mL an hour Follow-up BMP Follow-up input output: Adequate output Creatinine down 0.87 05/04 Resolved Psychiatric disorders Denies suicidal ideation Continue home medications Leukocytosis Possible due to dehydration White blood cell is trending down Patient is afebrile Resolved Patient has been admitted as observation status. Subjective Date/time seen: 05/05/24 08:38 Interval history: I saw examined patient today. Patient feels better. Patient tolerated diet well, denies nausea vomiting abdomen pain or diarrhea. Patient is afebrile blood pressure stable Exam Narrative: GENERAL: Ill-appearing in no acute distress. Well-nourished. - EYES: EOMI. Anicteric. - HENT: Dry mucous membranes. - LUNGS: Clear to auscultation bilateral ly, no wheezing, rhonchi, or rales. - CARDIOVASCULAR: Regular rate and rhyth m. No murmur. No JVD. - ABDOMEN: Soft, non-tender and non-dist ended. No palpable masses. - EXTREMITIES: No edema. Peripheral puls es 2+. Non-tender. - NEUROLOGIC: No focal neurological defi cits. CN II-XII grossly intact. - PSYCHIATRIC: Awake, Alert and oriented x 3. Appropriate mood and affect. - SKIN: No rashes or lesions. Warm. - LYMPH: No cervical lymphadenopathy. Objective Data Vital Signs Vital Signs: Vital Signs - 24 hr 05/04/24 14:00 05/04/24 20:00 05/04/24 20:14 Temperature 97.9 F 98.5 F Pulse Rate 89 64 64 Respiratory Rate 12 16 16 Blood Pressure 128/78 113/70 Pulse Oximetry 91 97 97 Oxygen Delivery Room Air Fraction of Inspired Oxygen 21 05/04/24 21:03 05/05/24 04:33 Temperature 98.3 F Pulse Rate 64 55 L Respiratory Rate 18 Blood Pressure 144/68 H Pulse Oximetry 99 Oxygen Delivery Fraction of Inspired Oxygen Intake/Output Intake/Output: Intake & Output 05/02/24 05/03/24 05/04/24 05/05/24 23:59 23:59 23:59 23:59 Intake Total 1999 2926 4840.8 500 Output Total 800 1920 700 Balance 1999 2126 2920.8 -200 Meds/Results Medications: Active Medications Generic Name Dose Route Start Last Admin Trade Name Freq PRN Reason Stop Dose Admin Acetaminophen 650 mg 05/02/24 20:12 Acetaminophen 325 Mg Tablet PO Q4H PRN Mild Pain (1-3) or Fever Aspirin 81 mg 05/03/24 08:00 05/04/24 08:33 Aspirin 81 Mg Enteric Tablet PO 81 mg DAILY@0800 MELANI Administration Atorvastatin Calcium 20 mg 05/03/24 09:00 05/04/24 08:32 Atorvastatin 20 Mg Tablet PO 20 mg DAILY MELANI Administration Benztropine Mesylate 0.5 mg 05/03/24 21:00 05/04/24 21:03 Benztropine Mesylate 0.5 Mg Tablet PO 0.5 mg HS MELANI Administration Carvedilol 3.125 mg 05/03/24 09:00 05/04/24 21:03 Carvedilol 3.125 Mg Tablet PO 3.125 mg Q12H MELANI Administration Divalproex Sodium 500 mg 05/03/24 09:00 05/04/24 16:[address] 250 Mg Tabec PO 500 mg BID MELANI Administration Hydroxyzine Pamoate 25 mg 05/03/24 06:54 Hydroxyzine Pamoate 25 Mg Capsule PO HS PRN anxiety Sodium Chloride 1,000 mls @ 125 mls/hr 05/03/24 07:40 05/04/24 22:56 Normal Saline Iv IV CONT 125 mls/hr .Q8H MELANI Administration Losartan Potassium 25 mg 05/03/24 09:00 05/04/24 08:33 Losartan Potassium 25 Mg Tablet PO 25 mg DAILY MELANI Administration Nicotine 1 patch 05/03/24 07:34 Nicotine (*Pbkc) 14 Mg Patch TRANSDERM DAILY PRN Nicotine withdrawal Olanzapine 5 mg 05/03/24 09:00 05/04/24 08:35 Olanzapine 5 Mg Tablet PO 5 mg 0900 MELANI Administration Olanzapine 10 mg 05/03/24 21:00 05/04/24 21:08 Olanzapine 5 Mg Tablet PO 10 mg HS MELANI Administration Ondansetron HCl 4 mg 05/02/24 20:12 05/03/24 17:10 Ondansetron Inj 4 Mg/2 Ml Vial IV PUSH 4 mg Q4H PRN Administration Nausea Labs Labs: Laboratory Results - last 24 hr 05/04/24 05/05/24 08:41 04:43 WBC 8.5 7.9 RBC 4.60 3.89 L Hgb 14.7 12.3 L Hct 42.2 36.5 L MCV 91.7 93.8 MCH 32.0 31.6 MCHC 34.8 33.7 RDW 12.7 12.7 Plt Count 190 171 MPV 10.7 H 11.2 H Immature Gran % (Auto) 0.5 0.4 Neut % (Auto) 50.8 32.4 L Lymph % (Auto) 34.8 53.2 H [place] % (Auto) 12.9 H 12.6 H Eos % (Auto) 0.4 0.8 Baso % (Auto) 0.6 0.6 Lymph # (Auto) 2.95 4.18 H [place] # (Auto) 1.1 H 1.0 H Eos # (Auto) 0.0 0.1 Baso # (Auto) 0.1 0.1 Abs Immat Gran (auto) 0.04 H 0.03 Absolute Neuts (auto) 4.3 2.6 Absolute Nucleated RBC 0.000 0.000 Nucleated RBC % 0.0 0.0 Sodium 136 L 136 L Potassium 3.6 3.2 L Chloride 104 108 H Carbon Dioxide 26 24 Anion Gap 6 4 BUN 20 D 12 D Creatinine 0.87 0.80 Estim Creat Clear Calc 75 81 Estimated GFR > 60 > 60 Glucose 94 93 Calcium 8.6 8.1 L
[2024-05-05 08:52] VITALS: PULSE 65
[2024-05-05] MEDS: DIVALPROEX SODIUM DR 250 MG TABEC 500 MG PO (08:52)
[2024-05-05] MEDS: carvediloL 3.125 MG TABLET PO (08:52)
[2024-05-05] MEDS: ASPIRIN 81 MG ENTERIC TABLET PO (08:52)
[2024-05-05] MEDS: LOSARTAN POTASSIUM 25 MG TABLET PO (08:52)
[2024-05-05] MEDS: SODIUM CHLORIDE 0.9% IV 1,000 ML 125 ML IV CONT (08:53)
[2024-05-05] MEDS: ATORVASTATIN 20 MG TABLET PO (08:53)
[2024-05-05] MEDS: OLANZapine 5 MG TABLET PO (08:55)
--- NOTE | 2024-05-05 13:21 | P.DS_ITS ---
DS: Admitting Diagnosis Discharge Date 05/05/24 Admitting Diagnosis (1) Bipolar disorder: Code(s): F31.9 - Bipolar disorder, unspecified Status: Acute (2) Cannabinoid hyperemesis syndrome: Code(s): R11.2 - Nausea with vomiting, unspecified; F12.90 - Cannabis use, unspecified, uncomplicated Status: Acute (3) Hypertension: Code(s): I10 - Essential (primary) hypertension Status: Chronic (4) Nausea and vomiting: Code(s): R11.2 - Nausea with vomiting, unspecified Status: Acute (5) Acute kidney injury: Code(s): N17.9 - Acute kidney failure, unspecified Status: Acute (6) Dehydration: Code(s): E86.0 - Dehydration Status: Acute (7) Polycythemia due to fall in plasma volume: Code(s): D75.1 - Secondary polycythemia Status: Acute DS: Discharge Diagnosis Discharge Diagnosis (1) Bipolar disorder: Code(s): F31.9 - Bipolar disorder, unspecified Status: Acute (2) Cannabinoid hyperemesis syndrome: Code(s): R11.2 - Nausea with vomiting, unspecified; F12.90 - Cannabis use, unspecified, uncomplicated Status: Acute (3) Hypertension: Code(s): I10 - Essential (primary) hypertension Status: Chronic (4) Nausea and vomiting: Code(s): R11.2 - Nausea with vomiting, unspecified Status: Acute (5) Acute kidney injury: Code(s): N17.9 - Acute kidney failure, unspecified Status: Acute (6) Dehydration: Code(s): E86.0 - Dehydration Status: Acute (7) Polycythemia due to fall in plasma volume: Code(s): D75.1 - Secondary polycythemia Status: Acute DS: Summary Hospital Course Hospital Course: 49-year-old male with a past medical history of bipolar disorder, tobacco abuse 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 The patient reports he was able to eat the 1st day that he was home and have a bowel movement. But then he smoked some marijuana and immediately started having nausea and vomiting again. He subsequently has not been able to keep anything down. He has not been able to urinate since the day after he got home. He denies any current abdominal pain he has not had any recurrent nausea or vomiting. He denies any chest pain. He denies any hematemesis or coffee-ground emesis. He reports that he has filled to urinals since he got to the hospital. The following med issues have been addressed during hospitalization Intractable nausea vomiting, dehydration secondary to cannabinoid hyperemesis syndrome Patient has intractable nausea vomiting resulting in profound dehydration evidenced by secondary polycythemia Start fluid resuscitation Start antiemetic medications Zofran Reglan IV p.r.n. Patient can not tolerate solid diet, nauseous persists but under control05/03 Patient tolerated diet well, denies nausea vomiting abdomen pain, diarrhea.05/05 Acute renal failure creatinine has jumped from a baseline of 0.7 up to 6. Patient received 2 L fluid bolus in the ER Also received normal saline overnight at 200 mL an hour. Continue fluid rate to 125 mL an hour Follow-up BMP Follow-up input output: Adequate output Creatinine down 0.87 05/04 Resolved Psychiatric disorders Denies suicidal ideation Continue home medications Leukocytosis Possible due to dehydration White blood cell is trending down Patient is afebrile Resolved Patient medical condition stable, patient will discharge home today Patient needs to see primary care doctor in 1 week for follow-up Time Spent with Patient Time attestation: Total time spent providing and/or coordinating discharge services: Exam Narrative: GENERAL: Ill-appearing in no acute distress. Well-nourished. - EYES: EOMI. Anicteric. - HENT: Dry mucous membranes. - LUNGS: Clear to auscultation bilateral ly, no wheezing, rhonchi, or rales. - CARDIOVASCULAR: Regular rate and rhyth m. No murmur. No JVD. - ABDOMEN: Soft, non-tender and non-dist ended. No palpable masses. - EXTREMITIES: No edema. Peripheral puls es 2+. Non-tender. - NEUROLOGIC: No focal neurological defi cits. CN II-XII grossly intact. - PSYCHIATRIC: Awake, Alert and oriented x 3. Appropriate mood and affect. - SKIN: No rashes or lesions. Warm. - LYMPH: No cervical lymphadenopathy. DS: Data Data Completed and Pending Labs on day of discharge: Labs from last 24 hours 05/05/24 04:43 WBC 7.9 RBC 3.89 L Hgb 12.3 L Hct 36.5 L MCV 93.8 MCH 31.6 MCHC 33.7 RDW 12.7 Plt Count 171 MPV 11.2 H Immature Gran % (Auto) 0.4 Neut % (Auto) 32.4 L Lymph % (Auto) 53.2 H [place] % (Auto) 12.6 H Eos % (Auto) 0.8 Baso % (Auto) 0.6 Lymph # (Auto) 4.18 H [place] # (Auto) 1.0 H Eos # (Auto) 0.1 Baso # (Auto) 0.1 Abs Immat Gran (auto) 0.03 Absolute Neuts (auto) 2.6 Absolute Nucleated RBC 0.000 Nucleated RBC % 0.0 Sodium 136 L Potassium 3.2 L Chloride 108 H Carbon Dioxide 24 Anion Gap 4 BUN 12 D Creatinine 0.80 Estim Creat Clear Calc 81 Estimated GFR > 60 Glucose 93 Calcium 8.1 L Discharge Plan Discharge Attending physician on discharge: felice Discharging Clinician: Renetta Solorzano Anticipated Discharge Date/Time: 05/05/24 13:29 Patient Disposition: Home, Self-Care Activity: as tolerated Diet: as tolerated and regular Patient Instructions: Antibiotic Form Patient Language: Jordanian Stand Alone Forms: General Discharge Information Follow-up/Referrals: Zbigniew,MD Carmine [Primary Care Provider] - (See primary care doctor in 1 week) Discharge Medications: Continued losartan 25 mg tablet 25 mg PO DAILY benztropine 0.5 mg tablet 0.5 mg PO HS olanzapine 5 mg tablet 5 mg PO 0900 divalproex 500 mg tablet,delayed release (DR/EC) 500 mg PO BID atorvastatin 20 mg tablet 20 mg PO DAILY aspirin 81 mg tablet,delayed release (DR/EC) 81 mg PO DAILY@0800 olanzapine 10 mg tablet 10 mg PO HS carvedilol 3.125 mg tablet 3.125 mg PO Q12H hydroxyzine pamoate 25 mg capsule 25 mg PO HS PRN (Reason: anxiety) Date of admission: 05/03/24 07:47 Primary Care Provider: BreCarmine Admitting Provider: Grace Agrawal Attending physician on admission: Grace Agrawal Condition: Stable
[2024-05-05 14:00] VITALS: BP 141/75; PULSE 51; RESP 16; TEMP 37; O2SAT 100
[2024-05-05] MEDS: POTASSIUM CHLORIDE 20 MEQ PACKET (FOR LIQUID) 40 MEQ PO (15:26)
== END 2024-05-05 15:45 | disposition home or self-care (01) | DRG 683 ==
LOC: ANHED 18:16 → ANH2MED 21:07
PROVIDERS: Admitting Provider Internal Medicine; Emergency Provider Emergency Medicine; PCP Internal Medicine; Visit Provider Hospitalist
DX: N17.9 Acute kidney failure, unspecified (principal); E44.0 Moderate protein-calorie malnutrition; Z68.1 Body mass index [BMI] 19.9 or less, adult; E86.0 Dehydration; R11.2 Nausea with vomiting, unspecified; F12.90 Cannabis use, unspecified, uncomplicated; F31.9 Bipolar disorder, unspecified; F17.210 Nicotine dependence, cigarettes, uncomplicated; D75.1 Secondary polycythemia; D72.829 Elevated white blood cell count, unspecified; I10 Essential (primary) hypertension; Z79.82 Long term (current) use of aspirin; Z98.41 Cataract extraction status, right eye; Z98.42 Cataract extraction status, left eye; Z96.1 Presence of intraocular lens
CPT/HCPCS: 36415; 80048; 80053; 81001; 83690; 85025; 85027; 96361; 96374; 96375; 99285; A9270; G0378; J2405; J2550; J3411; J7030

== ENCOUNTER 2024-07-18 22:24 | Observation (INO) | payer MEDICARE, MEDICAID, SELFPAY ==
--- NOTE | ~2024-07-18 | US_ITS ---
US renal BI Ordering provider: Wes Rosario MD History: . EDILBERTO . Comparison: None. Technique: Ultrasound bilateral kidneys. Findings: RIGHT KIDNEY: Measures 11.2x 5.4x 6.2 cm in length which is normal in size. No renal cysts. No renal mass or visualized echogenic stones. Otherwise, normal echotexture and contour. No hydronephrosis. No rmal renal cortical thickness. LEFT KIDNEY: Measures 12.7x 5.9x 5.1 cm in length which is normal in size. No renal cysts. No renal m ass or visualized echogenic stones. Otherwise, normal echotexture and contour. No hydronephrosis. Nor mal renal cortical thickness. BLADDER: Normal. Ureteral jets were not seen bilaterally. IMPRESSION: No definite abnormality seen. Reviewed, dictated and finalized at location A.
--- NOTE | ~2024-07-18 | XR_ITS ---
Portable chest x-ray Comparison: 04/25/2024 Clinical History: Chest pain Findings: Lungs are clear, without focal consolidation or pleural effusion. Cardiomediastinal silho uette is stable. Bones and soft tissues are unremarkable. Impression: Clear lungs. Possible COPD. Reviewed, dictated and finalized at location . Impression: Clear lungs. Possible COPD.
--- NOTE | ~2024-07-18 | CT_ITS ---
Non-contrast CT scan of the Abdomen and Pelvis Clinical indication: Abdominal pain Technique: 2.5 mm axial scans were obtained through the abdomen and pelvis without intravenous or or al contrast. Dose reduction technique was used on this scan by utilizing automated exposure control a nd iterative reconstruction technique. The dose-length product (DLP) was 213.86 mGy-cm. COMPARISON: 04/25/2024 Findings: Images through the lung bases reveal no abnormalities. There is no evidence of renal or ureteral calculi. The kidneys and the ureters are nondilated. The liver, spleen, pancreas, and adrenals appear normal. Gallbladder absent. There is no aortic aneur ysm. There is no evidence of bowel obstruction. Images through the pelvis were performed. There is no evidence of ascites or lymphadenopathy. Questio nable urinary bladder wall thickening. No pelvic mass seen. No ascites. Impression: Questionable cystitis versus underdistention of urinary bladder. Correlate with urinalysis. Reviewed, dictated and finalized at [facility]. Impression: Questionable cystitis versus underdistention of urinary bladder. Correlate with urinalysis.
--- OUTSIDE RECORDS SUMMARY | 2024-07-18 22:26 | XMS_ITS | Patient Health Record ---
Author Organization [facility] Office Address [address] [place] [address] Care Team Providers Care Mutuel Department Manager Name Role Phone Christiano Dominik Unavailable [phone] Reason For Referral No Information Medications Medication SIG (Take, Route, Frequency, Duration) Notes Start Date End Date Status Losartan Potassium 25 MG 1 tablet Orally Once a day for 90 day(s) Active Social History Sex Assigned At : Social History Observation Description Sex Assigned At Male Problems Problem Type SNOMED Code ICD Code Onset Dates Problem Status W/U Status Risk Notes Problem Leukocytosis (691682357) Elevated white blood cell count, unspecified (D72.829) Active confirmed Problem Syndrome of inappropriate secretion of antidiuretic hormone (06764880) 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 Problem Gastroduodenitis (212386710) Gastritis, unspecified, without bleeding (K29.70) Active confirmed Problem Chronic kidney disease stage 2 (414365776) Chronic kidney disease, stage 2 (mild) (N18.2) Active confirmed Problem Renal osteodystrophy (N25.0) Active confirmed Encounters Encounter Location Date Provider Diagnosis [facility] [address] [place] [address] 07/29/2023 Dominik Alvarado Chronic kidney disea se, stage 3a N18.31 ; Acute kidney failure, unspecified N17.9 ; Abnormal coagulation profile R79.1 ; Gastritis, unspecified, without bleeding K29.70 ; Sepsis, unspecified organism A41.9 and Elevated white blood cell count, unspecified D72.829 [facility] [address] [address] 10/14/2023 Dominik Alvarado Chronic kidney disea se, stage 3a N18.31 ; Essential hypertension I10 ; Acute kidney failure, unspecified N17.9 ; Abnormal coagulation profile R79.1 ; Gastritis, unspecified, without bleeding K29.70 ; Sepsis, unspecified organism A41.9 and Elevated white blood cell count, unspecified D72.829 [facility] [address] [place] [address] 12/09/2023 Dominik Alvarado Chronic kidney disea se, stage 3a N18.31 ; Chronic kidney disease, stage 1 N18.1 ; Chronic kidney disease, stage 2 (mild) N18.2 ; Essential hypertension I10 ; Acute kidney failure, unspecified N17.9 ; Abnormal coagulation profile R79.1 ; Gastritis, unspecified, without bleeding K29.70 ; Sepsis, unspecified organism A41.9 and Elevated white blood cell count, unspecified D72.829 [facility] [address] [place] [address] 02/03/2024 Dominik Alvarado Chronic kidney disea se, stage 2 (mild) N18.2 ; Essential hypertension I10 ; Renal osteodystrophy N25.0 and Proteinuria, unspecified R80.9 [facility] [address] [place] [address] 05/11/2024 Dominik Alvarado Chronic kidney disea se, stage 3a N18.31 ; Acute kidney failure, unspecified N17.9 ; Abnormal coagulation profile R79.1 ; Gastritis, unspecified, without bleeding K29.70 ; Sepsis, unspecified organism A41.9 ; Elevated white blood cell count, unspecified D72.829 ; Essential hypertension I10 ; Renal osteodystrophy N25.0 and Syndrome of inappropriate secretion of antidiuretic hormone E22.2 [facility] [address] [place] [address] 07/13/2024 Dominik Alvarado Syndrome of inappropriate secretion of antidiuretic hormone [...] N18.2) 02/03/2024 Essential hypertension (ICD-10 - I10) 05/11/2024 Chronic kidney disease, stage 3a (ICD-10 - N18.31) 05/11/2024 Acute kidney failure, unspecified (ICD-10 - N17.9) 02/03/2024 Renal osteodystrophy (ICD-10 - N25.0) 12/09/2023 Chronic kidney disease, stage 2 (mild) (ICD-10 - N18.2) 10/14/2023 Acute kidney failure, unspecified (ICD-10 - N17.9) 07/29/2023 Acute kidney failure, unspecified (ICD-10 - N17.9) 07/29/2023 Abnormal coagulation profile (ICD-10 - R79.1) 10/14/2023 Abnormal coagulation profile (ICD-10 - R79.1) 02/03/2024 Proteinuria, unspecified (ICD-10 - R80.9) 12/09/2023 Essential hypertension (ICD-10 - I10) 05/11/2024 Abnormal coagulation profile (ICD-10 - R79.1) 05/11/2024 Gastritis, unspecified, without bleeding (ICD-10 - K29.70) 12/09/2023 Acute kidney failure, unspecified (ICD-10 - N17.9) 07/29/2023 Gastritis, unspecified, without bleeding (ICD-10 - K29.70) 10/14/2023 Gastritis, unspecified, without bleeding (ICD-10 - K29.70) 10/14/2023 Sepsis, unspecified organism (ICD-10 - A41.9) 07/29/2023 Sepsis, unspecified organism (ICD-10 - A41.9) 12/09/2023 Abnormal coagulation profile (ICD-10 - R79.1) 05/11/2024 Sepsis, unspecified organism (ICD-10 - A41.9) 05/11/2024 Elevated white blood cell count, unspecified (ICD-10 - D72.829) 12/09/2023 Gastritis, unspecified, without bleeding (ICD-10 - K29.70) 07/29/2023 Elevated white blood cell count, unspecified (ICD-10 - D72.829) 10/14/2023 Elevated white blood cell count, unspecified (ICD-10 - D72.829) 12/09/2023 Sepsis, unspecified organism (ICD-10 - A41.9) 05/11/2024 Essential hypertension (ICD-10 - I10) 05/11/2024 Renal osteodystrophy (ICD-10 - N25.0) 12/09/2023 Elevated white blood cell count, unspecified (ICD-10 - D72.829) 05/11/2024 Syndrome of inappropriate secretion of antidiuretic hormone (ICD-10 - E22.2) 07/13/2024 Syndrome of inappropriate secretion of antidiuretic hormone (ICD-10 - E22.2) 07/13/2024 Chronic kidney disease, stage 2 (mild) (ICD-10 - N18.2) 07/13/2024 Elevated white blood cell count, unspecified (ICD-10 - D72.829) 07/13/2024 Gastritis, unspecified, without bleeding (ICD-10 - K29.70) 07/13/2024 Renal osteodystrophy (ICD-10 - N25.0) Plan Of Treatment Next Appt Details Provider Name:Dominik Alvarado , 10/05/2024 02:00:00 PM, [address], [facility], [place], [address],
--- OUTSIDE RECORDS SUMMARY | 2024-07-18 22:26 | XMS_ITS | Continuity of Care Document ---
Author Organization [facility] Address [address] [place] [address] Insurance Providers Payer Plan Claims Address Claims Phone Policy Number Group Number Relation Employer Guarantor Name Guarantor Guarantor Address Guarantor Phone [facility] [employer] [address] [address], [place] [address] 44 [id number] Self Gianni Hsu [address] [place], [place] [id number] [employer] [address] [address], [place] [address] Coverag [id number] Self Gianni Hsu [address] [place] [id number] [employer] [address] [address], [place] [address] Coverag [id number] Self Gianni Hsu [address] [place], [place] [id number] Problems Unknown Problems Results No Results Allergies, [...]
--- OUTSIDE RECORDS SUMMARY | 2024-07-18 22:26 | XMS_ITS ---
Author Organization [facility] Address [address] [address] [place] [address] Care Team Providers Care Motor Installer Name Role Phone Dominik Alvarado Unavailable [phone] Social History Sex Assigned At : Social History Observation Description Sex Assigned At Male Problems Problem Type SNOMED Code ICD Code Onset Dates Problem Status W/U Status Risk Notes Problem Syndrome of inappropriate secretion of antidiuretic hormone (13310144) 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 Encounters Encounter Location Date Provider Diagnosis [facility] [facility] [address] [facility] [address] [place] [address] 05/11/2024 Dominik Alvarado Chronic kidney disea se, [...] Name:Dominik Alvarado , 10/05/2024 02:00:00 PM, [address] [facility] [address], [place], [place], [facility], Progress Notes * ASHLYN CANALESDOB:03/1974 (49 yo M)Acc No.[id number]:05/11/2024 Progress Notes Patient: ASHLYN DUMONT Provider: Crispin SYED MD, F.A.C.P, F.A.S.N. :1975 A ge:49 Y S ex:Male Date:05/11/2024 Address:[address] [place] [address] Subjective: * Chief Complaints: * * Medical [...] DISCH * Billing Information: * Visit Code: 56827 Office Visit, Est Pt., Level 4. * Procedure Codes: 36553 TRANS CARE MGMT 7 DAY DISCH. * Electronic signature of Santiago Alvarado MD on 07/18/2024 at 10:26 PM CDT Sign off status: Pending * Provider: Crispin SYED MD, F.A.C.P, F.A.S.N. Date: 0 05/11/2024 Generated for Printing/Facapriceg/eTransmitting on: 0 07/18/2024 10:26 PM CDT
--- OUTSIDE RECORDS SUMMARY | 2024-07-18 22:26 | XMS_ITS | Continuity of Care Document ---
Author Name [facility] Organization [facility] Care Team Providers Care Patient Appointment Coordinator Name Role Phone [facility] Unavailable Unavailable Social History Combined list of available smoking, tobacco, and other social history from [facility] of Defense and [facility] facilities. Social History Type Response Date Comment [facility] e This section is an empty social history section. [facility]
--- OUTSIDE RECORDS SUMMARY | 2024-07-18 22:26 | XMS_ITS ---
Author Organization [facility] Address [address] [facility] [address] [place] [address] [place] [address] Care Team Providers Care Fisher Swordfish Name Role Phone Christiano Dominik Unavailable [phone] Social History Sex Assigned At : Social History Observation Description Sex Assigned At Male Encounters Encounter Location Date Provider Diagnosis [place] [facility] [address] [place] [address] 04/06/2024 Dominik Alvarado Plan Of Treatment Next Appt Details Provider Name:Dominik Alvarado , 10/05/2024 02:00:00 PM, [address], [facility] [place], Progress Notes * ASHLYN CANALESDOB:03/1974 (49 yo M)Acc No.[id number]:04/06/2024 Progress Notes Patient: ASHLYN DUMONT Provider: Crispin SYED MD, Ryan.Florencia.P, F.A.S.N. :1975 A ge:49 Y S ex:Male Date:04/06/2024 Address:[address] [place] [address] Subjective: * Chief Complaints: * * Medical History: Objective: * Vitals: Assessment: Plan: * Treatment: * Billing Information: * Visit Code: * Procedure Codes: * Electronic signature of Santiago Alvarado MD on 07/18/2024 at 10:26 PM CDT Sign off status: Pending * Provider: Crispin SYED MD, Barak.C.P, F.A.S.N. Date: 04/06/2024 Generated for Printing/Faxing/eTransmitting on: 07/18/2024 10:26 PM CDT
--- OUTSIDE RECORDS SUMMARY | 2024-07-18 22:27 | XMS_ITS | Data Portability ---
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 [email or web address] Not available 06/21/2022 14:19:24 10/22/2022 10/22/2022 Continue with current therapy follow-up 4 months [email or web address] Not available 11/12/2022 12:01:26 01/28/2023 01/28/2023 Blood [...] recorded. Lab lipid panel, serum 2022 023 [facility] (Lab), [address] [place], [address], 09:46:00 CMP, serum or plasma 2022 023 [facility] (Lab), [address] [place], [address], 14:52:35 Referral None recorded. Procedures colonoscopy screening (PROC) 2022 023 josiah Cortez MD, [address], [address], [place], [address], 3 17:05:26 Surgeries None recorded. Imaging LDCT, chest, for lung cancer screening 2022 023 [facility] ([facility] Sched[facility]), [address], [place], [address], 3 17:05:10 Medication Orders None recorded. Patient TargetsNo targets recorded. Patient InstructionsNo instructions recorded. Reason for Referral None Reported. Results Created Date Observation Date Name Description Value Unit Range Abnormal Flag Note LastModifiedBy Organization Detail LastModifiedTime 06/21/1906/20/2022 COMPR EHENS JUVENTINO METAB OLIC PANEL sodium 137 mmol/ L 137-14 5 Not Available [facility] (Lab) [address] [place], [address], 06/20/2022 14:52:34 06/21/19 23 06/20/2022 COMPR EHENS JUVENTINO METAB OLIC PANEL potassium 4.5 mmol/ L 3.5-5. 1 Not Available [facility] (Lab) [address] [place], [address], 06/20/2022 14:52:34 06/21/1906/20/2022 COMPR EHENS JUVENTINO METAB OLIC PANEL chloride 102 mmol/ L 98-107 Not Available [facility] (Lab) [address] [place], [address], 06/20/2022 14:52:34 06/21/19 23 06/20/2022 COMPR EHENS JUVENTINO METAB OLIC PANEL carbon dioxide 27 mmol/ L 22-30 Not Available [facility] (Lab) [address] [place], [address], 06/20/2022 14:52:34 06/21/19 23 06/20/2022 COMPR EHENS JUVENTINO METAB OLIC PANEL anion gap 12.5 mmol/ L 14-22 low Not Available [facility] (Lab) [address] [place], [address], 06/20/2022 14:52:34 06/21/19 23 06/20/2022 COMPR EHENS JUVENTINO METAB OLIC PANEL glucose 59 mg/dL 70-99 low Not Available [facility] (Lab) [address] [place], [address], 06/20/2022 14:52:34 06/21/19 23 06/20/2022 COMPR EHENS JUVENTINO METAB OLIC PANEL BUN 10 mg/dL 8-19 Not Available [facility] (Lab) [address] [place], [address], 06/20/2022 14:52:34 06/21/19 23 06/20/2022 COMPR EHENS JUVENTINO METAB OLIC PANEL creatinine 0.87 mg/dL 0.66-1 .25 Not Available [facility] (Lab) [address] [place], [address], 06/20/2022 14:52:34 06/21/19 23 06/20/2022 COMPR EHENS JUVENTINO METAB OLIC PANEL GFR >60 Refer ence Range : [place] ge GFR Healt hy Adult : >60 [...] calcu lator is avail able on the [facility] websi te: https ://ww w.kid desmond.o rg/pr ofess ional s/kdo qi/gf r_cal culat or Not Available [facility] (Lab) [address] [place], [address], 06/20/2022 14:52:34 06/21/19 23 06/20/2022 COMPR EHENS JUVENTINO METAB OLIC PANEL alkaline phosphatase 89 U/L 38-126 Not Available [facility] (Lab) [address] [place], [address], 06/20/2022 14:52:34 06/21/19 23 06/20/2022 COMPR EHENS JUVENTINO METAB OLIC PANEL alanine aminotransfe rase 17 U/L 0-50 Not Available [facility] (Lab) [address] [place], [address], 06/20/2022 14:52:34 06/21/19 23 06/20/2022 COMPR EHENS JUVENTINO METAB OLIC PANEL aspartate aminotransfe rase 19 U/L 15-46 Not Available [facility] (Lab) [address] [place], [address], 06/20/2022 14:52:34 06/21/19 23 06/20/2022 COMPR EHENS JUVENTINO METAB OLIC PANEL bilirubin, total 0.50 mg/dL 0.20-1 .30 Not Available [facility] (Lab) [address] [place], [address], 06/20/2022 14:52:34 06/21/19 23 06/20/2022 COMPR EHENS JUVENTINO METAB OLIC PANEL calcium 9.2 mg/dL 8.4-10 .2 Not Available [facility] (Lab) [address] [place], [address], 06/20/2022 14:52:34 06/21/19 23 06/20/2022 COMPR EHENS JUVENTINO METAB OLIC PANEL total protein 6.6 g/dL 6.3-8. 2 Not Available [facility] (Lab) [address] [place], [address], 06/20/2022 14:52:34 06/21/19 23 06/20/2022 COMPR EHENS JUVENTINO METAB OLIC PANEL albumin 4.2 g/dL 3.4-5. 0 Not Available [facility] (Lab) [address] [place], [address], 06/20/2022 14:52:34 06/21/19 23 06/20/2022 COMPR EHENS JUVENTINO METAB OLIC PANEL globulin 2.4 g/dL 2.6-4. 2 low Not Available [facility] (Lab) [address] [place], [address], 06/20/2022 14:52:34 06/21/19 23 06/20/2022 COMPR EHENS JUVENTINO METAB OLIC PANEL A/G ratio 1.8 ratio 1.0-2. 0 Not Available [facility] (Lab) [address] [place], [address], 06/20/2022 14:52:34 11/21/19 22 11/20/2021 , echo marcos hyde No observ ation record ed. [id number] [facility] [address], [place], [address], 04/16/2022 05:03:41 07/04/19 07/03/2022 LDCT, chest , for lung cance r scree heri [facility] [address] [place] [address] [phone] Renny shipman Name: JACOB DIAZ IN E Access ion #: [id number] Sex: M : 1974 5 Locati [...] on techni que. Page 1 of 3 [facility] Renny t Name: JACOB DIAZ IN E Access ion #: [id number] Sex: M : 1974 5 Exam Date: 023 1:31 PM Exam Name: CT CHEST WO LOW DOSE F/U Admitt ing Diagno sis(es ): FINDIN GS: Lungs: Parase ptal bullae format ion. No suspic ious nodule s. Increa sed anteri or housing management officer ior diamet er of the trache a [...] 6:12 PM (CT) Page 2 of 3 [facility] Name: JACOB DIAZ IN E Access ion #: [id number] Sex: M : 1974 5 Exam Date: 1:31 PM Exam Name: CT CHEST WO LOW DOSE F/U Admitt ing Diagno sis(es ): DT: 6:12 PM (CT) Page 3 of 3 [facility] (Imaging) [address] [place], [address], 10/23/2022 10:30:23 02/05/20 23 12/12/2022 US, echoc ardio gram No observ ation record ed. [facility] [address], [place], [address], 02/20/2023 15:27:53 Result Notes None recorded. Problems Name Problem SNOMED Code Status Onset Date Resolution Date Notes Provider Name and Address Organization Details Recorded Time Vitamin D below reference range 055443621 Active 2022 Not Available [facility] 4 04:25:56 Essential hypertensi on 18234613 Active 2022 Not Available [facility] 4 04:25:56 Tobacco user 025783731 Active Not Available [facility] 4 04:25:56 Rectal hemorrhage 53236062 Completed Not Available [facility] 3 04:51:03 Urinary incontinen ce 262925747 Completed Not Available [facility] 3 04:51:03 Pain in scrotum 29989162 Active Not Available [facility] 4 04:25:56 Abdominal pain 22306667 Active Not Available [facility] 4 04:25:56 Gallstone 830357635 Active Not Available [facility] 4 04:25:56 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 Not Available [facility] 4 04:25:56 Headache 14487781 Active Not Available [facility] 4 04:25:56 Abnormal weight loss 602286622 Active Not Available [facility] 4 04:25:56 Retention of urine 803951625 Active Not Available [facility] 4 04:25:56 Low back pain 008684048 Active Not Available [facility] 4 04:25:56 Dyslipidem ia 702888053 Active 2021 Not Available [facility] 4 04:25:56 Anxiety 63110629 Active 2022 Not Available [facility] 4 04:25:56 Dysuria 95935253 Active Not Available [facility] 4 04:25:56 Problem Notes None recorded. Procedures Surgical History Date Name Laterality Status Provider Name and Address Organization Details Recorded Time 01/31/20 15 laparoscopic cholecystectomy completed Not Available [facility] 04/16/2022 04:42:01 Eye Surgery completed Not Available [facility] 04/16/2022 04:42:01 other completed Not Available [facility] 04/16/2022 04:42:01 Imaging Results None recorded. Procedure Notes None recorded. Medical Equipment None [...] kg/m2 177.8 cm 62 /min 97.5 [degF] 17211.7 5 g 102 mm[Hg] 66 mm[Hg] Not Available [facility] 3 04:47:15 Date Recorded Body height Body mass index (BMI) Body weight Body temperature Heart rate Oxygen saturation Oxygen saturation in Arterial blood by Pulse oximetry Systolic blood pressure Diastolic blood pressure Provider Name and Address Organization Details Last Updated DateTime 3 177.8 cm 19.7 kg/m2 77510.1 5 g 97.9 [degF] 59 /min 98 % 98 % 110 mm[Hg] 70 mm[Hg] Gayatri Sebastian RN [facility] [employer] 3 14:48:28 Date Recorded Body height Body mass index (BMI) Body weight Body temperature Heart rate Systolic blood pressure Diastolic blood pressure Provider Name and Address Organization Details Last Updated DateTime 3 177.8 cm 18.7 kg/m2 30409.0 1 g 97.4 [degF] 67 /min 120 mm[Hg] 70 mm[Hg] ERINN Hardwick [place] [employer] [facility] [employer] 3 15:39:10 Date Recorded Body mass index (BMI) Body height Heart rate Body temperature Body weight Systolic blood pressure Diastolic blood pressure Provider Name and Address Organization Details Last Updated DateTime 2 19.5 kg/m2 177.8 cm 56 /min 97.1 [degF] 24028.5 6 g 100 mm[Hg] 60 mm[Hg] Not Available [facility] 3 04:47:15 Date Recorded Body height Body mass index (BMI) Body weight Body temperature Heart rate Systolic blood pressure Diastolic blood pressure Provider Name and Address Organization Details Last Updated DateTime 3 177.8 cm 18.8 kg/m2 24626.6 g 97.5 [degF] 62 /min 110 mm[Hg] 64 mm[Hg] ERINN Hardwick [employer] 3 15:05:12 Social History Question Answer Notes LastModified by Organization Details LastModified Time Tobacco Smoking Status Current Every Day Smoker Not Available [facility] 04/16/2022 04:31:48 Do You Have An Advance Directive? No MIGRATION.300 [id number] Information not available 04/16/2022 Are You Blind Or Do You Have Difficulty Seeing? No MIGRATION.22990324 Information not available 04/16/2022 What Is Your Level Of Caffeine Consumption? Heavy MIGRATION.0301 [id number] Information not available 04/16/2022 How Much Tobacco Do You Chew? None MIGRATION.0301 158963 Information not available 04/16/2022 In The 14 Days Before Symptom Onset, Have You Had Close Contact With A Laboratory-confi rmed COVID-19 While That Case Was Ill? No MIGRATION.0301 327959 Information not available 04/16/2022 In The 14 Days Before Symptom Onset, Have You Had Close Contact With A Person Who Is Under Investigation For COVID-19 While That Person Was Ill? No MIGRATION.0301 886887 Information not available 04/16/2022 Are You Deaf Or Do You Have Serious Difficulty Hearing? No MIGRATION.0301 096896 Information not available 04/16/2022 What Type Of Diet Are You Following? REGULAR MIGRATION.0301 893106 Information not available 04/16/2022 Which Illicit Or Recreational Drugs Have You Used? Marijuana Daily Smoker MIGRATION.0301 307353 Information not available 04/16/2022 What Is The Highest Grade Or Level Of School You Have Completed Or The Highest Degree You Have Received? GB30249-8 [email or web address] Information not available 06/18/2022 Have There Been Any Changes To Your Family Or Social Situation? No MIGRATION.0301 509652 Information not available 04/16/2022 What Is The Fluoride Status Of Your Home? Fluoridated MIGRATION.0301 802810 Information not available 04/16/2022 Are There Any Guns Present In Your Home? No MIGRATION.0301 581157 Information not available 04/16/2022 Do You Use Insect Repellent Routinely? No [email or web address] Information not available 06/18/2022 Where Do You Live? SingleLevelHouse MIGRATION.0301 288589 Information not available 04/16/2022 Do You Have A Medical Power Of Mental Health Worker? No MIGRATION.0301 654800 Information not available 04/16/2022 What Was The Date Of Your Most Recent Tobacco Screening? 01/28/2023 [email or web address] Information not available 01/28/2023 How Many Children Do You Have? 3 [email or web address] Information not available 06/18/2022 What Is Your Current Pack Years? [email or web address] MIGRATION.0301 250982 Information not available 04/16/2022 Do You Have Any Pets? Yes [email or web address] Information not available 06/18/2022 What Is Your Relationship Status? Single [email or web address] Information not available 06/18/2022 Do You Use Your Seat Belt Or Car Seat Routinely? Yes MIGRATION.0301 514098 Information not available 04/16/2022 Do You Have Smoke And Carbon Monoxide Detectors In Your Home? Yes MIGRATION.0301 219850 Information not available 04/16/2022 At What Age Did You Start Smoking Tobacco? 16 MIGRATION.0301 839874 Information not available 04/16/2022 Are You Passively Exposed To Smoke? Yes [email or web address] Information not available 06/18/2022 Are There Any Smokers In Your House? Yes MIGRATION.0301 107611 Information not available 04/16/2022 How Much Tobacco Do You Smoke? 0.5 PPD MIGRATION.0301 590140 Information not available 04/16/2022 Do You Use Sunscreen Routinely? No MIGRATION.0301 015883 Information not available 04/16/2022 Have You Recently Traveled Abroad? No MIGRATION.0301 940796 Information not available 04/16/2022 Have You Used IV Drugs? No [email or web address] Information not available 06/18/2022 Do You Have Difficulty Walking Or Climbing Stairs? No MIGRATION.0301 963036 Information not available 04/16/2022 Do You Have Any Dietary Restrictions? No [email or web address] Information not available 06/18/2022 Sex: Unknown Functional Status Question Answer Note LastModified by Organizat ion Details LastModified Time Do you use any illicit or recreational drugs? Yes [email or web address] Information not available 06/18/2022 What is your level of alcohol consumption? None QUIT DRINKING MIGRATION.79631 51419 Information not available 04/16/2022 Do you or have you ever used smokeless tobacco? Never used smokeless tobacco MIGRATION.26927 58771 Information not available 04/16/2022 Are you currently employed? No [email or web address] Information not available 06/18/2022 Do you have difficulty doing errands alone? No MIGRATION.15815 96881 Information not available 04/16/2022 Do you have difficulty dressing or bathing? No MIGRATION.00958 40439 Information not available 04/16/2022 Do you or have you ever used e-cigarettes or vape? Never used electronic cigarettes MIGRATION.11171 10092 Information not available 04/16/2022 What is your exercise level? None MIGRATION.87804 37252 Information not available 04/16/2022 Mental Status Question Answer Note LastModified by Organizat ion Details LastModified Time Do you feel stressed (tense, restless, nervous, or anxious, or unable to sleep at night)? QF71804-3 [email or web address] Information not available 06/18/2022 Do you have difficulty concentrating, remembering or making decisions? No MIGRATION.26569956 26 Information not available 04/16/2022 Family History Relationship Description Onset Age of this Age Resolved Age Notes LastModified by Organization Details LastModified Time Father Malignant neoplastic disease MIGRATION.668 1572076 Not available 04/16/2022 04:42:06 Father Hypertensive disorder MIGRATION.546 1905549 Not available 04/16/2022 04:42:06 Father Diabetes mellitus MIGRATION.223 5971377 Not available 04/16/2022 04:42:07 Maternal Grandfather Heart disease MIGRATION.461 0764504 Not available 04/16/2022 04:42:07 Maternal Grandfather Family history of malignant neoplasm MIGRATION.194 9692545 Not available 04/16/2022 04:42:07 Maternal Grandfather Diabetes mellitus MIGRATION.193 6185295 Not available 04/16/2022 04:42:07 Maternal Grandmother Heart disease MIGRATION.812 4565249 Not available 04/16/2022 04:42:07 Medical History Condition Response NERVE DISEASE N BLINDNESS N RHEUMATIC FEVER N KIDNEY STONES N BLADDER PROBLEMS N MRSA N OTHER # 1 N POLIO N LUNG DISEASE/DISORDER N RADIATION / CHEMOTHERAPY N COPD N Other # 2 N BLOOD DISEASES N EAR OR HEARING PROBLEMS N MUMPS N DEPRESSION (INCLUDING POST ) Y BOWEL PROBLEMS N STROKE/TIA N ULCERS N BENIGN PROSTATIC HYPERPLASIA [...] HAVE YOU BEEN HOSPITALIZED OR SEEN IN [facility] IN THE PAST YEAR ? N ATHEROSCLEROSIS [...] quadrivalent, preservative free 9 completed Not Available [facility] 02/27/2023 04:25:56 Influenza, split virus, quadrivalent, preservative 7 completed Not Available [facility] 02/27/2023 04:25:56 Influenza, split virus, quadrivalent, PF 5 completed Not Available [facility] 02/27/2023 04:25:56 Past Encounters Encounter ID Performer Location Encounter Start Date Encounter Closed Date Diagnosis/Indication Diagnosis SNOMED-CT Code Diagnosis ICD10 Code Diagnosis Note [id number] Yariel Coy MD [facility] Internal [facility] [address] [address] 07/02/2020 00:00:00 07/29/2020 12:12:15 [id number] Michele Dvaies MD [facility] [address] [address] 08/15/2020 00:00:00 08/15/2020 14:31:06 [id number] MD NIK Perez_Mercedes [address] [address] 08/29/2020 00:00:00 08/29/2020 15:45:16 [id number] Yariel Coy MD [facility] Internal Med [facility] [address] [place] [address] Ave[address] [address] 07/12/2021 00:00:00 07/12/2021 22:49:21 [id number] Yariel Coy MD [facility] Internal Med [facility] [address] [place] [address] [address] [address] 08/09/2021 00:00:00 08/11/2021 14:18:23 [id number] Yariel Coy MD [facility] Internal Med [facility] [address] [place] [address] [address] [address] 11/07/2021 00:00:00 12/15/2021 18:24:59 [id number] Yariel Coy MD [facility] Internal Med [facility] [address] [place] [address] [address] [address] 02/19/2022 00:00:00 02/20/2022 21:26:50 [id number] Yariel Coy MD [facility] Internal Med [facility] [address] [place] [address] [address] 06/18/2022 14:35:11 06/18/2022 15:53:49 Dyslipidemia 472989017 E78.5 Screening for malignant neoplasm of colon 921397002 Z12.11 Nicotine dependence 5629 4008 Z87.891 Essential hypertension 77932540 I10 Vitamin D below reference range 020965075 E55.9 [id number] Yariel Coy MD [facility] Internal Med [facility] [address] [place] [address] [place] [address] 10/22/2022 15:23:29 10/22/2022 16:12:01 Essential hypertension 64600888 I10 Dyslipidemia 428596746 E 78.5 Anxiety 53315090 F41.9 Vitamin D below reference range 921264572 E55.9 [id number] Yariel Coy MD [facility] Internal Med [facility] [address] [place] [address] [place] [address] 01/28/2023 14:27:53 01/28/2023 16:08:08 Essential hypertension 16582923 I10 Dyslipidemia 559750738 E 78.5 Medullary sponge kidney 526782855 Q61.5 Health Concerns Section Related Observation LastModified by Organization Detai ls LastModified Time None Recorded Concern Status LastModified by Organization Details LastModified Time None Recorded Advance Directives Directive N: Payers Encounter Date Sequence Insurance Name Policy Number Policy Mcfadden Covered Member ID Mcfadden Member ID Guarantor Name 06/18/2022 1 [facility] (MEDICARE REPLACEMENT/A DVANTAGE - HMO) [id number] Gianni Cortezinger [id number] Gianni Hsu 06/18/2022 2 [place] MED[place]ARE OR MEDICARE REPLACEMENT PRIMARY) Gianni Hsu [id number] Gianni Hsu 10/22/2022 1 [facility] (MEDICARE REPLACEMENT/A DVANTAGE - HMO) [id number] Gianni Cortezinger [id number] Gianni Hsu 10/22/2022 2 [place]ARE OR MEDICARE REPLACEMENT PRIMARY) Gianni Hsu [id number] Gianni Hsu 01/28/2023 1 [facility] (MEDICARE REPLACEMENT/A DVANTAGE - HMO) [id number] Gianni Trevizoffsinger [id number] Gianni Cortezinger 01/28/2023 2 [place]ARE OR MEDICARE REPLACEMENT PRIMARY) Gianni Hsu [id number] Gianni Hsu Notes Date Note Type Note Provider Name and Address Organization Details Recorded Time 06/18/2022 text/html Dyslipidemia cou ld do better with dietNicotine dependence pack-a-day smoker.Hypertensio n no headache no dizzinessLow vitamin-D we have supplemented from time to time Yariel Coy MD [address], [employer], [place], [address], [employer] 06/21/2022 14:20:21 10/22/2022 text/html Dyslipidemia cou ld do better with dietNicotine dependence pack-a-day smoker.Hypertensio n no headache no dizzinessLow vitamin-D we have supplemented from time to time Yariel Coy MD [address], [facility] [employer] [facility] [address], [place], [address], [employer] 11/12/2022 12:01:43 01/28/2023 text/html No headache no dizziness. Dyslipidemia trying to take his atorvastatin regularly and follow a low-fat diet. Low vitamin-D says he is taking his medication but not every day. Psychiatric disorder he continues to follow-up with chest not any continues to smoke Yariel Coy MD [address] [place] [address] [place], [facility] [address], [place], [address], [place] [facility] [employer] 02/17/2023 14:13:40
--- OUTSIDE RECORDS SUMMARY | 2024-07-18 22:27 | XMS_ITS ---
Author Organization [facility] Address [address] [place] [address] Care Team Providers Care Dumbwaiter Operator Name Role Phone hCristiano Dominik Unavailable [phone] Social History Sex Assigned At : Social History Observation Description Sex Assigned At Male Problems Problem Type SNOMED Code ICD Code Onset Dates Problem Status W/U Status Risk Notes Problem Chronic kidney disease stage 2 (644041409) Chronic kidney disease, stage 2 (mild) (N18.2) Active confirmed Encounters Encounter Location Date Provider Diagnosis [facility] [address] [facility] [address] [place] [address] 07/13/2024 Dominik Alvarado Syndrome of inappropriate secretion [...] Name:Dominik Alvarado , 10/05/2024 02:00:00 PM, [address] [facility], [facility] [address], [place], [address], Progress Notes * ASHLYN CANALESDOB:03/1974 (49 yo M)Acc No.[id number]:07/13/2024 Progress Notes Patient: ASHLYN DUMONT Provider: Crispin SYED MD, F.A.C.P, F.A.S.N. :1975 A ge:49 Y S ex:Male Date:07/13/2024 Address:[address] [place] [address] Subjective: * Chief Complaints: * * Medical [...] Treatment: * Billing Information: * Visit Code: 74869 Office Visit, Est Pt., Level 4. * Procedure Codes: * Electronic signature of Santiago Alvarado MD on 07/18/2024 at 10:26 PM CDT Sign off status: Pending * Provider: Crispin SYED MD, F.A.C.P, F.A.S.N. Date: 07/13/2024 Generated for Printing/Faxing/eTransmitting on: 0 07/18/2024 10:26 PM CDT
--- OUTSIDE RECORDS SUMMARY | 2024-07-18 22:27 | XMS_ITS ---
Author Organization [facility] Address [address] [place] [address] Care Team Providers Care Field Support Technician Name Role Phone Camille Orona Primary Care Provider REASON FOR VISIT 2 Week Psych Med Check Social History Sex Assigned At : Social History Observation Description Sex Assigned At Male Encounters Encounter Location Date Provider Diagnosis [address] [place] [address] 04/28/2024 Camille Orona Plan Of Treatment No Information Progress Notes * Gianni HSUDOB:03/1974 (49 yo M)Acc No.[id number]:04/28/2024 UNLOCKED PROGRESS NOTE Patient: Gianni DUMONT Provider: Hunter Orona DNP, APRN, PMHNP-BC :1975 A ge:49 Y S ex:Male Date:04/28/2024 [facility] Subjective: * Chief Complaints: * 1 . 2 Week Psych Med Check. * Medical History: Objective: * Vitals: Assessment: Plan: * Treatment: * * Electronic signature of Mar Melgoza [id number] on 07/18/2024 at 10:27 PM CDT Sign off status: Pending * Provider: Hunter Orona DNP, APRN, PMHNP-BC Date: 0 04/28/2024 Generated for Printing/Faxing/eTransmitting on: 07/18/2024 10:27 PM CDT
--- OUTSIDE RECORDS SUMMARY | 2024-07-18 22:27 | XMS_ITS | Patient Health Record ---
Author Organization [facility] Address [address] [place] [address] Care Team Providers Care Wheel Lacer And Truer Name Role Phone Camille Orona Primary Care Provider Allergies No Known Allergies Results Component Value Reference Range Notes Valproic Acid (Depakote)(R), S Reviewed date:04/11/2024 03:27:33 PM Interpretation: Performing Lab:[id number] [facility] [employer] [facility], Phone - [phone], Director - [facility] Notes/Report: Valproic Acid (Depakote)(R),S 39 50-100 ug/m L Detection Limit = 4 <4 indicates None Detected . Toxicity may occur at levels of 100-500. Measurements of free unbound valproic acid may improve the assess- ment of clinical response. Valproic Acid (Depakote)(R), S Reviewed date:05/23/2024 09:22:01 AM Interpretation: Performing Lab[id number], Phone - [phone], [facility] Notes/Report: Valproic Acid (Depakote)(R),S 87 50-100 ug/m L Detection Limit = 4 <4 indicates None Detected . Toxicity may occur at levels of 100-500. Measurements of free unbound valproic acid may improve the assess- ment of clinical response. Valproic Acid (Depakote)(R), S Reviewed date:11/12/2023 11:15:55 AM Interpretation: Performing Lab:[id number] [facility], Phone - [phone], [facility] Notes/Report: Valproic Acid (Depakote)(R),S 58 50-100 ug/m L Detection Limit = 4 <4 indicates None Detected . Toxicity may occur at levels of 100-500. Measurements of free unbound valproic acid may improve the assess- ment of clinical response. Reason For Referral No Information Medications Medication SIG (Take, Route, Frequency, Duration) Notes Start Date End Date Status OLANZapine 10 MG 1 tablet at bedtime Orally Once a day for 10 days Active Benztropine Mesylate 0.5 MG 1 tablet at bedtime Orally Once a day for 10 days Active OLANZapine 5 MG 1 tablet in morning Orally Once a day for 10 days Active OLANZapine 10 MG 1 tablet at bedtime Orally Once a day for 30 days Active Divalproex Sodium 500 MG 1 tablet in am, 2 tablets at bedtime Orally twice a day for 30 days Active Benztropine Mesylate 0.5 MG 1 tablet at bedtime Orally Once a day for 30 days Active Atorvastatin Calcium 20 MG 1 tablet Oral ly Once a day Active OLANZapine 5 MG 1 tablet in morning Orally Once a day for 30 days Active Carvedilol 3.125 MG 1 tablet with food O rally Twice a day Active hydrOXYzine Pamoate 25 MG 1 capsule as n eeded at bedtime Orally once a day for 30 days Active Aspirin 81 81 MG 1 tablet Orally Once a day Active Divalproex Sodium 500 MG 1 tablet in am, 2 tablets at bedtime Orally twice a day for 10 days Active Losartan Potassium 25 MG 1 tablet Orally Once a day Active Social History Tobacco [...] 20s. No charges/convictions since then. Spiritual Affiliation- Gnosticist Other Social History - Lives with 67 [...] HISTORY Past Psychiatrist or Therapist - Saw [facility] providers in past for medication and therapy [...] 20s. No charges/convictions since then. Spiritual Affiliation- Gnosticist Other Social History - Lives with 67 [...] HISTORY Past Psychiatrist or Therapist - Saw [facility] providers in past for medication and therapy [...] 20s. No charges/convictions since then. Spiritual Affiliation- Gnosticist Other Social History - Lives with 67 [...] HISTORY Past Psychiatrist or Therapist - Saw [facility] providers in past for medication and therapy [...] 20s. No charges/convictions since then. Spiritual Affiliation- Gnosticist Other Social History - Lives with 67 [...] HISTORY Past Psychiatrist or Therapist - Saw [facility] providers in past for medication and therapy [...] 20s. No charges/convictions since then. Spiritual Affiliation- Gnosticist Other Social History - Lives with 67 [...] HISTORY Past Psychiatrist or Therapist - Saw [facility] providers in past for medication and therapy [...] 20s. No charges/convictions since then. Spiritual Affiliation- Gnosticist Other Social History - Lives with 67 [...] HISTORY Past Psychiatrist or Therapist - Saw [facility] providers in past for medication and therapy [...] 20s. No charges/convictions since then. Spiritual Affiliation- Gnosticist Other Social History - Lives with 67 [...] HISTORY Past Psychiatrist or Therapist - Saw [facility] providers in past for medication and therapy [...] 20s. No charges/convictions since then. Spiritual Affiliation- Gnosticist Other Social History - Lives with 67 [...] HISTORY Past Psychiatrist or Therapist - Saw [facility] providers in past for medication and therapy [...] 20s. No charges/convictions since then. Spiritual Affiliation- Gnosticist Other Social History - Lives with 67 [...] HISTORY Past Psychiatrist or Therapist - Saw [facility] providers in past for medication and therapy [...] 20s. No charges/convictions since then. Spiritual Affiliation- Gnosticist Other Social History - Lives with 67 [...] HISTORY Past Psychiatrist or Therapist - Saw [facility] providers in past for medication and therapy [...] 20s. No charges/convictions since then. Spiritual Affiliation- Gnosticist Other Social History - Lives with 67 year-old mom, 39 year-old half-sister and her 19 year-old son, 23 year-old son, 21 year-old daughter and her boyfriend, and daughter's two daughters (his grandchildren). ALCOHOL/DRUG HISTORY Caffeine - Drinks coffee-4-5/day in am and iced tea/soda in afternoon Alcohol - Used to abuse alcohol, last abused 2 years ago, had a shot on [place] Marijuana - Uses marijuana 4x/day for arthritis pain Cocaine - None Heroin - None Fentanyl - None Meth - None Other Illicit Drugs - None OTC/Rx Drugs - None PAST PSYCHIATRIC HISTORY Past Psychiatrist or Therapist - Saw [facility] providers in past for medication and therapy [...] W/U Status Risk Notes Problem Tobacco user (706401137) Nicotine dependence, unspecified, uncomplicated (F17.200) Active confirmed Problem Bipolar 1 disorder (129996041) Bipolar 1 disorder (F31.9) Active confirmed Problem Generalized anxiety disorder (95371473) KUSUM (generalized anxiety disorder) (F41.1) Active confirmed Problem Cannabis use disorder (4344700396) Cannabis use disorder (F12.90) Active confirmed Problem Cannabis abuse (32491618) Cannabis abuse (F12.10) Problem resolved confirmed changed to cannabis use disorder Problem Tardive dyskinesia (118013955) Tardive dyskinesia (G24.01) Problem resolved confirmed erroneous Dx - was EPS symptoms resolved with reducing olanzapine and adding benztropine Vital Signs Heart Rate 67 /min 06/30/2024 Temperature 97.3 degrees Fahrenheit 10/08/2023 Respiratory Rate 16 /min 06/30/2024 Blood pressure diastolic 62 mm Hg 06/30/2024 Oximetry 96 % 06/30/2024 Height 71 in 06/30/2024 Blood pressure systolic 110 mm Hg 06/30/2024 Weight 136.4 lbs 06/30/2024 BMI 19.02 kg/m2 06/30/2024 Encounters Encounter Location Date Provider Diagnosis [address] [address] 04/07/2024 Camille Orona [address] [address] 10/08/2023 Camille Orona Bipolar 1 disorder F31.9 and KUSUM (generalized anxiety disorder) F41.[address] [address] 01/07/2024 Camille Orona Bipolar 1 disorder F31.9 ; KUSUM (generalized anxiety disorder) F41.1 ; Nicotine dependence, unspecified, uncomplicated F17.200 ; Cannabis abuse F12.10 and Medication management Z79.[address] [address] 04/07/2024 Camille Orona Bipolar 1 disorder F31.9 ; KUSUM (generalized anxiety disorder) F41.1 ; Nicotine dependence, unspecified, uncomplicated F17.200 ; Cannabis abuse F12.10 and Medication management Z79.[address] [address] 05/19/2024 Camille Orona Bipolar 1 disorder F31.9 ; KUSUM (generalized anxiety disorder) F41.1 ; Nicotine dependence, unspecified, uncomplicated F17.200 ; Cannabis use disorder F12.90 and Medication management Z79.[address] [facility] [place] [address] 06/30/2024 Camille Yeyo Bipolar 1 disorder F31.9 ; KUSUM (generalized anxiety disorder) F41.1 ; Cannabis use disorder F12.90 ; Nicotine dependence, unspecified, uncomplicated F17.200 and Medication management Z79.[address] [address] 04/11/2024 Camille Yeyo Bipolar 1 disorder F31.9 and Tardive dyskinesia G24.[address] [address] 05/23/2024 Camille Orona [address] [address] 06/20/2024 Camille Orona Bipolar 1 disorder F31.9 and KUSUM (generalized anxiety disorder) F41.1 Assessments Encounter Date Diagnosis (ICD Code) Assessment Notes Treatment Notes Treatment Clinical Notes Section Notes 10/08/2023 Bipolar 1 disorder (ICD-10 - F31.9) Valproic Acid level normal on 03/19/2023 (60). Plan to redraw today. 01/07/2024 Bipolar 1 disorder (ICD-10 - F31.9) Valproic Acid level due at next visit in 2024 - do not take Depakote night before blood draw, and schedule morning appt. 01/07/2024 KUSUM (generalized anxiety disorder) (ICD-10 - F41.1) 04/11/2024 Bipolar 1 disorder (ICD-10 - F31.9) 04/07/2024 Bipolar 1 disorder (ICD-10 - F31.9) AIMS = 10 today. Plan is to decrease olanazapine by 5 mg and reassess in two weeks. 05/19/2024 Bipolar 1 disorder (ICD-10 - F31.9) Valproic acid level today - client did not take am dose. 05/19/2024 - Client experienced extrapyramidal side effects when olanzapine was at 10 mg BID, and resolved when decreased to 5 mg in am/10 mg HS AND benztropine 1 mg HS was added. 06/20/2024 Bipolar 1 disorder (ICD-10 - F31.9) 06/30/2024 Bipolar 1 disorder (ICD-10 - F31.9) Valproic acid level, CBC, CMP, TSH, and Vit D to be drawn at next visit in 2 mos. 05/19/2024 - Client experienced extrapyramidal side effects when olanzapine was at 10 mg BID, and resolved when decreased to 5 mg in am/10 mg HS AND benztropine 1 mg HS was added. 06/30/2024 KUSUM (generalized anxiety disorder) (ICD-10 - F41.1) 06/20/2024 KUSUM (generalized anxiety disorder) (ICD-10 - F41.1) 05/19/2024 KUSUM (generalized anxiety disorder) (ICD-10 - F41.1) 04/07/2024 KUSUM (generalized anxiety disorder) (ICD-10 - F41.1) 04/11/2024 Tardive dyskinesia (ICD-10 - G24.01) 10/08/2023 KUSUM (generalized anxiety disorder) (ICD-10 - F41.1) 01/07/2024 Nicotine dependence, unspecified, uncomplicated (ICD-10 - F17.200) 05/19/2024 Nicotine dependence, unspecified, uncomplicated (ICD-10 - F17.200) 01/07/2024 Cannabis abuse (ICD-10 - F12.10) 04/07/2024 Nicotine dependence, unspecified, uncomplicated (ICD-10 - F17.200) 05/19/2024 Cannabis use disorder (ICD-10 - F12.90) Educated client that the psychoactive components in marijuana can interact with prescribed psychiatric medications, and cessation is best practice and decreased use at the very least is advisable. Client has Hx of cannabis hyperemesis syndrome, and was hospitalized for it in April 2024. 06/30/2024 Cannabis use disorder (ICD-10 - F12.90) Educated client that the psychoactive components in marijuana can interact with prescribed psychiatric medications, and cessation is best practice and decreased use at the very least is advisable. Client has Hx of cannabis hyperemesis syndrome, and was hospitalized for it in April 2024. 04/07/2024 Cannabis abuse (ICD-10 - F12.10) 06/30/2024 Nicotine dependence, unspecified, uncomplicated (ICD-10 - F17.200) 01/07/2024 Medication management (ICD-10 - Z79.899) May self-administer medications or be administered own oral medications per [facility] protocols. Provided informed consent with understanding of side effects, adverse effects, risks and benefits as well as alternative treatments as previously discussed and with the above recommended medications & other aspects of the treatment program. Agrees to return sooner if symptoms worsen or suicidal or homicidal ideations occur. Labs monitored by PCP except Valproic Acid - all last drawn in September 2023. 06/30/2024 Medication management (ICD-10 - Z79.899) May self-administer medications or be administered own oral medications per [facility] protocols. Provided informed consent with understanding of side effects, adverse effects, risks and benefits as well as alternative treatments as previously discussed and with the above recommended medications & other aspects of the treatment program. Agrees to return sooner if symptoms worsen or suicidal or homicidal ideations occur. Labs monitored by PCP or nephrologis except Valproic Acid. 04/07/2024 Medication management (ICD-10 - Z79.899) May self-administer medications or be administered own oral medications per [facility] protocols. Provided informed consent with understanding of side effects, adverse effects, risks and benefits as well as alternative treatments as previously discussed and with the above recommended medications & other aspects of the treatment program. Agrees to return sooner if symptoms worsen or suicidal or homicidal ideations occur. Labs monitored by PCP except Valproic Acid - all last drawn in September 2023. 05/19/2024 Medication management (ICD-10 - Z79.899) May self-administer medications or be administered own oral medications per [facility] protocols. Provided informed consent with understanding of side effects, adverse effects, risks and benefits as well as alternative treatments as previously discussed and with the above recommended medications & other aspects of the treatment program. Agrees to return sooner if symptoms worsen or suicidal or homicidal ideations occur. Labs monitored by PCP or nephrologis except Valproic Acid. 10/08/2023 Other May self-administer medications or be administered own oral medications per [facility] protocols. Provided informed consent with understanding of [...] End Date [employer] [address] [address] [place] [address] [id number] Pavan Gianni bernstein Self - patient is the insured 3 MEDICAID [address] [place] [address] [id number] Pavan Gianni bernstein Self - patient is the insured 4 Medical (General) History Medical History History ICD Code HTN HLD Hx of acute kidney failure Hx of sepsis with multi organ failure cannabis hyperemesis syndrome extrapyramidal side effects (EPS) Surgical History Surgery Date(Month/Year) gallbladder pin in toe eye surgery Hospitalization History Reason Date(Month/Year) dehydration
--- OUTSIDE RECORDS SUMMARY | 2024-07-18 22:27 | XMS_ITS | CONTINUITY OF CARE DOCUMENT ---
Author Name zoey greer Address Unknown Organization [facility] Address [address] [place] [address] Phone [phone] Care Team Providers Care Waiter And Cashier Name Role Phone Sorin COLBY, Mehdi Benjamin Unavailable [phone] YARIEL GRAHAM MD Unavailable YARIEL GRAHAM MD Unavailable [phone] PROBLEMS Condition Status Date Provider Notes Takotsubo syndrome active Mehdi Rowell MD CHF - systolic active Mehdi Rowell MD Tobacco abuse active Mehdi Rowell MD Congestive Heart Failure active Mehdi carbajal MD Cardiology examination active 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 Date Type Provider Location Encounter Diag nosis - In-person encounter Office Visit Mehdi Rowell MD [facility] - In-person encounter Office Visit Mehdi Rowell MD [facility] - In-person encounter Office Visit Mehdi Rowell MD [facility] - In-person encounter Office Visit Mehdi Rowell MD [facility] - In-person encounter Office Visit Mehdi Rowell MD [facility] Cardiology examination - In-person encounter Office Visit Mehdi Rowell MD [facility] Congestive Heart Failure - In-person encounter Office Visit Mehdi Rowell MD [facility] Takotsubo syndromeCHF - systolicTobacco abuse VITAL SIGNS Date Observation Value Provider Body Mass Index (Ratio) 19.11 kg/m2 Dayna Rowell MD blood pressure, cuff size regular [facility], diastolic 66 mm[Hg] [facility] blood pressure, systolic 96 mm[Hg] Yojana [facility] oxygen saturation, oximetry 86 % [facility] respiratory rate E&M 14 /min [facility] pulse rate 53 /min [facility] weight E&M 137 [lb_av] [facility] height E&M 71 [in_i] [facility] Body Mass Index (Ratio) 19.11 kg/m2 Dayna Rowell MD blood pressure, cuff size regular [facility] blood pressure, diastolic 72 mm[Hg] [facility] blood pressure, systolic 98 mm[Hg] [facility] pulse rate 61 /min [facility] oxygen saturation, oximetry 98 % [facility] respiratory rate E&M 16 /min Kristina [facility] E&M 137 [lb_av] [facility] height E&M 71 [in_i] [facility] Body Mass Index (Ratio) 17.57 kg/m2 Dayna Rowell MD blood pressure, diastolic 69 mm[Hg] Nataliia [employer]kLogic blood pressure, systolic 116 mm[Hg] Zeina [employer]Logic blood pressure, cuff size regular Hussein rret blood pressure, diastolic 69 mm[Hg] Ja rret blood pressure, systolic 116 mm[Hg] Franky domínguez pulse rate 61 /min Dwaine respiratory rate [...] helserenity Lewis blood pressure, cuff size regular Jerrod Lewis oxygen saturation, oximetry 96 % Ashley Lewis respiratory rate E&M 16 /min Smith Lewis pulse rate 58 /min Ashley Renukanorth son weight E&M 136 [lb_av] Ashley Renukanorth son height E&M 71 [in_i] Ashley Manzo son Body Mass Index (Ratio) 18.83 kg/m2 Dayna Rowell MD blood pressure, cuff size regular Ke rri [facility]outh [facility] blood pressure, diastolic 60 mm[Hg] [facility] blood pressure, systolic 98 mm[Hg] Franca ri [facility] oxygen saturation, oximetry 97 % Lazara [facility] respiratory rate E&M 14 /min [facility] pulse rate 62 /min Lazara Servin [facility] weight E&M 135 [lb_av] Lazara Adrianae [facility] height E&M 71 [in_i] Lazara Servin [facility] pulse rate 62 /min Dennise Martínez blood pressure, diastolic 58 mm[Hg] Te ri Martínez blood pressure, systolic 91 mm[Hg] Ter i Martínez oxygen saturation, oximetry 98 % Dennise Martínez respiratory rate E&M 15 /min Dennise Nirmal [facility] weight E&M 145 [lb_av] Dennise Bernalett ALLERGIES No Known Drug Allergies HISTORY OF MEDICATION USE Medication Status Instructions Dates Provider Indications [facility] carvedilol 3.125 mg tablet active TAKE 1 TABLET BY MOUTH TWICE DAILY Shanna English MD atorvastatin 20 mg tablet active TAKE 1 TABLET BY MOUTH EVERY DAY Kandy Melchor hydroxyzine pamoate 25 mg capsule active Kristina [...] yes Yadira Henriquez NP drug use no [facility] alcohol use no [facility] smoking/tobacco cess ation, patient education and counseling yes [facility] chewing tobacco use Current [facility] number of years as a smoker 31 a [facility] smoking history, tot al pack/day 0.5 [facility] cigarette use yes [facility] smoking status Current every da y smoker [facility] Underweight yes Mehdi lopez MD social [...] d rug of choice marijuana Yadira Huertasreri PUNCHER drug use yes Yadira Huertasreri PUNCHER alcohol use no Verdereck Huertasreri PUNCHER seatbelt usage 100 % Anita Miller caffeine [...] d rug of choice marijuana Rebekah Ventimiglia [facility] drug use yes Rebekah Ventimig celine [facility] alcohol use no Rebekah Ventimig celine [facility] number of years as a smoker 20 a Rebekah Ventimiglia [facility] smoking history, tot al pack/day 0.5 Rebekah Ventimiglia [facility] seatbelt usage 100 % Ashleyrebecca lao [...] Payer name Policy type / Coverage type Elmer red green party ID AARP MEDICARE ADVANTAGE HMO-POS HMO [id number] [facility] Medicaid 1 [id number] ADVANCE DIRECTIVES Name Date DISCUSSED - NO DECISION MADE TREATMENT PLAN Date Name Performer [id number],C, P kev is a current daily smoker. Encouraged complete cessation. Mehdi Rowell MD [id number],C, W ILL RECHECK ECHO TO EVAL FOR [...] by mouth every day Mehdi Rowell MD [id number],C, E F of 20% on initial cath in June 2021. He has since had improvement in EF to 45% (11/2021) June 13, 2022 R EPEAT ECHO TO [facility] LV FXN December 12, 2022 e cho is showieng LVEF is about 45% Mehdi Rowell MD [id number],C,C ompensated. His updated medication list for this problem includes: Carvedilol 3.125 Mg Tablet (Carvedilol) ..... Take 1 tablet by mouth twice a day Losartan 25 Mg Tablet (Losartan) ..... Take 1/2 tablet by mouth once a day Aspirin 81 Mg Tablet,delayed Release (dr/ec) (Aspirin) ..... Take 1 tablet by mouth once a day take 1 tablet by mouth every day Louiedreeck Florence ERVIN [id number],C,P kev is a current daily smoker. Encouraged complete cessation. Yadira Henriquez NP [id number],C,W ILL RECHECK ECHO TO [facility] FOR PRESERVETAION OF LV FXN ON CHF [...] by mouth every day Yadira Henriquez NP [id number],C, E F of 20% on initial cath in June 2021. He has since had improvement in EF to 45% (11/2021) June 13, 2022 R EPEAT ECHO TO EVAL LV FXN Yadira Henriquez PUNCHER [id number],C,cessation enc ouraged. Rebekah Ca [facility] [id number],S,c urrently compensated. continue present medication regimen. H [...] tablet by mouth every day Rebekah Ca [facility] [id number],B,E F of 20% on initial cath in June 2021. He has since had improvement in EF to 45%. will continue present therapy and f/u in 6 mos or sooner if needed. O rders: 9 9214 MOD 30-39min (CPT-45784) Rebekah Ca [facility] [id number],S, L eft ventriculogram- was performed in the [...] 2021 R echeck Echo Mehdi Rowell MD [id number],C,R educed EF will check echo. On CHF [...] by mouth every day Mehdi Rowell MD [id number],C, T he Patient was reencouraged to stop smoking. November 06, 2021 A t 1/2 PPD Mehdi Rowell MD [id number],S,T he Patient was reencouraged to stop smoking. Mehdi Rowell MD [id number],C,L eft ventriculogram- was performed in the [facility] [...] . Minimally elevated LVEDP Mehdi Rowell MD [id number],B,E cho EF has improved to 70% based on study done at [facility] is updated medication list for this problem includes: Losartan 25 Mg Tablet (Losartan) ..... Take 1/2 tablet by mouth once a day Carvedilol 3.125 Mg Tablet (Carvedilol) ..... Take one tablet by mouth twice a day Aspirin 81 Mg Tablet,delayed Release (dr/ec) (Aspirin) ..... Take 1 tablet by mouth once a day take 1 tablet by mouth every day Mehdi Roewll MD Cardiology: E F of 20% on [...] Yadira Huertasdiana ERVIN Cardiology:cessation encouraged. Rebekah Ca [facility] Cardiology:currently compensated. continue present medication regimen. [...] tablet by mouth every day Rebekah Ca [facility] Cardiology:EF of 20% on initial cath in June 2021. He has since had improvement in EF to 45%. will continue present therapy and f/u in 6 mos or sooner if needed. O rders: 9 9214 MOD 30-39min (CPT-80710) Rebekah Ca [facility] Cardiology: L eft ventriculogram- was performed [...] to 70% based on study done at [facility] is updated medication list for this [...]
[2024-07-18 22:42] VITALS: BP 133/97; PULSE 80; RESP 16; TEMP 36.5; O2SAT 99
[2024-07-18 23:07] LABS: Hematocrit 54.1 % (42.0-52.0); Hemoglobin 18.1 g/dL (14.0-18.0); Mean Corpuscular HGB Conc 33.5 g/dl (32-36); Mean Corpuscular Hemoglobin 31.4 pg (26-34); Mean Corpuscular Volume 93.9 fl (80-100); Mean Platelet Volume 11.2 fl (7.4-10.4); Platelet Count Result 237 k/mm3 (150-375); Red Blood Count 5.76 M/mm3 (4.6-6.20); Red Cell Distribution Width 13.8 % (11.5-14.5); White Blood Count 20.2 K/mm3 (4.5-10.0)
[2024-07-18 23:22] LABS: Alanine Aminotransferase 17 U/L (6-50); Albumin Level 5.4 g/dL (3.5-5.1); Alkaline Phosphatase 93 U/L (38-126); Anion Gap 16 mmol/L (4-12); Aspartate Amino Transferase 30 U/L (17-59); Bilirubin,Total 0.8 mg/dL (0.2-1.3); Blood Urea Nitrogen 29 mg/dL (9-20); Calcium 11.3 mg/dL (8.4-10.2); Carbon Dioxide 26 mmol/L (22-30); Chloride 100 mmol/L (98-107); Estimated CRCL calculation 35 ml/min; Estimated Glomerular Filt Rate 35; Glucose 191 mg/dL (65-110); Lipase 68 U/L (23-300); Potassium 5.4 mmol/L (3.4-5.0); Sodium 142 mmol/L (137-145)
[2024-07-18 23:38] LABS: Band Neutrophils Percent 12 % (0-6); Monocytes Absolute Manual 1.21 K/mm3 (0.1-0.90); Monocytes Percent Manual 6 % (3-9); Neutrophils Absolute Manual 18.38 K/mm3 (1.3-6.7); Neutrophils Percent Manual 79 % (46-73); Platelet Estimate Adequate (Adequate); Total Cells Counted 100
[2024-07-18 23:39] LABS: Anisocytosis 1+; Schistocytes None Seen
[2024-07-19] VITALS (20 sets, daily range): BP systolic 105–156; BP diastolic 64–99; PULSE 64–87; RESP 11–25; TEMP 36.1–36.8; O2SAT 96–100; BMI 19.1
--- NOTE | 2024-07-19 01:05 | PC.NURSE ---
RN placed urinal at pt bedside for pt to attempt to give urine sample.
--- OUTSIDE RECORDS SUMMARY | 2024-07-19 03:00 | XMS_ITS | Continuity of Care Document ---
Author Name [facility] Organization [facility] Care Team Providers Care Him Assistant Name Role Phone [facility] Unavailable Unavailable Social History Combined list of available smoking, tobacco, and other social history from Department of Defense and Veterans Affairs facilities. Social History Type Response Date Comment [facility] e This section is an empty social history section. [facility]
--- OUTSIDE RECORDS SUMMARY | 2024-07-19 03:00 | XMS_ITS ---
Author Organization [facility] Address [address] [facility] [place] [address] Care Team Providers Care Tank Officer Name Role Phone Christiano Dominik Unavailable [phone] Social History Sex Assigned At : Social History Observation Description Sex Assigned At Male Encounters Encounter Location Date Provider Diagnosis [facility] [address] [place] [address] 04/06/2024 Dominik Alvarado Plan Of Treatment Next Appt Details Provider Name:Dominik Alvarado , 10/05/2024 02:00:00 PM, [address], [facility], Progress Notes * ASHLYN CANALESDOB:03/1974 (49 yo M)Acc No.[id number]:04/06/2024 Progress Notes Patient: ASHLYN DUMONT Provider: Crispin SYED MD, Ryan.Florencia.P, F.A.S.N. :1975 A ge:49 Y S ex:Male Date:04/06/2024 Address:[address] [place] [address] Subjective: * Chief Complaints: * * Medical History: Objective: * Vitals: Assessment: Plan: * Treatment: * Billing Information: * Visit Code: * Procedure Codes: * Electronic signature of Santiago Alvarado MD on 07/19/2024 at 03:00 AM CDT Sign off status: Pending * Provider: Crispin SYED MD, Barak.C.P, F.A.S.N. Date: 04/06/2024 Generated for Printing/Faxing/eTransmitting on: 0 07/19/2024 03:00 AM CDT
--- OUTSIDE RECORDS SUMMARY | 2024-07-19 03:00 | XMS_ITS ---
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 [address] [place] [address] 05/11/2024 Dominik Alvarado Chronic kidney disea se, [...] Name:Dominik Alvarado , 10/05/2024 02:00:00 PM, 20[address] [facility], [facility] [address], [place], [place], [facility], Progress Notes * ASHLYN CANALESDOB:03/1974 (49 yo M)Acc No.[id number]:05/11/2024 Progress Notes Patient: ASHLYN DUMONT Provider: Crispin SYED MD, F.A.C.P, F.A.S.N. :1975 A ge:49 Y S ex:Male Date:05/11/2024 Address:[address] [place] [address] Subjective: * Chief Complaints: * * Medical [...] DISCH * Billing Information: * Visit Code: 23801 Office Visit, Est Pt., Level 4. * Procedure Codes: 30474 TRANS CARE MGMT 7 DAY DISCH. * Electronic signature of Santiago Alvarado MD on 07/19/2024 at 03:00 AM CDT Sign off status: Pending * Provider: Crispin SYED MD, F.A.C.P, F.A.S.N. Date: 05/11/2024 Generated for Printing/Faxing/eTransmitting on: 0 07/19/2024 03:00 AM CDT
--- OUTSIDE RECORDS SUMMARY | 2024-07-19 03:01 | XMS_ITS | Patient Health Record ---
Author Organization [facility] Address [address] [place] [address] Care Team Providers Care Jackscrew Man Name Role Phone ChristianoAguilaDominik Unavailable [phone] Reason For Referral No Information Medications Medication SIG (Take, Route, Frequency, Duration) Notes Start Date End Date Status Losartan Potassium 25 MG 1 tablet Orally Once a day for 90 day(s) Active Social History Sex Assigned At : Social History Observation Description Sex Assigned At Male Problems Problem Type SNOMED Code ICD Code Onset Dates Problem Status W/U Status Risk Notes Problem Leukocytosis (166231912) Elevated white blood cell count, unspecified (D72.829) Active confirmed Problem Syndrome of inappropriate secretion of antidiuretic hormone (11249112) 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 Problem Gastroduodenitis (754844331) Gastritis, unspecified, without bleeding (K29.70) Active confirmed Problem Chronic kidney disease stage 2 (989984026) Chronic kidney disease, stage 2 (mild) (N18.2) Active confirmed Problem Renal osteodystrophy (30521911) Renal osteodystrophy (N25.0) Active confirmed Encounters Encounter Location Date Provider Diagnosis [facility] [address] [address] 07/29/2023 Dominik Alvarado Chronic kidney disea se, stage 3a N18.31 ; Acute kidney failure, unspecified N17.9 ; Abnormal coagulation profile R79.1 ; Gastritis, unspecified, without bleeding K29.70 ; Sepsis, unspecified organism A41.9 and Elevated white blood cell count, unspecified D72.829 [facility] [address] [address] 10/14/2023 Dominik Alvarado Chronic kidney disea se, stage 3a N18.31 ; Essential hypertension I10 ; Acute kidney failure, unspecified N17.9 ; Abnormal coagulation profile R79.1 ; Gastritis, unspecified, without bleeding K29.70 ; Sepsis, unspecified organism A41.9 and Elevated white blood cell count, unspecified D72.829 [facility] [address] [place] [address] 12/09/2023 Dominik Alvarado Chronic kidney disea se, stage 3a N18.31 ; Chronic kidney disease, stage 1 N18.1 ; Chronic kidney disease, stage 2 (mild) N18.2 ; Essential hypertension I10 ; Acute kidney failure, unspecified N17.9 ; Abnormal coagulation profile R79.1 ; Gastritis, unspecified, without bleeding K29.70 ; Sepsis, unspecified organism A41.9 and Elevated white blood cell count, unspecified D72.829 [facility] [address] [place] [address] 02/03/2024 Dominik Alvarado Chronic kidney disea se, stage 2 (mild) N18.2 ; Essential hypertension I10 ; Renal osteodystrophy N25.0 and Proteinuria, unspecified R80.9 [facility] [address] [place] [address] 05/11/2024 Dominik Alvarado Chronic kidney disea se, stage 3a N18.31 ; Acute kidney failure, unspecified N17.9 ; Abnormal coagulation profile R79.1 ; Gastritis, unspecified, without bleeding K29.70 ; Sepsis, unspecified organism A41.9 ; Elevated white blood cell count, unspecified D72.829 ; Essential hypertension I10 ; Renal osteodystrophy N25.0 and Syndrome of inappropriate secretion of antidiuretic hormone E22.2 [facility] [address] [place] [address] 07/13/2024 Dominik Alvarado Syndrome of inappropriate secretion [...] Alvarado , 10/05/2024 02:00:00 PM, [address], [facility] [address], [place], [address],
--- OUTSIDE RECORDS SUMMARY | 2024-07-19 03:01 | XMS_ITS | CONTINUITY OF CARE DOCUMENT ---
Author Name zoey greer Address Unknown Organization [facility] Address [address] [place] [address] Phone [phone] Care Team Providers Care Video Manager Name Role Phone Sorin COLBY, Mehdi Benjamin Unavailable YARIEL GRAHAM MD Unavailable [phone] YARIEL GRAHAM MD Unavailable [phone] PROBLEMS Condition Status Date Provider Notes Takotsubo syndrome active Mehdi Rowell MD CHF - systolic active Mehdi Rowell MD Tobacco abuse active Mehdi Rowell MD Congestive Heart Failure active Mehdi carbajal MD Cardiology examination active 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 MD PHYSICIAN DERMATOLOGIST ENCOUNTERS Date Type Provider Location Encounter Diag nosis - In-person encounter Office Visit Mehdi Rowell MD [place] [facility] - In-person encounter Office Visit Mehdi Rowell MD [place] [facility] - In-person encounter Office Visit Mehdi Rowell MD [place] [facility] - In-person encounter Office Visit Mehdi Rowell MD [place] [facility] - In-person encounter Office Visit Mehdi Rowell MD [place] [facility] Cardiology examination - In-person encounter Office Visit Mehdi Rowell MD [place] [facility] Congestive Heart Failure - In-person encounter Office Visit Mehdi Rowell MD [facility] [place] [facility] Takotsubo syndromeCHF - systolicTobacco abuse VITAL SIGNS Date Observation Value Provider Body Mass Index (Ratio) 19.11 kg/m2 Dayna Rowell MD blood pressure, cuff size regular [facility], [facility][Hg] [facility] blood pressure, systolic 96 mm[Hg] Yojana [facility] oxygen saturation, oximetry 86 % [facility] respiratory rate E&M 14 /min [facility] pulse rate 53 /min [facility] weight E&M 137 [lb_av] [facility] height E&M 71 [in_i] [facility] Body Mass Index (Ratio) 19.11 kg/m2 Dayna Rowell MD blood pressure, cuff size regular [facility] blood pressure, diastolic 72 mm[Hg] [facility] blood pressure, systolic 98 mm[Hg] [facility] pulse rate 61 /min [facility] oxygen saturation, oximetry 98 % [facility] respiratory rate E&M 16 /min Kristina [facility] weight E&M 137 [lb_av] [facility] height E&M 71 [in_i] [facility] Body Mass Index (Ratio) 17.57 kg/m2 Dayna [...] blood pressure, cuff size regular Ke rri [facility] blood pressure, diastolic 60 mm[Hg] [facility], systolic 98 mm[Hg] Franca ri [facility] oxygen saturation, oximetry 97 % Lazara [facility] respiratory rate E&M 14 /min [facility] pulse rate 62 /min [facility]ara [facility] weight E&M 135 [lb_av] Lazara [facility] height E&M 71 [in_i] Lazara [facility] pulse rate 62 /min Dennise Martínez blood pressure, diastolic 58 mm[Hg] Te ri Martínez blood pressure, systolic 91 mm[Hg] Ter i Martínez oxygen saturation, oximetry 98 % Dennise Martínez respiratory rate E&M 15 /min Dennise Nirmal [facility] weight E&M 145 [lb_av] Dennise Bernalett ALLERGIES No Known Drug Allergies HISTORY OF MEDICATION USE Medication Status Instructions Dates Provider Indications [facility] carvedilol 3.125 mg tablet active TAKE 1 [...] Mehdi lopez MD alcohol use no Mehdi lopze MD smoking/tobacco cess ation, patient education and [...] yes Yadira Henriquez NP drug use no [facility] alcohol use no [facility] smoking/tobacco cess ation, patient education and counseling yes [facility] chewing tobacco use Current [facility] number of years as a smoker 31 a [facility] smoking history, tot al pack/day 0.5 [facility] cigarette use yes [facility] smoking status Current every da y smoker [facility] Underweight yes Mehdi lopez MD social history [...] d rug of choice marijuana Yadira Huertasreri TWISTER DOFFER drug use yes Yadira Huertasreri TW[facility] DOFFER alcohol use no Verdereck Huertasreri TWISTER DOFFER seatbelt usage 100 % Anita Miller caffeine [...] d rug of choice marijuana Rebekah Ventimiglia [facility] drug use yes Rebekah Ventimig celine [facility] alcohol use no Rebekah Ventimig celine [facility] number of years as a smoker 20 a Rebekah Ventimiglia [facility] smoking history, tot al pack/day 0.5 Rebekah Ventimiglia [facility] seatbelt usage 100 % Ashleyrebecca lao caffeine [...] Payer name Policy type / Coverage type [place] [employer] ID AARP MEDICARE ADVANTAGE HMO-POS HMO [id number] [facility] Medicaid 1 [id number] ADVANCE DIRECTIVES Name Date DISCUSSED - NO DECISION MADE TREATMENT PLAN Date Name Performer [id number],C, P kev is a current daily smoker. Encouraged complete cessation. Mehdi Rowell MD [id number],C, W ILL RECHECK ECHO TO EVAL FOR [...] by mouth every day Mehdi Rowell MD [id number],C, E F of 20% on initial cath in June 2021. He has since had improvement in EF to 45% (11/2021) June 13, 2022 R EPEAT ECHO TO [facility] LV FXN December 12, 2022 e cho is showieng LVEF is about 45% Mehdi Rowell MD [id number],C,C ompensated. His updated medication list for this problem includes: Carvedilol 3.125 Mg Tablet (Carvedilol) ..... Take 1 tablet by mouth twice a day Losartan 25 Mg Tablet (Losartan) ..... Take 1/2 tablet by mouth once a day Aspirin 81 Mg Tablet,delayed Release (dr/ec) (Aspirin) ..... Take 1 tablet by mouth once a day take 1 tablet by mouth every day Louiedereck Florence ERVIN [id number],C,P kev is a current daily smoker. Encouraged complete cessation. Yadira Henriquez NP [id number],C,W ILL RECHECK ECHO TO [facility] FOR PRESERVETAION OF LV FXN ON CHF [...] by mouth every day Yadira Henriquez NP [id number],C, E F of 20% on initial cath in June 2021. He has since had improvement in EF to 45% (11/2021) June 13, 2022 R EPEAT ECHO TO EVAL LV FXN Yadira Henriquez TWISTER DOFFER [id number],C,cessation enc ouraged. Rebekah Ca [facility] [id number],S,c urrently compensated. continue present medication regimen. H [...] tablet by mouth every day Rebekah Ca [facility] [id number],B,E F of 20% on initial cath in June 2021. He has since had improvement in EF to 45%. will continue present therapy and f/u in 6 mos or sooner if needed. O rders: 9 9214 MOD 30-39min (CPT-64705) Rebekah Ca [facility] [id number],S, L eft ventriculogram- was performed in the [...] 2021 R echeck Echo Mehdi Rowell MD [id number],C,R educed EF will check echo. On CHF [...] by mouth every day Mehdi Rowell MD [id number],C, T he Patient was reencouraged to stop smoking. November 06, 2021 A t 1/2 PPD Mehdi Rowell MD [id number],S,T he Patient was reencouraged to stop smoking. Mehdi Rowell MD [id number],C,L eft ventriculogram- was performed in the [facility] [...] . Minimally elevated LVEDP Mehdi Rowell MD [id number],B,E cho EF has improved to 70% based on study done at [facility] H is updated medication list [...] Yadira Huertasdiana ERVIN Cardiology:cessation encouraged. Rebekah Ca [facility] Cardiology:currently compensated. continue present medication regimen. H [...] tablet by mouth every day Rebekah Ca [facility] Cardiology:EF of 20% on initial cath in June 2021. He has since had improvement in EF to 45%. will continue present therapy and f/u in 6 mos or sooner if needed. O rders: 9 9214 MOD 30-39min (CPT-28836) Rebekah Ca [facility] Cardiology: L eft ventriculogram- was performed in [...] to 70% based on study done at [facility] H is updated medication list [...]
--- OUTSIDE RECORDS SUMMARY | 2024-07-19 03:02 | XMS_ITS ---
Author Organization [facility] Address [address] [place] [address] Care Team Providers Care Search Coordinator Name Role Phone Christiano Dominik Unavailable [phone] Social History Sex Assigned At : Social History Observation Description Sex Assigned At Male Problems Problem Type SNOMED Code ICD Code Onset Dates Problem Status W/U Status Risk Notes Problem Chronic kidney disease stage 2 (589014871) Chronic kidney disease, stage 2 (mild) (N18.2) Active confirmed Encounters Encounter Location Date Provider Diagnosis [facility] [address] [facility] [address] [place] [address] 07/13/2024 Dominik Alvarado Syndrome of inappropriate secretion [...] Name:Dominik Alvarado , 10/05/2024 02:00:00 PM, [address] [facility], [facility], [place], [address], Progress Notes * ASHLYN CANALESDOB:03/1974 (49 yo M)Acc No.[id number]:07/13/2024 Progress Notes Patient: ASHLYN DUMONT Provider: Crispin SYED MD, F.A.C.P, F.A.S.N. :1975 A ge:49 Y S ex:Male Date:07/13/2024 Address:[address] [place] [address] Subjective: * Chief Complaints: * * Medical [...] Treatment: * Billing Information: * Visit Code: 93852 Office Visit, Est Pt., Level 4. * Procedure Codes: * Electronic signature of Santiago Alvarado MD on 07/19/2024 at 03:01 AM CDT Sign off status: Pending * Provider: Crispin SYED MD, F.A.C.P, F.A.S.N. Date: 07/13/2024 Generated for Printing/Faxing/eTransmitting on: 07/19/2024 03:01 AM CDT
--- OUTSIDE RECORDS SUMMARY | 2024-07-19 03:02 | XMS_ITS ---
Author Organization [facility] Address [address] [place] [address] Care Team Providers Care Foil Stamp Operator Name Role Phone Camille Orona Primary Care Provider [phone] REASON FOR VISIT 2 Week Psych Med Check Social History Sex Assigned At : Social History Observation Description Sex Assigned At Male Encounters Encounter Location Date Provider Diagnosis [address] [place] [address] 04/28/2024 Camille Orona Plan Of Treatment No Information Progress Notes * Gianni HSUDOB:03/1974 (49 yo M)Acc No.[id number]:04/28/2024 UNLOCKED PROGRESS NOTE Patient: Gianni DUMONT Provider: Hunter Orona DNP, APRN, PMHNP-BC :1975 A ge:49 Y S ex:Male Date:04/28/2024 [facility] Subjective: * Chief Complaints: * 1 . 2 Week Psych Med Check. * Medical History: Objective: * Vitals: Assessment: Plan: * Treatment: * * Electronic signature of Mar Melgoza [id number] on 07/19/2024 at 03:01 AM CDT Sign off status: Pending * Provider: Hunter Orona DNP, APRN, PMHNP-BC Date: 0 04/28/2024 Generated for Printing/Faxing/eTransmitting on: 07/19/2024 03:01 AM CDT
--- OUTSIDE RECORDS SUMMARY | 2024-07-19 03:02 | XMS_ITS | Patient Health Record ---
Author Organization [facility] Address [address] [place] [address] Care Team Providers Care Charm Filter Operator Helper Name Role Phone Camille Orona Primary Care Provider Allergies No Known Allergies Results Component Value Reference Range Notes Valproic Acid (Depakote)(R), S Reviewed date:11/12/2023 11:15:55 AM Interpretation: Performing Lab:[facility] [facility], Phone - [phone], [facility] Notes/Report: Valproic Acid (Depakote)(R),S 58 50-100 ug/m L Detection Limit = 4 <4 indicates None Detected . Toxicity may occur at levels of 100-500. Measurements of free unbound valproic acid may improve the assess- ment of clinical response. Valproic Acid (Depakote)(R), S Reviewed date:05/23/2024 09:22:01 AM Interpretation: Performing Lab:[facility], Phone - [phone], [facility] Notes/Report: Valproic Acid (Depakote)(R),S 87 50-100 ug/m L Detection Limit = 4 <4 indicates None Detected . Toxicity may occur at levels of 100-500. Measurements of free unbound valproic acid may improve the assess- ment of clinical response. Valproic Acid (Depakote)(R), S Reviewed date:04/11/2024 03:27:33 PM Interpretation: Performing Lab:[facility] [address] [facility], Phone - [phone], Director - [facility] Notes/Report: Valproic Acid (Depakote)(R),S 39 50-100 ug/m [...] HISTORY Past Psychiatrist or Therapist - Saw [place] providers in past for medication and therapy [...] HISTORY Past Psychiatrist or Therapist - Saw [place] providers in past for medication and therapy [...] HISTORY Past Psychiatrist or Therapist - Saw [place] providers in past for medication and therapy [...] HISTORY Past Psychiatrist or Therapist - Saw [place] providers in past for medication and therapy [...] HISTORY Past Psychiatrist or Therapist - Saw [place] providers in past for medication and therapy [...] HISTORY Past Psychiatrist or Therapist - Saw [place] providers in past for medication and therapy [...] HISTORY Past Psychiatrist or Therapist - Saw [place] providers in past for medication and therapy [...] HISTORY Past Psychiatrist or Therapist - Saw [place] providers in past for medication and therapy [...] HISTORY Past Psychiatrist or Therapist - Saw [place] providers in past for medication and therapy [...] HISTORY Past Psychiatrist or Therapist - Saw [place] providers in past for medication and therapy [...] HISTORY Past Psychiatrist or Therapist - Saw [place] providers in past for medication and therapy [...] W/U Status Risk Notes Problem Tobacco user (787934328) Nicotine dependence, unspecified, uncomplicated (F17.200) Active confirmed Problem Bipolar 1 disorder (950134586) Bipolar 1 disorder (F31.9) Active confirmed Problem Generalized anxiety disorder (62604144) KUSUM (generalized anxiety disorder) (F41.1) Active confirmed Problem Cannabis use disorder (5078531922) Cannabis use disorder (F12.90) Active confirmed Problem Cannabis abuse (02548851) Cannabis abuse (F12.10) Problem resolved confirmed changed to cannabis use disorder Problem Tardive dyskinesia (056894027) Tardive dyskinesia (G24.01) Problem resolved confirmed erroneous [...] 06/30/2024 Encounters Encounter Location Date Provider Diagnosis [address] [address] 04/07/2024 Camille Orona [address] [address] 10/08/2023 Camille Orona Bipolar 1 disorder F31.9 and KUSUM (generalized anxiety disorder) F41.[address] [address] 01/07/2024 Camille Orona Bipolar 1 disorder F31.9 ; KUSUM (generalized anxiety disorder) F41.1 ; Nicotine dependence, unspecified, uncomplicated F17.200 ; Cannabis abuse F12.10 and Medication management Z79.[address] [address] 04/07/2024 Camille Orona Bipolar 1 disorder F31.9 ; KUSUM (generalized anxiety disorder) F41.1 ; Nicotine dependence, unspecified, uncomplicated F17.200 ; Cannabis abuse F12.10 and Medication management Z79.[address] [address] 05/19/2024 Camille Orona Bipolar 1 disorder F31.9 ; KUSUM (generalized anxiety disorder) F41.1 ; Nicotine dependence, unspecified, uncomplicated F17.200 ; Cannabis use disorder F12.90 and Medication management Z79.[address] [place] [place] [address] 06/30/2024 Camille Yeyo Bipolar 1 disorder F31.9 ; KUSUM (generalized anxiety disorder) F41.1 ; Cannabis use disorder F12.90 ; Nicotine dependence, unspecified, uncomplicated F17.200 and Medication management Z79.[address] [address] 04/11/2024 Camille Yeyo Bipolar 1 disorder F31.9 and Tardive dyskinesia G24.[address] [address] 05/23/2024 Camille Orona [address] [address] 06/20/2024 Camille Orona Bipolar 1 disorder F31.9 [...] or be administered own oral medications per [place] protocols. Provided informed consent with understanding of [...] or be administered own oral medications per [place] protocols. Provided informed consent with understanding of [...] or be administered own oral medications per [place] protocols. Provided informed consent with understanding of [...] or be administered own oral medications per [place] protocols. Provided informed consent with understanding of [...] or be administered own oral medications per [place] protocols. Provided informed consent with understanding of [...] End Date [employer] Medicare [address] [address] [place] [address] [phone] [id number] Pavan Gianni bernstein Self - patient is the insured 3 MEDICAID [address] [place] [address] [id number] Pavan Gianni bernstein Self - patient is the insured 4 Medical (General) History Medical History History ICD Code HTN HLD Hx of acute kidney failure Hx of sepsis with multi organ failure cannabis hyperemesis syndrome extrapyramidal side effects (EPS) Surgical History Surgery Date(Month/Year) gallbladder pin in toe eye surgery Hospitalization History Reason Date(Month/Year) dehydration
--- NOTE | 2024-07-19 03:23 | ED.NAVMDI ---
HPI - Nausea/Vomiting/Diarrhea General Chief complaint: Nausea/Vomiting/Diarrhea Stated complaint: nausea/vomiting Time Seen by Provider: 07/19/24 02:47 Source: patient and RN notes reviewed Mode of arrival: EMS Limitations: no limitations History of Present Illness HPI Narrative: Patient presents with report of nausea and vomiting that started approximately 2-3 hours prior to arrival. He estimates that he has vomited approximately 40 times. He denies any fevers or chills. He lives with his mother who is sick. He has a history of cannabinoid hyperemesis syndrome does note that he used marijuana this afternoon. He is complaining of right upper quadrant abdominal pain and then pain in his chest that began after he vomited. He received 4 mg of Zofran on route by EMS and states that that helped a bit. Previous abdominal surgery includes cholecystectomy. He denies alcohol. Related Data Home Medications ?Medication ?Instructions ?Recorded ?Confirmed ?Last Taken ?Type aspirin 81 mg tablet,delayed 81 mg PO DAILY@0800 02/14/24 05/02/24 05/01/24 History release atorvastatin 20 mg tablet 20 mg PO DAILY 02/14/24 05/02/24 05/01/24 History carvedilol 3.125 mg tablet 3.125 mg PO Q12H 02/14/24 05/02/24 05/01/24 History divalproex 500 mg tablet,delayed 500 mg PO BID 02/14/24 05/02/24 05/01/24 History release hydroxyzine pamoate 25 mg capsule 25 mg PO HS PRN anxiety 02/14/24 05/02/24 Unknown History olanzapine 10 mg tablet 10 mg PO HS 02/14/24 05/02/24 05/01/24 History benztropine 0.5 mg tablet 0.5 mg PO HS 04/25/24 05/02/24 05/01/24 History losartan 25 mg tablet 25 mg PO DAILY 04/25/24 05/02/24 05/01/24 History olanzapine 5 mg tablet 5 mg PO 0900 04/25/24 05/02/24 Unknown History Allergies Allergy/AdvReac Type Severity Reaction Status Date / Time No Known Allergies Allergy Verified 07/18/24 22:24 [facility] Past Medical History Medical History Bipolar disorder 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 He has smoked half a pack of cigarettes per day since he was a teenager. He denies any history of alcohol use. He uses marijuana daily. Code status: Full code Surrogate decision maker: Renee (Mother) Smoking packs per day: 0.5 Smoking cigarettes per day: 10.0 Years smoked: 30 Smoking pack-years: 15.00 Smoking status: Current every day smoker Tobacco type: cigarettes Alcohol intake: former Drinks per week: 1 Substance use: current Substance use type: marijuana Last use: 07/18/24 Do You Feel Safe in your Home?: Yes Lack of Transportation: No Lack of Food: Never True Current Housing: I Have Housing Concerned About Future Housing: No Difficulty Paying Gas/Electric Bills: No Difficulty Paying for Meds: No Currently Unemployed: No Education: High School Diploma/GED Difficulty w/ Childcare or Family Care: No Living arrangements: with family Additional living arrangements comments: Mother Spiritual care concerns: Yes Exam Narrative: GENERAL: Cachectic but in no acute distress. HEAD: Normocephalic, atraumatic. EYES: Non injected, non icteric ENT: Nares clear, no rhinorrhea or epistaxis. Gross auditory acuity intact. NECK: Supple. No meningismus. CHEST: Speaking in full sentences. No respiratory distress. HEART: Regular rate and rhythm. ABDOMEN: Soft, nondistended. Thin. No rigidity or guarding. Not peritoneal. EXTREMITIES: Normal range of motion. No lower extremity edema. SKIN: Warm, dry, no rash. NEURO: No focal deficits. Alert and oriented. Answering questions. Following commands. PSYCH: Normal mood and affect. Course Vital Signs Vital signs: Vital Signs Temperature 97.7 F 07/18/24 22:42 Pulse Rate 80 07/18/24 22:42 Respiratory Rate 16 07/18/24 22:42 Blood Pressure 133/97 H 07/18/24 22:42 Pulse Oximetry 99 07/18/24 22:42 Temperature 98.1 F 07/19/24 01:03 Pulse Rate 87 07/19/24 07:12 Respiratory Rate 19 07/19/24 07:12 Blood Pressure 141/75 H 07/19/24 07:12 Pulse Oximetry 100 07/19/24 07:12 MDM - Nausea/Vomiting/Diarrhea MDM Narrative Medical decision making narrative: Patient presents with nausea and vomiting as as right upper quadrant abdominal pain. S/p keshav. In the emergency department he is afebrile with acceptable vital signs though elevated diastolic blood pressure. IV fluids, 2.5 mg Haldol, and 25 mg IV diphenhydramine are ordered. EKG and CXR ordered for CP though this developed after vomting. He has mild hyperkalemia. Calcium gluconate, 5U insulin (renally dosed), . Deferring giving dextrose at this time given he is hyperglycemic already. Deferring giving Lasix given his kidney function. Deferring given sodium bicarb as he is not acidotic. His kidney function has acutely worsened as it had been 0.8 previously and now is >2, a significant EDILBERTO. He has a marked leukocytosis and his hemoglobin and hematocrit are elevated, I suspect a strong degree of hemoconcentration. Patient's calcium corrects to 10.2 given his albumin which is more appropriate. Patient with only trace bacteria on urinalysis but with several other markers concerning for infection. Given his leukocytosis, reasonable to start antibiotics. Reflexed to urine culture. 1 prior urine culture with no growth. Concern for urinary tract infection further supported by CT findings that are suspicious for cystitis. Patient reassessed at 5:20 a.m.. He states his nausea is better and his pain is also improving, currently a 6/10 in severity. Will re-dose both the Haldol diphenhydramine. On repeat BMP, Potassium has normalized. Creatinine remains elevated but when I did go to reassess patient at 6:45 a.m., it does appear that he has only received approximately 250-300 cc of his 2nd fluid bolus thus I suspect he had only received a little over 1L of fluids at the time it was drawn. He is feeling better. Will attempt to PO challenge. He immediately vomits. Discussed with the patient the need/recommendation for admission he agrees. Discussed patient with on-call hospitalist Dr Cho who accepts admission. Differential Diagnosis Differential diagnosis: Likely drug-induced nausea and vomiting, dehydration and other (Gastritis, cannabinoid hyperemesis syndrome, considered biliary etiology though he is status post keshav; pancreatitis) Lab Data Attestation: I reviewed the patient's lab results. 07/18/24 22:48 07/19/24 06:27 Labs: Lab Results 07/18/24 07/19/24 07/19/24 Range/Units 22:48 02:47 06:27 WBC 20.2 H (4.5-10.0) K/mm3 RBC 5.76 (4.6-6.20) M/mm3 Hgb 18.1 H D (14.0-18.0) g/dL Hct 54.1 H (42.0-52.0) % MCV 93.9 (80-100) fl MCH 31.4 (26-34) pg MCHC 33.5 (32-36) g/dl RDW 13.8 (11.5-14.5) % Plt Count 237 (150-375) k/mm3 MPV 11.2 H (7.4-10.4) fl Immature Gran % (Auto) Not Reportable Neut % (Auto) Not Reportable Lymph % (Auto) Not Reportable [place] % (Auto) Not Reportable Eos % (Auto) Not Reportable Baso % (Auto) Not Reportable Lymph # (Auto) Not Reportable [place] # (Auto) Not Reportable Eos # (Auto) Not Reportable Baso # (Auto) Not Reportable Abs Immat Gran (auto) Not Reportable Absolute Neuts (auto) Not Reportable Absolute Nucleated RBC Not Reportable Total Counted 100 Neutrophils % (Manual) 79 H (46-73) % Band Neutrophils % 12 H (0-6) % Lymphocytes % (Manual) 3.0 L (18-44) % Monocytes % (Manual) 6 (3-9) % Nucleated RBC % Not Reportable Abs Neuts (Manual) 18.38 H (1.3-6.7) K/mm3 Abs Lymphs (Manual) 0.60 L (1.1-4.5) K/mm3 Abs Monocytes (Manual) 1.21 H (0.1-0.90) K/mm3 Platelet Estimate Adequate (Adequate) Anisocytosis 1+ Schistocytes None seen Sodium 142 140 (137-145) mmol/L Potassium 5.4 H 4.7 (3.4-5.0) mmol/L Chloride 100 105 (98-107) mmol/L Carbon Dioxide 26 22 (22-30) mmol/L Anion Gap 16 H 13 H (4-12) mmol/L BUN 29 H D 34 H (9-20) mg/dL Creatinine 2.04 H 1.79 H (0.7-1.3) mg/dL Estim Creat Clear Calc 35 40 ml/min Estimated GFR 35 L 41 L (59 - ) Glucose 191 H 137 H (65-110) mg/dL Calcium 11.3 H 10.0 (8.4-10.2) mg/dL Total Bilirubin 0.8 (0.2-1.3) mg/dL AST 30 (17-59) U/L ALT 17 (6-50) U/L Alkaline Phosphatase 93 (38-126) U/L Total Protein 10.0 H (6.3-8.2) g/dL Albumin 5.4 H (3.5-5.1) g/dL Lipase 68 (23-300) U/L Urine Color Dark yellow (Yellow) Urine Appearance Cloudy H (Clear) Urine pH 5.0 (5.0-9.0) Ur Specific [place] 1.024 (1.001-1.035) Urine Protein 3+ H (Negative) mg/dL Urine Glucose (UA) Negative (Negative) mg/dL Urine Ketones 1+ H (Negative) mg/dL Ur Blood (Man) 2+ H (Negative) Urine Nitrate Negative (Negative) Urine Bilirubin 2+ H (Negative) Urine Urobilinogen 1.0 (<2.0) mg/dL Add Ur Microanalysis Reviewed Leukocyte Esterase Rfl 1+ H (Negative) VEE/UL Urine RBC 51-100 H (0-2) /hpf Urine WBC 6-10 H (0-3) /hpf Ur Squamous Epith Cells Few (Few) /hpf Urine Bacteria Trace /hpf Urine Casts >20 Imaging Data Attestation: I personally reviewed and interpreted this imaging study as follows: My impression: Hyperinflated but otherwise no acute process on my independent interpretation chest x-ray Radiologist's impression: Impressions Abdomen/Pelvis CT 07/19/24 05:27 Impression: Questionable cystitis versus underdistention of urinary bladder. Correlate with urinalysis. Chest X-Ray 07/19/24 05:32 Impression: Clear lungs. Possible COPD. ECG Data EKG #1: Attestation: I personally reviewed and interpreted this ECG as follows: ECG completion date: 07/19/24 ECG completion time: 03:37 Interpretation: Normal sinus rhythm at a rate of 78 beats per minute. [place] interval 135. QRS 91. QT/QTC 354/387. Good R-wave progression across the precordial leads. No T-wave inversions. Normal axis. Discharge Plan Discharge Clinical Impression: EDILBERTO (acute kidney injury), Leukocytosis, Elevated hemoglobin, Urinary tract infection in male, Intractable nausea and vomiting Patient Disposition: Still a Patient Condition: Stable Instructions: Antibiotic Form Patient Language: Icelandic Prescriptions: No Action losartan 25 mg tablet 25 mg PO DAILY benztropine 0.5 mg tablet 0.5 mg PO HS olanzapine 5 mg tablet 5 mg PO 0900 divalproex 500 mg tablet,delayed release (DR/EC) 500 mg PO BID atorvastatin 20 mg tablet 20 mg PO DAILY aspirin 81 mg tablet,delayed release (DR/EC) 81 mg PO DAILY@0800 olanzapine 10 mg tablet 10 mg PO HS carvedilol 3.125 mg tablet 3.125 mg PO Q12H hydroxyzine pamoate 25 mg capsule 25 mg PO HS PRN (Reason: anxiety) Follow-up/Referrals: Zbigniew,MD Carmine [Primary Care Provider] -
--- NOTE | 2024-07-19 03:27 | ECG_ITS ---
Test Date: 2024-07-19 03:37:46 Measurements Intervals [place] Rate: 78 P: -8 ID: 135 QRS: 59 QRSD: 91 T: 64 QT: 354 QTc: 404 Interpretive Statements SINUS RHYTHM INCOMPLETE RIGHT BUNDLE BRANCH BLOCK CONSIDER ANTERIOR INFARCT, AGE INDETERMINATE BASELINE ARTIFACT- I, II, III ABNORMAL ECG Compared to ECG 02/14/2024 00:13:21 HEART RATE HAS DECREASED Electronically Signed On 07-19-2024 06:17:29 CDT by Leonardo Bob D.O.
[2024-07-19] MEDS: diphenhydrAMINE HCl INJ 50 MG/ML VIAL 25 MG IV PUSH ×2 (03:37→05:26)
[2024-07-19] MEDS: HALOPERIDOL LACTATE 5 MG/ML VIAL 2.5 MG IV PUSH ×2 (03:38→05:27)
[2024-07-19] MEDS: INSULIN HUMAN REGULAR (*BKC) 100 UNITS/ML IV PUSH (03:38)
[2024-07-19] MEDS: SODIUM CHLORIDE 0.9% IV 1,000 ML 999 ML IV CONT ×2 (03:39→05:11)
[2024-07-19] MEDS: CALCIUM GLUCONATE 1,000 MG/10 ML VIAL 1000 MG IV PUSH (03:39)
[2024-07-19] MEDS: FAMOTIDINE 20 MG/2 ML VIAL IV PUSH (03:56)
[2024-07-19 04:41] LABS: Add Urine Microscopic? YES; Appearance Urine Cloudy (Clear); Bilirubin Urine 2+ (Negative); Blood Urine 2+ (Negative); Color Urine Dark Yellow (Yellow); Glucose Urine UA Negative (Negative); Ketones Urine 1+ mg/dL (Negative); Leukocyte Esterase Ur 1+ LEU/UL (Negative); Need Manual Microscopic Reviewed; Nitrate Urine Negative (Negative); Non Pathogenic Casts >20; Protein Urine 3+ mg/dL (Negative); RBC Urine 51-100 /hpf (0-2); Specific Grav Ur 1.024 (1.001-1.035); Squamous Epithelial Cell Urine Few /hpf (Few)
[2024-07-19 04:46] LABS: Bacteria Urine Trace /hpf
--- NOTE | 2024-07-19 05:12 | PC.NURSE ---
MD Cardenas verbally states we do not need to draw blood cultures before starting antibiotics.
[2024-07-19 06:44] LABS: Anion Gap 13 mmol/L (4-12); Blood Urea Nitrogen 34 mg/dL (9-20); Carbon Dioxide 22 mmol/L (22-30); Chloride 105 mmol/L (98-107); Estimated CRCL calculation 40 ml/min; Estimated Glomerular Filt Rate 41; Glucose 137 mg/dL (65-110); Potassium 4.7 mmol/L (3.4-5.0); Sodium 140 mmol/L (137-145)
[2024-07-19] MEDS: METOCLOPRAMIDE HCL INJ 10 MG/2 ML VIAL IV PUSH (07:06)
[2024-07-19 07:27] LABS: Glucose Point of Care 158 mg/dl (65-105)
--- NOTE | 2024-07-19 07:31 | P.HP_ITS ---
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 Pertinent ED labs: WBC 20.2, hemoglobin 18.1, hematocrit 54.1, platelet 237, sodium 140, potassium 4.7, BUN 34, creatinine 1.79, GFR 41, glucose 137, lipase 68 UA protein 3+, nitrate negative, leukocyte esterase 1+, RBC 51-100, WBC 6-10, trace bacteria Abdomen/pelvis CT shows questionable cystitis versus under distention of urinary bladder. Correlate with urinalysis. Chest x-ray shows Clear lungs. Possible COPD. Patient has multiple admission some symptoms of nausea vomiting and EDILBERTO. His increase in WBC possibly due to reactive versus UTI. Patient will be started on ceftriaxone and will monitor the urine culture. Regards to EDILBERTO it is possibly due to profound vomiting/dehydration. His baseline creatinine 0.7. Will perform renal ultrasound and CPK. No evidence of any clot. Review of Systems Review of Systems: Except as documented, all other systems were reviewed and are negative. 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 He has smoked half a pack of cigarettes per day since he was a teenager. He denies any history of alcohol use. He uses marijuana daily. Code status: Full code Surrogate decision maker: Renee (Mother) Smoking packs per day: 0.5 Smoking cigarettes per day: 10.0 Years smoked: 30 Smoking pack-years: 15.00 Smoking status: Current every day smoker Alcohol intake: former Drinks per week: 1 Substance use: current Substance use type: marijuana Last use: 07/18/24 Do You Feel Safe in your Home?: Yes Lack of Transportation: No Lack of Food: Never True Current Housing: I Have Housing Concerned About Future Housing: No Difficulty Paying Gas/Electric Bills: No Difficulty Paying for Meds: No Currently Unemployed: No Education: High School Diploma/GED Difficulty w/ Childcare or Family Care: No Living arrangements: with family Additional living arrangements comments: Mother Spiritual care concerns: No Meds Home Medications and Allergies Home Medications ?Medication ?Instructions ?Recorded ?Confirmed ?Type aspirin 81 mg tablet,delayed 81 mg PO DAILY@0800 02/14/24 07/19/24 History release atorvastatin 20 mg tablet 20 mg PO DAILY 02/14/24 07/19/24 History carvedilol 3.125 mg tablet 3.125 mg PO Q12H 02/14/24 07/19/24 History divalproex 500 mg tablet,delayed 500 mg PO BID 02/14/24 07/19/24 History release hydroxyzine pamoate 25 mg capsule 25 mg PO HS PRN anxiety 02/14/24 07/19/24 History olanzapine 10 mg tablet 10 mg PO HS 02/14/24 07/19/24 History benztropine 0.5 mg tablet 0.5 mg PO HS 04/25/24 07/19/24 History losartan 25 mg tablet 25 mg PO DAILY 04/25/24 07/19/24 History olanzapine 5 mg tablet 5 mg PO 0900 04/25/24 07/19/24 History Allergies Allergy/AdvReac Type Severity Reaction Status Date / Time No Known Allergies Allergy Verified 07/18/24 22:24 Vital Signs Vital Signs - 24 hr 07/18/24 22:42 07/19/24 01:02 07/19/24 01:03 Temperature 97.7 F 98.1 F Pulse Rate 80 66 78 Respiratory Rate 16 11 L 15 Blood Pressure 133/97 H 129/69 129/69 Pulse Oximetry 99 99 100 07/19/24 01:31 07/19/24 01:46 07/19/24 02:47 Temperature Pulse Rate 77 79 81 Respiratory Rate 16 14 16 Blood Pressure 139/91 H 139/92 H 120/99 H Pulse Oximetry 98 97 98 07/19/24 03:01 07/19/24 04:16 07/19/24 04:22 Temperature Pulse Rate 70 80 75 Respiratory Rate 17 25 H 18 Blood Pressure 130/93 H 124/78 127/88 Pulse Oximetry 99 99 99 07/19/24 04:31 07/19/24 04:46 07/19/24 05:01 Temperature Pulse Rate 81 81 69 Respiratory Rate 24 H 23 H 15 Blood Pressure 140/95 H 136/94 H 156/85 H Pulse Oximetry 99 96 99 07/19/24 06:48 07/19/24 07:12 Temperature Pulse Rate 81 87 Respiratory Rate 18 19 Blood Pressure 137/83 141/75 H Pulse Oximetry 99 100 Exam Narrative: GENERAL: Cachectic but in no acute distress. HEAD: Normocephalic, atraumatic. EYES: Non injected, non icteric ENT: Nares clear, no rhinorrhea or epistaxis. Gross auditory acuity intact. NECK: Supple. No meningismus. CHEST: Speaking in full sentences. No respiratory distress. HEART: Regular rate and rhythm. ABDOMEN: Soft, nondistended. Thin. No rigidity or guarding. Not peritoneal. EXTREMITIES: Normal range of motion. No lower extremity edema. SKIN: Warm, dry, no rash. NEURO: No focal deficits. Alert and oriented. Answering questions. Following commands. PSYCH: Normal mood and affect. H&P: Results Labs Labs: Short CBC 07/18/24 Range/Units 22:48 WBC 20.2 H (4.5-10.0) K/mm3 Hgb 18.1 H D (14.0-18.0) g/dL Hct 54.1 H (42.0-52.0) % Plt Count 237 (150-375) k/mm3 [facility] 07/18/24 07/19/24 22:48 06:27 Sodium 142 140 Potassium 5.4 H 4.7 Chloride 100 105 Carbon Dioxide 26 22 BUN 29 H D 34 H Creatinine 2.04 H 1.79 H Glucose 191 H 137 H Calcium 11.3 H 10.0 Liver Function 07/18/24 Range/Units 22:48 Total Bilirubin 0.8 (0.2-1.3) mg/dL AST 30 (17-59) U/L ALT 17 (6-50) U/L Alkaline Phosphatase 93 (38-126) U/L Albumin 5.4 H (3.5-5.1) g/dL Urine 06/03/25 Range/Units 02:47 Urine Color Dark yellow (Yellow) Urine Appearance Cloudy H (Clear) Urine pH 5.0 (5.0-9.0) Ur Specific [place] 1.024 (1.001-1.035) Urine Protein 3+ H (Negative) mg/dL Urine Glucose (UA) Negative (Negative) mg/dL Assessment and Plan Assessment and plan (1) Bipolar disorder: Code(s): F31.9 - Bipolar disorder, unspecified Status: Acute (2) Cannabinoid hyperemesis syndrome: Code(s): R11.2 - Nausea with vomiting, unspecified; F12.90 - Cannabis use, unspecified, uncomplicated Status: Acute (3) Nausea and vomiting: Code(s): R11.2 - Nausea with vomiting, unspecified Status: Acute (4) Intractable nausea and vomiting: Code(s): R11.2 - Nausea with vomiting, unspecified Status: Acute (5) EDILBERTO (acute kidney injury): Code(s): N17.9 - Acute kidney failure, unspecified Status: Acute (6) Urinary tract infection in male: Code(s): N39.0 - Urinary tract infection, site not specified Status: Acute Plan Intractable nausea vomiting, dehydration secondary to cannabinoid hyperemesis syndrome Patient has intractable nausea vomiting resulting in profound dehydration evide nced by secondary polycythemia Start fluid resuscitation Start antiemetic medications Zofran Reglan IV p.r.n. Will start clear liquid diet Acute renal failure creatinine has jumped from a baseline of 0.7 up to 1.76 Patient received fluid bolus in the ER Continue fluid rate to 125 mL an hour Follow-up BMP and creatinine Follow-up input output Order renal ultrasound Order CPK Psychiatric disorders Denies suicidal ideation Continue home medications Leukocytosis Possible due to dehydration versus UTI Started ceftriaxone Monitor culture Vitals stable Patient is afebrile DVT prophylaxis Lovenox 40 mg subQ daily Hospitalist MIPS Advance Care Plan I have confirmed that the patient's Advanced Care Plan is present, code status is documented, or surrogate decision maker is listed in patient medical record.: Yes Medication Reconciliation I have utilized all available resources to obtain, update and review the patients current medications (includes all prescriptions, OTC, herbals, can nabis, and nutritional supplements).: Yes
[2024-07-19] MEDS: LACTATED RINGERS 1,000 ML 125 ML IV CONT ×2 (07:46→15:40)
[2024-07-19] MEDS: ONDANSETRON INJ 4 MG/2 ML VIAL IV PUSH (08:13)
[2024-07-19] MEDS: ENOXAPARIN 40 MG/0.4 ML SYRINGE SUB-Q (09:11)
[2024-07-19 12:43] LABS: Creatine Kinase 50 U/L (55-170)
--- NOTE | 2024-07-19 15:41 | PC.NURSE ---
This patient, Gianni Hsu, was admitted to [facility] Surg Room 309-01. Patient/family oriented to hospital policies and general routines including ID bracelet, bed and alarms, visiting hours, pain management, procedures, bathroom and other care routines, personal items, smoking policy, room service/diet, and visiting hours. Information on how to activate the Rapid Response Team has been discussed. Patient/Family are encouraged to report perceived risks to care and to ask questions if they do not understand what they are told or what they should do.
[2024-07-19] MEDS: DIVALPROEX SODIUM DR 250 MG TABEC 500 MG PO (18:10)
[2024-07-19] MEDS: OLANZapine 5 MG TABLET 10 MG PO (20:44)
[2024-07-19] MEDS: carvediloL 3.125 MG TABLET PO (20:44)
[2024-07-19] MEDS: BENZTROPINE MESYLATE 0.5 MG TABLET PO (22:13)
[2024-07-20] MEDS: LACTATED RINGERS 1,000 ML 125 ML IV CONT ×2 (01:04→20:58)
[2024-07-20 06:00] VITALS: BP 105/62; PULSE 55; RESP 18; TEMP 36.6; O2SAT 98
[2024-07-20 06:25] LABS: Hematocrit 42.1 % (42.0-52.0); Hemoglobin 13.8 g/dL (14.0-18.0); Mean Corpuscular HGB Conc 32.8 g/dl (32-36); Mean Corpuscular Hemoglobin 31.8 pg (26-34); Mean Platelet Volume 11.4 fl (7.4-10.4); Platelet Count Result 168 k/mm3 (150-375); Red Blood Count 4.34 M/mm3 (4.6-6.20); Red Cell Distribution Width 13.9 % (11.5-14.5); White Blood Count 10.4 K/mm3 (4.5-10.0)
[2024-07-20 06:49] LABS: Alanine Aminotransferase 10 U/L (6-50); Albumin Level 3.6 g/dL (3.5-5.1); Alkaline Phosphatase 49 U/L (38-126); Anion Gap 5 mmol/L (4-12); Aspartate Amino Transferase 18 U/L (17-59); Bilirubin,Total 0.6 mg/dL (0.2-1.3); Blood Urea Nitrogen 26 mg/dL (9-20); Carbon Dioxide 28 mmol/L (22-30); Chloride 105 mmol/L (98-107); Estimated CRCL calculation 73 ml/min; Estimated Glomerular Filt Rate > 60; Glucose 96 mg/dL (65-110); Potassium 4.1 mmol/L (3.4-5.0); Sodium 138 mmol/L (137-145); Total Protein 6.2 g/dL (6.3-8.2)
[2024-07-20 09:51] VITALS: PULSE 56
[2024-07-20] MEDS: carvediloL 3.125 MG TABLET PO ×2 (09:51→21:01)
[2024-07-20] MEDS: ENOXAPARIN 40 MG/0.4 ML SYRINGE SUB-Q (09:51)
[2024-07-20] MEDS: DIVALPROEX SODIUM DR 250 MG TABEC 500 MG PO ×2 (09:51→16:14)
[2024-07-20] MEDS: OLANZapine 5 MG TABLET PO (09:51)
[2024-07-20] MEDS: ATORVASTATIN 20 MG TABLET PO (09:51)
[2024-07-20] MEDS: ONDANSETRON INJ 4 MG/2 ML VIAL IV PUSH (12:20)
[2024-07-20 14:00] VITALS: BP 144/70; PULSE 54; RESP 16; TEMP 36.6; O2SAT 100
[2024-07-20] MEDS: BELLADONNA ALK/PHENOB ELIX 10 ML, MAG HYDROX/ALUMINUM HYD/SIMETH 30 ML, LIDOCAINE 2% VI... PO (14:28)
--- NOTE | 2024-07-20 15:55 | P.PNIM_ITS ---
Progress Note: A&P Assessment and Plan (1) Bipolar disorder: Code(s): F31.9 - Bipolar disorder, unspecified Status: Acute (2) Cannabinoid hyperemesis syndrome: Code(s): R11.2 - Nausea with vomiting, unspecified; F12.90 - Cannabis use, unspecified, uncomplicated Status: Acute (3) Nausea and vomiting: Code(s): R11.2 - Nausea with vomiting, unspecified Status: Acute (4) Intractable nausea and vomiting: Code(s): R11.2 - Nausea with vomiting, unspecified Status: Acute (5) EDILBERTO (acute kidney injury): Code(s): N17.9 - Acute kidney failure, unspecified Status: Acute (6) Urinary tract infection in male: Code(s): N39.0 - Urinary tract infection, site not specified Status: Acute Plan Intractable nausea vomiting, dehydration secondary to cannabinoid hyperemesis syndrome Patient has intractable nausea vomiting resulting in profound dehydration evidenced by secondary polycythemia Start fluid resuscitation Start antiemetic medications Zofran Reglan IV p.r.n. Will start clear liquid diet Start PPI b.i.d. Acute renal failure creatinine has jumped from a baseline of 0.7 up to 1.76 Patient received fluid bolus in the ER Continue fluid rate to 125 mL an hour Follow-up BMP and creatinine Follow-up input output Order renal ultrasound Order CPK Psychiatric disorders Denies suicidal ideation Continue home medications Leukocytosis Possible due to dehydration versus UTI Started ceftriaxone Monitor culture Vitals stable Patient is afebrile DVT prophylaxis Lovenox 40 mg subQ daily Subjective Date/time seen: 07/20/24 15:55 Interval history: Patient reports he is not doing well today. Patient has episodes of vomiting and abdominal pain. Given 1 dose of GI cocktail Review of Systems Review of Systems: Except as documented, all other systems were reviewed and are negative. Exam Narrative: GENERAL: Cachectic but in no acute distress. HEAD: Normocephalic, atraumatic. EYES: Non injected, non icteric ENT: Nares clear, no rhinorrhea or epistaxis. Gross auditory acuity intact. NECK: Supple. No meningismus. CHEST: Speaking in full sentences. No respiratory distress. HEART: Regular rate and rhythm. ABDOMEN: Soft, nondistended. Thin. No rigidity or guarding. Not peritoneal. EXTREMITIES: Normal range of motion. No lower extremity edema. SKIN: Warm, dry, no rash. NEURO: No focal deficits. Alert and oriented. Answering questions. Following commands. PSYCH: Normal mood and affect. Objective Data Vital Signs Vital Signs: Vital Signs - 24 hr 07/19/24 20:44 07/19/24 20:44 07/19/24 21:18 Temperature 97.6 F Pulse Rate 66 64 Respiratory Rate 18 Blood Pressure 105/64 Pulse Oximetry 98 Oxygen Delivery Room Air 07/20/24 06:00 07/20/24 08:00 07/20/24 09:51 Temperature 97.9 F Pulse Rate 55 L 56 L Respiratory Rate 18 Blood Pressure 105/62 Pulse Oximetry 98 Oxygen Delivery Room Air Intake/Output Intake/Output: Intake & Output 07/17/24 07/18/24 07/19/24 07/20/24 23:59 23:59 23:59 23:59 Intake Total 5497.5 450 Output Total 675 Balance 5497.5 -225 Meds/Results Medications: Active Medications Generic Name Dose Route Start Last Admin Trade Name Freq PRN Reason Stop Dose Admin Acetaminophen 650 mg 07/19/24 07:15 Acetaminophen 325 Mg Tablet PO Q4H PRN Mild Pain (1-3) or Fever Atorvastatin Calcium 20 mg 07/20/24 09:00 07/20/24 09:51 Atorvastatin 20 Mg Tablet PO 20 mg DAILY MELANI Administration Benztropine Mesylate 0.5 mg 07/19/24 21:00 07/19/24 22:13 Benztropine Mesylate 0.5 Mg Tablet PO 0.5 mg HS MELANI Administration Carvedilol 3.125 mg 07/19/24 21:00 07/20/24 09:51 Carvedilol 3.125 Mg Tablet PO 3.125 mg Q12HR MELANI Administration Divalproex Sodium 500 mg 07/19/24 17:00 07/20/24 09:[address] 250 Mg Tabec PO 500 mg BID MELANI Administration Enoxaparin Sodium 40 mg 07/19/24 09:00 07/20/24 09:51 Enoxaparin 40 Mg/0.4 Ml Syringe SUB-Q 40 mg DAILY MELANI Administration Hydroxyzine Pamoate 25 mg 07/19/24 15:47 Hydroxyzine Pamoate 25 Mg Capsule PO HS PRN anxiety Lactated Ringer's 1,000 mls @ 125 mls/hr 07/19/24 07:15 07/20/24 12:26 Lr - Lactated Ringers Iv IV CONT Not Given .Q8H MELANI Ceftriaxone Sodium 1 gm in 50 mls @ 100 mls/hr 07/20/24 05:00 07/20/24 05:14 Rocephin 1 Gm/Ns 50 Ml IVPB Infused Q24H MELANI Infusion Olanzapine 5 mg 07/20/24 09:00 07/20/24 09:51 Olanzapine 5 Mg Tablet PO 5 mg 0900 MELANI Administration Olanzapine 10 mg 07/19/24 21:00 07/19/24 20:44 Olanzapine 5 Mg Tablet PO 10 mg HS MELANI Administration Ondansetron HCl 4 mg 07/19/24 07:15 07/20/24 12:20 Ondansetron Inj 4 Mg/2 Ml Vial IV PUSH 4 mg Q4H PRN Administration Nausea Pantoprazole Sodium 40 mg 07/20/24 21:00 Pantoprazole 40 Mg Tablet PO Q12HR MELANI Radiology Results: ITS Impressions Abdomen/Pelvis CT 07/19/24 05:27 Impression: Questionable cystitis versus underdistention of urinary bladder. Correlate with urinalysis. Chest X-Ray 07/19/24 05:32 Impression: Clear lungs. Possible COPD. Renal Ultrasound 07/19/24 22:11 IMPRESSION: No definite abnormality seen. Labs Labs: Laboratory Results - last 24 hr 07/20/24 05:39 WBC 10.4 H RBC 4.34 L Hgb 13.8 L D Hct 42.1 MCV 97.0 MCH 31.8 MCHC 32.8 RDW 13.9 Plt Count 168 MPV 11.4 H Sodium 138 Potassium 4.1 Chloride 105 Carbon Dioxide 28 Anion Gap 5 BUN 26 H Creatinine 0.96 Estim Creat Clear Calc 73 Estimated GFR > 60 Glucose 96 Calcium 9.0 Total Bilirubin 0.6 AST 18 ALT 10 Alkaline Phosphatase 49 Total Protein 6.2 L Albumin 3.6 Hospitalist MIPS Advance Care Plan I have confirmed that the patient's Advanced Care Plan is present, code status is documented, or surrogate decision maker is listed in patient medical record.: Yes Medication Reconciliation I have utilized all available resources to obtain, update and review the pat ients current medications (includes all prescriptions, OTC, herbals, cannabis, and nutritional supplements).: Yes
[2024-07-20 20:00] VITALS: PULSE 66; RESP 20; O2SAT 97
[2024-07-20] MEDS: OLANZapine 5 MG TABLET 10 MG PO (21:00)
[2024-07-20 21:01] VITALS: PULSE 70
[2024-07-20] MEDS: BENZTROPINE MESYLATE 0.5 MG TABLET PO (21:01)
[2024-07-20] MEDS: hydrOXYzine pamoate 25 MG CAPSULE PO (21:02)
[2024-07-20] MEDS: PANTOPRAZOLE SODIUM IV 40 MG VIAL IV PUSH (21:07)
[2024-07-20 21:51] VITALS: BP 136/91; PULSE 66; RESP 20; TEMP 36.6; O2SAT 97
[2024-07-21] MEDS: LACTATED RINGERS 1,000 ML 125 ML IV CONT (05:18)
[2024-07-21 06:00] VITALS: BP 110/71; PULSE 62; RESP 24; TEMP 36.8; O2SAT 98
[2024-07-21 06:44] LABS: Hematocrit 44.4 % (42.0-52.0); Hemoglobin 14.6 g/dL (14.0-18.0); Mean Corpuscular HGB Conc 32.9 g/dl (32-36); Mean Corpuscular Hemoglobin 32.2 pg (26-34); Mean Corpuscular Volume 97.8 fl (80-100); Mean Platelet Volume 11.5 fl (7.4-10.4); Platelet Count Result 177 k/mm3 (150-375); Red Blood Count 4.54 M/mm3 (4.6-6.20); Red Cell Distribution Width 13.3 % (11.5-14.5); White Blood Count 11.4 K/mm3 (4.5-10.0)
[2024-07-21 07:05] LABS: Alanine Aminotransferase 12 U/L (6-50); Albumin Level 3.9 g/dL (3.5-5.1); Alkaline Phosphatase 58 U/L (38-126); Anion Gap 5 mmol/L (4-12); Aspartate Amino Transferase 20 U/L (17-59); Bilirubin,Total 0.7 mg/dL (0.2-1.3); Blood Urea Nitrogen 23 mg/dL (9-20); Calcium 9.4 mg/dL (8.4-10.2); Carbon Dioxide 32 mmol/L (22-30); Chloride 101 mmol/L (98-107); Estimated CRCL calculation 74 ml/min; Estimated Glomerular Filt Rate > 60; Glucose 87 mg/dL (65-110); Potassium 3.9 mmol/L (3.4-5.0); Sodium 138 mmol/L (137-145); Total Protein 6.7 g/dL (6.3-8.2)
[2024-07-21 09:57] VITALS: PULSE 62
[2024-07-21] MEDS: PANTOPRAZOLE SODIUM IV 40 MG VIAL IV PUSH (09:57)
[2024-07-21] MEDS: DIVALPROEX SODIUM DR 250 MG TABEC 500 MG PO (09:57)
[2024-07-21] MEDS: carvediloL 3.125 MG TABLET PO (09:57)
[2024-07-21] MEDS: ATORVASTATIN 20 MG TABLET PO (09:57)
[2024-07-21] MEDS: OLANZapine 5 MG TABLET PO (09:57)
[2024-07-21] MEDS: ENOXAPARIN 40 MG/0.4 ML SYRINGE SUB-Q (09:57)
[2024-07-21 14:00] VITALS: BP 123/69; PULSE 62; RESP 14; TEMP 36.5; O2SAT 94
--- NOTE | 2024-07-21 16:06 | PM.DS ---
DS: Admitting Diagnosis Discharge Date 07/21/2024 Admitting Diagnosis Nausea, vomiting DS: Discharge Diagnosis Discharge Diagnosis (1) Bipolar disorder: Code(s): F31.9 - Bipolar disorder, unspecified Status: Acute (2) Cannabinoid hyperemesis syndrome: Code(s): R11.2 - Nausea with vomiting, unspecified; F12.90 - Cannabis use, unspecified, uncomplicated Status: Acute (3) Nausea and vomiting: Code(s): R11.2 - Nausea with vomiting, unspecified Status: Acute (4) Intractable nausea and vomiting: Code(s): R11.2 - Nausea with vomiting, unspecified Status: Acute (5) EDILBERTO (acute kidney injury): Code(s): N17.9 - Acute kidney failure, unspecified Status: Acute (6) Urinary tract infection in male: Code(s): N39.0 - Urinary tract infection, site not specified Status: Acute Plan Intractable nausea vomiting, dehydration secondary to cannabinoid hyperemesis syndrome Patient has intractable nausea vomiting resulting in profound dehydration evidenced by secondary polycythemia Start fluid resuscitation Start antiemetic medications Zofran Reglan IV p.r.n. Will start clear liquid diet Start PPI b.i.d. Acute renal failure creatinine has jumped from a baseline of 0.7 up to 1.76 Patient received fluid bolus in the ER Continue fluid rate to 125 mL an hour Follow-up BMP and creatinine Follow-up input output Order renal ultrasound Order CPK Psychiatric disorders Denies suicidal ideation Continue home medications Leukocytosis Possible due to dehydration versus UTI Started ceftriaxone Monitor culture Vitals stable Patient is afebrile DVT prophylaxis Lovenox 40 mg subQ daily DS: Summary Hospital Course Hospital Course: Patient is a 49 oral year old male with a past medical history of bipolar, tobacco use cyclic vomiting due to marijuana use was discharged from the hospital on 05/05/24 presented with symptoms of nausea and vomiting and EDILBERTO. Pertinent ED labs: WBC 20.2, hemoglobin 18.1, hematocrit 54.1, platelet 237, sodium 140, potassium 4.7, BUN 34, creatinine 1.79, GFR 41, glucose 137, lipase 68 UA protein 3+, nitrate negative, leukocyte esterase 1+, RBC 51-100, WBC 6-10, trace bacteria Abdomen/pelvis CT shows questionable cystitis versus under distention of urinary bladder. Correlate with urinalysis. Chest x-ray shows Clear lungs. Possible COPD. Patient has multiple admission some symptoms of nausea vomiting and EDILBERTO. His increase in WBC possibly due to reactive versus UTI. Patient will be started on ceftriaxone and will monitor the urine culture. Regards to EDILBERTO it is possibly due to profound vomiting/dehydration. His baseline creatinine 0.7. Will perform renal ultrasound and CPK. No evidence of any clot. Patient reports he is doing well and no reports of vomiting . Nursing team reports there is possible patient is smoking weed during hospitalization. Status at Discharge Cognitive/behavioral status at discharge: Stable Time Spent with Patient Time attestation: Total time spent providing and/or coordinating discharge services:45 minutes Exam Narrative: GENERAL: Cachectic but in no acute distress. HEAD: Normocephalic, atraumatic. EYES: Non injected, non icteric ENT: Nares clear, no rhinorrhea or epistaxis. Gross auditory acuity intact. NECK: Supple. No meningismus. CHEST: Speaking in full sentences. No respiratory distress. HEART: Regular rate and rhythm. ABDOMEN: Soft, nondistended. Thin. No rigidity or guarding. Not peritoneal. EXTREMITIES: Normal range of motion. No lower extremity edema. SKIN: Warm, dry, no rash. NEURO: No focal deficits. Alert and oriented. Answering questions. Following commands. PSYCH: Normal mood and affect. DS: Data Data Completed and Pending Labs on day of discharge: Labs from last 24 hours 07/21/24 05:52 WBC 11.4 H RBC 4.54 L Hgb 14.6 Hct 44.4 MCV 97.8 MCH 32.2 MCHC 32.9 RDW 13.3 Plt Count 177 MPV 11.5 H Sodium 138 Potassium 3.9 Chloride 101 Carbon Dioxide 32 H Anion Gap 5 BUN 23 H Creatinine 0.94 Estim Creat Clear Calc 74 Estimated GFR > 60 Glucose 87 Calcium 9.4 Total Bilirubin 0.7 AST 20 ALT 12 Alkaline Phosphatase 58 Total Protein 6.7 Albumin 3.9 Imaging Radiologist's impression: ITS Impressions Abdomen/Pelvis CT 07/19/24 05:27 Impression: Questionable cystitis versus underdistention of urinary bladder. Correlate with urinalysis. Chest X-Ray 07/19/24 05:32 Impression: Clear lungs. Possible COPD. Renal Ultrasound 07/19/24 22:11 IMPRESSION: No definite abnormality seen. Discharge Plan Discharge Attending physician on discharge: Wes Rosario Discharging Clinician: Wes Rosario Anticipated Discharge Date/Time: 07/21/24 16:03 Patient Disposition: Home Activity: as tolerated Diet: bland Discharge Instructions: Smoking cessation advised Needs to follow-up with the Gastroenterology as an outpatient Continue pantoprazole 2 times a day Patient Instructions: Antibiotic Form Patient Language: Yi Stand Alone Forms: General Discharge Information Follow-up/Referrals: Bre,MD Carmine [Primary Care Provider] - Discharge Medications: New pantoprazole [Protonix] 40 mg tablet,delayed release (DR/EC) 40 mg PO BID 56 Days Qty: 112 0RF Continued losartan 25 mg tablet 25 mg PO DAILY benztropine 0.5 mg tablet 0.5 mg PO HS olanzapine 5 mg tablet 5 mg PO 0900 divalproex 500 mg tablet,delayed release (DR/EC) 500 mg PO BID atorvastatin 20 mg tablet 20 mg PO DAILY aspirin 81 mg tablet,delayed release (DR/EC) 81 mg PO DAILY@0800 olanzapine 10 mg tablet 10 mg PO HS carvedilol 3.125 mg tablet 3.125 mg PO Q12H hydroxyzine pamoate 25 mg capsule 25 mg PO HS PRN (Reason: anxiety) Date of admission: 07/19/24 07:15 Primary Care Provider: ZbigniewCarmine Admitting Provider: Wes Rosario Attending physician on admission: Wes Rosario Condition: Stable
== END 2024-07-21 16:38 | disposition home or self-care (01) ==
LOC: ANHED 07-19 07:20 → ANH3MEDSUR 07-19 07:50
PROVIDERS: Admitting Provider General Practice; Emergency Provider Student in an Organized Health Care Education/Training Program; PCP Internal Medicine; Visit Provider General Practice
DX: R11.2 Nausea with vomiting, unspecified (principal); F12.90 Cannabis use, unspecified, uncomplicated; E86.0 Dehydration; N17.9 Acute kidney failure, unspecified; N39.0 Urinary tract infection, site not specified; F31.9 Bipolar disorder, unspecified; D72.829 Elevated white blood cell count, unspecified; I10 Essential (primary) hypertension; F17.210 Nicotine dependence, cigarettes, uncomplicated; D58.2 Other hemoglobinopathies; Z79.82 Long term (current) use of aspirin; Z79.899 Other long term (current) drug therapy; Z90.49 Acquired absence of other specified parts of digestive tract; Z96.1 Presence of intraocular lens; Z98.42 Cataract extraction status, left eye; Z98.41 Cataract extraction status, right eye
CPT/HCPCS: 36415; 71045; 74176; 76775; 80048; 80053; 81001; 82550; 82948; 83690; 85025; 85027; 87086; 93005; 96361; 96365; 96372; 96375; 96376; 99285; A9270; G0378; J0612; J0696; J1200; J1630; J1650; J1815; J2405; J2470; J2765; J7030; J7120

== ENCOUNTER 2024-11-24 14:32 | Inpatient (IN) | payer MEDICARE, MEDICAID, SELFPAY ==
[2024-11-24] VITALS (18 sets, daily range): BP systolic 113–162; BP diastolic 79–105; PULSE 72–107; RESP 12–20; TEMP 36.7–37; O2SAT 96–100; BMI 17.2
--- NOTE | ~2024-11-24 | US_ITS ---
Examination: Ultrasound of the retroperitoneum including kidneys and bladder. Clinical History: EDILBERTO . Comparison: CT abdomen and pelvis 07/19/2024. Findings: Right kidney: 10 cm. Normal echogenicity. No collecting system dilatation. No shadowing calculi. Left kidney: 11 cm. Normal echogenicity. No collecting system dilatation. 7 mm echogenic focus probable stone. Urinary bladder: No wall thickening or focal abnormality. IMPRESSION: 1. No hydronephrosis. Reviewed, dictated and finalized at location R. IMPRESSION: 1. No hydronephrosis.
[2024-11-24 15:59] LABS: Hematocrit 58.0 % (42.0-52.0); Hemoglobin 20.3 g/dL (14.0-18.0); Immature Granulocyte Percent A 0.6 % (0-0.5); Lymphocytes Absolute Auto 1.97 K/mm3 (0.9-3.2); Mean Corpuscular HGB Conc 35.0 g/dl (32-36); Mean Corpuscular Hemoglobin 31.6 pg (26-34); Mean Corpuscular Volume 90.3 fl (80-100); Nucleated Red Blood Cells Absolute Auto 0.000 K/mm3 (0.0-0.012); Nucleated Red Blood Cells Perc 0.0 % (0.0-0.2); Platelet Count Result 240 k/mm3 (150-375); Red Blood Count 6.42 M/mm3 (4.6-6.20); White Blood Count 21.3 K/mm3 (4.5-10.0)
[2024-11-24 16:21] LABS: Alanine Aminotransferase 20 U/L (6-50); Albumin Level 5.4 g/dL (3.5-5.1); Alkaline Phosphatase 127 U/L (38-126); Anion Gap 25 mmol/L (4-12); Aspartate Amino Transferase 32 U/L (17-59); Bilirubin,Total 0.9 mg/dL (0.2-1.3); Blood Urea Nitrogen 46 mg/dL (9-20); Calcium 10.9 mg/dL (8.4-10.2); Carbon Dioxide 22 mmol/L (22-30); Chloride 90 mmol/L (98-107); Estimated CRCL calculation 16 ml/min; Estimated Glomerular Filt Rate 14; Glucose 172 mg/dL (65-110); Lipase 90 U/L (23-300); Potassium 4.7 mmol/L (3.4-5.0); Sodium 137 mmol/L (137-145); Total Protein 10.9 g/dL (6.3-8.2)
--- NOTE | 2024-11-24 16:26 | ED.NAVMDI ---
HPI - Nausea/Vomiting/Diarrhea General Chief complaint: Nausea/Vomiting/Diarrhea Stated complaint: N/V weakness since last PM-hx kidney infection Time Seen by Provider: 11/24/24 16:18 History of Present Illness HPI Narrative: This is a 49-year-old male with a history of bipolar disorder who presents to the ED for dehydration. Patient states that for the past day, he has been having nausea vomiting. He has not been able to drink anything today. He has not urinated since yesterday. Denies fevers, chills, chest pain, shortness of breath, abdominal pain. Related Data Home Medications ?Medication ?Instructions ?Recorded ?Confirmed ?Last Taken ?Type aspirin 81 mg tablet,delayed 81 mg PO DAILY@0800 02/14/24 07/19/24 07/18/24 History release atorvastatin 20 mg tablet 20 mg PO DAILY 02/14/24 07/19/24 07/18/24 History carvedilol 3.125 mg tablet 3.125 mg PO Q12H 02/14/24 07/19/24 07/18/24 History divalproex 500 mg tablet,delayed 500 mg PO BID 02/14/24 07/19/24 07/18/24 History release hydroxyzine pamoate 25 mg capsule 25 mg PO HS PRN anxiety 02/14/24 07/19/24 07/18/24 History olanzapine 10 mg tablet 10 mg PO HS 02/14/24 07/19/24 07/18/24 History benztropine 0.5 mg tablet 0.5 mg PO HS 04/25/24 07/19/24 07/18/24 History losartan 25 mg tablet 25 mg PO DAILY 04/25/24 07/19/24 07/18/24 History olanzapine 5 mg tablet 5 mg PO 0900 04/25/24 07/19/24 07/18/24 History Allergies Allergy/AdvReac Type Severity Reaction Status Date / Time No Known Allergies Allergy Verified 07/18/24 22:24 Review of Systems Review of Systems: Gen.: Denies fevers or chills Eyes: Denies eye pain or visual change ENT: Denies congestion Respiratory: Denies shortness of breath or cough CV: Denies chest pain or palpitations GI: Denies abdominal pain nausea, emesis or diarrhea as per HPI Musculoskeletal: Denies back pain or muscle pain Neuro: Denies numbness, tingling, weakness or focal weakness Skin: Denies rash Except as documented, all other systems reviewed and negative [facility] Past Medical History Medical History Bipolar disorder Polycythemia due to fall in plasma volume Cannabinoid hyperemesis syndrome Hypertension Surgical History Surgical History Hx of cholecystectomy Status post cataract extraction of both eyes with insertion of intraocular lens Family History Family History Other Unknown family medical history Social History Social History Social History: Patient is on disability due to his psychiatric illness. He has smoked half a pack of cigarettes per day since he was a teenager. He denies any history of alcohol use. He uses marijuana daily. Code status: Full code Surrogate decision maker: Renee (Mother) Smoking packs per day: 0.5 Smoking cigarettes per day: 10.0 Years smoked: 30 Smoking pack-years: 15.00 Smoking status: Current every day smoker Alcohol intake: former Drinks per week: 1 Substance use: current Substance use type: marijuana Last use: 07/18/24 Do You Feel Safe in your Home?: Yes Lack of Transportation: No Lack of Food: Never True Current Housing: I Have Housing Concerned About Future Housing: No Difficulty Paying Gas/Electric Bills: No Difficulty Paying for Meds: No Currently Unemployed: No Education: High School Diploma/GED Difficulty w/ Childcare or Family Care: No Living arrangements: with family Additional living arrangements comments: Mother Spiritual care concerns: No Exam Narrative: APPEARANCE: Unkempt. No acute distress, nontoxic, resting in bed EYES: EOMI HEENT: Normocephalic, atraumatic, mucous membranes dry RESPIRATORY: No respiratory distress Clear to auscultation bilaterally with no rhonchi wheezing or rales. CARDIOVASCULAR: Regular rate and rhythm without murmurs rubs or gallops. ABDOMINAL: Soft, nontender, nondistended, no rebound or guarding MUSCULOSKELETAl: Moves all extremities. No clubbing, cyanosis or edema. NEURO: Awake and alert. Following commands, speech normal, no focal deficits SKIN:: Warm, dry. No rashes lesions or abrasions PSYCHIATRIC: Normal affect/mood, Course Vital Signs Vital signs: Vital Signs Temperature 98.1 F 11/24/24 14:36 Pulse Rate 102 H 11/24/24 14:36 Respiratory Rate 18 11/24/24 14:36 Blood Pressure 131/79 11/24/24 14:36 Pulse Oximetry 97 11/24/24 14:36 Oxygen Delivery Room Air 11/24/24 14:36 Temperature 98.1 F 11/24/24 14:36 Pulse Rate 91 11/24/24 19:27 Respiratory Rate 20 11/24/24 19:27 Blood Pressure 130/97 H 11/24/24 19:27 Pulse Oximetry 96 11/24/24 19:27 Oxygen Delivery Room Air 11/24/24 15:49 MDM - Nausea/Vomiting/Diarrhea MDM Narrative Medical decision making narrative: 49-year-old male presenting for concerns for dehydration. Her initial evaluation, patient was unkempt, afebrile, hemodynamically stable. He did have dry mucous membranes. Heart and lungs clear. Abdomen soft and nontender. He had a leukocytosis at 21.3 with a polycythemia at 20.3. CMP was consistent with acute renal failure with an anion gap likely due to uremia. CPK 175. Lipase 90. He was given 30 cc/kg IV fluids. Given his acute renal failure, I did discuss case with Dr. Segovia, nephrology, who will see the patient as a consult. Case discussed with hospitalist who will admit the patient. Differential Diagnosis Differential diagnosis: Likely gastroenteritis, dehydration and other (Electrolyte abnormality) Medical Records Attestation: I reviewed the patient's medical records. Lab Data Attestation: I reviewed the patient's lab results. 11/24/24 15:51 11/24/24 15:51 Labs: Lab Results 11/24/24 11/24/24 Range/Units 15:51 16:58 WBC 21.3 H (4.5-10.0) K/mm3 RBC 6.42 H (4.6-6.20) M/mm3 Hgb 20.3 H D (14.0-18.0) g/dL Hct 58.0 H (42.0-52.0) % MCV 90.3 (80-100) fl MCH 31.6 (26-34) pg MCHC 35.0 (32-36) g/dl RDW 13.4 (11.5-14.5) % Plt Count 240 (150-375) k/mm3 MPV 10.9 H (7.4-10.4) fl Immature Gran % (Auto) 0.6 H (0-0.5) % Neut % (Auto) 79.3 H (45.5-73.1) % Lymph % (Auto) 9.3 L (18.3-44.2) % Elk % (Auto) 10.3 H (2.6-8.5) % Eos % (Auto) 0.0 (0-4.4) % Baso % (Auto) 0.5 (0.2-1.2) % Lymph # (Auto) 1.97 (0.9-3.2) K/mm3 Elk # (Auto) 2.2 H (0.1-0.6) K/mm3 Eos # (Auto) 0.0 (0-0.3) K/mm3 Baso # (Auto) 0.1 (0.0-0.1) K/mm3 Abs Immat Gran (auto) 0.13 H (0.00-0.031) K/mm3 Absolute Neuts (auto) 16.9 H (1.3-6.7) K/mm3 Absolute Nucleated RBC 0.000 (0.0-0.012) K/mm3 Nucleated RBC % 0.0 (0.0-0.2) % Sodium 137 (137-145) mmol/L Potassium 4.7 (3.4-5.0) mmol/L Chloride 90 L (98-107) mmol/L Carbon Dioxide 22 (22-30) mmol/L Anion Gap 25 H (4-12) mmol/L BUN 46 H D (9-20) mg/dL Creatinine 4.47 H (0.7-1.3) mg/dL Estim Creat Clear Calc 16 ml/min Estimated GFR 14 L (59 - ) Glucose 172 H (65-110) mg/dL Lactic Acid 1.5 (0.7-2.0) mmol/L Calcium 10.9 H (8.4-10.2) mg/dL Total Bilirubin 0.9 (0.2-1.3) mg/dL AST 32 (17-59) U/L ALT 20 (6-50) U/L Alkaline Phosphatase 127 H (38-126) U/L Total Creatine Kinase 175 H (55-170) U/L Total Protein 10.9 H (6.3-8.2) g/dL Albumin 5.4 H (3.5-5.1) g/dL Lipase 90 (23-300) U/L Discharge Plan Discharge Clinical Impression: Dehydration, Polycythemia Acute renal failure Qualifiers: Acute renal failure type: unspecified Qualified Code(s): N17.9 - Acute kidney failure, unspecified Patient Disposition: Still a Patient Condition: Guarded Prognosis
[2024-11-24] MEDS: SODIUM CHLORIDE 0.9% IV 900 ML 999 ML IV CONT (16:55)
[2024-11-24] MEDS: SODIUM CHLORIDE 0.9% IV 1,000 ML 999 ML IV CONT (16:55)
[2024-11-24] MEDS: DIVALPROEX SODIUM DR 250 MG TABEC 500 MG PO (16:59)
--- NOTE | 2024-11-24 17:10 | PC.NURSE ---
Two staff members attempted to bladder scan pt to assess need for possible straight cath, no urine detectable in bladder. MD Lee made aware. IV fluids infusing.
[2024-11-24] MEDS: ONDANSETRON INJ 4 MG/2 ML VIAL IV PUSH (17:22)
[2024-11-24 17:28] LABS: Creatine Kinase 175 U/L (55-170)
[2024-11-24] MEDS: SODIUM CHLORIDE 0.9% IV 1,000 ML 125 ML IV CONT (20:57)
--- NOTE | 2024-11-24 21:49 | ADMGEN ---
This patient, Gianni Hsu, was admitted to IMU Room 212-. Patient/family oriented to hospital policies and general routines including ID bracelet, bed and alarms, visiting hours, pain management, procedures, bathroom and other care routines, personal items, smoking policy, room service/diet, and visiting hours. Information on how to activate the Rapid Response Team has been discussed. Patient/Family are encouraged to report perceived risks to care and to ask questions if they do not understand what they are told or what they should do.
[2024-11-24 22:21] LABS: Add Urine Microscopic? YES; Appearance Urine Cloudy (Clear); Glucose Urine UA Negative (Negative); Leukocyte Esterase Ur Negative LEU/UL (Negative); Need Manual Microscopic Reviewed; Nitrate Urine Negative (Negative); Non Pathogenic Casts >20; Specific Grav Ur 1.021 (1.001-1.035)
[2024-11-24 22:24] LABS: Cannabinoid Screen Urine Positive (Negative)
[2024-11-25] VITALS (21 sets, daily range): BP systolic 104–140; BP diastolic 62–83; PULSE 60–95; RESP 14–18; TEMP 36.4–36.8; O2SAT 95–100
[2024-11-25 02:28] LABS: Hematocrit 49.0 % (42.0-52.0); Hemoglobin 16.9 g/dL (14.0-18.0); Immature Granulocyte Percent A 0.4 % (0-0.5); Lymphocytes Absolute Auto 1.96 K/mm3 (0.9-3.2); Mean Corpuscular HGB Conc 34.5 g/dl (32-36); Mean Corpuscular Hemoglobin 31.4 pg (26-34); Mean Corpuscular Volume 90.9 fl (80-100); Nucleated Red Blood Cells Absolute Auto 0.000 K/mm3 (0.0-0.012); Nucleated Red Blood Cells Perc 0.0 % (0.0-0.2); Platelet Count Result 196 k/mm3 (150-375); Red Blood Count 5.39 M/mm3 (4.6-6.20); White Blood Count 18.4 K/mm3 (4.5-10.0)
--- NOTE | 2024-11-25 02:47 | PM.IMHP ---
H&P: HPI History of Present Illness Date/Time: 11/25/24 02:47 Chief Complaint: Nausea and vomiting Narrative: This is a 49-year-old male with PMH bipolar disorder, polycythemia, cannabinoid hyperemesis syndrome, hypertension, polysubstance abuse with marijuana and methamphetamines. He presents [facility] ER on 11/24/2024 complaining of nausea vomiting for several days. Reports he is dehydrated. He is not drinking anything. He has not urinated since 1 day prior to admission. He smoked methamphetamine 3 days prior to admission. He continues to smoke marijuana. He reports he lives with mother. On presentation is WBC count is 21.3, hemoglobin 20.3, chloride 90, anion gap 25, BUN 46, serum creatinine 4.47, glucose 172, lactic acid 1.5, CK 175, lipase 90, urinalysis not indicative of infection, 2+ protein, ketones trace. Drugs of abuse screen urine positive for amphetamines, cannabinoids. He was given Depakote 500 mg p.o. x1, 2 L normal saline bolus, Zofran 4 mg IV x1. The patient was resting comfortably thereafter. Review of Systems Review of Systems: All systems reviewed & are unremarkable except as noted in HPI and below (Subjective) [facility] Past Medical History Medical History Bipolar disorder Polycythemia due to fall in plasma volume Cannabinoid hyperemesis syndrome Hypertension Surgical History Surgical History Hx of cholecystectomy Status post cataract extraction of both eyes with insertion of intraocular lens Family History Family History Other Unknown family medical history Social History Social History Social History: Patient is on disability due to his psychiatric illness. He has smoked half a pack of cigarettes per day since he was a teenager. He denies any history of alcohol use. He uses marijuana daily. Code status: Full code Surrogate decision maker: Renee (Mother) Smoking packs per day: 0.5 Smoking cigarettes per day: 10.0 Years smoked: 30 Smoking pack-years: 15.00 Smoking status: Current every day smoker Tobacco type: cigarettes Alcohol intake: unknown Drinks per week: 1 Substance use: current Substance use type: marijuana Last use: 07/18/24 Do You Feel Safe in your Home?: Yes Lack of Transportation: No Lack of Food: Never True Current Housing: I Have Housing Concerned About Future Housing: No Difficulty Paying Gas/Electric Bills: No Difficulty Paying for Meds: No Currently Unemployed: No Education: High School Diploma/GED Difficulty w/ Childcare or Family Care: No Living arrangements: with family Additional living arrangements comments: Mother Spiritual care concerns: No Meds Home Medications and Allergies Home Medications ?Medication ?Instructions ?Recorded ?Confirmed ?Type aspirin 81 mg tablet,delayed 81 mg PO DAILY@0800 02/14/24 11/24/24 History release atorvastatin 20 mg tablet 20 mg PO DAILY 02/14/24 11/24/24 History carvedilol 3.125 mg tablet 3.125 mg PO Q12H 02/14/24 11/24/24 History divalproex 500 mg tablet,delayed 500 mg PO BID 02/14/24 11/24/24 History release hydroxyzine pamoate 25 mg capsule 25 mg PO HS PRN anxiety 02/14/24 11/24/24 History olanzapine 10 mg tablet 10 mg PO HS 02/14/24 11/24/24 History benztropine 0.5 mg tablet 0.5 mg PO HS 04/25/24 11/24/24 History olanzapine 5 mg tablet 5 mg PO 0900 04/25/24 11/24/24 History Allergies Allergy/AdvReac Type Severity Reaction Status Date / Time No Known Allergies Allergy Verified 07/18/24 22:24 Vital Signs Vital Signs - 24 hr 11/24/24 14:36 11/24/24 15:49 11/24/24 15:57 Temperature 98.1 F Pulse Rate 102 H 99 91 Respiratory Rate 18 14 Blood Pressure 131/79 146/104 H 132/94 H Pulse Oximetry 97 98 Oxygen Delivery Room Air Room Air 11/24/24 15:57 11/24/24 15:58 11/24/24 16:47 Temperature Pulse Rate 103 H 107 H 98 Respiratory Rate Blood Pressure 123/105 H 119/91 H Pulse Oximetry 97 Oxygen Delivery 11/24/24 17:00 11/24/24 17:01 11/24/24 17:34 Temperature Pulse Rate 103 H 89 91 Respiratory Rate 12 18 20 Blood Pressure 113/86 Pulse Oximetry 98 Oxygen Delivery 11/24/24 17:45 11/24/24 17:46 11/24/24 18:27 Temperature Pulse Rate 86 77 88 Respiratory Rate 18 15 18 Blood Pressure 162/99 H Pulse Oximetry 99 100 Oxygen Delivery 11/24/24 18:30 11/24/24 18:31 11/24/24 19:16 Temperature Pulse Rate 94 91 87 Respiratory Rate 20 18 16 Blood Pressure 156/99 H 130/97 H Pulse Oximetry 99 97 97 Oxygen Delivery 11/24/24 19:27 11/24/24 22:00 11/24/24 22:03 Temperature Pulse Rate 91 72 91 Respiratory Rate 20 20 Blood Pressure 130/97 H 130/97 H Pulse Oximetry 96 96 Oxygen Delivery 11/24/24 22:05 11/25/24 00:00 11/25/24 00:00 Temperature 98.6 F Pulse Rate 93 85 Respiratory Rate 12 Blood Pressure 133/84 Pulse Oximetry 96 Oxygen Delivery Room Air 11/25/24 00:35 Temperature 98.3 F Pulse Rate 79 Respiratory Rate 18 Blood Pressure 136/79 Pulse Oximetry 97 Oxygen Delivery Exam Const: General: comfortable and no acute distress Other: A&O x3, thin male HENMT: Mouth: Yes dry mucous membranes Eyes: Pupils: Equal, round and reactive pupils present Neck: Neck: supple Resp: Effort & Inspection: normal respiratory effort Auscultation: clear to auscultation bilaterally Cardio: Rate: regular rate Rhythm: regular rhythm GI: Inspection: non-distended GI Palp: Yes Soft to palpation Neuro: Motor exam (neuro): 5/5 motor strength present throughout Extrem: General: no edema H&P: Results Labs Labs: Short CBC 11/24/24 11/25/24 Range/Units 15:51 02:24 WBC 21.3 H 18.4 H (4.5-10.0) K/mm3 Hgb 20.3 H D 16.9 D (14.0-18.0) g/dL Hct 58.0 H 49.0 (42.0-52.0) % Plt Count 240 196 (150-375) k/mm3 BMP 11/24/24 15:51 Sodium 137 Potassium 4.7 Chloride 90 L Carbon Dioxide 22 BUN 46 H D Creatinine 4.47 H Glucose 172 H Calcium 10.9 H Cardiac Enzymes 11/24/24 Range/Units 15:51 Total Creatine Kinase 175 H (55-170) U/L Liver Function 11/24/24 Range/Units 15:51 Total Bilirubin 0.9 (0.2-1.3) mg/dL AST 32 (17-59) U/L ALT 20 (6-50) U/L Alkaline Phosphatase 127 H (38-126) U/L Albumin 5.4 H (3.5-5.1) g/dL Urine 11/24/24 Range/Units 21:59 Urine Color Dark yellow (Yellow) Urine Appearance Cloudy H (Clear) Urine pH 5.0 (5.0-9.0) Ur Specific [place] 1.021 (1.001-1.035) Urine Protein 2+ H (Negative) mg/dL Urine Glucose (UA) Negative (Negative) mg/dL Assessment and Plan Assessment and plan (1) Cannabinoid hyperemesis syndrome: Code(s): R11.2 - Nausea with vomiting, unspecified; F12.90 - Cannabis use, unspecified, uncomplicated Status: Acute (2) Bipolar disorder: Code(s): F31.9 - Bipolar disorder, unspecified Status: Acute (3) Nausea and vomiting: Code(s): R11.2 - Nausea with vomiting, unspecified Status: Acute (4) Acute kidney injury: Code(s): N17.9 - Acute kidney failure, unspecified Status: Acute (5) Acute renal failure: Qualifiers: Acute renal failure type: unspecified Qualified Code(s): N17.9 - Acute kidney failure, unspecified Code(s): N17.9 - Acute kidney failure, unspecified Status: Acute (6) Dehydration: Code(s): E86.0 - Dehydration Status: Acute Plan This is a 49-year-old male with H bipolar disorder, polycythemia, cannabinoid hyperemesis syndrome, hypertension, polysubstance abuse with marijuana and methamphetamines. He presents [facility] ER on 11/24/2024 complaining of nausea vomiting for several days. Reports he is dehydrated. He is not drinking anything. He has not urinated since 1 day prior to admission. He smoked methamphetamine 3 days prior to admission. He continues to smoke marijuana. He reports he lives with mother. On presentation is WBC count is 21.3, hemoglobin 20.3, chloride 90, anion gap 25, BUN 46, serum creatinine 4.47, glucose 172, lactic acid 1.5, CK 175, lipase 90, urinalysis not indicative of infection, 2+ protein, ketones trace. Drugs of abuse screen urine positive for amphetamines, cannabinoids. He was given Depakote 500 mg p.o. x1, 2 L normal saline bolus, Zofran 4 mg IV x1. The patient was resting comfortably thereafter. ----- The patient's presentation is similar to his admission on 07/19/2024 with acute renal failure due to intractable nausea vomiting and dehydration due to cannabinoid hyperemesis syndrome. Monitor leukocytosis which is likely reactive. Trend renal function. IV fluids. Nephrology consulted. Will restart the patient's [employer] psychotropics including olanzapine, check EKG to assess his QTC interval. Then, can give antiemetics. Capsaicin cream p.r.n. to the upper abdomen. Counseling provided on polysubstance abuse. Care coordination consult. ----- The patient wishes to be full code. SCDs. Normal saline infusion. Hospitalist [facility] Advance Care Plan I have confirmed that the patient's Advanced Care Plan is present, code status is documented, or surrogate decision maker is listed in patient medical record.: Yes Medication Reconciliation I have utilized all available resources to obtain, update and review the patients current medications (includes all prescriptions, OTC, herbals, cannabis, and nutritional supplements).: Yes
--- NOTE | 2024-11-25 02:49 | ECG_ITS ---
Test Date: 2024-11-25 09:31:44 Measurements Intervals [place] Rate: 75 P: 60 [place]: 148 QRS: 74 QRSD: 97 T: 73 QT: 395 QTc: 441 Interpretive Statements SINUS RHYTHM INCOMPLETE RIGHT BUNDLE BRANCH BLOCK MINIMAL Q WAVES- ANTEROLAT/INF LEADS BORDERLINE ECG Compared to ECG 07/19/2024 03:37:46 NO SIGNIFICANT CHANGE Electronically Signed On 11-25-2024 10:20:17 CDT by Leonardo Bob D.O.
[2024-11-25 02:54] LABS: Alanine Aminotransferase 14 U/L (6-50); Albumin Level 4.3 g/dL (3.5-5.1); Alkaline Phosphatase 91 U/L (38-126); Anion Gap 12 mmol/L (4-12); Aspartate Amino Transferase 21 U/L (17-59); Bilirubin,Total 0.6 mg/dL (0.2-1.3); Blood Urea Nitrogen 56 mg/dL (9-20); Calcium 8.8 mg/dL (8.4-10.2); Carbon Dioxide 26 mmol/L (22-30); Chloride 98 mmol/L (98-107); Estimated CRCL calculation 22 ml/min; Estimated Glomerular Filt Rate 22; Glucose 139 mg/dL (65-110); Magnesium 2.8 mg/dL (1.6-2.3); Potassium 3.8 mmol/L (3.4-5.0); Sodium 136 mmol/L (137-145); Total Protein 7.5 g/dL (6.3-8.2)
[2024-11-25 03:08] LABS: Procalcitonin 0.2 ng/mL
[2024-11-25 06:56] LABS: Albumin Level 4.0 g/dL (3.5-5.1); Anion Gap 8 mmol/L (4-12); Blood Urea Nitrogen 55 mg/dL (9-20); Calcium 8.6 mg/dL (8.4-10.2); Carbon Dioxide 28 mmol/L (22-30); Chloride 99 mmol/L (98-107); Estimated CRCL calculation 26 ml/min; Estimated Glomerular Filt Rate 27; Glucose 129 mg/dL (65-110); Potassium 3.9 mmol/L (3.4-5.0); Sodium 135 mmol/L (137-145)
[2024-11-25] MEDS: ASPIRIN 81 MG ENTERIC TABLET PO (08:44)
[2024-11-25] MEDS: DIVALPROEX SODIUM DR 250 MG TABEC 500 MG PO (08:44)
[2024-11-25] MEDS: ATORVASTATIN 20 MG TABLET PO (08:44)
[2024-11-25] MEDS: SODIUM CHLORIDE 0.9% IV 1,000 ML 125 ML IV CONT (10:40)
--- NOTE | 2024-11-25 11:19 | PM.IMPN ---
Progress Note: A&P Assessment and Plan (1) Cannabinoid hyperemesis syndrome: Code(s): R11.2 - Nausea with vomiting, unspecified; F12.90 - Cannabis use, unspecified, uncomplicated Status: Acute (2) Bipolar disorder: Code(s): F31.9 - Bipolar disorder, unspecified Status: Acute (3) Nausea and vomiting: Code(s): R11.2 - Nausea with vomiting, unspecified Status: Acute (4) Acute kidney injury: Code(s): N17.9 - Acute kidney failure, unspecified Status: Acute (5) Acute renal failure: Qualifiers: Acute renal failure type: unspecified Qualified Code(s): N17.9 - Acute kidney failure, unspecified Code(s): N17.9 - Acute kidney failure, unspecified Status: Acute (6) Dehydration: Code(s): E86.0 - Dehydration Status: Acute Plan This is a 49-year-old male with H bipolar disorder, polycythemia, cannabinoid hyperemesis syndrome, hypertension, polysubstance abuse with marijuana and methamphetamines. He presents [facility] ER on 11/24/2024 complaining of nausea vomiting for several days. Reports he is dehydrated. He is not drinking anything. He has not urinated since 1 day prior to admission. He smoked methamphetamine 3 days prior to admission. He continues to smoke marijuana. He reports he lives with mother. On presentation is WBC count is 21.3, hemoglobin 20.3, chloride 90, anion gap 25, BUN 46, serum creatinine 4.47, glucose 172, lactic acid 1.5, CK 175, lipase 90, urinalysis not indicative of infection, 2+ protein, ketones trace. Drugs of abuse screen urine positive for amphetamines, cannabinoids. He was given Depakote 500 mg p.o. x1, 2 L normal saline bolus, Zofran 4 mg IV x1. The patient was resting comfortably thereafter. ----- The patient's presentation is similar to his admission on 07/19/2024 with acute renal failure due to intractable nausea vomiting and dehydration due to cannabinoid hyperemesis syndrome. Monitor leukocytosis which is likely reactive. Trend renal function. IV fluids. Nephrology consulted. Will restart the patient's [employer] psychotropics including olanzapine, check EKG to assess his QTC interval. Then, can give antiemetics. Capsaicin cream p.r.n. to the upper abdomen. Counseling provided on polysubstance abuse. Care coordination consult. ----- The patient wishes to be full code. SCDs. Normal saline infusion. Subjective Date/time seen: 11/25/24 11:19 Interval history: Patient was seen during the morning rounds today. No sob or chest pain Nausea and vomiting is decreased. Review of Systems Review of Systems: All systems reviewed & are unremarkable except as noted in HPI and below (Subjective) Exam Const: General: comfortable and no acute distress Other: A&O x3, thin male HENMT: Mouth: Yes dry mucous membranes Eyes: Pupils: Equal, round and reactive pupils present Neck: Neck: supple Resp: Effort & Inspection: normal respiratory effort Auscultation: clear to auscultation bilaterally Cardio: Rate: regular rate Rhythm: regular rhythm GI: Inspection: non-distended Neuro: Cranial nerves: Yes Equal, round and reactive pupils present Motor exam (neuro): 5/5 motor strength present throughout Extrem: General: no edema Objective Data Vital Signs Vital Signs: Vital Signs - 24 hr 11/24/24 14:36 11/24/24 15:49 11/24/24 15:57 Temperature 36.7 C Pulse Rate 102 H 99 91 Respiratory Rate 18 14 Blood Pressure 131/79 146/104 H 132/94 H Pulse Oximetry 97 98 Oxygen Delivery Room Air Room Air 11/24/24 15:57 11/24/24 15:58 11/24/24 16:47 Temperature Pulse Rate 103 H 107 H 98 Respiratory Rate Blood Pressure 123/105 H 119/91 H Pulse Oximetry 97 Oxygen Delivery 11/24/24 17:00 11/24/24 17:01 11/24/24 17:34 Temperature Pulse Rate 103 H 89 91 Respiratory Rate 12 18 20 Blood Pressure 113/86 Pulse Oximetry 98 Oxygen Delivery 11/24/24 17:45 11/24/24 17:46 11/24/24 18:27 Temperature Pulse Rate 86 77 88 Respiratory Rate 18 15 18 Blood Pressure 162/99 H Pulse Oximetry 99 100 Oxygen Delivery 11/24/24 18:30 11/24/24 18:31 11/24/24 19:16 Temperature Pulse Rate 94 91 87 Respiratory Rate 20 18 16 Blood Pressure 156/99 H 130/97 H Pulse Oximetry 99 97 97 Oxygen Delivery 11/24/24 19:27 11/24/24 22:00 11/24/24 22:03 Temperature Pulse Rate 91 72 91 Respiratory Rate 20 20 Blood Pressure 130/97 H 130/97 H Pulse Oximetry 96 96 Oxygen Delivery 11/24/24 22:05 11/25/24 00:00 11/25/24 00:00 Temperature 37.0 C Pulse Rate 93 85 Respiratory Rate 12 Blood Pressure 133/84 Pulse Oximetry 96 Oxygen Delivery Room Air 11/25/24 00:35 11/25/24 02:00 11/25/24 04:00 Temperature 36.8 C Pulse Rate 79 80 Respiratory Rate 18 Blood Pressure 136/79 Pulse Oximetry 97 Oxygen Delivery Room Air 11/25/24 04:00 11/25/24 04:18 11/25/24 06:00 Temperature 36.6 C Pulse Rate 77 82 80 Respiratory Rate 15 Blood Pressure 140/83 Pulse Oximetry 98 Oxygen Delivery 11/25/24 08:00 11/25/24 08:43 11/25/24 10:00 Temperature 36.4 C Pulse Rate 73 75 68 Respiratory Rate 15 Blood Pressure 129/80 Pulse Oximetry 95 Oxygen Delivery Intake/Output Intake/Output: Intake & Output 11/22/24 11/23/24 11/24/24 11/25/24 23:59 23:59 23:59 23:59 Intake Total 900 1270 Output Total 75 550 Balance 825 720 Meds/Results Medications: Active Medications Generic Name Dose Route Start Last Admin Trade Name Freq PRN Reason Stop Dose Admin Aspirin 81 mg 11/25/24 08:00 11/25/24 08:44 Aspirin 81 Mg Enteric Tablet PO 81 mg DAILY@0800 [facility] Administration Atorvastatin Calcium 20 mg 11/25/24 09:00 11/25/24 08:44 Atorvastatin 20 Mg Tablet PO 20 mg DAILY MELANI Administration Benztropine Mesylate 0.5 mg 11/25/24 21:00 Benztropine Mesylate 0.5 Mg Tablet PO HS [facility] Capsaicin 1 applic 11/25/24 02:47 Capsaicin 0.025% Cream 60 Gm Tube TOPICAL Q6H PRN Vomiting Carvedilol 3.125 mg 11/25/24 09:00 11/25/24 08:43 Carvedilol 3.125 Mg Tablet PO 3.125 mg Q12HR MELANI Administration Divalproex Sodium 500 mg 11/25/24 09:00 11/25/24 08:[address] 250 Mg Tabec PO 500 mg QAM MELANI Administration Divalproex Sodium 1,000 mg 11/25/24 21:[address] 250 Mg Tabec PO QHS MELANI Hydroxyzine Pamoate 25 mg 11/25/24 02:48 Hydroxyzine Pamoate 25 Mg Capsule PO HS PRN Anxiety Sodium Chloride 1,000 mls @ 83 mls/hr 11/24/24 18:35 11/25/24 10:40 Normal Saline Iv IV CONT 125 mls/hr .Q12H3M MELANI Administration Ceftriaxone Sodium 1 gm/ 50 mls @ 100 mls/hr 11/25/24 11:20 Sodium Chloride IVPB Q24H MELANI Olanzapine 5 mg 11/25/24 09:00 11/25/24 08:48 Olanzapine 5 Mg Tablet PO 5 mg 0900 MELANI Administration Olanzapine 10 mg 11/25/24 21:00 Olanzapine 5 Mg Tablet PO HS [facility] Labs Labs: Laboratory Results - last 24 hr 11/24/24 11/24/24 11/24/24 15:51 16:58 21:59 WBC 21.3 H RBC 6.42 H Hgb 20.3 H D Hct 58.0 H MCV 90.3 MCH 31.6 MCHC 35.0 RDW 13.4 Plt Count 240 MPV 10.9 H Immature Gran % (Auto) 0.6 H Neut % (Auto) 79.3 H Lymph % (Auto) 9.3 L [place] % (Auto) 10.3 H Eos % (Auto) 0.0 Baso % (Auto) 0.5 Lymph # (Auto) 1.97 [place] # (Auto) 2.2 H Eos # (Auto) 0.0 Baso # (Auto) 0.1 Abs Immat Gran (auto) 0.13 H Absolute Neuts (auto) 16.9 H Absolute Nucleated RBC 0.000 Nucleated RBC % 0.0 Sodium 137 Potassium 4.7 Chloride 90 L Carbon Dioxide 22 Anion Gap 25 H BUN 46 H D Creatinine 4.47 H Estim Creat Clear Calc 16 Estimated GFR 14 L Glucose 172 H Lactic Acid 1.5 Calcium 10.9 H Phosphorus Magnesium Total Bilirubin 0.9 AST 32 ALT 20 Alkaline Phosphatase 127 H Total Creatine Kinase 175 H Total Protein 10.9 H Albumin 5.4 H Lipase 90 Procalcitonin Urine Color Dark yellow Urine Appearance Cloudy H Urine pH 5.0 Ur Specific [place] 1.021 Urine Protein 2+ H Urine Glucose (UA) Negative Urine Ketones Trace H Ur Blood (Man) Negative Urine Nitrate Negative Urine Bilirubin Negative Urine Urobilinogen 1.0 Add Ur Microanalysis Reviewed Leukocyte Esterase Rfl Negative Urine RBC 0-2 Urine WBC 0-5 Ur Squamous Epith Cells None seen Urine Bacteria None seen Urine Casts >20 Urine Opiates Screen Negative Urine Methadone Screen Negative Ur Barbiturates Screen Negative Ur Phencyclidine Scrn Negative Ur Amphetamine Screen Positive A U Benzodiazepines Scrn Negative Urine Cocaine Screen Negative U Cannabinoids Screen Positive A 11/25/24 11/25/24 02:24 06:28 WBC 18.4 H RBC 5.39 Hgb 16.9 D Hct 49.0 MCV 90.9 MCH 31.4 MCHC 34.5 RDW 13.3 Plt Count 196 MPV 10.7 H Immature Gran % (Auto) 0.4 Neut % (Auto) 78.3 H Lymph % (Auto) 10.6 L [place] % (Auto) 10.5 H Eos % (Auto) 0.0 Baso % (Auto) 0.2 Lymph # (Auto) 1.96 [place] # (Auto) 1.9 H Eos # (Auto) 0.0 Baso # (Auto) 0.0 Abs Immat Gran (auto) 0.07 H Absolute Neuts (auto) 14.4 H Absolute Nucleated RBC 0.000 Nucleated RBC % 0.0 Sodium 136 L 135 L Potassium 3.8 3.9 Chloride 98 99 Carbon Dioxide 26 28 Anion Gap 12 8 BUN 56 H D 55 H Creatinine 3.04 H 2.57 H Estim Creat Clear Calc 22 26 Estimated GFR 22 L 27 L Glucose 139 H 129 H Lactic Acid Calcium 8.8 8.6 Phosphorus 5.0 H Magnesium 2.8 H Total Bilirubin 0.6 AST 21 ALT 14 Alkaline Phosphatase 91 Total Creatine Kinase Total Protein 7.5 Albumin 4.3 4.0 Lipase Procalcitonin 0.2 Urine Color Urine Appearance Urine pH Ur Specific [place] Urine Protein Urine Glucose (UA) Urine Ketones Ur Blood (Man) Urine Nitrate Urine Bilirubin Urine Urobilinogen Add Ur Microanalysis Leukocyte Esterase Rfl Urine RBC Urine WBC Ur Squamous Epith Cells Urine Bacteria Urine Casts Urine Opiates Screen Urine Methadone Screen Ur Barbiturates Screen Ur Phencyclidine Scrn Ur Amphetamine Screen U Benzodiazepines Scrn Urine Cocaine Screen U Cannabinoids Screen
[2024-11-25] MEDS: cefTRIAXone 1 GM in SODIUM CHLORIDE 0.9% IV 50 ML 100 ML IVPB (12:11)
[2024-11-25 12:30] LABS: Urea Random Urine 1130 MG/DL
[2024-11-25 12:32] LABS: Total Protein Urine Random 11 mg/dL; Ur Ttl Prot Creatinine Ratio 0.05 mg/mg (0-0.20)
[2024-11-25 12:55] LABS: Urine Eos QC 2nd Tech Confirmed
[2024-11-25] MEDS: BENZTROPINE MESYLATE 0.5 MG TABLET PO (22:03)
[2024-11-25] MEDS: DIVALPROEX SODIUM DR 250 MG TABEC 1000 MG PO (22:05)
[2024-11-25] MEDS: SODIUM CHLORIDE 0.9% IV 1,000 ML 83 ML IV CONT (22:23)
[2024-11-26] VITALS (16 sets, daily range): BP systolic 107–125; BP diastolic 57–73; PULSE 45–78; RESP 14–18; TEMP 36.4–37; O2SAT 96–100
[2024-11-26 04:22] LABS: Hematocrit 40.6 % (42.0-52.0); Hemoglobin 13.7 g/dL (14.0-18.0); Immature Granulocyte Percent A 0.4 % (0-0.5); Lymphocytes Absolute Auto 4.07 K/mm3 (0.9-3.2); Mean Corpuscular HGB Conc 33.7 g/dl (32-36); Mean Corpuscular Hemoglobin 31.8 pg (26-34); Mean Corpuscular Volume 94.2 fl (80-100); Nucleated Red Blood Cells Absolute Auto 0.000 K/mm3 (0.0-0.012); Nucleated Red Blood Cells Perc 0.0 % (0.0-0.2); Platelet Count Result 155 k/mm3 (150-375); Red Blood Count 4.31 M/mm3 (4.6-6.20); White Blood Count 11.3 K/mm3 (4.5-10.0)
[2024-11-26 04:44] LABS: Alanine Aminotransferase 11 U/L (6-50); Albumin Level 3.1 g/dL (3.5-5.1); Alkaline Phosphatase 72 U/L (38-126); Anion Gap 3 mmol/L (4-12); Aspartate Amino Transferase 19 U/L (17-59); Bilirubin,Total 0.6 mg/dL (0.2-1.3); Blood Urea Nitrogen 41 mg/dL (9-20); Calcium 8.4 mg/dL (8.4-10.2); Carbon Dioxide 30 mmol/L (22-30); Chloride 103 mmol/L (98-107); Estimated CRCL calculation 60 ml/min; Estimated Glomerular Filt Rate > 60; Glucose 94 mg/dL (65-110); Potassium 3.7 mmol/L (3.4-5.0); Sodium 136 mmol/L (137-145); Total Protein 5.6 g/dL (6.3-8.2)
--- NOTE | 2024-11-26 09:26 | ECG_ITS ---
Test Date: 2024-11-26 09:54:48 Measurements Intervals [place] Rate: 52 P: 30 MT: 138 QRS: 77 QRSD: 102 T: 72 QT: 444 QTc: 414 Interpretive Statements SINUS BRADYCARDIA INCOMPLETE RIGHT BUNDLE BRANCH BLOCK PEAKED T WAVES- CONSIDER HYPERKALEMIA BASELINE ARTIFACT- I, II, III, AVR, AVL, AVF ABNORMAL ECG Compared to ECG 11/25/2024 09:31:44 HEART RATE HAS DECREASED PEAKED T WAVES NOW PRESENT Electronically Signed On 11-26-2024 15:52:18 CDT by Leonardo Bob D.O.
[2024-11-26] MEDS: ASPIRIN 81 MG ENTERIC TABLET PO (09:45)
[2024-11-26] MEDS: DIVALPROEX SODIUM DR 250 MG TABEC 500 MG PO (09:45)
[2024-11-26] MEDS: ATORVASTATIN 20 MG TABLET PO (09:46)
[2024-11-26] MEDS: cefTRIAXone 1 GM in SODIUM CHLORIDE 0.9% IV 50 ML 100 ML IVPB (11:16)
[2024-11-26] MEDS: SODIUM CHLORIDE 0.9% IV 1,000 ML 83 ML IV CONT ×2 (11:17→23:36)
--- NOTE | 2024-11-26 16:38 | P.PNIM_ITS ---
Progress Note: A&P Assessment and Plan (1) Cannabinoid hyperemesis syndrome: Code(s): R11.2 - Nausea with vomiting, unspecified; F12.90 - Cannabis use, unspecified, uncomplicated Status: Acute (2) Bipolar disorder: Code(s): F31.9 - Bipolar disorder, unspecified Status: Acute (3) Nausea and vomiting: Code(s): R11.2 - Nausea with vomiting, unspecified Status: Acute (4) Acute kidney injury: Code(s): N17.9 - Acute kidney failure, unspecified Status: Acute (5) Acute renal failure: Qualifiers: Acute renal failure type: unspecified Qualified Code(s): N17.9 - Acute kidney failure, unspecified Code(s): N17.9 - Acute kidney failure, unspecified Status: Acute (6) Dehydration: Code(s): E86.0 - Dehydration Status: Acute Plan This is a 49-year-old male with H bipolar disorder, polycythemia, cannabinoid hyperemesis syndrome, hypertension, polysubstance abuse with marijuana and methamphetamines. He presents [facility] ER on 11/24/2024 complaining of nausea vomiting for several days. Reports he is dehydrated. He is not drinking anything. He has not urinated since 1 day prior to admission. He smoked methamphetamine 3 days prior to admission. He continues to smoke marijuana. He reports he lives with mother. On presentation is WBC count is 21.3, hemoglobin 20.3, chloride 90, anion gap 25, BUN 46, serum creatinine 4.47, glucose 172, lactic acid 1.5, CK 175, lipase 90, urinalysis not indicative of infection, 2+ protein, ketones trace. Drugs of abuse screen urine positive for amphetamines, cannabinoids. He was given Depakote 500 mg p.o. x1, 2 L normal saline bolus, Zofran 4 mg IV x1. The patient was resting comfortably thereafter. WBC trending down, leading credence to reactive vs infectious etiology. EDILBERTO also has resolved- Cr 4.47 > 1.06. Nephrology saw patient in ED and signed off, will trend tomorrow, discharge if renal function remains stable. EKG showed QTc 423, stable. ----- The patient's presentation is similar to his admission on 07/19/2024 with acute renal failure due to intractable nausea vomiting and dehydration due to cannabinoid hyperemesis syndrome. Monitor leukocytosis which is likely reactive. Trend renal function. IV fluids. Nephrology consulted. 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 Then, can give antiemetics. Capsaicin cream p.r.n. to the upper abdomen. Counseling provided on polysubstance abuse. Care coordination consult. ----- The patient wishes to be full code. SCDs. Normal saline infusion. Subjective Date/time seen: 11/26/24 16:38 Interval history: Patient was seen during the morning rounds today. No sob or chest pain Nausea and vomiting is decreased. Review of Systems Review of Systems: All systems reviewed & are unremarkable except as noted in HPI and below (Subjective) Exam Const: General: comfortable and no acute distress Other: A&O x3, thin male HENMT: Mouth: Yes dry mucous membranes Eyes: Pupils: Equal, round and reactive pupils present Neck: Neck: supple Resp: Effort & Inspection: normal respiratory effort Auscultation: clear to auscultation bilaterally Cardio: Rate: regular rate Rhythm: regular rhythm GI: Inspection: non-distended Neuro: Cranial nerves: Yes Equal, round and reactive pupils present Motor exam (neuro): 5/5 motor strength present throughout Extrem: General: no edema Objective Data Vital Signs Vital Signs: Vital Signs - 24 hr 11/25/24 18:00 11/25/24 20:00 11/25/24 20:00 Temperature Pulse Rate 64 60 Respiratory Rate Blood Pressure Pulse Oximetry Oxygen Delivery Room Air 11/25/24 20:10 11/25/24 20:23 11/25/24 22:00 Temperature 97.6 F Pulse Rate 68 66 Respiratory Rate 16 Blood Pressure 104/62 Pulse Oximetry 97 96 Oxygen Delivery Room Air 11/25/24 22:03 11/25/24 23:29 11/26/24 00:00 Temperature 98.3 F Pulse Rate 95 64 Respiratory Rate 16 Blood Pressure 122/62 Pulse Oximetry 97 Oxygen Delivery Room Air 11/26/24 00:00 11/26/24 02:00 11/26/24 03:55 Temperature Pulse Rate 58 L 63 Respiratory Rate Blood Pressure Pulse Oximetry Oxygen Delivery Room Air 11/26/24 04:00 11/26/24 04:25 11/26/24 06:00 Temperature 98.6 F Pulse Rate 67 59 L 70 Respiratory Rate 14 Blood Pressure 110/60 Pulse Oximetry 96 Oxygen Delivery 11/26/24 08:00 11/26/24 08:00 11/26/24 08:00 Temperature 97.5 F L Pulse Rate 53 L 54 L Respiratory Rate 18 Blood Pressure 121/71 Pulse Oximetry 99 100 Oxygen Delivery Room Air 11/26/24 09:45 11/26/24 10:00 11/26/24 12:00 Temperature 97.9 F Pulse Rate 62 78 54 L Respiratory Rate 16 Blood Pressure 125/72 Pulse Oximetry 100 Oxygen Delivery 11/26/24 12:00 11/26/24 12:00 11/26/24 14:00 Temperature Pulse Rate 62 55 L Respiratory Rate Blood Pressure Pulse Oximetry 100 Oxygen Delivery Room Air 11/26/24 15:52 Temperature 98.0 F Pulse Rate 50 L Respiratory Rate 18 Blood Pressure 110/57 L Pulse Oximetry 97 Oxygen Delivery Intake/Output Intake/Output: Intake & Output 11/23/24 11/24/24 11/25/24 11/26/24 23:59 23:59 23:59 23:59 Intake Total 900 3120.0 2360 Output Total 75 750 1550 Balance 825 2370.0 810 Meds/Results Medications: Active Medications Generic Name Dose Route Start Last Admin Trade Name Freq PRN Reason Stop Dose Admin Aspirin 81 mg 11/25/24 08:00 11/26/24 09:45 Aspirin 81 Mg Enteric Tablet PO 81 mg DAILY@0800 [facility] Administration Atorvastatin Calcium 20 mg 11/25/24 09:00 11/26/24 09:46 Atorvastatin 20 Mg Tablet PO 20 mg DAILY [facility] Administration Benztropine Mesylate 0.5 mg 11/25/24 21:00 11/25/24 22:03 Benztropine Mesylate 0.5 Mg Tablet PO 0.5 mg HS [facility] Administration Capsaicin 1 applic 11/25/24 02:47 Capsaicin 0.025% Cream 60 Gm Tube TOPICAL Q6H PRN Vomiting Carvedilol 3.125 mg 11/25/24 09:00 11/26/24 09:45 Carvedilol 3.125 Mg Tablet PO 3.125 mg Q12HR MELANI Administration Divalproex Sodium 500 mg 11/25/24 09:00 11/26/24 09:[address] 250 Mg Tabec PO 500 mg QAM MELANI Administration Divalproex Sodium 1,000 mg 11/25/24 21:00 11/25/24 22:[address] 250 Mg Tabec PO 1,000 mg QHS MELANI Administration Hydroxyzine Pamoate 25 mg 11/25/24 02:48 Hydroxyzine Pamoate 25 Mg Capsule PO HS PRN Anxiety Sodium Chloride 1,000 mls @ 83 mls/hr 11/24/24 18:35 11/26/24 11:17 Normal Saline Iv IV CONT 83 mls/hr .Q12H3M MELANI Administration Ceftriaxone Sodium 1 gm/ 50 mls @ 100 mls/hr 11/25/24 12:00 11/26/24 11:16 Sodium Chloride IVPB 100 mls/hr Q24H MELANI Administration Olanzapine 5 mg 11/25/24 09:00 11/26/24 09:49 Olanzapine 5 Mg Tablet PO 5 mg 0900 MELANI Administration Olanzapine 10 mg 11/25/24 21:00 11/25/24 22:03 Olanzapine 5 Mg Tablet PO 10 mg HS MELANI Administration Ondansetron HCl 4 mg 11/25/24 12:01 Ondansetron Inj 4 Mg/2 Ml Vial IV PUSH Q6H PRN Nausea And Vomiting Radiology Results: ITS Impressions Renal Ultrasound 11/25/24 11:26 IMPRESSION: 1. No hydronephrosis. Labs Labs: Laboratory Results - last 24 hr 11/26/24 03:47 WBC 11.3 H RBC 4.31 L Hgb 13.7 L D Hct 40.6 L MCV 94.2 MCH 31.8 MCHC 33.7 RDW 13.2 Plt Count 155 MPV 10.7 H Immature Gran % (Auto) 0.4 Neut % (Auto) 50.6 Lymph % (Auto) 36.2 [place] % (Auto) 12.0 H Eos % (Auto) 0.3 Baso % (Auto) 0.5 Lymph # (Auto) 4.07 H [place] # (Auto) 1.4 H Eos # (Auto) 0.0 Baso # (Auto) 0.1 Abs Immat Gran (auto) 0.04 H Absolute Neuts (auto) 5.7 Absolute Nucleated RBC 0.000 Nucleated RBC % 0.0 Sodium 136 L Potassium 3.7 Chloride 103 Carbon Dioxide 30 Anion Gap 3 L BUN 41 H D Creatinine 1.06 Estim Creat Clear Calc 60 Estimated GFR > 60 Glucose 94 Calcium 8.4 Total Bilirubin 0.6 AST 19 ALT 11 Alkaline Phosphatase 72 Total Protein 5.6 L Albumin 3.1 L Hospitalist MIPS Advance Care Plan I have confirmed that the patient's Advanced Care Plan is present, code status is documented, or surrogate decision maker is listed in patient medical record.: Yes Medication Reconciliation I have utilized all available resources to obtain, update and review the patients current medications (includes all prescriptions, OTC, herbals, cannabis, and nutritional supplements).: Yes
[2024-11-26] MEDS: DIVALPROEX SODIUM DR 250 MG TABEC 1000 MG PO (21:27)
[2024-11-26] MEDS: BENZTROPINE MESYLATE 0.5 MG TABLET PO (21:27)
[2024-11-27] VITALS (14 sets, daily range): BP systolic 104–142; BP diastolic 60–74; PULSE 52–66; RESP 14–20; TEMP 36.6–37.3; O2SAT 93–100
[2024-11-27 04:58] LABS: Hematocrit 39.8 % (42.0-52.0); Hemoglobin 13.1 g/dL (14.0-18.0); Immature Granulocyte Percent A 0.3 % (0-0.5); Lymphocytes Absolute Auto 4.30 K/mm3 (0.9-3.2); Mean Corpuscular HGB Conc 32.9 g/dl (32-36); Mean Corpuscular Hemoglobin 31.3 pg (26-34); Mean Corpuscular Volume 95.2 fl (80-100); Nucleated Red Blood Cells Absolute Auto 0.000 K/mm3 (0.0-0.012); Nucleated Red Blood Cells Perc 0.0 % (0.0-0.2); Platelet Count Result 144 k/mm3 (150-375); Red Blood Count 4.18 M/mm3 (4.6-6.20); White Blood Count 9.2 K/mm3 (4.5-10.0)
[2024-11-27 05:30] LABS: Alanine Aminotransferase 10 U/L (6-50); Albumin Level 2.8 g/dL (3.5-5.1); Alkaline Phosphatase 64 U/L (38-126); Anion Gap 5 mmol/L (4-12); Aspartate Amino Transferase 25 U/L (17-59); Bilirubin,Total 0.6 mg/dL (0.2-1.3); Blood Urea Nitrogen 23 mg/dL (9-20); Calcium 8.2 mg/dL (8.4-10.2); Carbon Dioxide 22 mmol/L (22-30); Chloride 109 mmol/L (98-107); Estimated CRCL calculation 87 ml/min; Estimated Glomerular Filt Rate > 60; Glucose 90 mg/dL (65-110); Potassium 3.9 mmol/L (3.4-5.0); Sodium 136 mmol/L (137-145); Total Protein 5.2 g/dL (6.3-8.2)
[2024-11-27] MEDS: ONDANSETRON INJ 4 MG/2 ML VIAL IV PUSH (08:23)
[2024-11-27] MEDS: ATORVASTATIN 20 MG TABLET PO (10:04)
[2024-11-27] MEDS: DIVALPROEX SODIUM DR 250 MG TABEC 500 MG PO (10:04)
[2024-11-27] MEDS: ASPIRIN 81 MG ENTERIC TABLET PO (10:04)
[2024-11-27] MEDS: SODIUM CHLORIDE 0.9% IV 1,000 ML 83 ML IV CONT (10:11)
[2024-11-27] MEDS: cefTRIAXone 1 GM in SODIUM CHLORIDE 0.9% IV 50 ML 100 ML IVPB (13:05)
--- NOTE | 2024-11-27 14:27 | PM.IMPN ---
Progress Note: A&P Assessment and Plan (1) Cannabinoid hyperemesis syndrome: Code(s): R11.2 - Nausea with vomiting, unspecified; F12.90 - Cannabis use, unspecified, uncomplicated Status: Acute (2) Bipolar disorder: Code(s): F31.9 - Bipolar disorder, unspecified Status: Acute (3) Nausea and vomiting: Code(s): R11.2 - Nausea with vomiting, unspecified Status: Acute (4) Acute kidney injury: Code(s): N17.9 - Acute kidney failure, unspecified Status: Acute (5) Acute renal failure: Qualifiers: Acute renal failure type: unspecified Qualified Code(s): N17.9 - Acute kidney failure, unspecified Code(s): N17.9 - Acute kidney failure, unspecified Status: Acute (6) Dehydration: Code(s): E86.0 - Dehydration Status: Acute Plan This is a 49-year-old male with H bipolar disorder, polycythemia, cannabinoid hyperemesis syndrome, hypertension, polysubstance abuse with marijuana and methamphetamines. [facility] on 11/24[facility]24 complaining of nausea vomiting for several days. Reports he is dehydrated. He is not drinking anything. He has not urinated since 1 day prior to admission. He smoked methamphetamine 3 days prior to admission. He continues to smoke marijuana. He reports he lives with mother. On presentation is WBC count is 21.3, hemoglobin 20.3, chloride 90, anion gap 25, BUN 46, serum creatinine 4.47, glucose 172, lactic acid 1.5, CK 175, lipase 90, urinalysis not indicative of infection, 2+ protein, ketones trace. Drugs of abuse screen urine positive for amphetamines, cannabinoids. He was given Depakote 500 mg p.o. x1, 2 L normal saline bolus, Zofran 4 mg IV x1. The patient was resting comfortably thereafter. WBC trending down, leading credence to reactive vs infectious etiology. EDILBERTO also has resolved- Cr 4.47 > 1.06. Nephrology saw patient in ED and signed off, will trend tomorrow, discharge if renal function remains stable. EKG showed QTc 423, stable. ----- The patient's presentation is similar to his admission on 07/19/2024 with acute renal failure due to intractable nausea vomiting and dehydration due to cannabinoid hyperemesis syndrome. Monitor leukocytosis which is likely reactive, this is improving. Renal function normalized with IV fluids. 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 Then, can give antiemetics. Capsaicin cream p.r.n. to the upper abdomen. Counseling provided on polysubstance abuse. Care coordination consult. Patient was for discharge has EDILBERTO has completely resolved however symptoms of nausea vomiting recurred necessitating therapy. Will observe for 1 more day and continue to trend renal function, discharge tomorrow 11/28 if continues to have been improved. ----- The patient wishes to be full code. SCDs. Normal saline infusion. Subjective Date/time seen: 11/27/24 14:27 Interval history: Patient was seen during the morning rounds today. No sob or chest pain Nausea and vomiting has persisted today Review of Systems Review of Systems: All systems reviewed & are unremarkable except as noted in HPI and below (Subjective) Exam Const: General: comfortable and no acute distress Other: A&O x3, thin male HENMT: Mouth: Yes dry mucous membranes Eyes: Pupils: Equal, round and reactive pupils present Neck: Neck: supple Resp: Effort & Inspection: normal respiratory effort Auscultation: clear to auscultation bilaterally Cardio: Rate: regular rate Rhythm: regular rhythm GI: Inspection: non-distended Neuro: Cranial nerves: Yes Equal, round and reactive pupils present Motor exam (neuro): 5/5 motor strength present throughout Extrem: General: no edema Objective Data Vital Signs Vital Signs: Vital Signs - 24 hr 11/26/24 15:52 11/26/24 16:00 11/26/24 16:00 Temperature 98.0 F Pulse Rate 50 L 55 L Respiratory Rate 18 Blood Pressure 110/57 L Pulse Oximetry 97 97 Oxygen Delivery Room Air 11/26/24 18:00 11/26/24 20:00 11/26/24 20:00 Temperature 98.1 F Pulse Rate 54 L 48 L Respiratory Rate 14 Blood Pressure 107/73 Pulse Oximetry 99 99 Oxygen Delivery Room Air 11/26/24 20:00 11/26/24 20:02 11/26/24 22:00 Temperature Pulse Rate 50 L 45 L 55 L Respiratory Rate Blood Pressure Pulse Oximetry Oxygen Delivery 11/27/24 00:00 11/27/24 00:00 11/27/24 00:00 Temperature 98.2 F Pulse Rate 53 L 53 L Respiratory Rate 14 Blood Pressure 104/60 Pulse Oximetry 93 98 Oxygen Delivery Room Air 11/27/24 02:00 11/27/24 03:31 11/27/24 04:00 Temperature 98.3 F Pulse Rate 59 L 54 L Respiratory Rate 14 Blood Pressure 113/64 Pulse Oximetry 98 98 Oxygen Delivery Room Air 11/27/24 04:00 11/27/24 06:00 11/27/24 07:57 Temperature 97.8 F Pulse Rate 57 L 60 52 L Respiratory Rate 20 Blood Pressure 129/74 Pulse Oximetry 98 Oxygen Delivery 11/27/24 08:00 11/27/24 08:00 11/27/24 11:53 Temperature 98.3 F Pulse Rate 61 63 Respiratory Rate 20 Blood Pressure 142/72 H Pulse Oximetry 100 Oxygen Delivery Room Air 11/27/24 12:16 Temperature Pulse Rate 66 Respiratory Rate Blood Pressure Pulse Oximetry Oxygen Delivery Intake/Output Intake/Output: Intake & Output 11/24/24 11/25/24 11/26/24 11/27/24 23:59 23:59 23:59 23:59 Intake Total 900 3120.0 3650 1463.4 Output Total 75 750 1700 600 Balance 825 2370.0 1950 863.4 Meds/Results Medications: Active Medications Generic Name Dose Route Start Last Admin Trade Name Freq PRN Reason Stop Dose Admin Aspirin 81 mg 11/25/24 08:00 11/27/24 10:04 Aspirin 81 Mg Enteric Tablet PO 81 mg DAILY@0800 MELANI Administration Atorvastatin Calcium 20 mg 11/25/24 09:00 11/27/24 10:04 Atorvastatin 20 Mg Tablet PO 20 mg DAILY MELANI Administration Benztropine Mesylate 0.5 mg 11/25/24 21:00 11/26/24 21:27 Benztropine Mesylate 0.5 Mg Tablet PO 0.5 mg HS MELANI Administration Capsaicin 1 applic 11/25/24 02:47 Capsaicin 0.025% Cream 60 Gm Tube TOPICAL Q6H PRN Vomiting Carvedilol 3.125 mg 11/25/24 09:00 11/27/24 12:16 Carvedilol 3.125 Mg Tablet PO 3.125 mg Q12HR MELANI Administration Divalproex Sodium 500 mg 11/25/24 09:00 11/27/24 10:[address] 250 Mg Tabec PO 500 mg QAM MELANI Administration Divalproex Sodium 1,000 mg 11/25/24 21:00 11/26/24 21:[address] 250 Mg Tabec PO 1,000 mg QHS MELANI Administration Hydroxyzine Pamoate 25 mg 11/25/24 02:48 Hydroxyzine Pamoate 25 Mg Capsule PO HS PRN Anxiety Sodium Chloride 1,000 mls @ 83 mls/hr 11/24/24 18:35 11/27/24 10:11 Normal Saline Iv IV CONT 83 mls/hr .Q12H3M MELANI Administration Ceftriaxone Sodium 1 gm/ 50 mls @ 100 mls/hr 11/25/24 12:00 11/27/24 13:05 Sodium Chloride IVPB 100 mls/hr Q24H MELANI Administration Olanzapine 5 mg 11/25/24 09:00 11/27/24 10:06 Olanzapine 5 Mg Tablet PO 5 mg 0900 MELANI Administration Olanzapine 10 mg 11/25/24 21:00 11/26/24 21:29 Olanzapine 5 Mg Tablet PO 10 mg HS MELANI Administration Ondansetron HCl 4 mg 11/25/24 12:01 11/27/24 08:23 Ondansetron Inj 4 Mg/2 Ml Vial IV PUSH 4 mg Q6H PRN Administration Nausea And Vomiting Radiology Results: ITS Impressions Renal Ultrasound 11/25/24 11:26 IMPRESSION: 1. No hydronephrosis. Labs Labs: Laboratory Results - last 24 hr 11/27/24 04:40 WBC 9.2 RBC 4.18 L Hgb 13.1 L Hct 39.8 L MCV 95.2 MCH 31.3 MCHC 32.9 RDW 12.8 Plt Count 144 L MPV 10.5 H Immature Gran % (Auto) 0.3 Neut % (Auto) 39.0 L Lymph % (Auto) 46.[address] [place] % (Auto) 12.0 H Eos % (Auto) 1.0 Baso % (Auto) 0.8 Lymph # (Auto) 4.[address] [place] # (Auto) 1.1 H Eos # (Auto) 0.1 Baso # (Auto) 0.1 Abs Immat Gran (auto) 0.03 Absolute Neuts (auto) 3.6 Absolute Nucleated RBC 0.000 Nucleated RBC % 0.0 Sodium 136 L Potassium 3.9 Chloride 109 H Carbon Dioxide 22 Anion Gap 5 BUN 23 H D Creatinine 0.73 Estim Creat Clear Calc 87 Estimated GFR > 60 Glucose 90 Calcium 8.2 L Total Bilirubin 0.6 AST 25 ALT 10 Alkaline Phosphatase 64 Total Protein 5.2 L Albumin 2.8 L Hospitalist MIPS Advance Care Plan I have confirmed that the patient's Advanced Care Plan is present, code status is documented, or surrogate decision maker is listed in patient medical record.: Yes Medication Reconciliation I have utilized all available resources to obtain, update and review the patients current medications (includes all prescriptions, OTC, herbals, cannabis, and nutritional supplements).: Yes
[2024-11-27] MEDS: DOCUSATE SODIUM 100 MG CAPSULE PO (14:50)
--- NOTE | 2024-11-27 15:31 | PC.NURSE ---
report called to Nilda RN- pt med/surg - pt transferred to room 300 via wheelchair accompanied by staff- belongings with pt
[2024-11-27] MEDS: BENZTROPINE MESYLATE 0.5 MG TABLET PO (20:12)
[2024-11-27] MEDS: DIVALPROEX SODIUM DR 250 MG TABEC 1000 MG PO (20:12)
[2024-11-28] MEDS: ONDANSETRON INJ 4 MG/2 ML VIAL IV PUSH (02:06)
[2024-11-28 06:00] VITALS: BP 142/68; PULSE 51; RESP 14; TEMP 36.9; O2SAT 100
[2024-11-28 08:07] VITALS: PULSE 76
[2024-11-28] MEDS: DIVALPROEX SODIUM DR 250 MG TABEC 500 MG PO (08:07)
[2024-11-28] MEDS: ATORVASTATIN 20 MG TABLET PO (08:07)
[2024-11-28] MEDS: ASPIRIN 81 MG ENTERIC TABLET PO (08:08)
[2024-11-28 08:39] LABS: Hematocrit 40.3 % (42.0-52.0); Hemoglobin 13.8 g/dL (14.0-18.0); Immature Granulocyte Percent A 0.4 % (0-0.5); Lymphocytes Absolute Auto 2.28 K/mm3 (0.9-3.2); Mean Corpuscular HGB Conc 34.2 g/dl (32-36); Mean Corpuscular Hemoglobin 31.7 pg (26-34); Mean Corpuscular Volume 92.4 fl (80-100); Nucleated Red Blood Cells Absolute Auto 0.000 K/mm3 (0.0-0.012); Nucleated Red Blood Cells Perc 0.0 % (0.0-0.2); Platelet Count Result 154 k/mm3 (150-375); Red Blood Count 4.36 M/mm3 (4.6-6.20); White Blood Count 7.7 K/mm3 (4.5-10.0)
[2024-11-28 09:02] LABS: Alanine Aminotransferase 12 U/L (6-50); Albumin Level 3.0 g/dL (3.5-5.1); Alkaline Phosphatase 69 U/L (38-126); Anion Gap 6 mmol/L (4-12); Aspartate Amino Transferase 24 U/L (17-59); Bilirubin,Total 0.5 mg/dL (0.2-1.3); Blood Urea Nitrogen 15 mg/dL (9-20); Calcium 8.4 mg/dL (8.4-10.2); Carbon Dioxide 23 mmol/L (22-30); Chloride 105 mmol/L (98-107); Estimated CRCL calculation 93 ml/min; Estimated Glomerular Filt Rate > 60; Glucose 101 mg/dL (65-110); Potassium 3.8 mmol/L (3.4-5.0); Sodium 134 mmol/L (137-145); Total Protein 5.6 g/dL (6.3-8.2)
[2024-11-28 11:06] VITALS: BMI 17.9
--- NOTE | 2024-11-28 12:28 | P.DS_ITS ---
DS: Admitting Diagnosis Discharge Date 11/28/24 Admitting Diagnosis Cannabis hyperemesis syndrome DS: Discharge Diagnosis Discharge Diagnosis (1) Cannabinoid hyperemesis syndrome: Code(s): R11.2 - Nausea with vomiting, unspecified; F12.90 - Cannabis use, unspecified, uncomplicated Status: Acute Assessment and Plan: Patient has had episode of cannabis hyperemesis syndrome occur earlier this year with similar course. He was advised to discontinue use of cannabis and other substances. (2) Acute kidney injury: Code(s): N17.9 - Acute kidney failure, unspecified Status: Acute Assessment and Plan: Resolved to normal after hydration (3) Bipolar disorder: Code(s): F31.9 - Bipolar disorder, unspecified Status: Acute Assessment and Plan: On baseline medications: Benztropine, valproic acid, hydroxyzine p.r.n., olanzapine Continue all at home, with follow-up with Psychiatry DS: Summary Hospital Course Hospital Course: This is a 49-year-old male with H bipolar disorder, polycythemia, cannabinoid hyperemesis syndrome, hypertension, polysubstance abuse with marijuana and methamphetamines. He presents [facility] ER on 11/24/2024 complaining of nausea vomiting for several days. Reports he is dehydrated. He is not drinking anything. He has not urinated since 1 day prior to admission. He smoked methamphetamine 3 days prior to admission. He continues to smoke marijuana. He reports he lives with mother. On presentation is WBC count is 21.3, hemoglobin 20.3, chloride 90, anion gap 25, BUN 46, serum creatinine 4.47, glucose 172, lactic acid 1.5, CK 175, lipase 90, urinalysis not indicative of infection, 2+ protein, ketones trace. Drugs of abuse screen urine positive for amphetamines, cannabinoids. He was given Depakote 500 mg p.o. x1, 2 L normal saline bolus, Zofran 4 mg IV x1. The patient was resting comfortably thereafter. On the floor, patient remained stable however did have 1 episode of emesis in the morning the result with medication. Creatinine improved from 4.47 initially, to 0.69 on discharge. He was seen by the Nephrology in the ED who just recommended to monitor and follow up only if needed. He did deny recent methamphetamine use on the floor. White blood cell count which is also highly elevated on admission, has normalized from 21.3-7.7. Status at Discharge Cognitive/behavioral status at discharge: Stable Time Spent with Patient Time attestation: Total time spent providing and/or coordinating discharge services: Exam Const: General: comfortable and no acute distress HENMT: Face/Nose/Sinus: Normal nares present Mouth: Yes moist mucous membranes Eyes: General: appearance normal, both eyes and all related structures Sclera: sclerae normal Pupils: Equal, round and reactive pupils present EOM: EOMs intact bilaterally Neck: Neck: supple Resp: Effort & Inspection: normal respiratory effort Auscultation: clear to auscultation bilaterally Cardio: Rate: regular rate Rhythm: regular rhythm GI: GI Palp: Yes Soft to palpation Auscultation: normal bowel sounds Neuro: General: gait normal Motor exam (neuro): 5/5 motor strength present throughout and Normal motor muscle tone present throughout Sensory Exam: normal sensation Psych: Mental Status: mental status grossly normal Affect: normal affect DS: Data Data Completed and Pending Labs on day of discharge: Labs from last 24 hours 11/28/24 08:20 WBC 7.7 RBC 4.36 L Hgb 13.8 L Hct 40.3 L MCV 92.4 MCH 31.7 MCHC 34.2 RDW 12.6 Plt Count 154 MPV 10.2 Immature Gran % (Auto) 0.4 Neut % (Auto) 55.1 Lymph % (Auto) 29.6 [place] % (Auto) 14.5 H Eos % (Auto) 0.1 Baso % (Auto) 0.3 Lymph # (Auto) 2.28 [place] # (Auto) 1.1 H Eos # (Auto) 0.0 Baso # (Auto) 0.0 Abs Immat Gran (auto) 0.03 Absolute Neuts (auto) 4.3 Absolute Nucleated RBC 0.000 Nucleated RBC % 0.0 Sodium 134 L Potassium 3.8 Chloride 105 Carbon Dioxide 23 Anion Gap 6 BUN 15 D Creatinine 0.69 L Estim Creat Clear Calc 93 Estimated GFR > 60 Glucose 101 Calcium 8.4 Total Bilirubin 0.5 AST 24 ALT 12 Alkaline Phosphatase 69 Total Protein 5.6 L Albumin 3.0 L Preliminary micro results at discharge 11/25/24 13:05 Blood Culture - Preliminary Blood 11/25/24 12:53 Blood Culture - Preliminary Blood Discharge Plan Discharge Discharging Clinician: Madi Arroyo Oca Patient Disposition: Home Activity: june shower Diet: regular Patient Instructions: Antibiotic Form, Acute Kidney Injury (GEN), Chronic Kidney Disease (GEN), Low-Sodium Diet (GEN), Electronic Cigarettes and Your Health (ED) Patient Language: Japanese Stand Alone Forms: General Discharge Information Follow-up/Referrals: Zbigniew,MD Carmine [Primary Care Provider] Discharge Medications: Continued divalproex 500 mg tablet,delayed release (DR/EC) 500 mg PO BID 30 Days Qty: 0 0RF carvedilol 3.125 mg tablet 3.125 mg PO Q12H 30 Days Qty: 0 0RF benztropine 0.5 mg tablet 0.5 mg PO HS 30 Days Qty: 0 0RF atorvastatin 20 mg tablet 20 mg PO DAILY 30 Days Qty: 0 0RF aspirin 81 mg tablet,delayed release (DR/EC) 81 mg PO DAILY@0800 30 Days Qty: 0 0RF hydroxyzine pamoate 25 mg capsule 25 mg PO HS PRN (Reason: anxiety) 30 Days Qty: 0 0RF olanzapine 10 mg tablet 10 mg PO HS 30 Days Qty: 0 0RF olanzapine 5 mg tablet 5 mg PO 0900 30 Days Qty: 0 0RF Date of admission: 11/24/24 19:11 Primary Care Provider: ZbigniewCarmine Admitting Provider: Madi Arroyo Oca Attending physician on admission: Madi Arroyo Oca Condition: Stable
[2024-11-28 13:41] VITALS: BP 100/76; PULSE 68; RESP 16; TEMP 36.7; O2SAT 98
== END 2024-11-28 14:10 | disposition home or self-care (01) | DRG 392 ==
LOC: ANHED 16:36 → ANHIMU 20:26 → ANH3MEDSUR 11-27 15:18
PROVIDERS: Emergency Medicine; General Practice; Internal Medicine; Internal Medicine Nephrology; Admitting Provider Student in an Organized Health Care Education/Training Program; Emergency Provider Student in an Organized Health Care Education/Training Program; PCP Internal Medicine; Visit Provider Student in an Organized Health Care Education/Training Program
DX: R11.16 Cannabis hyperemesis syndrome (principal); N17.9 Acute kidney failure, unspecified; F12.10 Cannabis abuse, uncomplicated; E86.0 Dehydration; F15.10 Other stimulant abuse, uncomplicated; D75.1 Secondary polycythemia; F31.9 Bipolar disorder, unspecified; I10 Essential (primary) hypertension; D72.829 Elevated white blood cell count, unspecified; Z90.49 Acquired absence of other specified parts of digestive tract; F17.200 Nicotine dependence, unspecified, uncomplicated
CPT/HCPCS: 36415; 76770; 80053; 80069; 80307; 81001; 82550; 82570; 83605; 83690; 83735; 84145; 84156; 84300; 84540; 85025; 85999; 87040; 93005; 96361; 96374; 99285; A9270; J0696; J2405; J7030

== ENCOUNTER 2024-12-01 09:32 | Observation (INO) | payer MEDICARE, MEDICAID, SELFPAY ==
--- OUTSIDE RECORDS SUMMARY | 2024-02-03 10:30 | XMS_ITS ---
Author Organization [facility] Address [address] [place] [address] Care Team Providers Care Extractor Tender Raw Stock Name Role Phone Christiano Dominik Unavailable [phone] Medications Medication SIG (Take, Route, Frequency, Duration) Notes Start Date End Date Status Losartan Potassium 25 MG 1 tablet Orally Once a day; Duration: 90 day(s) Active Social History Sex Assigned At : Social History Observation Description Sex Assigned At Male Problems Problem Type SNOMED Code ICD Code Onset Dates Problem Status W/U Status Risk Notes Problem Renal osteodystrophy ([id number]) Renal osteodystrophy (N25.0) Active confirmed Encounters Encounter Location Date Provider Diagnosis [place] [facility] [address] [facility] [address] [place] [address] 02/03/2024 Dominik Alvarado Chronic kidney disea se, stage 2 (mild) N18.2 ; Essential hypertension I10 ; Renal osteodystrophy N25.0 and Proteinuria, unspecified R80.9 Assessments Encounter Date Diagnosis (ICD Code) Assessment Notes Treatment Notes Treatment Clinical Notes Section Notes 02/03/2024 Chronic kidney disease, stage 2 (mild) (ICD-10 - N18.2) 02/03/2024 Essential hypertension (ICD-10 - I10) 02/03/2024 Renal osteodystrophy (ICD-10 - N25.0) 02/03/2024 Proteinuria, unspecified (ICD-10 - R80.9) Plan Of Treatment Next Appt Details Provider Name:Dominik Alvarado , 12/21/2024 03:15:00 PM, [address] [facility], [facility] [address], [place], [address], Progress Notes * AHSLYN CANALESDOB:03/1974 (49 yo M)Acc No.[id number]:02/03/2024 Progress Notes Patient: ASHLYN DUMONT Provider: Crispin SYED MD, Ryan.NishP, F.A.S.N. :1975 A ge:49 Y S ex:Male Date:02/03/2024 Address:[address] [place] [address] Subjective: * Chief Complaints: * * Medical History: * Medications: T aking Losartan Potassium 25 MG Tablet 1 tablet Orally Once a day Objective: * Vitals: Assessment: * Assessment: 1. C hronic kidney disease, stage 2 (mild) - N18.2 (Primary) 2 . E ssential hypertension - I10 3 . R enal osteodystrophy - N25.0 4 . P roteinuria, unspecified - R80.9 Plan: * Treatment: * Billing Information: * Visit Code: 15547 Office Visit, Est Pt., Level 4. * Procedure Codes: * Electronic signature of Santiago Alvarado MD on 12/01/2024 at 10:33 AM CDT Sign off status: Pending * Provider: Crispin SYED MD, Ryan.NishP, F.A.S.N. Date: 04/05/2023 Generated for Printing/Faxing/eTransmitting on: 10:33 AM CDT
--- OUTSIDE RECORDS SUMMARY | 2024-04-06 10:15 | XMS_ITS ---
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 Name Role Phone Christiano Dominik Unavailable [phone] Social History Sex Assigned At : Social History Observation Description Sex Assigned At Male Encounters Encounter Location Date Provider Diagnosis [place] [facility] [address] [place] [address] 04/06/2024 Dominik Alvarado Plan Of Treatment Next Appt Details Provider Name:Dominik Alvarado , 12/21/2024 03:15:00 PM, [address] [address], [place], [place], [facility], Progress Notes * ASHLYN CANALESDOB:03/1974 (49 yo M)Acc No.[id number]:04/06/2024 Progress Notes Patient: ASHLYN DUMONT Provider: Crispin SYED MD, Ryan.Florencia.P, F.A.S.N. :1975 A ge:49 Y S ex:Male Date:04/06/2024 Address:[address] [place] [address] Subjective: * Chief Complaints: * * Medical History: Objective: * Vitals: Assessment: Plan: * Treatment: * Billing Information: * Visit Code: * Procedure Codes: * Electronic signature of Santiago Alvarado MD on 12/01/2024 at 10:32 AM CDT Sign off status: Pending * Provider: Crispin SYED MD, Barak.C.P, F.A.S.N. Date: 0 04/06/2024 Generated for Printing/Faxing/eTransmitting on: 10:32 AM CDT
--- OUTSIDE RECORDS SUMMARY | 2024-04-07 06:00 | XMS_ITS ---
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 Name Role Phone Camille Orona Primary Care Provider REASON FOR VISIT blood draw Social History Sex Assigned At : Social History Observation Description Sex Assigned At Male Encounters Encounter Location Date Provider Diagnosis [address] [place] [address] 04/07/2024 Camille Orona Plan Of Treatment No Information Progress Notes * Gianni HSUDOB:03/1974 (49 yo M)Acc No.[id number]:04/07/2024 UNLOCKED PROGRESS NOTE Patient: Gianni DUMONT Provider: Hunter Orona DNP, APRN, PMHNP-BC :1975 A ge:49 Y S ex:Male Date:04/07/2024 [facility] Subjective: * Chief Complaints: * 1 . Blood draw. * Medical History: Objective: * Vitals: Assessment: Plan: * Treatment: * * Electronic signature of Mar Melgoza [id number] on 12/01/2024 at 10:33 AM CDT Sign off status: Pending * Provider: Hunter Orona DNP, APRN, PMHNP-BC Date: 0 04/07/2024 Generated for Printing/Faxing/eTransmitting on: 1 10:33 AM CDT
--- OUTSIDE RECORDS SUMMARY | 2024-04-28 05:30 | XMS_ITS ---
Author Organization [facility] Address [address] [place] [address] Care Team Providers Care Inverted Block Operator Name Role Phone Camille Orona Primary Care Provider REASON FOR VISIT 2 Week Psych Med Check Social History Sex Assigned At : Social History Observation Description Sex Assigned At Male Encounters Encounter Location Date Provider Diagnosis [address] [place] [address] 04/28/2024 Camille Orona Plan Of Treatment No Information Progress Notes * Gianni HSUDOB:03/1974 (49 yo M)Acc No.[id number]:04/28/2024 UNLOCKED PROGRESS NOTE Patient: Gianni DUMONT Provider: Hunter Orona DNP, APRN, PMHNP-BC :1975 A ge:49 Y S ex:Male Date:04/28/2024 [facility] Subjective: * Chief Complaints: * 1 . 2 Week Psych Med Check. * Medical History: Objective: * Vitals: Assessment: Plan: * Treatment: * * Electronic signature of Mar Melgoza [phone] on 12/01/2024 at 10:33 AM CDT Sign off status: Pending * Provider: Hunter Orona DNP, APRN, PMHNP-BC Date: 0 04/28/2024 Generated for Printing/Faxing/eTransmitting on: 1 10:33 AM CDT
--- OUTSIDE RECORDS SUMMARY | 2024-05-11 10:15 | XMS_ITS ---
Author Organization [facility] Office Address [address] [address] [place] [address] Care Team Providers Care Event Sales Assistant Name Role Phone Dominik Alvarado Unavailable [phone] Social History Sex Assigned At : Social History Observation Description Sex Assigned At Male Problems Problem Type SNOMED Code ICD Code Onset Dates Problem Status W/U Status Risk Notes Problem Syndrome of inappropriate secretion of antidiuretic hormone (06950793) 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 Encounters Encounter Location Date Provider Diagnosis [facility] [address] [facility] [address] [place] [address] 05/11/2024 Dominik Alvarado Chronic kidney disea se, stage 3a N18.31 ; Acute kidney failure, unspecified N17.9 ; Abnormal coagulation profile R79.1 ; Gastritis, unspecified, without bleeding K29.70 ; Sepsis, unspecified organism A41.9 ; Elevated white blood cell count, unspecified D72.829 ; Essential hypertension I10 ; Renal osteodystrophy N25.0 and Syndrome of inappropriate secretion of antidiuretic hormone E22.2 Assessments Encounter Date Diagnosis (ICD Code) Assessment Notes Treatment Notes Treatment Clinical Notes Section Notes 05/11/2024 Chronic kidney disease, stage 3a (ICD-10 - N18.31) 05/11/2024 Acute kidney failure, unspecified (ICD-10 - N17.9) 05/11/2024 Abnormal coagulation profile (ICD-10 - R79.1) 05/11/2024 Gastritis, unspecified, without bleeding (ICD-10 - K29.70) 05/11/2024 Sepsis, unspecified organism (ICD-10 - A41.9) 05/11/2024 Elevated white blood cell count, unspecified (ICD-10 - D72.829) 05/11/2024 Essential hypertension (ICD-10 - I10) 05/11/2024 Renal osteodystrophy (ICD-10 - N25.0) 05/11/2024 Syndrome of inappropriate secretion of antidiuretic hormone (ICD-10 - E22.2) Plan Of Treatment Next Appt Details Provider Name:Dominik Alvarado , 12/21/2024 03:15:00 PM, [address] [facility] 15, [place], [place], [facility] [place], Progress Notes * ASHLYN CANALESDOB:03/1974 (49 yo M)Acc No.[id number]:05/11/2024 Progress Notes Patient: ASHLYN DUMONT Provider: Crispin SYED MD, F.A.C.P, F.A.S.N. :1975 A ge:49 Y S ex:Male Date:05/11/2024 Address:[address] [place] [address] Subjective: * Chief Complaints: * * Medical History: Objective: * Vitals: Assessment: * Assessment: 1. C hronic kidney disease, stage 3a - N18.31 (Primary) 2 . A cute kidney failure, unspecified - N17.9 3 . A bnormal coagulation profile - R79.1 4 . G astritis, unspecified, without bleeding - K29.70 5 . S epsis, unspecified organism - A41.9 6 . E levated white blood cell count, unspecified - D72.829 7 . E ssential hypertension - I10 8 . R enal osteodystrophy - N25.0 9 . S yndrome of inappropriate secretion of antidiuretic hormone - E22.2 Plan: * Treatment: * Procedure Codes: 9 9496 TRANS CARE MGMT 7 DAY DISCH * Billing Information: * Visit Code: 28981 Office Visit, Est Pt., Level 4. * Procedure Codes: 45905 TRANS CARE MGMT 7 DAY DISCH. * Electronic signature of Santiago Alvarado MD on 12/01/2024 at 10:33 AM CDT Sign off status: Pending * Provider: Crispin SYED MD, F.A.C.P, F.A.S.N. Date: 0 05/11/2024 Generated for Printing/Faxing/eTransmitting on: 1 10:33 AM CDT
--- OUTSIDE RECORDS SUMMARY | 2024-07-13 10:15 | XMS_ITS ---
Author Organization [facility] Address [address] [place] [address] Care Team Providers Care Set Up Worker Name Role Phone Christiano Dominik Unavailable [phone] Social History Sex Assigned At : Social History Observation Description Sex Assigned At Male Problems Problem Type SNOMED Code ICD Code Onset Dates Problem Status W/U Status Risk Notes Problem Chronic kidney disease stage 2 (788993759) Chronic kidney disease, stage 2 (mild) (N18.2) Active confirmed Encounters Encounter Location Date Provider Diagnosis [place] [facility] [address] [facility] 15 [place] [address] 07/13/2024 Dominik Alvardao Syndrome of inappropriate secretion of antidiuretic hormone E22.2 ; Chronic kidney disease, stage 2 (mild) N18.2 ; Elevated white blood cell count, unspecified D72.829 ; Gastritis, unspecified, without bleeding K29.70 and Renal osteodystrophy N25.0 Assessments Encounter Date Diagnosis (ICD Code) Assessment Notes Treatment Notes Treatment Clinical Notes Section Notes 07/13/2024 Syndrome of inappropriate secretion of antidiuretic hormone (ICD-10 - E22.2) 07/13/2024 Chronic kidney disease, stage 2 (mild) (ICD-10 - N18.2) 07/13/2024 Elevated white blood cell count, unspecified (ICD-10 - D72.829) 07/13/2024 Gastritis, unspecified, without bleeding (ICD-10 - K29.70) 07/13/2024 Renal osteodystrophy (ICD-10 - N25.0) Plan Of Treatment Next Appt Details Provider Name:Dominik Alvarado , 12/21/2024 03:15:00 PM, [address] [facility], [address], [place], [address], Progress Notes * ASHLYN CANALESDOB:03/1974 (49 yo M)Acc No.[id number]:07/13/2024 Progress Notes Patient: ASHLYN DUMONT Provider: Crispin SYED MD, F.A.C.P, F.A.S.N. :1975 A ge:49 Y S ex:Male Date:07/13/2024 Address:[address] [place] [address] Subjective: * Chief Complaints: * * Medical History: Objective: * Vitals: Assessment: * Assessment: 1. S yndrome of inappropriate secretion of antidiuretic hormone - E22.2 2 .?Chronic kidney disease, stage 2 (mild) - N18.2 3 . E levated white blood cell count, unspecified - D72.829 4 . G astritis, unspecified, without bleeding - K29.70 5 . R enal osteodystrophy - N25.0 Plan: * Treatment: * Billing Information: * Visit Code: 30921 Office Visit, Est Pt., Level 4. * Procedure Codes: * Electronic signature of Santiago Alvarado MD on 12/01/2024 at 10:33 AM CDT Sign off status: Pending * Provider: Crispin SYED MD, F.A.C.P, F.A.S.N. Date: 0 07/13/2024 Generated for Printing/Faxing/eTransmitting on: 1 10:33 AM CDT
--- OUTSIDE RECORDS SUMMARY | 2024-10-05 09:00 | XMS_ITS ---
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 ; Tobacco use Z72.0 and Other proteinuria R80.8 Assessments Encounter Date Diagnosis (ICD Code) Assessment Notes Treatment Notes Treatment Clinical Notes Section Notes 10/05/2024 Chronic kidney disease, stage 2 (mild) (ICD-10 - N18.2) 10/05/2024 Gastritis, unspecified, without bleeding (ICD-10 - K29.70) 10/05/2024 Elevated white blood cell count, unspecified (ICD-10 - D72.829) 10/05/2024 Renal osteodystrophy (ICD-10 - N25.0) 10/05/2024 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 :1975 A ge:49 Y S ex:Male Date:10/05/2024 Address:[address] [place] [address] Subjective: * Chief Complaints: Objective: Assessment: * Assessment: 1. C hronic kidney disease, stage 2 (mild) - N18.2 (Primary) 2 . G astritis, unspecified, without bleeding - K29.70 3 . E levated white blood cell count, unspecified - D72.829 4 . R enal osteodystrophy - N25.0 5 . S yndrome of inappropriate secretion of antidiuretic hormone - E22.2 6 . T obacco use - Z72.0 7 . O ther proteinuria - R80.8 Plan: * Billing Information: * Visit Code: 28058 Office Visit, Est Pt., Level 4. * Procedure Codes: * Electronic signature of Santiago Alvarado MD on 12/01/2024 at 10:32 AM CDT Sign off status: Pending * Provider: Crispin SYED MD, [email or web address], F.A.S.N. Date: 0 10/05/2024 Generated for Printing/Faxing/eTransmitting on: 10:32 AM CDT
--- NOTE | ~2024-12-01 | XR_ITS ---
Examination: XR chest 1V portable Clinical History: Leukocytosis Comparison: 07/19/2024 Technique: Portable AP Findings: Heart size normal. Lungs clear. Hyperinflation. No acute bony abnormality. IMPRESSION: 1. No acute cardiopulmonary findings given portable technique. Reviewed, dictated and finalized at location R.
[2024-12-01 09:34] VITALS: BP 135/93; PULSE 112; RESP 18; TEMP 36.8; O2SAT 98
--- OUTSIDE RECORDS SUMMARY | 2024-12-01 10:33 | XMS_ITS | Clinical Summary ---
Author Organization [facility] Address [facility] [place] [address] Care Team Providers Care Senior Receptionist Name Role Phone Unavailable Primary Care Provider [...] - 19+ 3-dose series) 01/17/1995 COVID-19 Vaccine ( - 2023-2 5 season) 2024 Influenza Adult (#1) 2024 Meningococcal B Vaccine Aged Out No l onger eligible based on patient's age to complete this topic Meningococcal Vaccine Aged Out No tani jane eligible based on patient's age to complete this topic Pneumococcal Vaccine: Pediat rics (0 to 5 Years) and At-Risk Patients (6 to 49 Years) Aged Out No longer eligible b ased on patient's age to complete this topic RSV Immunizations Under 20 Months Aged Out No longer eligible based on patient's age to complete this topic
--- OUTSIDE RECORDS SUMMARY | 2024-12-01 10:33 | XMS_ITS | Continuity of Care Document ---
Author Organization [facility] Address [address] [place] [address] Insurance Providers Payer Plan Claims Address Claims Phone Policy Number Group Number Relation Employer Guarantor Name Guarantor Guarantor Address Guarantor Phone [facility] ARE [address] [address], [place] [address] 44 [phone] Self Gianni Hsu [address] [place], [place] [id number] [employer] OS [address] [address], [place] [address] Coverag [id number] Self Gianni Hsu [address] [place] [id number] [employer]I [employer] [address] [address] [address] Coverag [id number] Self Gianni Hsu [address] [place], [place] [id number] Problems Unknown Problems Results No Results Allergies, [...]
--- OUTSIDE RECORDS SUMMARY | 2024-12-01 10:33 | XMS_ITS | Patient Health Record ---
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 Name Role Phone Christiano Dominik Unavailable [phone] Reason For Referral No Information Medications Medication SIG (Take, Route, Frequency, Duration) Notes Start Date End Date Status Losartan Potassium 25 MG 1 tablet Orally Once a day; Duration: 90 day(s) Active Social History Sex Assigned At : Social History Observation Description Sex Assigned At Male Problems Problem Type SNOMED Code ICD Code Onset Dates Problem Status W/U Status Risk Notes Problem Leukocytosis (137764554) Elevated white blood cell count, unspecified (D72.829) Active confirmed Problem Syndrome of inappropriate secretion of antidiuretic hormone (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 Problem Gastroduodenitis (273305234) Gastritis, unspecified, without bleeding (K29.70) Active confirmed Problem Chronic kidney disease stage 2 (317899875) Chronic kidney disease, stage 2 (mild) (N18.2) Active confirmed Problem Renal osteodystrophy (99550832) Renal osteodystrophy (N25.0) Active confirmed Encounters Encounter Location Date Provider Diagnosis [facility] [address] [place] [address] 12/09/2023 Dominik Alvarado Chronic kidney disea se, stage 3a N18.31 ; Chronic kidney disease, stage 1 N18.1 ; Chronic kidney disease, stage 2 (mild) N18.2 ; Essential hypertension I10 ; Acute kidney failure, unspecified N17.9 ; Abnormal coagulation profile R79.1 ; Gastritis, unspecified, without bleeding K29.70 ; Sepsis, unspecified organism A41.9 and Elevated white blood cell count, unspecified D72.829 [facility] [address] [place] [address] 02/03/2024 Dominik Alvarado Chronic kidney disea se, stage 2 (mild) N18.2 ; Essential hypertension I10 ; Renal osteodystrophy N25.0 and Proteinuria, unspecified R80.9 [facility] [address] [address] 05/11/2024 Dominik Alvarado Chronic kidney disea se, stage 3a N18.31 ; Acute kidney failure, unspecified N17.9 ; Abnormal coagulation profile R79.1 ; Gastritis, unspecified, without bleeding K29.70 ; Sepsis, unspecified organism A41.9 ; Elevated white blood cell count, unspecified D72.829 ; Essential hypertension I10 ; Renal osteodystrophy N25.0 and Syndrome of inappropriate secretion of antidiuretic hormone E22.2 [facility] [address] [address] 07/13/2024 Dominik Alvarado Syndrome of inappropriate secretion of antidiuretic hormone E22.2 ; Chronic kidney disease, stage 2 (mild) N18.2 ; Elevated white blood cell count, unspecified D72.829 ; Gastritis, unspecified, without bleeding K29.70 and Renal osteodystrophy N25.0 [facility] [address] [address] 10/05/2024 Dominik Alvarado Chronic kidney disea se, [...] Section Notes 12/09/2023 Chronic kidney disease, stage 1 (ICD-10 - N18.1) 12/09/2023 Chronic kidney disease, stage 3a (ICD-10 - N18.31) 02/03/2024 Chronic kidney disease, stage 2 (mild) (ICD-10 - N18.2) 02/03/2024 Essential hypertension (ICD-10 - I10) 05/11/2024 Chronic kidney disease, stage 3a (ICD-10 - N18.31) 10/05/2024 Gastritis, unspecified, without bleeding (ICD-10 - K29.70) 10/05/2024 Chronic kidney disease, stage 2 (mild) (ICD-10 - N18.2) 10/05/2024 Elevated white blood cell count, unspecified (ICD-10 - D72.829) 05/11/2024 Acute kidney failure, unspecified (ICD-10 - N17.9) 02/03/2024 Renal osteodystrophy (ICD-10 - N25.0) 12/09/2023 Chronic kidney disease, stage 2 (mild) (ICD-10 - N18.2) 02/03/2024 Proteinuria, unspecified (ICD-10 - R80.9) 12/09/2023 Essential hypertension (ICD-10 - I10) 10/05/2024 Renal osteodystrophy (ICD-10 - N25.0) 05/11/2024 Abnormal coagulation profile (ICD-10 - R79.1) 10/05/2024 Syndrome of inappropriate secretion of antidiuretic hormone (ICD-10 - E22.2) 05/11/2024 Gastritis, unspecified, without bleeding (ICD-10 - K29.70) 12/09/2023 Acute kidney failure, unspecified (ICD-10 - N17.9) 12/09/2023 Abnormal coagulation profile (ICD-10 - R79.1) 05/11/2024 Sepsis, unspecified organism (ICD-10 - A41.9) 10/05/2024 Tobacco use (ICD-10 - Z72.0) 10/05/2024 Other proteinuria (ICD-10 - R80.8) 05/11/2024 Elevated white blood cell count, unspecified [...] Name:Dominik Alvarado , 12/21/2024 03:15:00 PM, [address] [facility] [address], [address],
--- OUTSIDE RECORDS SUMMARY | 2024-12-01 10:33 | XMS_ITS | Data Portability ---
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 Not available 06/21/2022 14:19:24 10/22/2022 10/22/2022 Continue with current therapy follow-up 4 months [email or web address] Not available 11/12/2022 12:01:26 01/28/2023 01/28/2023 Blood [...] recorded. Lab lipid panel, serum [address] [facility] (Lab), [address] [place], [address], 09:46:00 CMP, serum or plasma [address] [facility] (Lab), [address] [place], [address], 14:52:35 Referral None recorded. Procedures colonoscopy screening (PROC) 2022 023 josiah Cortez MD, [address], [place], [address], 17:05:26 Surgeries None recorded. Imaging LDCT, chest, for lung cancer screening 2022 023 [facility] (One Call Scheduling), [address] [place], [address], 17:05:10 Medication Orders None recorded. Patient TargetsNo targets recorded. Patient InstructionsNo instructions recorded. Reason for Referral None Reported. Results Created Date Observation Date Name Description Value Unit Range Abnormal Flag Note LastModifiedBy Organization Detail LastModifiedTime 06/21/1906/20/2022 COMPR EHENS JUVENTINO METAB OLIC PANEL sodium 137 mmol/ L 137-14 5 Not Available [facility] (Lab) [address] [place], [address], 06/20/2022 14:52:34 06/21/1906/20/2022 COMPR EHENS JUVENTINO METAB OLIC PANEL potassium 4.5 mmol/ L 3.5-5. 1 Not Available [facility] (Lab) [address] [place], [address], 06/20/2022 14:52:34 06/21/19 23 06/20/2022 COMPR EHENS JUVENTINO METAB OLIC PANEL chloride 102 mmol/ L 98-107 Not Available [facility] (Lab) [address] [place], [address], 06/20/2022 14:52:34 06/21/19 23 06/20/2022 COMPR EHENS JUVENTINO METAB OLIC PANEL carbon dioxide 27 mmol/ L 22-30 Not Available [facility] (Lab) [address] [place], [address], 06/20/2022 14:52:34 06/21/19 23 06/20/2022 COMPR EHENS JUVENTINO METAB OLIC PANEL anion gap 12.5 mmol/ L 14-22 low Not Available [facility] (Lab) [address] [place], [address], 06/20/2022 14:52:34 06/21/19 23 06/20/2022 COMPR EHENS JUVENTINO METAB OLIC PANEL glucose 59 mg/dL 70-99 low Not Available [facility] (Lab) [address] [place], [address], 06/20/2022 14:52:34 06/21/19 23 06/20/2022 COMPR EHENS JUVENTINO METAB OLIC PANEL BUN 10 mg/dL 8-19 Not Available [facility] (Lab) [address] [place], [address], 06/20/2022 14:52:34 06/21/19 23 06/20/2022 COMPR EHENS JUVENTINO METAB OLIC PANEL creatinine 0.87 mg/dL 0.66-1 .25 Not Available [facility] (Lab) [address] [place], [address], 06/20/2022 14:52:34 06/21/19 23 06/20/2022 COMPR EHENS JUVENTINO METAB OLIC PANEL GFR >60 Refer ence Range : [place] ge GFR Healt hy Adult : >60 [...] is less accur ate, requi ring clini pohelia judgm ent on a case- by-ca se [...] calcu lator is avail able on the [facility] websi te: https ://ww w.kid desmond.o rg/pr ofess ional s/kdo qi/gf r_cal culat or Not Available [facility] (Lab) [address] [place], [address], 06/20/2022 14:52:34 06/21/19 23 06/20/2022 COMPR EHENS JUVENTINO METAB OLIC PANEL alkaline phosphatase 89 U/L 38-126 Not Available [facility] (Lab) [address] [place], [address], 06/20/2022 14:52:34 06/21/19 23 06/20/2022 COMPR EHENS JUVENTINO METAB OLIC PANEL alanine aminotransfe rase 17 U/L 0-[address] [facility] (Lab) [address] [place], [address], 06/20/2022 14:52:34 06/21/19 23 06/20/2022 COMPR EHENS JUVENTINO METAB OLIC PANEL aspartate aminotransfe rase 19 U/L 15-[address] [facility] (Lab) [address] [place], [address], 06/20/2022 14:52:34 06/21/19 23 06/20/2022 COMPR EHENS JUVENTINO METAB OLIC PANEL bilirubin, total 0.50 mg/dL 0.20-1 .30 Not Available [facility] (Lab) [address] [place], [address], 06/20/2022 14:52:34 06/21/19 23 06/20/2022 COMPR EHENS JUVENTINO METAB OLIC PANEL calcium 9.2 mg/dL 8.4-10 .2 Not Available [facility] (Lab) [address] [place], [address], 06/20/2022 14:52:34 06/21/19 23 06/20/2022 COMPR EHENS JUVENTINO METAB OLIC PANEL total protein 6.6 g/dL 6.3-8. 2 Not Available [facility] (Lab) [address] [place], [address], 06/20/2022 14:52:34 06/21/19 23 06/20/2022 COMPR EHENS JUVENTINO METAB OLIC PANEL albumin 4.2 g/dL 3.4-5. 0 Not Available [facility] (Lab) [address] [place], [address], 06/20/2022 14:52:34 06/21/19 23 06/20/2022 COMPR EHENS JUVENTINO METAB OLIC PANEL globulin 2.4 g/dL 2.6-4. 2 low Not Available [facility] (Lab) [address] [place], [address], 06/20/2022 14:52:34 06/21/19 23 06/20/2022 COMPR EHENS JUVENTINO METAB OLIC PANEL A/G ratio 1.8 ratio 1.0-2. 0 Not Available [facility] (Lab) [address] [place], [address], 06/20/2022 14:52:34 11/21/19 22 11/20/2021 , [facility] No observ ation record ed. [id number] [facility] [address], [place], [address], 04/16/2022 05:03:41 07/04/19 23 07/03/2022 LDCT, chest , for lung cance r scree [facility] [address], [place] [address] [phone] Renny shipman Name: JACOB DIAZ IN E Access ion #: [id number] Sex: M : 1974 5 Locati [...] aphy. Images are recons tructe d in aprker l, sagitt al, and axial planes . [...] on techni que. Page 1 of 3 [facility] Renny shipman Name: JACOB DIAZ IN E Access ion #: [id number] Sex: M : 1974 5 Exam Date: 023 1:31 PM Exam Name: CT CHEST WO LOW DOSE F/U Admitt ing Diagno sis(es ): FINDIN GS: Lungs: Parase ptal bullae format ion. No suspic ious nodule s. Increa sed anteri or funeral assistant ior diamet er of the trache a [...] 6:12 PM (CT) Page [address] [facility] Name: KACIECOOPERJACOB KIMBALL IN E Access ion #: [id number] Sex: M : 1974 5 Exam Date: 023 1:31 PM Exam Name: CT CHEST WO LOW DOSE F/U Admitt ing Diagno sis(es ): DT: 023 6:12 PM (CT) Page 3 of 3 [email or web address] [facility] (Imaging) [address] [place], [address], 10/23/2022 10:30:23 02/05/20 23 12/12/2022 US, echoc ardio gram No observ ation record ed. [facility] [address], [place], [address], 02/20/2023 15:27:53 Result Notes Documentation Provider Name and Address Organization Details Recorded Time Ldct, Chest, For Lung Cancer Screening : [facility] [address] [place] [address] Patient Name: OCOJGIANNI Sex: M : 1975 Location: RAD Attending Physician: YARIEL COY Ordering Physician: YARIEL COY Exam Date: 07/03/2022 1:31 PM Exam Name: CT CHEST WO LOW DOSE F/U Admitting Diagnosis(es): RADIOLOGY REPORT - FINAL EXAM: CT CHEST WO LOW DOSE F/U HISTORY: 46-year-old male, 45 pack year cigarette smoking history low-dose CT lung carcinoma examination. COMPARISON: 06/22/2021 TECHNIQUE: CT low dose lung screening protocol was utilized. Axial images were obtained using low dose computerized tomography. Images are reconstructed in coronal, sagittal, and axial planes. The images are reviewed with lung window, soft tissue, and bone window settings. This CT exam was performed using one or more of the following dose reduction techniques: Automated exposure control, adjustment of the mA and/or kV according to patient size, or use of iterative reconstruction technique. Page 1 of 3 [facility] Patient Name: GIANNI HSU Sex: M : 1975 Exam Date: 07/03/2022 1:31 PM Exam Name: CT CHEST WO LOW DOSE F/U Admitting Diagnosis(es): FINDINGS: Lungs: Paraseptal bullae formation. No suspicious nodules. Increased anterior posterior diameter of the trachea compatible with emphysematous residuals. Stable scarring at the right apex. Mediastinum/Hilum: Unremarkable Vascular: Unremarkable Heart: Normal size, no pericardial effusion. Bones: No acute process Extra Thoracic Soft tissues: Mild gynecomastia. IMPRESSION: Lung-RADS 1, negative. Continue annual screening with LDCT in 12 months. Emphysematous changes re-identified with paraseptal bullae. Created and electronically signed by: Dony Zamorano MD Signed Date: 07/03/2022 6:12 PM (CT) Dictated by: Dony Zamorano MD (CT) Page 2 of 3 [facility] Patient Name: GIANNI HSU Sex: M : 1975 Exam Date: 07/03/2022 1:31 PM Exam Name: CT CHEST WO LOW DOSE F/U Admitting Diagnosis(es): (CT) Page 3 of 3 ERINN Hardwick, [place] [facility] 10/23/2022 10:30:23 Problems Name Problem SNOMED Code Status Onset Date Resolution Date Notes Provider Name and Address Organization Details Recorded Time Tobacco user 870766028 Active Not Available [facility] 4 04:25:56 Rectal hemorrhage 39247641 Completed Not Available [facility] 3 04:51:03 Urinary incontinen ce 744048044 Completed Not Available [facility] 3 04:51:03 Pain in scrotum 02571466 Active Not Available [facility] 4 04:25:56 Abdominal pain 36068747 Active Not Available [facility] 4 04:25:56 Gallstone 106804635 Active Not Available [facility] 4 04:25:56 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 Not Available [facility] 4 04:25:56 Headache 66997314 Active Not Available [facility] 4 04:25:56 Abnormal weight loss 094592527 Active Not Available [facility] 4 04:25:56 Retention of urine 516614018 Active Not Available [facility] 4 04:25:56 Low back pain 120035294 Active Not Available [facility] 4 04:25:56 Dysuria 41239524 Active Not Available [facility] 4 04:25:56 Dyslipidem ia 549483571 Active 2021 Not Available [facility] 4 04:25:56 Anxiety 27029458 Active 2022 Not Available [facility] 4 04:25:56 Vitamin D below reference range 395183515 Active 2022 Not Available [facility] 4 04:25:56 Essential hypertensi on 94947294 Active 2022 Not Available [facility] 4 04:25:56 Problem Notes None recorded. Procedures Surgical History Date Name Laterality Status Provider Name and Address Organization Details Recorded Time 01/31/20 15 laparoscopic cholecystectomy completed Not Available [facility] 04/16/2022 04:42:01 Eye Surgery completed Not Available [facility] 04/16/2022 04:42:01 other completed Not Available [facility] 04/16/2022 04:42:01 Imaging Results None recorded. Procedure [...] Heart rate Body temperature Body weight Systolic And Diastolic Provider Name and Address Organization Details Last Updated DateTime 3 19.8 kg/m2 177.8 cm 62 /min 97.5 [degF] 15433.7 5 g 102/66 mm[Hg] Not Available [facility] 3 04:47:15 Date Recorded Body height Body mass index (BMI) Body weight Body temperature Heart rate Oxygen saturation Oxygen saturation in Arterial blood by Pulse oximetry Systolic And Diastolic Provider Name and Address Organization Details Last Updated DateTime 3 177.8 cm 19.7 kg/m2 35593.1 5 g 97.9 [degF] 59 /min 98 % 98 % 110/70 mm[Hg] Gayatri Sebastian RN [facility] [employer] 3 14:48:28 Date Recorded Body height Body mass index (BMI) Body weight Body temperature Heart rate Systolic And Diastolic Provider Name and Address Organization Details Last Updated DateTime 3 177.8 cm 18.7 kg/m2 45657.0 1 g 97.4 [degF] 67 /min 120/70 mm[Hg] ERINN Hardwick [employer] ([employer]) [facility] [employer] 3 15:39:10 Date Recorded Body mass index (BMI) Body height Heart rate Body temperature Body weight Systolic And Diastolic Provider Name and Address Organization Details Last Updated DateTime 2 19.5 kg/m2 177.8 cm 56 /min 97.1 [degF] 12510.5 6 g 100/60 mm[Hg] Not Available [facility] 3 04:47:15 Date Recorded Body height Body mass index (BMI) Body weight Body temperature Heart rate Systolic And Diastolic Provider Name and Address Organization Details Last Updated DateTime 3 177.8 cm 18.8 kg/m2 89981.6 g 97.5 [degF] 62 /min 110/64 mm[Hg] ERINN Hardwick MA [employer] [facility] [employer] 3 15:05:12 Social History Question Answer Notes LastModified by Organization Details LastModified Time Tobacco Smoking Status Current Every Day Smoker Not Available [facility] 04/16/2022 04:31:48 Do You Have An Advance Directive? No MIGRATION.0301 [id number] Information not available 04/16/2022 Are You Blind Or Do You Have Difficulty Seeing? No MIGRATION.0301 482601 Information not available 04/16/2022 What Is Your Level Of Caffeine Consumption? Heavy MIGRATION.0301 667179 Information not available 04/16/2022 How Much Tobacco Do You Chew? None MIGRATION.030 644475 Information not available 04/16/2022 In The 14 Days Before Symptom Onset, Have You Had Close Contact With A Laboratory-confi rmed COVID-19 While That Case Was Ill? No MIGRATION.030 [id number] Information not available 04/16/2022 In The 14 Days Before Symptom Onset, Have You Had Close Contact With A Person Who Is Under Investigation For COVID-19 While That Person Was Ill? No MIGRATION.030 104018 Information not available 04/16/2022 Are You Deaf Or Do You Have Serious Difficulty Hearing? No MIGRATION.030 457790 Information not available 04/16/2022 What Type Of Diet Are You Following? REGULAR MIGRATION.030 334814 Information not available 04/16/2022 Which Illicit Or Recreational Drugs Have You Used? Marijuana Daily Smoker MIGRATION.030 019859 Information not available 04/16/2022 What Is The Highest Grade Or Level Of School You Have Completed Or The Highest Degree You Have Received? HN28475-1 [email or web address] Information not available 06/18/2022 Have There Been Any Changes To Your Family Or Social Situation? No MIGRATION.0301 459120 Information not available 04/16/2022 What Is The Fluoride Status Of Your Home? Fluoridated MIGRATION.030 401764 Information not available 04/16/2022 Are There Any Guns Present In Your Home? No MIGRATION.0301 340478 Information not available 04/16/2022 Do You Use Insect Repellent Routinely? No [email or web address] Information not available 06/18/2022 Where Do You Live? SingleLevelHouse MIGRATION.030 460393 Information not available 04/16/2022 Do You Have A Medical Power Of Deicer Kit Assembler? No MIGRATION.0301 321541 Information not available 04/16/2022 What Was The Date Of Your Most Recent Tobacco Screening? 01/28/2023 [email or web address] Information not available 01/28/2023 How Many Children Do You Have? 3 [email or web address] Information not available 06/18/2022 What Is Your Current Pack Years? 30ormorepackyears MIGRATION.0301 616582 Information not available 04/16/2022 Do You Have Any Pets? Yes [email or web address] Information not available 06/18/2022 What Is Your Relationship Status? Single [email or web address] Information not available 06/18/2022 Do You Use Your Seat Belt Or Car Seat Routinely? Yes MIGRATION.0301 900438 Information not available 04/16/2022 Do You Have Smoke And Carbon Monoxide Detectors In Your Home? Yes MIGRATION.0301 [id number] Information not available 04/16/2022 At What Age Did You Start Smoking Tobacco? 16 MIGRATION.0301 363759 Information not available 04/16/2022 Are You Passively Exposed To Smoke? Yes [email or web address] Information not available 06/18/2022 Are There Any Smokers In Your House? Yes MIGRATION.0301 655981 Information not available 04/16/2022 How Much Tobacco Do You Smoke? 0.5 PPD MIGRATION.0301 487574 Information not available 04/16/2022 Do You Use Sunscreen Routinely? No MIGRATION.0301 684648 Information not available 04/16/2022 Have You Recently Traveled Abroad? No MIGRATION.0301 897185 Information not available 04/16/2022 Have You Used IV Drugs? No [email or web address] Information not available 06/18/2022 Do You Have Difficulty Walking Or Climbing Stairs? No MIGRATION.0301 773057 Information not available 04/16/2022 Do You Have Any Dietary Restrictions? No [email or web address] Information not available 06/18/2022 Sex: Unknown Functional Status Question Answer Note LastModified by Organizat ion Details LastModified Time Do you use any illicit or recreational drugs? Yes [email or web address] Information not available 06/18/2022 What is your level of alcohol consumption? None QUIT DRINKING MIGRATION.36051 12648 Information not available 04/16/2022 Do you or have you ever used smokeless tobacco? Never used smokeless tobacco MIGRATION.67535 49661 Information not available 04/16/2022 Are you currently employed? No [email or web address] Information not available 06/18/2022 Do you have difficulty doing errands alone? No MIGRATION.38202 12333 Information not available 04/16/2022 Do you have difficulty dressing, bathing, grooming, or toileting? No MIGRATION.85881 90924 Information not available 04/16/2022 Do you or have you ever used e-cigarettes or vape? Never used electronic cigarettes MIGRATION.06214 06751 Information not available 04/16/2022 What is your exercise level? None MIGRATION.59776 40723 Information not available 04/16/2022 Mental Status Question Answer Note LastModified by Organizat ion Details LastModified Time Do you feel stressed (tense, restless, nervous, or anxious, or unable to sleep at night)? YQ10948-8 [email or web address] Information not available 06/18/2022 Do you have difficulty concentrating, remembering or making decisions? No MIGRATION.61844460 26 Information not available 04/16/2022 Family History Relationship Description Onset Age of this Age Resolved Age Notes LastModified by Organization Details LastModified Time Father Malignant neoplastic disease MIGRATION.370 [id number] Not available 04/16/2022 04:42:06 Father Hypertensive disorder MIGRATION.544 [id number] Not available 04/16/2022 04:42:06 Father Diabetes mellitus MIGRATION.533 9463544 Not available 04/16/2022 04:42:07 Maternal Grandfather Heart disease MIGRATION.462 0436787 Not available 04/16/2022 04:42:07 Maternal Grandfather Family history of malignant neoplasm MIGRATION.936 7771949 Not available 04/16/2022 04:42:07 Maternal Grandfather Diabetes mellitus MIGRATION.345 9762908 Not available 04/16/2022 04:42:07 Maternal Grandmother Heart disease MIGRATION.862 0606011 Not available 04/16/2022 04:42:07 Medical History Condition [...] HAVE YOU BEEN HOSPITALIZED OR SEEN IN [facility] IN THE PAST YEAR ? N [...] quadrivalent, preservative free 9 completed Not Available [facility] 02/27/2023 04:25:56 Influenza, split virus, quadrivalent, preservative 7 completed Not Available [facility] 02/27/2023 04:25:56 Influenza, split virus, quadrivalent, PF 5 completed Not Available [facility] 02/27/2023 04:25:56 Past Encounters Encounter ID Performer Location Encounter Start Date Encounter Closed Date Diagnosis/Indication Diagnosis SNOMED-CT Code Diagnosis ICD10 Code Diagnosis IMO Codes Diagnosis Note [id number] Yariel Coy MD [facility] Internal Med [facility] [address] [address] 07/02/2020 00:00:00 07/29/2020 12:12:15 [id number] [facility] [address] [facility], [facility] [address] [place] [address] 08/15/2020 00:00:00 08/15/2020 14:31:06 [id number] [facility] [address] [facility], [address] [address] 08/29/2020 00:00:00 08/29/2020 15:45:16 [id number] Yariel Coy MD [facility] Internal Med [facility] [address] [place] [address] 1 07/12/2021 00:00:00 07/12/2021 22:49:21 [id number] Yariel Coy MD [facility] Internal Med [facility] [address] [place] [address] 1 08/09/2021 00:00:00 08/11/2021 14:18:23 [id number] Yariel Coy MD S_[facility] Internal Med [facility] [address] [address] 11/07/2021 00:00:00 12/15/2021 18:24:59 [id number] Yariel Coy MD S_[facility] Internal Med [facility] [address] [address] 02/19/2022 00:00:00 02/20/2022 21:26:50 [id number] Yariel Coy MD S_[facility] Internal Med [facility] 15 [address] [place] [address] 1 06/18/2022 14:35:11 06/18/2022 15:53:49 Dyslipidemia 637968682 E78.5 Screening for malignant neoplasm of colon 538771476 Z12.11 Nicotine dependence 5629 4008 Z87.891 Essential hypertension 20904834 I10 Vitamin D below reference range 898405834 E55.9 [id number] Yariel Coy MD S_[facility] Internal Med [facility] [address] [place] [address] 1 10/22/2022 15:23:29 10/22/2022 16:12:01 Essential hypertension 12349463 I10 Dyslipidemia 857225206 E 78.5 Anxiety 59169059 F41.9 Vitamin D below reference range 167287183 E55.9 [id number] Yariel Coy MD [facility] Internal Med [address] [place] [address] 01/28/2023 14:27:53 01/28/2023 16:08:08 Essential hypertension 23354847 I10 Dyslipidemia 141254901 E 78.5 Medullary sponge kidney 318330288 Q61.5 Health Concerns Section Related Observation LastModified by Organization Detai ls LastModified Time None Recorded Concern Status LastModified by Organization Details LastModified Time None Recorded Advance Directives Directive N: Payers Insurance Date Sequence Insurance Name Policy Number Policy Mcfadden Covered Member ID Mcfadden Member ID Guarantor Name 02/18/2023 1 [employer] (MEDICARE REPLACEMENT/A DVANTAGE - HMO) [id number] Gianni Hsu [id number] Gianni Hsu 02/18/2023 2 [place] WHEN MEDICARE OR MEDICARE REPLACEMENT PRIMARY) Gianni Hsu [id number] Gianni Hsu Notes Date Note Type Note Provider Name and Address Organization Details Recorded Time 06/18/2022 text/html Dyslipidemia could do better with dietNicotine dependence pack-a-day smoker.Hypertensio n no headache no dizzinessLow vitamin-D we have supplemented from time to time Yariel Coy MD [address] [facility] [address], [place], [address], [employer] by [employer] (deal united) [facility] [employer] 06/21/2022 14:20:21 10/22/2022 text/html Dyslipidemia could do better with dietNicotine dependence pack-a-day smoker.Hypertensio n no headache no dizzinessLow vitamin-D we have supplemented from time to time Yariel Coy MD [address] [facility] [address], [place], [address], [employer] by [employer]pping (deal united) [facility] [employer] 11/12/2022 12:01:43 01/28/2023 text/html No headache no dizziness. Dyslipidemia trying to take his atorvastatin regularly and follow a low-fat diet. Low vitamin-D says he is taking his medication but not every day. Psychiatric disorder he continues to follow-up with chest not any continues to smoke Yariel Coy MD [address] [facility], [facility] [address], [place], [address], [facility] 02/17/2023 14:13:40
--- OUTSIDE RECORDS SUMMARY | 2024-12-01 10:34 | XMS_ITS | Patient Health Record ---
Author Organization [facility] Address [address] [place] [address] Care Team Providers Care Lead Technologist In Cytogenetics Name Role Phone Camille Orona Primary Care Provider [phone] Allergies No Known Allergies Results Component Value Reference Range Notes Valproic Acid (Depakote)(R), S Reviewed date:05/23/2024 09:22:01 AM Interpretation: Performing Lab:[email or web address], Phone - [phone], Director - [facility] Notes/Report: Valproic Acid (Depakote)(R),S 87 50-100 ug/m L Detection Limit = 4 <4 indicates None Detected . Toxicity may occur at levels of 100-500. Measurements of free unbound valproic acid may improve the assess- ment of clinical response. Valproic Acid (Depakote)(R), S Reviewed date:04/11/2024 03:27:33 PM Interpretation: Performing Lab:[email or web address], Phone - [phone], Director - [facility] Notes/Report: Valproic Acid (Depakote)(R),S 39 50-100 ug/m L Detection Limit = 4 <4 indicates None Detected . Toxicity may occur at levels of 100-500. Measurements of free unbound valproic acid may improve the assess- ment of clinical response. Valproic Acid (Depakote)(R), S Reviewed date:10/10/2024 01:20:33 PM Interpretation: Performing Lab:[id number] [facility], Phone - [phone], Director - [facility]DPinon [facility] Centeri Notes/Report: Valproic Acid (Depakote)(R),S 91 50-100 ug/m L Detection Limit = 4 <4 indicates None Detected . Toxicity may occur at levels of 100-500. Measurements of free unbound valproic acid may improve the assess- ment of clinical response. Reason For Referral No Information Medications Medication SIG (Take, Route, Frequency, Duration) Notes Start Date End Date Status OLANZapine 5 MG 1 tablet in morning Orally Once a day; Duration: 30 days Active Benztropine Mesylate 0.5 MG 1 tablet at bedtime Orally Once a day; Duration: 30 days Active hydrOXYzine Pamoate 25 MG 1 capsule as n eeded at bedtime Orally once a day; Duration: 30 days Active Benztropine Mesylate 0.5 MG 1 tablet at bedtime Orally Once a day; Duration: 30 days Active Divalproex Sodium 500 MG 1 tablet in am, 2 tablets at bedtime Orally twice a day; Duration: 10 days Active OLANZapine 5 MG 1 tablet in morning Orally Once a day; Duration: 30 days Active Losartan Potassium 25 MG 1 tablet Orally Once a day Active OLANZapine 10 MG 1 tablet at bedtime Orally Once a day; Duration: 30 days Active Carvedilol 3.125 MG 1 tablet with food O rally Twice a day Active Divalproex Sodium 500 MG 1 tablet in am, 2 tablets at bedtime Orally twice a day; Duration: 30 days Active Aspirin 81 81 MG 1 tablet Orally Once a day Active Atorvastatin Calcium 20 MG 1 tablet [...] 20s. No charges/convictions since then. Spiritual Affiliation- Yazidi Other Social History - Lives with 68 [...] HISTORY Past Psychiatrist or Therapist - Saw [facility] providers in past for medication and therapy [...] 20s. No charges/convictions since then. Spiritual Affiliation- Yazidi Other Social History - Lives with 68 [...] HISTORY Past Psychiatrist or Therapist - Saw [facility] providers in past for medication and therapy [...] 20s. No charges/convictions since then. Spiritual Affiliation- Yazidi Other Social History - Lives with 68 [...] HISTORY Past Psychiatrist or Therapist - Saw [facility] providers in past for medication and therapy [...] 20s. No charges/convictions since then. Spiritual Affiliation- Yazidi Other Social History - Lives with 68 [...] HISTORY Past Psychiatrist or Therapist - Saw [facility] providers in past for medication and therapy [...] 20s. No charges/convictions since then. Spiritual Affiliation- Yazidi Other Social History - Lives with 68 [...] HISTORY Past Psychiatrist or Therapist - Saw [facility] providers in past for medication and therapy [...] 20s. No charges/convictions since then. Spiritual Affiliation- Yazidi Other Social History - Lives with 67 [...] HISTORY Past Psychiatrist or Therapist - Saw [facility] providers in past for medication and therapy [...] 20s. No charges/convictions since then. Spiritual Affiliation- Yazidi Other Social History - Lives with 67 [...] HISTORY Past Psychiatrist or Therapist - Saw [facility] providers in past for medication and therapy [...] 20s. No charges/convictions since then. Spiritual Affiliation- Yazidi Other Social History - Lives with 67 [...] HISTORY Past Psychiatrist or Therapist - Saw [facility] providers in past for medication and therapy [...] 20s. No charges/convictions since then. Spiritual Affiliation- Yazidi Other Social History - Lives with 67 [...] HISTORY Past Psychiatrist or Therapist - Saw [facility] providers in past for medication and therapy [...] 20s. No charges/convictions since then. Spiritual Affiliation- Yazidi Other Social History - Lives with 67 [...] HISTORY Past Psychiatrist or Therapist - Saw [facility] providers in past for medication and therapy [...] 20s. No charges/convictions since then. Spiritual Affiliation- Yazidi Other Social History - Lives with 67 [...] HISTORY Past Psychiatrist or Therapist - Saw [facility] providers in past for medication and therapy as teen Psychiatric Diagnosis(es) - Depression, anxiety, Bipolar Past Psychiatric Medications - Abilify, Lamictal, Cymbalta Inpt Psych Hospitalizations - [facility] a few times for SI during teen [...] 20s. No charges/convictions since then. Spiritual Affiliation- Yazidi Other Social History - Lives with 68 [...] HISTORY Past Psychiatrist or Therapist - Saw [facility] providers in past for medication and therapy [...] W/U Status Risk Notes Problem Tobacco user (903311269) Nicotine dependence, unspecified, uncomplicated (F17.200) Active confirmed Problem Bipolar 1 disorder (255150293) Bipolar 1 disorder (F31.9) Active confirmed Problem Generalized anxiety disorder (83120122) KUSUM (generalized anxiety disorder) (F41.1) Active confirmed Problem Cannabis use disorder (6080184064) Cannabis use disorder (F12.90) Active confirmed Problem Cannabis abuse (56421281) Cannabis abuse (F12.10) Problem resolved confirmed changed to cannabis use disorder Problem Tardive dyskinesia (225411187) Tardive dyskinesia (G24.01) Problem resolved confirmed erroneous Dx - was EPS symptoms resolved with reducing olanzapine and adding benztropine Vital Signs Heart Rate 58 /min 10/06/2024 Temperature 97.6 degrees Fahrenheit 10/06/2024 Respiratory Rate 16 /min 10/06/2024 Blood pressure diastolic 60 mm Hg 10/06/2024 Oximetry 97 % 10/06/2024 Height 71 in 10/06/2024 Blood pressure systolic 100 mm Hg 10/06/2024 Weight 134 lb 8oz lbs 10/06/2024 BMI 18.76 kg/m2 10/06/2024 Encounters Encounter Location Date Provider Diagnosis [address] [address] 04/07/2024 Camille Orona [address] [address] 01/07/2024 Camille Orona Bipolar 1 disorder F31.9 ; KUSUM (generalized anxiety disorder) F41.1 ; Nicotine dependence, unspecified, uncomplicated F17.200 ; Cannabis abuse F12.10 and Medication management Z79.[address] [address] 04/07/2024 Camille Orona Bipolar 1 disorder F31.9 ; KUSUM (generalized anxiety disorder) F41.1 ; Nicotine dependence, unspecified, uncomplicated F17.200 ; Cannabis abuse F12.10 and Medication management Z79.[address] [address] 05/19/2024 Camille Orona Bipolar 1 disorder F31.9 ; KUSUM (generalized anxiety disorder) F41.1 ; Nicotine dependence, unspecified, uncomplicated F17.200 ; Cannabis use disorder F12.90 and Medication management Z79.[address] [address] 06/30/2024 Camille Orona Bipolar 1 disorder F31.9 ; KUSUM (generalized anxiety disorder) F41.1 ; Cannabis use disorder F12.90 ; Nicotine dependence, unspecified, uncomplicated F17.200 and Medication management Z79.[address] [address] 10/06/2024 Camille Orona Bipolar 1 disorder F31.9 ; KUSUM (generalized anxiety disorder) F41.1 ; Cannabis use disorder F12.90 ; Nicotine dependence, unspecified, uncomplicated F17.200 and Medication management Z79.[address] [address] 10/06/2024 Camille Orona Bipolar 1 disorder F31.[address] [address] 04/11/2024 Camille Orona Bipolar 1 disorder F31.9 and Tardive dyskinesia G24.[address] [address] 05/23/2024 Camille Orona [address] [address] 06/20/2024 Camille Orona Bipolar 1 disorder F31.9 and KUSUM (generalized anxiety disorder) F41.[address] [address] 10/10/2024 Camille Orona Assessments Encounter Date Diagnosis (ICD Code) Assessment Notes Treatment Notes Treatment Clinical Notes Section Notes 01/07/2024 Bipolar 1 disorder (ICD-10 - F31.9) [...] AND benztropine 1 mg HS was added. 10/06/2024 Bipolar 1 disorder (ICD-10 - F31.9) 05/19/2024 - Client experienced extrapyramidal side effects when olanzapine was at 10 mg BID, and resolved when decreased to 5 mg in am/10 mg HS AND benztropine 0.5 mg HS was added. 10/06/2024 Bipolar 1 disorder (ICD-10 - F31.9) 10/06/2024 KUSUM (generalized anxiety disorder) (ICD-10 - F41.1) 06/30/2024 KUSUM (generalized anxiety disorder) (ICD-10 - F41.1) 06/20/2024 KUSUM (generalized anxiety disorder) (ICD-10 - F41.1) 05/19/2024 KUSUM (generalized anxiety disorder) (ICD-10 - F41.1) 04/07/2024 KUSUM (generalized anxiety disorder) (ICD-10 - F41.1) 04/11/2024 Tardive dyskinesia (ICD-10 - G24.01) 01/07/2024 Nicotine dependence, unspecified, uncomplicated (ICD-10 - [...] was hospitalized for it in April 2024. 10/06/2024 Cannabis use disorder (ICD-10 - F12.90) Educated client that the psychoactive components in marijuana can interact with prescribed psychiatric medications, and cessation is best practice and decreased use at the very least is advisable. Client has Hx of cannabis hyperemesis syndrome, and was hospitalized for it in April 2024. 10/06/2024 Nicotine dependence, unspecified, uncomplicated (ICD-10 - F17.200) 04/07/2024 Cannabis abuse (ICD-10 - F12.10) 06/30/2024 Nicotine dependence, unspecified, uncomplicated (ICD-10 - F17.200) 01/07/2024 Medication management (ICD-10 - Z79.899) May self-administer medications or be administered own oral medications per [facility] protocols. Provided informed consent with understanding of [...] or be administered own oral medications per [facility] protocols. Provided informed consent with understanding of [...] or be administered own oral medications per [facility] protocols. Provided informed consent with understanding of [...] or be administered own oral medications per [facility] protocols. Provided informed consent with understanding of side effects, adverse effects, risks and benefits as well as alternative treatments as previously discussed and with the above recommended medications & other aspects of the treatment program. Agrees to return sooner if symptoms worsen or suicidal or homicidal ideations occur. Labs monitored by PCP or nephrologis except Valproic Acid. 10/06/2024 Medication management (ICD-10 - Z79.899) May self-administer medications or be administered own oral medications per [facility] protocols. Provided informed consent with understanding of side effects, adverse effects, risks and benefits as well as alternative treatments as previously discussed and with the above recommended medications & other aspects of the treatment program. Agrees to return sooner if symptoms worsen or suicidal or homicidal ideations occur. Labs monitored by PCP or draw off worker except Valproic Acid. Reports having them drawn 08/2024 or 09/2024. 01/07/2024 Other Plan Of Treatment No Information Insurance Providers Payer Name Payer Address Payer Phone Subscriber Number Group Number Insured Name Patient Relationship to Insured Coverage Start Date Coverage End Date [employer] Medicare [address] [address] [place] [phone] [id number] Gianni Reich Self - patient is the insured 3 [place] [address] [place] [address] [id number] Gianni Reich Self - patient is the insured 4 Medical (General) History Medical History History ICD Code HTN HLD Hx of acute kidney failure Hx of sepsis with multi organ failure cannabis hyperemesis syndrome extrapyramidal side effects (EPS) Surgical History Surgery Date(Month/Year) gallbladder pin in toe eye surgery Hospitalization History Reason Date(Month/Year) dehydration
--- NOTE | 2024-12-01 11:35 | ED.NAVMDI ---
HPI - Nausea/Vomiting/Diarrhea General Chief complaint: Nausea/Vomiting/Diarrhea <Michelle Morton PA-C - Last Filed: 12/01/24 19:13> Stated complaint: nausea vomiting <Michelle Morton PA-C - Last Filed: 12/01/24 19:13> Time Seen by Provider: 12/01/24 11:35 <Michelle Morton PA-C - Last Filed: 12/01/24 19:13> Focused HPI: This is a 49 year old male that presents to the ER for abdominal pain, nausea, and vomiting. Ongoing since last night. Reports right upper quadrant pain. Denies fever, diarrhea, dysuria, hematuria. GENERAL: Disheveled, well-nourished, and in no acute distress. HEAD: Normocephalic, atraumatic. CHEST: Clear to auscultation. ?No respiratory distress. HEART: Tachycardic, regular rate NEURO: ?Alert and oriented x3. Patient screened in triage and initial orders placed.? ?Additional care and disposition to be based upon?diagnostic testing and treatment. <Michelle Morton PA-C - Last Filed: 12/01/24 19:13> History of Present Illness HPI Narrative: Agree the HPI as noted in the medical screening exam with the exception that the patient did not remark on abdominal pain to me. <Geoff Montoya MD - Last Filed: 12/01/24 20:03> Related Data Home medications: Home Medications ?Medication ?Instructions ?Recorded ?Confirmed ?Last Taken ?Type losartan 25 mg tablet 25 mg PO DAILY 12/01/24 12/01/24 11/30/24 History pantoprazole 40 mg tablet,delayed 40 mg PO BID 12/01/24 12/01/24 11/30/24 History release <Michelle Morton PA-C - Last Filed: 12/01/24 19:13> Allergies/Adverse reactions: Allergies Allergy/AdvReac Type Severity Reaction Status Date / Time No Known Allergies Allergy Verified 12/01/24 15:17 <Michelle Morton PA-C - Last Filed: 12/01/24 19:13> Review of Systems Review of Systems: All systems reviewed & are unremarkable except as noted in HPI and below <Geoff Montoya MD - Last Filed: 12/01/24 20:03> PMFSH Past Medical History Medical History: Medical History Bipolar disorder 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 He has smoked half a pack of cigarettes per day since he was a teenager. He denies any history of alcohol use. He uses marijuana daily. Code status: Full code Surrogate decision maker: Renee (Mother) Smoking packs per day: 0.5 Smoking cigarettes per day: 10.0 Years smoked: 30 Smoking pack-years: 15.00 Smoking status: Current every day smoker Tobacco type: cigarettes Alcohol intake: current Drinks per week: 1 Substance use: current Substance use type: marijuana Last use: 07/18/24 Do You Feel Safe in your Home?: Yes Lack of Transportation: No Lack of Food: Never True Current Housing: I Have Housing Concerned About Future Housing: No Difficulty Paying Gas/Electric Bills: No Difficulty Paying for Meds: No Currently Unemployed: No Education: High School Diploma/GED Difficulty w/ Childcare or Family Care: No Living arrangements: with family Additional living arrangements comments: Mother Spiritual care concerns: No <Michelle Morton PA-C - Last Filed: 12/01/24 19:13> Exam Narrative: GENERAL: Well-developed, well-nourished, and in no acute distress. HEAD: Normocephalic, atraumatic. EYES: PERRLA and EOMI. ENT: Edentulous. Nares clear, no rhinorrhea or epistaxis. Mucous membranes dry. Oropharynx without tonsillar hypertrophy exudate or other lesions. CHEST: Clear to auscultation. No respiratory distress. No wheezes rales or rhonchi HEART: Regular rate and rhythm. No murmur heard. Normal peripheral pulses. ABDOMEN: Soft, nontender, nondistended, normal active bowel sounds. EXTREMITIES: Normal range of motion. No edema. SKIN: Warm, dry, no rash. NEURO: Alert and oriented x3. No focal deficit. Moving all 4 limbs spontaneously PSYCH: Normal mood and affect. <Geoff Montoya MD - Last Filed: 12/01/24 20:03> Course Course Emergency Course: 13:15 - CBC demonstrates elevated white blood cell count of 17 with hemoglobin of 18 and platelet count of 265, this is consistent with the patient with history of polycythemia dehydration. Creatinine increased to 2.56 from 0.69. Sodium 136, P 131, calcium 10.5. Lipase within normal limits at 01:10. AST/ALT unremarkable with a normal total bilirubin. I discussed the patient with hospitalist, ARCADIO Yates who accepts admission. <Geoff Montoya MD - Last Filed: 12/01/24 20:03> Vital Signs Vital signs: Vital Signs Temperature 98.3 F 12/01/24 09:34 Pulse Rate 112 H 12/01/24 09:34 Respiratory Rate 18 12/01/24 09:34 Blood Pressure 135/93 H 12/01/24 09:34 Pulse Oximetry 98 12/01/24 09:34 Oxygen Delivery Room Air 12/01/24 09:34 Temperature 98.3 F 12/01/24 09:34 Pulse Rate 86 12/01/24 16:48 Respiratory Rate 18 12/01/24 16:48 Blood Pressure 135/93 H 12/01/24 09:34 Pulse Oximetry 99 12/01/24 16:48 Oxygen Delivery Room Air 12/01/24 16:48 <Michelle Morton PA-C - Last Filed: 12/01/24 19:13> Vital Signs Temperature 98.3 F 12/01/24 09:34 Pulse Rate 112 H 12/01/24 09:34 Respiratory Rate 18 12/01/24 09:34 Blood Pressure 135/93 H 12/01/24 09:34 Pulse Oximetry 98 12/01/24 09:34 Oxygen Delivery Room Air 12/01/24 09:34 Temperature 98.3 F 12/01/24 09:34 Pulse Rate 86 12/01/24 16:48 Respiratory Rate 18 12/01/24 16:48 Blood Pressure 135/93 H 12/01/24 09:34 Pulse Oximetry 99 12/01/24 16:48 Oxygen Delivery Room Air 12/01/24 16:48 <Geoff Montoya MD - Last Filed: 12/01/24 20:03> MDM - Nausea/Vomiting/Diarrhea MDM Narrative Medical decision making narrative: Plan: Labs IV fluids, antiemetics, reassess <Geoff Montoya MD - Last Filed: 12/01/24 20:03> Differential Diagnosis Differential diagnosis: Likely traveler's diarrhea, food poisoning, drug-induced nausea and vomiting, dehydration and other (Cannabis hyperemesis syndrome, metabolic abnormality, other) <Geoff Montoya MD - Last Filed: 12/01/24 20:03> Lab Data Result diagrams: 12/01/24 12:37 12/01/24 12:37 <Michelle Morton PA-C - Last Filed: 12/01/24 19:13> Labs: Lab Results 12/01/24 Range/Units 12:37 WBC 17.8 H (4.5-10.0) K/mm3 RBC 5.80 (4.6-6.20) M/mm3 Hgb 18.3 H D (14.0-18.0) g/dL Hct 53.0 H (42.0-52.0) % MCV 91.4 (80-100) fl MCH 31.6 (26-34) pg MCHC 34.5 (32-36) g/dl RDW 12.8 (11.5-14.5) % Plt Count 265 D (150-375) k/mm3 MPV 10.7 H (7.4-10.4) fl Immature Gran % (Auto) 0.6 H (0-0.5) % Neut % (Auto) 75.1 H (45.5-73.1) % Lymph % (Auto) 13.5 L (18.3-44.2) % [place] % (Auto) 10.4 H (2.6-8.5) % Eos % (Auto) 0.0 (0-4.4) % Baso % (Auto) 0.4 (0.2-1.2) % Lymph # (Auto) 2.40 (0.9-3.2) K/mm3 [place] # (Auto) 1.9 H (0.1-0.6) K/mm3 Eos # (Auto) 0.0 (0-0.3) K/mm3 Baso # (Auto) 0.1 (0.0-0.1) K/mm3 Abs Immat Gran (auto) 0.11 H (0.00-0.031) K/mm3 Absolute Neuts (auto) 13.4 H (1.3-6.7) K/mm3 Absolute Nucleated RBC 0.000 (0.0-0.012) K/mm3 Nucleated RBC % 0.0 (0.0-0.2) % Sodium 136 L (137-145) mmol/L Potassium 4.7 (3.4-5.0) mmol/L Chloride 89 L (98-107) mmol/L Carbon Dioxide 32 H (22-30) mmol/L Anion Gap 15 H (4-12) mmol/L BUN 31 H D (9-20) mg/dL Creatinine 2.56 H (0.7-1.3) mg/dL Estim Creat Clear Calc 25 ml/min Estimated GFR 27 L (59 - ) Glucose 152 H (65-110) mg/dL Calcium 10.5 H (8.4-10.2) mg/dL Total Bilirubin 0.4 (0.2-1.3) mg/dL AST 25 (17-59) U/L ALT 23 (6-50) U/L Alkaline Phosphatase 94 (38-126) U/L Total Protein 9.3 H (6.3-8.2) g/dL Albumin 5.1 (3.5-5.1) g/dL Lipase 110 (23-300) U/L <Michelle Morton PA-C - Last Filed: 12/01/24 19:13> Lab Results 12/01/24 Range/Units 12:37 WBC 17.8 H (4.5-10.0) K/mm3 RBC 5.80 (4.6-6.20) M/mm3 Hgb 18.3 H D (14.0-18.0) g/dL Hct 53.0 H (42.0-52.0) % MCV 91.4 (80-100) fl MCH 31.6 (26-34) pg MCHC 34.5 (32-36) g/dl RDW 12.8 (11.5-14.5) % Plt Count 265 D (150-375) k/mm3 MPV 10.7 H (7.4-10.4) fl Immature Gran % (Auto) 0.6 H (0-0.5) % Neut % (Auto) 75.1 H (45.5-73.1) % Lymph % (Auto) 13.5 L (18.3-44.2) % [place] % (Auto) 10.4 H (2.6-8.5) % Eos % (Auto) 0.0 (0-4.4) % Baso % (Auto) 0.4 (0.2-1.2) % Lymph # (Auto) 2.40 (0.9-3.2) K/mm3 [place] # (Auto) 1.9 H (0.1-0.6) K/mm3 Eos # (Auto) 0.0 (0-0.3) K/mm3 Baso # (Auto) 0.1 (0.0-0.1) K/mm3 Abs Immat Gran (auto) 0.11 H (0.00-0.031) K/mm3 Absolute Neuts (auto) 13.4 H (1.3-6.7) K/mm3 Absolute Nucleated RBC 0.000 (0.0-0.012) K/mm3 Nucleated RBC % 0.0 (0.0-0.2) % Sodium 136 L (137-145) mmol/L Potassium 4.7 (3.4-5.0) mmol/L Chloride 89 L (98-107) mmol/L Carbon Dioxide 32 H (22-30) mmol/L Anion Gap 15 H (4-12) mmol/L BUN 31 H D (9-20) mg/dL Creatinine 2.56 H (0.7-1.3) mg/dL Estim Creat Clear Calc 25 ml/min Estimated GFR 27 L (59 - ) Glucose 152 H (65-110) mg/dL Calcium 10.5 H (8.4-10.2) mg/dL Total Bilirubin 0.4 (0.2-1.3) mg/dL AST 25 (17-59) U/L ALT 23 (6-50) U/L Alkaline Phosphatase 94 (38-126) U/L Total Protein 9.3 H (6.3-8.2) g/dL Albumin 5.1 (3.5-5.1) g/dL Lipase 110 (23-300) U/L <Geoff Montoya MD - Last Filed: 12/01/24 20:03> Critical Care Time Critical Care Time Critical Care Time: Yes <Michelle Morton PA-C - Last Filed: 12/01/24 19:13> Total Critical Care Time: 35 <Michelle Morton PA-C - Last Filed: 12/01/24 19:13> Discharge Plan Discharge Clinical Impression: EDILBERTO (acute kidney injury) Nausea and vomiting Qualifiers: Vomiting type: unspecified Qualified Code(s): R11.2 - Nausea with vomiting, unspecified <Michelle Morton PA-C - Last Filed: 12/01/24 19:13> Patient Disposition: Still a Patient <Michelle Morton PA-C - Last Filed: 12/01/24 19:13> Condition: Stable <Michelle Morton PA-C - Last Filed: 12/01/24 19:13> Time of Disposition: 13:15 <Michelle Morton PA-C - Last Filed: 12/01/24 19:13> 13:15 <Geoff Montoya MD - Last Filed: 12/01/24 20:03>
[2024-12-01] MEDS: LACTATED RINGERS 1,000 ML 999 ML IV CONT (12:28)
[2024-12-01] MEDS: ONDANSETRON INJ 4 MG/2 ML VIAL IV PUSH (12:29)
[2024-12-01] MEDS: FAMOTIDINE 20 MG/2 ML VIAL IV PUSH (12:30)
--- NOTE | 2024-12-01 12:40 | PC.NURSE ---
patient has urinal at bedside with rail down and encouraged to provide UA specimen. patient verbalized understanding.
[2024-12-01 12:47] LABS: Hematocrit 53.0 % (42.0-52.0); Hemoglobin 18.3 g/dL (14.0-18.0); Immature Granulocyte Percent A 0.6 % (0-0.5); Lymphocytes Absolute Auto 2.40 K/mm3 (0.9-3.2); Mean Corpuscular HGB Conc 34.5 g/dl (32-36); Mean Corpuscular Hemoglobin 31.6 pg (26-34); Mean Corpuscular Volume 91.4 fl (80-100); Nucleated Red Blood Cells Absolute Auto 0.000 K/mm3 (0.0-0.012); Nucleated Red Blood Cells Perc 0.0 % (0.0-0.2); Platelet Count Result 265 k/mm3 (150-375); Red Blood Count 5.80 M/mm3 (4.6-6.20); White Blood Count 17.8 K/mm3 (4.5-10.0)
[2024-12-01 12:57] LABS: Alanine Aminotransferase 23 U/L (6-50); Albumin Level 5.1 g/dL (3.5-5.1); Alkaline Phosphatase 94 U/L (38-126); Anion Gap 15 mmol/L (4-12); Aspartate Amino Transferase 25 U/L (17-59); Bilirubin,Total 0.4 mg/dL (0.2-1.3); Blood Urea Nitrogen 31 mg/dL (9-20); Calcium 10.5 mg/dL (8.4-10.2); Carbon Dioxide 32 mmol/L (22-30); Chloride 89 mmol/L (98-107); Estimated CRCL calculation 25 ml/min; Estimated Glomerular Filt Rate 27; Glucose 152 mg/dL (65-110); Lipase 110 U/L (23-300); Potassium 4.7 mmol/L (3.4-5.0); Sodium 136 mmol/L (137-145); Total Protein 9.3 g/dL (6.3-8.2)
--- NOTE | 2024-12-01 13:18 | ED.NAVMDI ---
HPI - Nausea/Vomiting/Diarrhea General Chief complaint: Nausea/Vomiting/Diarrhea Stated complaint: nausea vomiting Time Seen by Provider: 12/01/24 11:35 Related Data Allergies Allergy/AdvReac Type Severity Reaction Status Date / Time No Known Allergies Allergy Verified 12/01/24 09:37 [facility] Past Medical History Medical History Bipolar disorder Polycythemia due to fall in plasma volume Cannabinoid hyperemesis syndrome Hypertension Surgical History Surgical History Hx of cholecystectomy Status post cataract extraction of both eyes with insertion of intraocular lens Family History Family History Other Unknown family medical history Social History Social History Social History: Patient is on disability due to his psychiatric illness. He has smoked half a pack of cigarettes per day since he was a teenager. He denies any history of alcohol use. He uses marijuana daily. Code status: Full code Surrogate decision maker: Renee (Mother) Smoking packs per day: 0.5 Smoking cigarettes per day: 10.0 Years smoked: 30 Smoking pack-years: 15.00 Smoking status: Current every day smoker Tobacco type: cigarettes Alcohol intake: unknown Drinks per week: 1 Substance use: current Substance use type: marijuana Last use: 07/18/24 Do You Feel Safe in your Home?: Yes Lack of Transportation: No Lack of Food: Never True Current Housing: I Have Housing Concerned About Future Housing: No Difficulty Paying Gas/Electric Bills: No Difficulty Paying for Meds: No Currently Unemployed: No Education: High School Diploma/GED Difficulty w/ Childcare or Family Care: No Living arrangements: with family Additional living arrangements comments: Mother Spiritual care concerns: No Course Course Emergency Course: 13:15 - CBC demonstrates elevated white blood cell count of 17 with hemoglobin of 18 and platelet count of 265, this is consistent with the patient with history of polycythemia dehydration. Creatinine increased to 2.56 from 0.69. Sodium 136, P 131, calcium 10.5. Lipase within normal limits at 01:10. AST/ALT unremarkable with a normal total bilirubin. I discussed the patient with hospitalist, ARCADIO Yates who accepts admission. Vital Signs Vital signs: Vital Signs Temperature 98.3 F 12/01/24 09:34 Pulse Rate 112 H 12/01/24 09:34 Respiratory Rate 18 12/01/24 09:34 Blood Pressure 135/93 H 12/01/24 09:34 Pulse Oximetry 98 12/01/24 09:34 Oxygen Delivery Room Air 12/01/24 09:34 Temperature 98.3 F 12/01/24 09:34 Pulse Rate 112 H 12/01/24 09:34 Respiratory Rate 18 12/01/24 09:34 Blood Pressure 135/93 H 12/01/24 09:34 Pulse Oximetry 98 12/01/24 09:34 Oxygen Delivery Room Air 12/01/24 09:34 MDM - Nausea/Vomiting/Diarrhea MDM Narrative Medical decision making narrative: Plan: Labs IV fluids, antiemetics, reassess Differential Diagnosis Differential diagnosis: Likely gastroenteritis, drug-induced nausea and vomiting, dehydration and other (Cannabis hyperemesis syndrome, metabolic abnormality, other) Lab Data 12/01/24 12:37 12/01/24 12:37 Labs: Lab Results 12/01/24 Range/Units 12:37 WBC 17.8 H (4.5-10.0) K/mm3 RBC 5.80 (4.6-6.20) M/mm3 Hgb 18.3 H D (14.0-18.0) g/dL Hct 53.0 H (42.0-52.0) % MCV 91.4 (80-100) fl MCH 31.6 (26-34) pg MCHC 34.5 (32-36) g/dl RDW 12.8 (11.5-14.5) % Plt Count 265 D (150-375) k/mm3 MPV 10.7 H (7.4-10.4) fl Immature Gran % (Auto) 0.6 H (0-0.5) % Neut % (Auto) 75.1 H (45.5-73.1) % Lymph % (Auto) 13.5 L (18.3-44.2) % [place] % (Auto) 10.4 H (2.6-8.5) % Eos % (Auto) 0.0 (0-4.4) % Baso % (Auto) 0.4 (0.2-1.2) % Lymph # (Auto) 2.40 (0.9-3.2) K/mm3 [place] # (Auto) 1.9 H (0.1-0.6) K/mm3 Eos # (Auto) 0.0 (0-0.3) K/mm3 Baso # (Auto) 0.1 (0.0-0.1) K/mm3 Abs Immat Gran (auto) 0.11 H (0.00-0.031) K/mm3 Absolute Neuts (auto) 13.4 H (1.3-6.7) K/mm3 Absolute Nucleated RBC 0.000 (0.0-0.012) K/mm3 Nucleated RBC % 0.0 (0.0-0.2) % Sodium 136 L (137-145) mmol/L Potassium 4.7 (3.4-5.0) mmol/L Chloride 89 L (98-107) mmol/L Carbon Dioxide 32 H (22-30) mmol/L Anion Gap 15 H (4-12) mmol/L BUN 31 H D (9-20) mg/dL Creatinine 2.56 H (0.7-1.3) mg/dL Estim Creat Clear Calc 25 ml/min Estimated GFR 27 L (59 - ) Glucose 152 H (65-110) mg/dL Calcium 10.5 H (8.4-10.2) mg/dL Total Bilirubin 0.4 (0.2-1.3) mg/dL AST 25 (17-59) U/L ALT 23 (6-50) U/L Alkaline Phosphatase 94 (38-126) U/L Total Protein 9.3 H (6.3-8.2) g/dL Albumin 5.1 (3.5-5.1) g/dL Lipase 110 (23-300) U/L Discharge Plan Discharge Clinical Impression: EDILBERTO (acute kidney injury) Nausea and vomiting Qualifiers: Vomiting type: unspecified Qualified Code(s): R11.2 - Nausea with vomiting, unspecified Patient Disposition: Still a Patient Condition: Stable Patient Language: Wolof Prescriptions: No Action atorvastatin 20 mg tablet 20 mg PO DAILY 30 Days Qty: 0 0RF benztropine 0.5 mg tablet 0.5 mg PO HS 30 Days Qty: 0 0RF olanzapine 5 mg tablet 5 mg PO 0900 30 Days Qty: 0 0RF olanzapine 10 mg tablet 10 mg PO HS 30 Days Qty: 0 0RF divalproex 500 mg tablet,delayed release (DR/EC) 500 mg PO BID 30 Days Qty: 0 0RF aspirin 81 mg tablet,delayed release (DR/EC) 81 mg PO DAILY@0800 30 Days Qty: 0 0RF carvedilol 3.125 mg tablet 3.125 mg PO Q12H 30 Days Qty: 0 0RF hydroxyzine pamoate 25 mg capsule 25 mg PO HS PRN (Reason: anxiety) 30 Days Qty: 0 0RF Follow-up/Referrals: Zbigniew,MD Carmine [Primary Care Provider] Time of Disposition: 13:15
--- OUTSIDE RECORDS SUMMARY | 2024-12-01 14:15 | XMS_ITS | Clinical Summary ---
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
--- NOTE | 2024-12-01 14:18 | P.HP_ITS ---
H&P: HPI History of Present Illness Date/Time: 12/01/24 14:18 Chief Complaint: Abdominal pain nausea and vomiting. Narrative: 49-year-old male past medical history of bipolar, polycythemia and hypertension presents the hospital with nausea vomiting abdominal pain. Note he was recently in the hospital for the same thing. He also admits to smoking cannabis yesterday. CT of the chest asymmetry the patient is at this now on HD again clear liquid diet. He is educated on cyclical vomiting and from cannabis. Patient denies fevers chills shortness of breath. Hyper shows leukocytosis at 17.8, hemoglobin of 18.3, sodium of 136 chloride of 89, carbon dioxide 32, anion gap of 15 BUN of 31, creatinine of 2.56 with baseline being around is 0.73, GFR 27, glucose 152, calcium 10.5. Urine drug screen positive for cannabinoids Review of Systems Review of Systems: 12 systems were reviewed and are negativ e except for as per HPI. [facility] Past Medical History Medical History Bipolar disorder Polycythemia due to fall in plasma volume Cannabinoid hyperemesis syndrome Hypertension Surgical History Surgical History Hx of cholecystectomy Status post cataract extraction of both eyes with insertion of intraocular lens Family History Family History Other Unknown family medical history Social History Social History Social History: Patient is on disability due to his psychiatric illness. He has smoked half a pack of cigarettes per day since he was a teenager. He denies any history of alcohol use. He uses marijuana daily. Code status: Full code Surrogate decision maker: Renee (Mother) Smoking packs per day: 0.5 Smoking cigarettes per day: 10.0 Years smoked: 30 Smoking pack-years: 15.00 Smoking status: Current every day smoker Tobacco type: cigarettes Alcohol intake: current Drinks per week: 1 Substance use: current Substance use type: marijuana Last use: 07/18/24 Do You Feel Safe in your Home?: Yes Lack of Transportation: No Lack of Food: Never True Current Housing: I Have Housing Concerned About Future Housing: No Difficulty Paying Gas/Electric Bills: No Difficulty Paying for Meds: No Currently Unemployed: No Education: High School Diploma/GED Difficulty w/ Childcare or Family Care: No Living arrangements: with family Additional living arrangements comments: Mother Spiritual care concerns: No Meds Home Medications and Allergies Home Medications ?Medication ?Instructions ?Recorded ?Confirmed ?Type aspirin 81 mg tablet,delayed 81 mg PO DAILY@0800 30 da ys #0 tabs 11/28/24 12/01/24 Rx release atorvastatin 20 mg tablet 20 mg PO DAILY 30 days #0 ta bs 11/28/24 12/01/24 Rx benztropine 0.5 mg tablet 0.5 mg PO HS 30 days #0 tabs 11/28/24 12/01/24 Rx carvedilol 3.125 mg tablet 3.125 mg PO Q12H 30 days #0 tabs 11/28/24 12/01/24 Rx divalproex 500 mg tablet,delayed 500 mg PO BID 30 days #0 tabs 11/28/24 12/01/24 Rx release hydroxyzine pamoate 25 mg capsule 25 mg PO HS PRN anxi ety 30 days #0 11/28/24 12/01/24 Rx caps olanzapine 10 mg tablet 10 mg PO HS 30 days #0 tabs 11/28/24 12/01/24 Rx olanzapine 5 mg tablet 5 mg PO 0900 30 days #0 tabs 11/28/24 12/01/24 Rx losartan 25 mg tablet 25 mg PO DAILY 12/01/2411/16 History pantoprazole 40 mg tablet,delayed 40 mg PO BID 5 12/01/24 History release Allergies Allergy/AdvReac Type Severity Reaction Status Date / Time No Known Allergies Allergy Verified 12/01/24 15:17 Vital Signs Vital Signs - 24 hr 12/01/24 09:34 Temperature 98.3 F Pulse Rate 112 H Respiratory Rate 18 Blood Pressure 135/93 H Pulse Oximetry 98 Oxygen Delivery Room Air Exam Narrative: General: Appears older than stated age, no acute distress, malnourished HEENT: normocephalic, atraumatic. Mucous membranes moist. EOMI, PERRLA, bilateral sclera anicteric, no conjunctival injection. Neck supple without JVD, lymphadenopathy, or bruit. No teeth Respiratory: clear to ascultation bilaterally. No rales/rhonic/wheezes. Cardiovascular: Regular rate and rhythm, normal S1-S2 upon ascultation. No murmurs, rubs, or clicks. PMI is nondisplaced, capillary refill less than 3 second. Abdomen: Soft, round, no pulsatile masses, nondistended and nontender. No rebound, no guarding.. Bowel sounds present to all four quadrants. No high pitch or tinkling sounds, resonant to percussion. Extremities: No cyanosis, clubbing, or edema present. Pulses are palpable 2/2. Active ROM to all four extremities. Neuro: Alert and orientated x 4. PERRLA. Cranial nerves 2-12 intact without focal deficit. Skin: Warm, dry, and intact, without rash, erythema, or lesion. Psych: pleasant, cooperative, normal speech, normal affect, no hallucinations, no dysarthia H&P: Results Labs Labs: Short CBC 12/01/24 Range/Units 12:37 WBC 17.8 H (4.5-10.0) K/mm3 Hgb 18.3 H D (14.0-18.0) g/dL Hct 53.0 H (42.0-52.0) % Plt Count 265 D (150-375) k/mm3 BMP 12/01/24 12:37 Sodium 136 L Potassium 4.7 Chloride 89 L Carbon Dioxide 32 H BUN 31 H D Creatinine 2.56 H Glucose 152 H Calcium 10.5 H Liver Function 12/01/24 Range/Units 12:37 Total Bilirubin 0.4 (0.2-1.3) mg/dL AST 25 (17-59) U/L ALT 23 (6-50) U/L Alkaline Phosphatase 94 (38-126) U/L Albumin 5.1 (3.5-5.1) g/dL Assessment and Plan Assessment and plan (1) Acute kidney injury: Code(s): N17.9 - Acute kidney failure, unspecified Status: Acute Assessment and Plan: Aggressive fluid hydration BMP in the morning (2) Dehydration: Code(s): E86.0 - Dehydration Status: Acute Assessment and Plan: Due to cyclical vomiting Aggressive fluid hydration (3) Polycythemia: Code(s): D75.1 - Secondary polycythemia Status: Acute Assessment and Plan: Due to dehydration See plan above (4) Leukocytosis: Code(s): D72.829 - Elevated white blood cell count, unspecified Status: Acute Assessment and Plan: UA with trace leukocyte esterase, negative for bacteria, negative for nitrates Chest x-ray pending (5) Cannabinoid hyperemesis syndrome: Code(s): R11.2 - Nausea with vomiting, unspecified; F12.90 - Cannabis use, unspecified, uncomplicated Status: Acute Assessment and Plan: Zofran and Compazine Clear liquid diet for dinner Urine drug screen positive for cannabinoids Educated on cessation (6) Hypertension: Code(s): I10 - Essential (primary) hypertension Status: Chronic Assessment and Plan: Continue Coreg (7) Bipolar disorder: Code(s): F31.9 - Bipolar disorder, unspecified Status: Acute Assessment and Plan: Continue Zyprexa, Atarax, Depakote and benztropine Quality VTE Prophylaxis VTE prophylaxis: mechanical ordered Hospitalist MIPS Advance Care Plan I have confirmed that the patient's Advanced Care Plan is present, code status is documented, or surrogate decision maker is listed in patient medical record.: Yes Medication Reconciliation I have utilized all available resources to obtain, update and review the patients current medications (includes all prescriptions, OTC, herbals, cannabis, and nutritional supplements).: Yes
[2024-12-01 15:00] VITALS: BMI 17.5
--- NOTE | 2024-12-01 15:00 | ADMGEN ---
This patient, Gianni Hsu, was admitted to Medical Room 242-. Patient/family oriented to hospital policies and general routines including ID bracelet, bed and alarms, visiting hours, pain management, procedures, bathroom and other care routines, personal items, smoking policy, room service/diet, and visiting hours. Information on how to activate the Rapid Response Team has been discussed. Patient/Family are encouraged to report perceived risks to care and to ask questions if they do not understand what they are told or what they should do.
[2024-12-01] MEDS: SODIUM CHLORIDE 0.9% IV 1,000 ML 999 ML IV CONT (15:26)
[2024-12-01] MEDS: SODIUM CHLORIDE 0.9% IV 1,000 ML 125 ML IV CONT (15:27)
[2024-12-01 16:21] LABS: Add Urine Microscopic? YES; Appearance Urine Cloudy (Clear); Glucose Urine UA Negative (Negative); Leukocyte Esterase Ur Trace LEU/UL (Negative); Need Manual Microscopic Reviewed; Nitrate Urine Negative (Negative); Specific Grav Ur 1.024 (1.001-1.035)
[2024-12-01 16:48] VITALS: PULSE 86; RESP 18; O2SAT 99
[2024-12-01 17:03] LABS: Cannabinoid Screen Urine Positive (Negative)
[2024-12-01 20:51] VITALS: PULSE 74
[2024-12-01] MEDS: BENZTROPINE MESYLATE 0.5 MG TABLET PO (20:51)
[2024-12-01] MEDS: DIVALPROEX SODIUM DR 250 MG TABEC 500 MG PO (20:51)
[2024-12-01] MEDS: PANTOPRAZOLE 40 MG TABLET PO (20:52)
[2024-12-01 20:54] VITALS: BP 120/68; PULSE 74; RESP 18; TEMP 37; O2SAT 96
[2024-12-02] MEDS: SODIUM CHLORIDE 0.9% IV 1,000 ML 125 ML IV CONT ×3 (01:18→17:46)
[2024-12-02 05:29] LABS: Hematocrit 39.7 % (42.0-52.0); Hemoglobin 13.4 g/dL (14.0-18.0); Immature Granulocyte Percent A 0.5 % (0-0.5); Lymphocytes Absolute Auto 3.81 K/mm3 (0.9-3.2); Mean Corpuscular HGB Conc 33.8 g/dl (32-36); Mean Corpuscular Hemoglobin 31.4 pg (26-34); Mean Corpuscular Volume 93.0 fl (80-100); Nucleated Red Blood Cells Absolute Auto 0.000 K/mm3 (0.0-0.012); Nucleated Red Blood Cells Perc 0.0 % (0.0-0.2); Platelet Count Result 195 k/mm3 (150-375); Red Blood Count 4.27 M/mm3 (4.6-6.20); White Blood Count 12.1 K/mm3 (4.5-10.0)
[2024-12-02 05:43] LABS: Anion Gap 4 mmol/L (4-12); Blood Urea Nitrogen 26 mg/dL (9-20); Calcium 8.4 mg/dL (8.4-10.2); Carbon Dioxide 32 mmol/L (22-30); Chloride 96 mmol/L (98-107); Estimated CRCL calculation 51 ml/min; Estimated Glomerular Filt Rate > 60; Glucose 113 mg/dL (65-110); Potassium 4.0 mmol/L (3.4-5.0); Sodium 132 mmol/L (137-145)
[2024-12-02 06:00] VITALS: BP 126/64; PULSE 65; RESP 16; TEMP 36.9; O2SAT 100
[2024-12-02 09:24] VITALS: BP 96/54; PULSE 65; O2SAT 98
[2024-12-02 09:33] VITALS: PULSE 68
[2024-12-02] MEDS: DIVALPROEX SODIUM DR 250 MG TABEC 500 MG PO ×2 (09:33→20:00)
[2024-12-02] MEDS: PANTOPRAZOLE 40 MG TABLET PO ×2 (09:33→20:00)
[2024-12-02] MEDS: ATORVASTATIN 20 MG TABLET PO (09:33)
[2024-12-02] MEDS: ASPIRIN 81 MG ENTERIC TABLET PO (09:37)
[2024-12-02 10:34] VITALS: BMI 17.5
[2024-12-02 13:24] VITALS: BP 95/50; PULSE 55; RESP 18; TEMP 36.6; O2SAT 100
--- NOTE | 2024-12-02 14:28 | PM.IMHP ---
H&P: HPI History of Present Illness Date/Time: 12/02/24 14:28 [facility] Past Medical History Medical History Bipolar disorder Polycythemia due to fall in plasma volume Cannabinoid hyperemesis syndrome Hypertension Surgical History Surgical History Hx of cholecystectomy Status post cataract extraction of both eyes with insertion of intraocular lens Family History Family History Other Unknown family medical history Social History Social History Social History: Patient is on disability due to his psychiatric illness. He has smoked half a pack of cigarettes per day since he was a teenager. He denies any history of alcohol use. He uses marijuana daily. Code status: Full code Surrogate decision maker: Renee (Mother) Smoking packs per day: 0.5 Smoking cigarettes per day: 10.0 Years smoked: 30 Smoking pack-years: 15.00 Smoking status: Current every day smoker Tobacco type: cigarettes Alcohol intake: current Drinks per week: 1 Substance use: current Substance use type: marijuana Last use: 07/18/24 Do You Feel Safe in your Home?: Yes Lack of Transportation: No Lack of Food: Never True Current Housing: I Have Housing Concerned About Future Housing: No Difficulty Paying Gas/Electric Bills: No Difficulty Paying for Meds: No Currently Unemployed: No Education: High School Diploma/GED Difficulty w/ Childcare or Family Care: No Living arrangements: with family Additional living arrangements comments: Mother Spiritual care concerns: No Meds Home Medications and Allergies Home Medications ?Medication ?Instructions ?Recorded ?Confirmed ?Type aspirin 81 mg tablet,delayed 81 mg PO DAILY@0800 30 days #0 tabs 11/28/24 12/01/24 Rx release atorvastatin 20 mg tablet 20 mg PO DAILY 30 days #0 tabs 11/28/24 12/01/24 Rx benztropine 0.5 mg tablet 0.5 mg PO HS 30 days #0 tabs 11/28/24 12/01/24 Rx carvedilol 3.125 mg tablet 3.125 mg PO Q12H 30 days #0 tabs 11/28/24 12/01/24 Rx divalproex 500 mg tablet,delayed 500 mg PO BID 30 days #0 tabs 11/28/24 12/01/24 Rx release hydroxyzine pamoate 25 mg capsule 25 mg PO HS PRN anxiety 30 days #0 11/28/24 12/01/24 Rx caps olanzapine 10 mg tablet 10 mg PO HS 30 days #0 tabs 11/28/24 12/01/24 Rx olanzapine 5 mg tablet 5 mg PO 0900 30 days #0 tabs 11/28/24 12/01/24 Rx losartan 25 mg tablet 25 mg PO DAILY 12/01/24 12/01/24 History pantoprazole 40 mg tablet,delayed 40 mg PO BID 12/01/24 12/01/24 History release Allergies Allergy/AdvReac Type Severity Reaction Status Date / Time No Known Allergies Allergy Verified 12/01/24 15:17 Vital Signs Vital Signs - 24 hr 12/01/24 16:48 12/01/24 20:00 12/01/24 20:51 Temperature Pulse Rate 86 74 Respiratory Rate 18 Blood Pressure Pulse Oximetry 99 Oxygen Delivery Room Air Room Air 12/01/24 20:54 12/02/24 06:00 12/02/24 09:20 Temperature 98.6 F 98.5 F Pulse Rate 74 65 Respiratory Rate 18 16 Blood Pressure 120/68 126/64 Pulse Oximetry 96 100 Oxygen Delivery Room Air 12/02/24 09:24 12/02/24 09:33 12/02/24 13:24 Temperature 97.8 F Pulse Rate 65 68 55 L Respiratory Rate 18 Blood Pressure 96/54 L 95/50 L Pulse Oximetry 98 100 Oxygen Delivery H&P: Results Labs Labs: Short CBC 12/02/24 Range/Units 05:00 WBC 12.1 H (4.5-10.0) K/mm3 Hgb 13.4 L D (14.0-18.0) g/dL Hct 39.7 L (42.0-52.0) % Plt Count 195 (150-375) k/mm3 BMP 12/02/24 05:00 Sodium 132 L Potassium 4.0 Chloride 96 L Carbon Dioxide 32 H BUN 26 H Creatinine 1.20 Glucose 113 H Calcium 8.4 Urine 12/01/24 Range/Units 15:44 Urine Color Dark yellow (Yellow) Urine Appearance Cloudy H (Clear) Urine pH 5.0 (5.0-9.0) Ur Specific [place] 1.024 (1.001-1.035) Urine Protein 2+ H (Negative) mg/dL Urine Glucose (UA) Negative (Negative) mg/dL
--- NOTE | 2024-12-02 19:29 | P.PNIM_ITS ---
Progress Note: A&P Assessment and Plan (1) Acute kidney injury: Code(s): N17.9 - Acute kidney failure, unspecified Status: Acute Assessment and Plan: Aggressive fluid hydration BUN 26, cr 1.2 today improving BMP in the morning (2) Dehydration: Code(s): E86.0 - Dehydration Status: Acute Assessment and Plan: Due to cyclical vomiting Aggressive fluid hydration (3) Polycythemia: Code(s): D75.1 - Secondary polycythemia Status: Acute Assessment and Plan: Due to dehydration See plan above improved (4) Leukocytosis: Code(s): D72.829 - Elevated white blood cell count, unspecified Status: Acute Assessment and Plan: UA with trace leukocyte esterase, negative for bacteria, negative for nitrates Chest x-ray negative for acute findings appears to be reactive improved to 12.1 today AM labs (5) Cannabinoid hyperemesis syndrome: Code(s): R11.2 - Nausea with vomiting, unspecified; F12.90 - Cannabis use, unspecified, uncomplicated Status: Acute Assessment and Plan: Fabiola and Arsenio Urine drug screen positive for cannabinoids Educated on cessation IV fluids patient tolerating regular diet nausea and vomiting denied by patient (6) Hypertension: Code(s): I10 - Essential (primary) hypertension Status: Chronic Assessment and Plan: Continue Coreg Continue losartan (7) Bipolar disorder: Code(s): F31.9 - Bipolar disorder, unspecified Status: Acute Assessment and Plan: Continue Zyprexa, Atarax, Depakote and benztropine Subjective Date/time seen: 12/02/24 19:29 Interval history: Patient seen for a follow up visit. Patient lying in bed, in no acute distress. Patient denies acute pain. Patient denies nausea and vomiting. Patient is tolerating diet. Patient's kidney function improving, continue IV fluids. Patient again educated on cyclic vomiting and to refrain from cannabis use, patient not interested in quitting. Plan for discharge home tomorrow if kidney function at baseline. Review of Systems Review of Systems: 12 systems were reviewed and are negativ e except for as per HPI. Exam Narrative: General: Appears older than stated age, no acute distress, malnourished HEENT: normocephalic, atraumatic. Mucous membranes moist. EOMI, PERRLA, bilateral sclera anicteric, no conjunctival injection. Neck supple without JVD, lymphadenopathy, or bruit. No teeth Respiratory: clear to ascultation bilaterally. No rales/rhonic/wheezes. Cardiovascular: Regular rate and rhythm, normal S1-S2 upon ascultation. No murmurs, rubs, or clicks Abdomen: Soft, round, no pulsatile masses, nondistended and nontender. No rebound, no guarding.. Bowel sounds present to all four quadrants. No high pitch or tinkling sounds Extremities: No cyanosis, clubbing, or edema present. Active ROM to all four extremities. Neuro: Alert and orientated x 4. PERRLA. Cranial nerves 2-12 intact without focal deficit. Skin: Warm, dry, and intact, without rash, erythema, or lesion. Psych: pleasant, cooperative, normal speech, normal affect, no hallucinations, no dysarthia Objective Data Vital Signs Vital Signs: Vital Signs - 24 hr 12/01/24 20:00 12/01/24 20:51 12/01/24 20:54 Temperature 98.6 F Pulse Rate 74 74 Respiratory Rate 18 Blood Pressure 120/68 Pulse Oximetry 96 Oxygen Delivery Room Air 12/02/24 06:00 12/02/24 09:20 12/02/24 09:24 Temperature 98.5 F Pulse Rate 65 65 Respiratory Rate 16 Blood Pressure 126/64 96/54 L Pulse Oximetry 100 98 Oxygen Delivery Room Air 12/02/24 09:33 12/02/24 13:24 Temperature 97.8 F Pulse Rate 68 55 L Respiratory Rate 18 Blood Pressure 95/50 L Pulse Oximetry 100 Oxygen Delivery Intake/Output Intake/Output: Intake & Output 11/29/24 11/30/24 12/01/24 12/02/24 23:59 23:59 23:59 23:59 Intake Total 2119 3360 Balance 2119 3360 Meds/Results Medications: Active Medications Generic Name Dose Route Start Last Admin Trade Name Freq PRN Reason Stop Dose Admin Acetaminophen 650 mg 12/01/24 14:21 Acetaminophen 325 Mg Tablet PO Q4H PRN Mild Pain (1-3) or Fever Aspirin 81 mg 12/02/24 08:00 12/02/24 09:37 Aspirin 81 Mg Enteric Tablet PO 81 mg DAILY@0800 MELANI Administration Atorvastatin Calcium 20 mg 12/02/24 09:00 12/02/24 09:33 Atorvastatin 20 Mg Tablet PO 20 mg DAILY MELANI Administration Benztropine Mesylate 0.5 mg 12/01/24 21:00 12/01/24 20:51 Benztropine Mesylate 0.5 Mg Tablet PO 0.5 mg HS MELANI Administration Carvedilol 3.125 mg 12/01/24 21:00 12/02/24 09:33 Carvedilol 3.125 Mg Tablet PO 3.125 mg Q12HR MELANI Administration Divalproex Sodium 500 mg 12/01/24 21:00 12/02/24 09:[address] 250 Mg Tabec PO 500 mg Q12HR MELANI Administration Docusate Sodium 100 mg 12/01/24 14:21 Docusate Sodium 100 Mg Capsule PO BID PRN Constipation Hydroxyzine Pamoate 25 mg 12/01/24 17:06 Hydroxyzine Pamoate 25 Mg Capsule PO HS PRN Anxiety Sodium Chloride 1,000 mls @ 125 mls/hr 12/01/24 14:25 12/02/24 17:46 Normal Saline Iv IV CONT 125 mls/hr .Q8H MELANI Administration Losartan Potassium 25 mg 12/02/24 09:00 12/02/24 09:33 Losartan Potassium 25 Mg Tablet PO Not Given DAILY MELANI Olanzapine 5 mg 12/02/24 09:00 12/02/24 09:33 Olanzapine 5 Mg Tablet PO 5 mg DAILY MELANI Administration Olanzapine 10 mg 12/01/24 21:00 12/01/24 20:52 Olanzapine 5 Mg Tablet PO 10 mg HS MELANI Administration Pantoprazole Sodium 40 mg 12/01/24 21:00 12/02/24 09:33 Pantoprazole 40 Mg Tablet PO 40 mg Q12HR MELANI Administration Prochlorperazine Edisylate 10 mg 12/01/24 14:21 Prochlorperazine Edisylate 10 Mg/2 Ml Vial IM Q6H PRN Nausea And Vomiting Radiology Results: ITS Impressions Chest X-Ray 12/02/24 05:34 IMPRESSION: 1. No acute cardiopulmonary findings given portable technique. Labs Labs: Laboratory Results - last 24 hr 12/02/24 05:00 WBC 12.1 H RBC 4.27 L Hgb 13.4 L D Hct 39.7 L MCV 93.0 MCH 31.4 MCHC 33.8 RDW 12.9 Plt Count 195 MPV 10.7 H Immature Gran % (Auto) 0.5 Neut % (Auto) 55.1 Lymph % (Auto) 31.6 [place] % (Auto) 12.1 H Eos % (Auto) 0.2 Baso % (Auto) 0.5 Lymph # (Auto) 3.81 H [place] # (Auto) 1.5 H Eos # (Auto) 0.0 Baso # (Auto) 0.1 Abs Immat Gran (auto) 0.06 H Absolute Neuts (auto) 6.7 Absolute Nucleated RBC 0.000 Nucleated RBC % 0.0 Sodium 132 L Potassium 4.0 Chloride 96 L Carbon Dioxide 32 H Anion Gap 4 BUN 26 H Creatinine 1.20 Estim Creat Clear Calc 51 Estimated GFR > 60 Glucose 113 H Calcium 8.4 Quality VTE Prophylaxis VTE prophylaxis: mechanical ordered
[2024-12-02 19:52] VITALS: BP 95/54; PULSE 58; RESP 16; TEMP 36.3; O2SAT 96
[2024-12-02 20:00] VITALS: PULSE 56
[2024-12-02] MEDS: BENZTROPINE MESYLATE 0.5 MG TABLET PO (20:00)
[2024-12-03] MEDS: SODIUM CHLORIDE 0.9% IV 1,000 ML 125 ML IV CONT (03:24)
[2024-12-03 04:50] LABS: Hematocrit 35.8 % (42.0-52.0); Hemoglobin 12.1 g/dL (14.0-18.0); Immature Granulocyte Percent A 0.3 % (0-0.5); Lymphocytes Absolute Auto 5.81 K/mm3 (0.9-3.2); Mean Corpuscular HGB Conc 33.8 g/dl (32-36); Mean Corpuscular Hemoglobin 31.8 pg (26-34); Mean Corpuscular Volume 94.0 fl (80-100); Nucleated Red Blood Cells Absolute Auto 0.000 K/mm3 (0.0-0.012); Nucleated Red Blood Cells Perc 0.0 % (0.0-0.2); Platelet Count Result 176 k/mm3 (150-375); Red Blood Count 3.81 M/mm3 (4.6-6.20); White Blood Count 10.1 K/mm3 (4.5-10.0)
[2024-12-03 05:03] VITALS: BP 103/62; PULSE 71; RESP 16; TEMP 36.3; O2SAT 95
[2024-12-03 05:16] LABS: Alanine Aminotransferase 10 U/L (6-50); Albumin Level 2.5 g/dL (3.5-5.1); Alkaline Phosphatase 63 U/L (38-126); Anion Gap 3 mmol/L (4-12); Aspartate Amino Transferase 13 U/L (17-59); Bilirubin,Total 0.1 mg/dL (0.2-1.3); Blood Urea Nitrogen 22 mg/dL (9-20); Calcium 7.9 mg/dL (8.4-10.2); Carbon Dioxide 25 mmol/L (22-30); Chloride 106 mmol/L (98-107); Estimated CRCL calculation 77 ml/min; Estimated Glomerular Filt Rate > 60; Glucose 92 mg/dL (65-110); Potassium 3.9 mmol/L (3.4-5.0); Sodium 134 mmol/L (137-145); Total Protein 4.8 g/dL (6.3-8.2)
[2024-12-03 08:55] VITALS: PULSE 71
[2024-12-03] MEDS: DIVALPROEX SODIUM DR 250 MG TABEC 500 MG PO (08:55)
[2024-12-03] MEDS: PANTOPRAZOLE 40 MG TABLET PO (08:55)
[2024-12-03] MEDS: ASPIRIN 81 MG ENTERIC TABLET PO (08:55)
[2024-12-03] MEDS: LOSARTAN POTASSIUM 25 MG TABLET PO (08:55)
[2024-12-03] MEDS: ATORVASTATIN 20 MG TABLET PO (08:55)
--- NOTE | 2024-12-03 10:46 | P.DS_ITS ---
DS: Admitting Diagnosis Discharge Date 12/03/2024 Admitting Diagnosis acute kidney injury DS: Discharge Diagnosis Discharge Diagnosis (1) Acute kidney injury: Code(s): N17.9 - Acute kidney failure, unspecified Status: Acute Assessment and Plan: Aggressive fluid hydration BUN 26, cr 1.2 12/02 BUN 22, cr 0.78 today Improving f/u with PCP in 1-2 weeks for repeat labs (2) Dehydration: Code(s): E86.0 - Dehydration Status: Acute Assessment and Plan: Due to cyclical vomiting Aggressive fluid hydration better, tolerating PO fluids (3) Polycythemia: Code(s): D75.1 - Secondary polycythemia Status: Acute Assessment and Plan: Due to dehydration See plan above improved (4) Leukocytosis: Code(s): D72.829 - Elevated white blood cell count, unspecified Status: Acute Assessment and Plan: UA with trace leukocyte esterase, negative for bacteria, negative for nitrates Chest x-ray negative for acute findings appears to be reactive improving, 10.1 today (5) Cannabinoid hyperemesis syndrome: Code(s): R11.2 - Nausea with vomiting, unspecified; F12.90 - Cannabis use, unspecified, uncomplicated Status: Acute Assessment and Plan: [employer] [place] Urine drug screen positive for cannabinoids Educated on cessation IV fluids patient tolerating regular diet nausea and vomiting denied by patient Patient educated on cessation of cannabinoids, does not appear interested in abstaining despite being hospitalized multiple times for cyclical vomiting (6) Hypertension: Code(s): I10 - Essential (primary) hypertension Status: Chronic Assessment and Plan: Continue Coreg Continue losartan (7) Bipolar disorder: Code(s): F31.9 - Bipolar disorder, unspecified Status: Acute Assessment and Plan: Continue Zyprexa, Atarax, Depakote and benztropine DS: Summary Hospital Course Reason for hospitalization: EDILBERTO, cyclical vomiting Hospital Course: Patient is a 49 year old male with PMH of bipolar disorder, polycythemia and HTN. Patient presented to the ER with complaints of nausea, vomiting and abdominal pain. Patient was recently discharged from the hospital 3 days prior for the same issue. Patient admits to smoking Cannibis the day prior to symptoms starting. Patient's lab work showed WBC 17.8, Hgb 18.3, Na 136, BUN 31, Cr 2.56 with baseline being around 0.73. Urine drug screen positive for cannabinoids. Patient was given IV fluids and IV antiemetics. Patient was placed on a clear liquid diet. Patient's CXR was without acute findings. Patient's labs were improving. Patient advanced to a regular diet and was tolerating PO intake without nausea or vomiting. Patient's kidney function returned close to baseline, leukocytosis resolved. Patient educated to abstain from cannabinoids, however does not appear interested in cessation. Patient discharged home and instructed to follow up with PCP in 1-2 weeks for repeat labs. Time Spent with Patient Time attestation: Total time spent providing and/or coordinating discharge services: 35 Minutes Exam Narrative: General: Appears older than stated age, no acute distress, malnourished HEENT: normocephalic, atraumatic. Mucous membranes moist. EOMI, PERRLA, bilateral sclera anicteric, no conjunctival injection. Neck supple without JVD, lymphadenopathy, or bruit. No teeth Respiratory: clear to ascultation bilaterally. No rales/rhonic/wheezes. Cardiovascular: Regular rate and rhythm, normal S1-S2 upon ascultation. No murmurs, rubs, or clicks Abdomen: Soft, round, no pulsatile masses, nondistended and nontender. No rebound, no guarding.. Bowel sounds present to all four quadrants. No high pitch or tinkling sounds Extremities: No cyanosis, clubbing, or edema present. Active ROM to all four extremities. Neuro: Alert and orientated x 4. PERRLA. Cranial nerves 2-12 intact without focal deficit. Skin: Warm, dry, and intact, without rash, erythema, or lesion. Psych: pleasant, cooperative, normal speech, normal affect, no hallucinations, no dysarthia DS: Data Data Completed and Pending Labs on day of discharge: Labs from last 24 hours 12/03/24 12/03/24 04:36 04:35 WBC 10.1 H RBC 3.81 L Hgb 12.1 L Hct 35.8 L MCV 94.0 MCH 31.8 MCHC 33.8 RDW 12.8 Plt Count 176 MPV 10.4 Immature Gran % (Auto) 0.3 Neut % (Auto) 29.6 L Lymph % (Auto) 57.4 H [place] % (Auto) 11.0 H Eos % (Auto) 1.0 Baso % (Auto) 0.7 Lymph # (Auto) 5.81 H [place] # (Auto) 1.1 H Eos # (Auto) 0.1 Baso # (Auto) 0.1 Abs Immat Gran (auto) 0.03 Absolute Neuts (auto) 3.0 Absolute Nucleated RBC 0.000 Nucleated RBC % 0.0 Sodium 134 L Potassium 3.9 Chloride 106 Carbon Dioxide 25 Anion Gap 3 L BUN 22 H Creatinine 0.78 Estim Creat Clear Calc 77 Estimated GFR > 60 Glucose 92 Calcium 7.9 L Total Bilirubin 0.1 L AST 13 L ALT 10 Alkaline Phosphatase 63 Total Protein 4.8 L Albumin 2.5 L Imaging Radiologist's impression: Ordering Physician: Trudy Cedillo APRN Date of Service: 12/01/24 Procedure(s): XR chest 1V portable Accession Number(s): [id number] cc: Zbigniew, Carmine Enriquez MD; Idalia Sahu MD; Trudy Cedillo, AMIRA~ Examination: XR chest 1V portable Clinical History: Leukocytosis Comparison: 07/19/2024 Technique: Portable AP Findings: Heart size normal. Lungs clear. Hyperinflation. No acute bony abnormality. IMPRESSION: 1. No acute cardiopulmonary findings given portable technique. Reviewed, dictated and finalized at location R. Discharge Plan Discharge Attending physician on discharge: Og Bloom Consulting providers: Trudy Cedillo; Marlene Main; Michelle Morton; Jesus Jones Discharging Clinician: Marlene Main Patient Disposition: Home Activity: as tolerated Diet: as tolerated Discharge Instructions: [place] encourage cessation of cannibas due to your history of cyclic vomiting syndrome. Patient Instructions: Antibiotic Form, Heart Failure (GEN) Patient Language: Frisian Stand Alone Forms: General Discharge Information Follow-up/Referrals: Bre,MD Carmine [Primary Care Provider] Referral Note: call for an appt to be seen within 1-2 weeks of discharge Discharge Medications: Continued losartan 25 mg tablet 25 mg PO DAILY pantoprazole 40 mg tablet,delayed release (DR/EC) 40 mg PO BID atorvastatin 20 mg tablet 20 mg PO DAILY 30 Days Qty: 0 0RF benztropine 0.5 mg tablet 0.5 mg PO HS 30 Days Qty: 0 0RF olanzapine 5 mg tablet 5 mg PO 0900 30 Days Qty: 0 0RF olanzapine 10 mg tablet 10 mg PO HS 30 Days Qty: 0 0RF divalproex 500 mg tablet,delayed release (DR/EC) 500 mg PO BID 30 Days Qty: 0 0RF aspirin 81 mg tablet,delayed release (DR/EC) 81 mg PO DAILY@0800 30 Days Qty: 0 0RF carvedilol 3.125 mg tablet 3.125 mg PO Q12H 30 Days Qty: 0 0RF hydroxyzine pamoate 25 mg capsule 25 mg PO HS PRN (Reason: anxiety) 30 Days Qty: 0 0RF Date of admission: 12/01/24 13:42 Primary Care Provider: BreCarmine Admitting Provider: Idalia Sahu Attending physician on admission: Og Bloom Condition: Stable Quality VTE Prophylaxis VTE prophylaxis: mechanical ordered
== END 2024-12-03 11:15 | disposition home or self-care (01) ==
LOC: ANHED 13:21 → ANH2MED 15:18
PROVIDERS: Nurse Practitioner Adult Health; Physician Assistant; Admitting Provider Internal Medicine; Emergency Provider Preventive Medicine Aerospace Medicine; PCP Internal Medicine; Visit Provider Internal Medicine
DX: N17.9 Acute kidney failure, unspecified (principal); E86.0 Dehydration; D75.1 Secondary polycythemia; D72.829 Elevated white blood cell count, unspecified; F12.90 Cannabis use, unspecified, uncomplicated; I10 Essential (primary) hypertension; F31.9 Bipolar disorder, unspecified; F17.210 Nicotine dependence, cigarettes, uncomplicated; Z79.82 Long term (current) use of aspirin
CPT/HCPCS: 36415; 71045; 80048; 80053; 80307; 81001; 83690; 85025; 96361; 96374; 96375; 99285; A9270; G0378; J2405; J7030; J7120